=== PATIENT | male | born 1990 | race Hispanic/Latino ===

== ENCOUNTER 2020-05-21 23:00 | Emergency (ER) | payer OTHER, SELFPAY ==
[2020-05-21 23:03] VITALS: BP 137/93; PULSE 110; RESP 16; TEMP 36.3; O2SAT 100
--- NOTE | 2020-05-22 01:13 | ED_ITS ---
HPI - Dental/Oral General Chief complaint: Dental/Oral Stated complaint: dental pain Time Seen by Provider: 05/22/20 01:11 Source: patient Mode of arrival: ambulatory Limitations: no limitations History of Present Illness HPI Narrative: Patient is 29 years old white male complaining of pain left lower tooth started few days ago. Patient does not remember when the last time he been seen by a dentist. Patient denies any fever, chills, nausea, vomiting, headache, neck pain. Related Data Allergies Allergy/AdvReac Type Severity Reaction Status Date / Time NKDA Allergy Mild Uncoded 05/28/10 02:56 Review of Systems Review of Systems: Narrative: CONSTITUTIONAL: Denies fever, chills, or sweats. EYES: Denies visual changes, redness, or discharge. ENT: Denies rhinorrhea, congestion, sore throat, or otalgia. CARDIOVASCULAR: Denies chest pain, palpitations, or edema. RESPIRATORY: Denies cough or dyspnea. GASTROINTESTINAL: Denies abdominal pain, nausea, vomiting, or diarrhea. GENITOURINARY: Denies dysuria or hematuria. SKIN: Denies rash or itching. MUSCULOSKELETAL: Denies back pain, joint pain, or myalgia. NEUROLOGIC: Denies headache, numbness, or weakness. PSYCHIATRIC: Denies anxiety or depression. Exam Narrative: Exam Narrative: General appearance: Well-developed, well-nourished Skin: Normal color Head: Normocephalic, nontraumatic Eyes: Clear conjunctiva ENT: Oropharynx normal, left lower premolar tooth is broken, surrounded by erythematous gum, no abscess formation. Neck: Supple, nontender Neurologic: Alert and oriented ?3, Course Course Emergency Course: Stable Vital Signs Vital signs: Vital Signs Temperature 36.3 C L 05/21/20 23:03 Pulse Rate 110 H 05/21/20 23:03 Respiratory Rate 16 05/21/20 23:03 Blood Pressure 137/93 H 05/21/20 23:03 Pulse Oximetry 100 05/21/20 23:03 Temperature 36.3 C L 05/21/20 23:03 Pulse Rate 110 H 05/21/20 23:03 Respiratory Rate 16 05/21/20 23:03 Blood Pressure 137/93 H 05/21/20 23:03 Pulse Oximetry 100 05/21/20 23:03 MDM - Dental/Oral MDM Narrative Medical decision making narrative: Dental infection, no abscess at this time Critical Care Time Critical Care Time Critical Care Time: No Discharge Plan Discharge Clinical Impression: Dental caries Patient Disposition: Home, Self-Care Condition: Stable Instructions: Antibiotic Form, Toothache (ED) Additional Instructions: Return if symptoms are worsening , call a dentist for appointment, take Tylenol as as needed for aches and pain, continue home medications.. Follow-up with the clinics with dental services. Prescriptions: New penicillin V potassium 500 mg tablet 500 mg PO Q6H Qty: 40 RF: 0 ibuprofen 800 mg tablet 800 mg PO TID PRN (Reason: pain) Qty: 20 RF: 0 Follow-up/Referrals: PHYSICIAN,CHLOROBUTADIENE SCRUBBER OPERATOR [Primary Care Provider] - Stand Alone Forms: Work/School Release IP
[2020-05-22] MEDS: IBUPROFEN 400 MG TABLET 800 MG PO (01:44)
[2020-05-22] MEDS: PENICILLIN V POTASSIUM 250 MG TABLET 500 MG PO (01:45)
[2020-05-22 01:55] VITALS: BP 142/83; PULSE 96; RESP 14; O2SAT 96
[2020-05-22 02:02] VITALS: TEMP 36.3
== END 2020-05-22 02:02 | disposition home or self-care (01) ==
PROVIDERS: Emergency Provider Emergency Medicine
DX: K02.9 Dental caries, unspecified (principal)
CPT/HCPCS: 99283; A9270

== ENCOUNTER 2021-01-03 14:33 | Emergency (ER) | payer OTHER, SELFPAY ==
[2021-01-03 14:56] VITALS: BP 149/94; PULSE 102; RESP 14; TEMP 36.8; O2SAT 100
[2021-01-03 17:34] LABS: Add Urine Microscopic? YES; Appearance Urine Cloudy (Clear); Bilirubin Urine Negative (Negative); Blood Urine Negative (Negative); Color Urine Yellow (Yellow); Glucose Urine UA Negative (Negative); Ketones Urine Negative (Negative); Leukocyte Esterase Ur Negative LEU/UL (Negative); Mucus Urine Rare /lpf; Nitrate Urine Negative (Negative); Protein Urine Negative (Negative); Specific Grav Ur 1.017 (1.001-1.035); WBC Urine 0-3 /hpf
[2021-01-03 17:38] LABS: Basophils Percent Auto 0.4 % (0.2-1.2); Eosinophils Absolute Auto 0.2 K/mm3 (0-0.3); Eosinophils Percent Auto 3.1 % (0-4.4); Hematocrit 42.8 % (42.0-52.0); Hemoglobin 14.7 g/dL (14.0-18.0); Immature Granulocyte Absolute 0.05 K/mm3 (0.00-0.031); Immature Granulocyte Percent A 0.7 % (0-0.5); Lymphocytes Absolute Auto 2.41 K/mm3 (0.9-3.2); Mean Corpuscular HGB Conc 34.3 g/dl (32-36); Mean Corpuscular Hemoglobin 30.8 pg (26-34); Mean Corpuscular Volume 89.5 fl (80-100); Mean Platelet Volume 10.6 fl (7.4-10.4); Monocytes Absolute Auto 0.6 K/mm3 (0.1-0.6); Monocytes Percent Auto 7.3 % (2.6-8.5); Neutrophils Absolute Auto 4.3 K/mm3 (1.3-6.7); Neutrophils Percent Auto 56.5 % (45.5-73.1); Platelet Count Result 235 k/mm3 (150-375); Red Blood Count 4.78 M/mm3 (4.6-6.20); Red Cell Distribution Width 12.7 % (11.5-14.5); White Blood Count 7.5 K/mm3 (4.5-10.0)
[2021-01-03 17:41] LABS: Amphetamine Screen Urine Negative (Negative); Barbiturate Screen Urine Negative (Negative); Benzodiazepines Screen Urine Negative (Negative); Cannabinoid Screen Urine Positive (Negative); Cocaine Screen Urine Negative (Negative); Methadone Screen Urine Negative (Negative); Opiate Screen Urine Negative (Negative); Phencyclidine Screen Urine Negative (Negative)
[2021-01-03 17:47] LABS: Ethanol < 10 mg/dL (<10)
--- NOTE | 2021-01-03 17:47 | ED.ANXIETY ---
HPI - Anxiety General Chief Complaint: Anxiety Stated Complaint: anxiety Time Seen by Provider: 01/03/21 17:06 Source: patient Mode of arrival: ambulatory Limitations: no limitations History of Present Illness HPI narrative: This is a 30 year old male that presents to the ER for worsening anxiety over the last couple of weeks. Reports history of PTSD after being in [place], and that he is currently seeing a counselor. He is not on any medications for anxiety. Does report history of psychiatric hospitalizations in the past. No previous suicide attempts. Reports when he gets angry he has outbursts which are very difficult for him to control. Reports the anniversary of his injury in [place] is coming up and this concerns him. He would like some anxiety medication to get him through this time. He denies any current thoughts of suicide or homicide. Related Data Allergies Allergy/AdvReac Type Severity Reaction Status Date / Time NKDA Allergy Mild Uncoded 05/28/10 02:56 Review of Systems Review of Systems: CONSTITUTIONAL: Denies fever PSYCHIATRIC: Reports anxiety All systems reviewed & are unremarkable except as noted in HPI and below PMFSH Past Medical History Medical History (Updated 01/03/21 @ 17:59 by Cherelle Rivera PA-C) History of posttraumatic stress disorder (PTSD) Social History Social History (Updated 01/03/21 @ 17:58 by Cherelle Rivera PA-C) Substance use: current Substance use type: marijuana Exam Narrative: GENERAL: Well-appearing, well-nourished, and in no acute distress. HEAD: Normocephalic, atraumatic. EYES: EOMI. EXTREMITIES: Normal range of motion. No edema. SKIN: Warm, dry, no rash. NEURO: No focal deficits. Alert and oriented x3. PSYCH: Normal mood and affect Course Vital Signs Vital signs: Vital Signs Temperature 98.2 F 01/03/21 14:56 Pulse Rate 102 H 01/03/21 14:56 Respiratory Rate 14 01/03/21 14:56 Blood Pressure 149/94 H 01/03/21 14:56 Pulse Oximetry 100 01/03/21 14:56 Temperature 98.2 F 01/03/21 14:56 Pulse Rate 102 H 01/03/21 14:56 Respiratory Rate 14 01/03/21 14:56 Blood Pressure 149/94 H 10/04/21 14:56 Pulse Oximetry 100 01/03/21 14:56 MDM - Anxiety MDM Narrative Medical decision making narrative: Patient presents to the emergency department for acute anxiety. Reports history of PTSD. Reports worsening symptoms of anxiety over the last couple of weeks. Reports the anniversary of his injury in [place] is coming up which concerns him. He is currently seeing a counselor, but does not have any medications as needed for anxiety. Reports he would like some medication to get through to this day. He does have an appointment to see a psychiatrist in a couple of weeks. He currently has no thoughts of harming himself or anyone else. He is here with his significant other which has been his support system. Patient is stable and felt appropriate for further outpatient evaluation. He was given warnings to return to the ER Lab Data Attestation: I reviewed the patient's lab results. Result diagrams: 01/03/21 17:23 01/03/21 17:23 Labs: Lab Results 01/03/21 01/03/21 01/03/21 Range/Units 17:14 17:14 17:23 WBC 7.5 (4.5-10.0) K/mm3 RBC 4.78 (4.6-6.20) M/mm3 Hgb 14.7 (14.0-18.0) g/dL Hct 42.8 (42.0-52.0) % MCV 89.5 (80-100) fl MCH 30.8 (26-34) pg MCHC 34.3 (32-36) g/dl RDW 12.7 (11.5-14.5) % Plt Count 235 (150-375) k/mm3 MPV 10.6 H (7.4-10.4) fl Immature Gran % (Auto) 0.7 H (0-0.5) % Neut % (Auto) 56.5 (45.5-73.1) % Lymph % (Auto) 32.0 (18.3-44.2) % [place] % (Auto) 7.3 (2.6-8.5) % Eos % (Auto) 3.1 (0-4.4) % Baso % (Auto) 0.4 (0.2-1.2) % Lymph # (Auto) 2.41 (0.9-3.2) K/mm3 [place] # (Auto) 0.6 (0.1-0.6) K/mm3 Eos # (Auto) 0.2 (0-0.3) K/mm3 Baso # (Auto) 0.0 (0.0-0.1) K/mm3 Abs Immat Gran (auto) 0.05 H (0.00-0.031) K/mm3 Absolute
[2021-01-03 17:48] LABS: Alanine Aminotransferase 26 U/L (4-50); Albumin Level 4.8 g/dL (3.5-5.1); Alkaline Phosphatase 102 U/L (38-126); Anion Gap 10 mmol/L (8-16); Aspartate Amino Transferase 27 U/L (17-59); Bilirubin,Total 0.4 mg/dL (0.2-1.3); Blood Urea Nitrogen 17 mg/dL (9-20); Calcium 9.6 mg/dL (8.4-10.2); Carbon Dioxide 23 mmol/L (22-30); Chloride 106 mmol/L (98-107); Estimated CRCL calculation 112 ml/min; Estimated Glomerular Filt Rate > 60; Glucose 102 mg/dL (65-110); Potassium 4.3 mmol/L (3.4-5.0); Sodium 139 mmol/L (137-145)
[2021-01-03] MEDS: hydrOXYzine HCL 25 MG TABLET PO (18:01)
[2021-01-03 18:13] VITALS: BP 118/75; PULSE 72; RESP 18; O2SAT 100
== END 2021-01-03 18:13 | disposition home or self-care (01) ==
PROVIDERS: Physician Assistant; Emergency Provider Family Medicine
DX: F41.9 Anxiety disorder, unspecified (principal); F43.10 Post-traumatic stress disorder, unspecified
CPT/HCPCS: 36415; 80053; 80307; 81001; 84443; 85025; 99283; A9270

== ENCOUNTER 2021-01-20 16:00 | Emergency (ER) | payer OTHER, SELFPAY ==
[2021-01-20] VITALS (10 sets, daily range): BP systolic 115–177; BP diastolic 68–105; PULSE 65–92; RESP 13–21; TEMP 36.7; O2SAT 97–100
--- NOTE | ~2021-01-20 | CT_ITS ---
IMPRESSION: 1. Nonobstructing bilateral nephrolithiasis. EXAMINATION: CT abdomen pelvis wo con DATE: 01/20/2021 18:09 INDICATION: Right flank pain TECHNIQUE: Computed tomography (CT) of the abdomen and pelvis was performed without intravenous contr ast. The dose-length product (DLP) was 820.24 mGy-cm. Automated exposure control and iterative recons truction technique were employed. COMPARISON: None FINDINGS: The lung bases are clear. The heart size is normal. There is an 8 mm cyst of the right hepa tic lobe. The spleen, pancreas, gallbladder, and left adrenal gland are normal. There is a 7 mm adeno ma of the right adrenal gland. There are multiple nonobstructing stones of the right kidney which shanel sure up to 4 mm. There is a 2 mm nonobstructing stone of the left kidney. No stones are present in th e ureters or bladder. There is no hydronephrosis or hydroureter. No pathologically enlarged abdominal or pelvic lymph nodes are identified. There is no free intraperitoneal gas or evidence of bowel obst ruction. The appendix is normal. There is a small fat-containing umbilical hernia. IMPRESSION: 1. Nonobstructing bilateral nephrolithiasis. Reviewed, dictated and finalized at location A.
[2021-01-20 16:30] LABS: Basophils Percent Auto 0.2 % (0.2-1.2); Eosinophils Absolute Auto 0.1 K/mm3 (0-0.3); Eosinophils Percent Auto 1.5 % (0-4.4); Hematocrit 42.6 % (42.0-52.0); Hemoglobin 14.4 g/dL (14.0-18.0); Immature Granulocyte Absolute 0.05 K/mm3 (0.00-0.031); Immature Granulocyte Percent A 0.6 % (0-0.5); Lymphocytes Absolute Auto 2.43 K/mm3 (0.9-3.2); Lymphocytes Percent Auto 26.8 % (18.3-44.2); Mean Corpuscular HGB Conc 33.8 g/dl (32-36); Mean Corpuscular Hemoglobin 30.1 pg (26-34); Mean Corpuscular Volume 89.1 fl (80-100); Mean Platelet Volume 10.5 fl (7.4-10.4); Monocytes Absolute Auto 0.6 K/mm3 (0.1-0.6); Monocytes Percent Auto 6.6 % (2.6-8.5); Neutrophils Absolute Auto 5.8 K/mm3 (1.3-6.7); Neutrophils Percent Auto 64.3 % (45.5-73.1); Platelet Count Result 262 k/mm3 (150-375); Red Blood Count 4.78 M/mm3 (4.6-6.20); Red Cell Distribution Width 12.7 % (11.5-14.5); White Blood Count 9.1 K/mm3 (4.5-10.0)
[2021-01-20 16:39] LABS: Add Urine Microscopic? YES; Appearance Urine Cloudy (Clear); Bacteria Urine Trace /hpf; Bilirubin Urine Negative (Negative); Blood Urine 3+ (Negative); Color Urine Yellow (Yellow); Glucose Urine UA Negative (Negative); Ketones Urine 1+ mg/dL (Negative); Leukocyte Esterase Ur 2+ LEU/UL (Negative); Mucus Urine Rare /lpf; Nitrate Urine Negative (Negative); Protein Urine 1+ mg/dL (Negative); RBC Urine 21-50 /hpf (0-2); Specific Grav Ur 1.023 (1.001-1.035); Squamous Epithelial Cell Urine Many /hpf (Few)
[2021-01-20 16:55] LABS: Anion Gap 11 mmol/L (8-16); Blood Urea Nitrogen 13 mg/dL (9-20); Calcium 9.7 mg/dL (8.4-10.2); Carbon Dioxide 24 mmol/L (22-30); Chloride 105 mmol/L (98-107); Estimated CRCL calculation 113 ml/min; Estimated Glomerular Filt Rate > 60; Glucose 94 mg/dL (65-110); Potassium 4.2 mmol/L (3.4-5.0); Sodium 140 mmol/L (137-145)
[2021-01-20] MEDS: SODIUM CHLORIDE 0.9% IV 1,000 ML 999 ML IV CONT (18:00)
--- NOTE | 2021-01-20 18:30 | ED.GENADULT ---
HPI - General Adult General Chief complaint: Urogenital-Male Stated complaint: Kidney Stone Pain Time Seen by Provider: 01/20/21 17:40 History of Present Illness HPI narrative: Patient is a 30-year-old male who presents ER with right-sided flank pain. Began at 3 PM. Associate with nausea and vomiting. Pain radiates into his testicle. Has some mild dysuria. No fevers or chills or sweats. Has history of kidney stones. Has not found any pain relief. Denies urethral discharge. No tenderness to his testicle despite radiation. No swelling. Denies risk for STI. Related Data Allergies Allergy/AdvReac Type Severity Reaction Status Date / Time prednisone Allergy Unknown Verified 01/20/21 17:39 shrimp Allergy Hives Verified 01/20/21 17:39 Review of Systems Review of Systems: All systems reviewed & are unremarkable except as noted in HPI and below Constitutional: Constitutional: Denies chills, Denies fever(s) and Denies weakness ENT: Denies as per HPI and Denies nasal congestion Cardiovascular: Cardiovascular: Denies chest pain, Denies rapid heart rate and Denies radiating jaw, neck or arm pain Gastrointestinal: Gastrointestinal: Reports abdominal pain, Denies constipation, Denies diarrhea, Reports nausea and Reports vomiting Genitourinary: Genitourinary: Denies hematuria, Reports dysuria, Denies penile discharge, Reports testicular pain and Reports urinary frequency Musculoskeletal: Musculoskeletal: Denies back pain and Denies muscle cramps PMFSH Past Medical History Medical History (Updated 01/20/21 @ 19:18 by Ricardo Hutton MD) History of kidney stones History of posttraumatic stress disorder (PTSD) Surgical History Surgical History (Updated 01/20/21 @ 18:35 by Ricardo Hutton MD) History of lithotripsy Social History Social History (Updated 01/03/21 @ 17:58 by Cherelle Rivera PA-C) Substance use: current Substance use type: marijuana Exam Narrative: GENERAL: Well-appearing, well-nourished, and in no acute distress. HEAD: Normocephalic, atraumatic. EYES: PERRL and EOMI. CHEST: Clear to auscultation. No respiratory distress. HEART: Regular rate and rhythm. Normal peripheral pulses. ABDOMEN: Soft, nontender, nondistended. Mild right CVA tenderness. EXTREMITIES: Normal range of motion. No edema. SKIN: Warm, dry, no rash. NEURO: Alert and oriented x3. PSYCH: Normal mood and affect. Course Course Emergency Course: Suspect patient urinated out a stone when he had his mild dysuria. Pain has decreased with Toradol. Will prescribe a short course of ciprofloxacin given abnormal urine. Discharge home. Vital Signs Vital signs: Vital Signs Temperature 98.1 F 01/20/21 16:07 Pulse Rate 92 01/20/21 16:07 Respiratory Rate 18 01/20/21 16:07 Blood Pressure 177/105 H 01/20/21 16:07 Pulse Oximetry 100 01/20/21 16:07 Temperature 98.1 F 01/20/21 16:07 Pulse Rate 92 01/20/21 16:07 Respiratory Rate 18 01/20/21 16:07 Blood Pressure 177/105 H 01/20/21 16:07 Pulse Oximetry 100 01/20/21 16:07 Medical Decision Making Vital Signs Vital Signs: Vital Signs Temperature 98.1 F 01/20/21 16:07 Pulse Rate 92 01/20/21 16:07 Respiratory Rate 18 01/20/21 16:07 Blood Pressure 177/105 H 01/20/21 16:07 Pulse Oximetry 100 01/20/21 16:07 Temperature 98.1 F 01/20/21 16:07 Pulse Rate 92 01/20/21 16:07 Respiratory Rate 18 01/20/21 16:07 Blood Pressure 177/105 H 01/20/21 16:07 Pulse Oximetry 100 01/20/21 16:07 Lab Data Result diagrams: 01/20/21 16:13 01/20/21 16:13 Labs: Lab Results 01/20/21 01/20/21 01/20/21 Range/Units 16:13 16:13 16:13 WBC 9.1 (4.5-10.0) K/mm3 RBC 4.78 (4.6-6.20) M/mm3 Hgb 14.4 (14.0-18.0) g/dL Hct 42.6 (42.0-52.0) % MCV 89.1 (80-100) fl MCH 30.1 (26-34) pg MCHC 33.8 (32-36) g/dl RDW 12.7 (11.5-14.5) % Plt Count 262 (150-375) k/mm3 MPV 1
[2021-01-20] MEDS: ONDANSETRON INJ 4 MG/2 ML VIAL IV PUSH (18:33)
[2021-01-20] MEDS: KETOROLAC 30 MG/ML VIAL (*BKC) IV PUSH (18:33)
--- NOTE | 2021-01-20 19:30 | PC.NURSE ---
Pt stated that he is ready for discharge and did not want to stay, pt states he has a hx of ptsd, no acute distress at this time
== END 2021-01-20 19:25 | disposition home or self-care (01) ==
PROVIDERS: Emergency Provider Emergency Medicine
DX: N20.0 Calculus of kidney (principal); N39.0 Urinary tract infection, site not specified; Z87.442 Personal history of urinary calculi
CPT/HCPCS: 36415; 74176; 80048; 81001; 85025; 87086; 87088; 96361; 96374; 96375; 99284; J1885; J2405; J7030

== ENCOUNTER 2021-01-22 15:49 | Emergency (ER) | payer OTHER, SELFPAY ==
[2021-01-22 15:50] VITALS: BP 136/84; PULSE 99; RESP 17; TEMP 36.4; O2SAT 100
--- NOTE | 2021-01-22 16:46 | ED.GENADULT ---
HPI - General Adult General Chief complaint: Dental/Oral <Norma Gordillo PA-C - Last Filed: 01/22/21 17:24> Stated complaint: broken tooth <Norma Gordillo PA-C - Last Filed: 01/22/21 17:24> Time Seen by Provider: 01/22/21 16:45 <Norma Gordillo PA-C - Last Filed: 01/22/21 17:24> Source: patient <Norma Gordillo PA-C - Last Filed: 01/22/21 17:24> Mode of arrival: ambulatory <Norma Gordillo PA-C - Last Filed: 01/22/21 17:24> Limitations: no limitations <Norma Gordillo PA-C - Last Filed: 01/22/21 17:24> History of Present Illness HPI narrative: Patient is here for dental pain. He broke and already broken tooth today while eating. Now is experiencing significant pain. He believes he has access to a dentist on Sunday. <Norma Gordillo PA-C - Last Filed: 01/22/21 17:24> Onset (ago): hour(s) <Norma Gordillo PA-C - Last Filed: 01/22/21 17:24> Severity: severe <Norma Gordillo PA-C - Last Filed: 01/22/21 17:24> Severity scale (1-10): 9 <Norma Gordillo PA-C - Last Filed: 01/22/21 17:24> Quality: aching <Norma Gordillo PA-C - Last Filed: 01/22/21 17:24> Pain Consistency: constant <JUAN C Burch Last Filed: 01/22/21 17:24> Relieving factors: none <JUAN C Burch Last Filed: 01/22/21 17:24> Associated symptoms: denies other symptoms <JUAN C Burch Last Filed: 01/22/21 17:24> Related Data Allergies/adverse reactions: Allergies Allergy/AdvReac Type Severity Reaction Status Date / Time prednisone Allergy Unknown Verified 01/20/21 17:39 shrimp Allergy Hives Verified 01/20/21 17:39 <Norma Gordillo PA-C - Last Filed: 01/22/21 17:24> Review of Systems Review of Systems: All systems reviewed & are unremarkable except as noted in HPI and below <Norma Gordillo PA-C - Last Filed: 01/22/21 17:24> [facility] Past Medical History Medical History: Medical History History of kidney stones History of posttraumatic stress disorder (PTSD) <Norma Gordillo PA-C - Last Filed: 01/22/21 17:24> Surgical History Surgical History: Surgical History History of lithotripsy <Norma Gordillo PA-C - Last Filed: 01/22/21 17:24> Social History Social History: Social History (Updated 01/22/21 @ 17:16 by Norma Gordillo PA-C) Smoking status: Current every day smoker Substance use: current Substance use type: marijuana <Norma Gordillo PA-C - Last Filed: 01/22/21 17:24> Exam Const: General: no acute distress and alert <Norma Gordillo PA-C - Last Filed: 01/22/21 17:24> Orientation/consciousness: patient oriented x3 <Norma Gordillo PA-C - Last Filed: 01/22/21 17:24> HENMT: Head: normal to inspection <Norma Gordillo PA-C - Last Filed: 01/22/21 17:24> Mouth: Yes Normal oral and palatal mucosa present <Norma Gordillo PA-C - Last Filed: 01/22/21 17:24> Teeth and gingiva: caries and other (fracture of #20. open area, possibly former filling.) <Norma Gordillo PA-C - Last Filed: 01/22/21 17:24> Throat: posterior oropharynx normal <Norma Gordillo PA-C - Last Filed: 01/22/21 17:24> Eyes: Pupils: Equal, round and reactive pupils present <Norma Gordillo PA-C - Last Filed: 01/22/21 17:24> Resp: Effort & Inspection: normal respiratory effort <JUAN C Burch Last Filed: 01/22/21 17:24> Cardio: Rate: regular rate <JUAN C Burch Last Filed: 01/22/21 17:24> Rhythm: regular rhythm <Norma Gordillo PA-C - Last Filed: 01/22/21 17:24> Course Course Emergency Course: Gave patient instructions regarding covering the fracture. Applied viscous of lidocaine to the area and then cover with dental wax. Must follow-up with the dentist as soon as possible and in the meantime may take 800 mg of ibuprofen every 6-8 hours as needed for pain. <Katelynn
[2021-01-22] MEDS: LIDOCAINE HCL 2% VISC SOLN 15 ML UDC PO (17:21)
== END 2021-01-22 17:44 | disposition home or self-care (01) ==
PROVIDERS: Emergency Provider General Practice
DX: K03.81 Cracked tooth (principal); Z87.442 Personal history of urinary calculi; F17.200 Nicotine dependence, unspecified, uncomplicated
CPT/HCPCS: 99283

== ENCOUNTER 2021-04-15 09:57 | Emergency (ER) | payer OTHER, SELFPAY ==
--- NOTE | ~2021-04-15 | XR_ITS ---
EXAMINATION: XR abdomen/kub 1V EXAM DATE: 04/15/2021 11:41 INDICATION: Right mid ureteral stone. TECHNIQUE: Frontal projection(s) of the abdomen for interpretation. Correlation is made to CT earlier same date. FINDINGS: Right mid ureteral stone identified overlying and just above the right L4 transverse proce ss on the 2 KUB projections. Right nephrolithiasis possibly identified through colonic stool. Nonobst ructive bowel gas pattern. Mild levocurvature of the lumbar spine. IMPRESSION: Right mid ureteral stone identified, indicated. Reviewed, dictated and finalized at location A. GN TRANSFERRER
--- NOTE | ~2021-04-15 | CT_ITS ---
EXAMINATION: CT abdomen pelvis wo con EXAM DATE: 04/15/2021 11:06 INDICATION: Right flank pain radiating to groin TECHNIQUE: Spiral CT of the abdomen and pelvis was performed without contrast. Axial, coronal and sag ittal images were reviewed. The dose-length product (DLP) for this examination was 634.84 mGy-cm. T he exposure was tailored according to patient size (auto mA exposure control), and iterative reconstr uction (ASIR) was used as additional dose reduction technique. Comparison is made to prior examinatio n from 01/20/2021. FINDINGS: There is right mid ureteral 3.5 mm stone, at the L3-4 level. Mild right-sided hydronephrosi s. There are about 5 other right calyceal stones measuring up to 6 mm. No left nephrolithiasis. The prostate is unremarkable. The bladder is unremarkable. The liver, spleen, adrenal glands and pancre as are unremarkable. Gallbladder is unremarkable. No biliary obstruction. There is no retroperiton eal or pelvic lymphadenopathy. There are no findings to suggest appendicitis. The stomach and small bowel are unremarkable. There is expected amount of colonic stool. No free intraperitoneal gas. The heart is normal in size. T here are no pericardial or pleural effusions. The lung bases are unremarkable. The bones are unrema rkable. IMPRESSION: 1. Right mid ureteral 3.5 mm stone, mild obstructive nephropathy; consultants would appreciate mundo quiroz KUB. 2. Right nephrolithiasis. Reviewed, dictated and finalized at location A. K DRIVER HELPER IMPRESSION: 1. Right mid ureteral 3.5 mm stone, mild obstructive nephropathy; consultan ts would appreciate baseline KUB. 2. Right nephrolithiasis.
[2021-04-15 10:03] VITALS: BP 138/85; PULSE 91; RESP 16; TEMP 36.6; O2SAT 100
[2021-04-15 10:29] LABS: Basophils Percent Auto 0.3 % (0.2-1.2); Eosinophils Absolute Auto 0.2 K/mm3 (0-0.3); Eosinophils Percent Auto 2.3 % (0-4.4); Hematocrit 46.8 % (42.0-52.0); Hemoglobin 15.8 g/dL (14.0-18.0); Immature Granulocyte Absolute 0.03 K/mm3 (0.00-0.031); Immature Granulocyte Percent A 0.4 % (0-0.5); Lymphocytes Absolute Auto 2.31 K/mm3 (0.9-3.2); Lymphocytes Percent Auto 33.3 % (18.3-44.2); Mean Corpuscular HGB Conc 33.8 g/dl (32-36); Mean Corpuscular Hemoglobin 29.6 pg (26-34); Mean Corpuscular Volume 87.6 fl (80-100); Mean Platelet Volume 10.4 fl (7.4-10.4); Monocytes Absolute Auto 0.6 K/mm3 (0.1-0.6); Monocytes Percent Auto 8.8 % (2.6-8.5); Neutrophils Absolute Auto 3.8 K/mm3 (1.3-6.7); Neutrophils Percent Auto 54.9 % (45.5-73.1); Platelet Count Result 239 k/mm3 (150-375); Red Blood Count 5.34 M/mm3 (4.6-6.20); Red Cell Distribution Width 13.3 % (11.5-14.5); White Blood Count 6.9 K/mm3 (4.5-10.0)
[2021-04-15] MEDS: MORPHINE SULFATE (*CRX) 4 MG/ML INJ IV PUSH (10:40)
[2021-04-15] MEDS: ONDANSETRON INJ 4 MG/2 ML VIAL IV PUSH (10:40)
--- NOTE | 2021-04-15 10:40 | PC.NURSE ---
evaluation by brian hannah
[2021-04-15 10:42] LABS: Alanine Aminotransferase 25 U/L (4-50); Albumin Level 4.8 g/dL (3.5-5.1); Alkaline Phosphatase 127 U/L (38-126); Anion Gap 10 mmol/L (8-16); Aspartate Amino Transferase 31 U/L (17-59); Blood Urea Nitrogen 15 mg/dL (9-20); Calcium 9.7 mg/dL (8.4-10.2); Carbon Dioxide 24 mmol/L (22-30); Chloride 105 mmol/L (98-107); Estimated CRCL calculation 103 ml/min; Estimated Glomerular Filt Rate > 60; Glucose 118 mg/dL (65-110); Lipase 132 U/L (23-300); Potassium 3.9 mmol/L (3.4-5.0); Sodium 139 mmol/L (137-145)
--- NOTE | 2021-04-15 10:47 | ED.ABDPAIN ---
HPI - Abdominal Pain General Chief Complaint: Urogenital-Male Stated Complaint: Possible Kidney Stones Time Seen by Provider: 04/15/21 10:14 Source: patient and family Mode of arrival: wheelchair Limitations: no limitations History of Present Illness HPI narrative: This is a 30 year old male that presents to the ER for right flank pain radiating to groin present since this morning. Associated with nausea, dysuria and hematuria. Reports history of kidney stones. His urologist is Dr. Ulloa. Denies fever or vomiting. Related Data Allergies Allergy/AdvReac Type Severity Reaction Status Date / Time prednisone Allergy Unknown Verified 04/15/21 10:06 shrimp Allergy Hives Verified 04/15/21 10:06 Review of Systems Review of Systems: CONSTITUTIONAL: Denies fever GASTROINTESTINAL: Reports abdominal pain, nausea. Denies vomiting GENITOURINARY: Reports dysuria and hematuria. All systems reviewed & are unremarkable except as noted in HPI and below PMFSH Past Medical History Medical History History of kidney stones History of posttraumatic stress disorder (PTSD) Surgical History Surgical History History of lithotripsy Social History Social History (Updated 04/15/21 @ 10:51 by Cherelle Rivera PA-C) Smoking status: Current every day smoker Exam Narrative: GENERAL: Well-appearing, well-nourished, and in no acute distress. HEAD: Normocephalic, atraumatic. EYES: EOMI. CHEST: Clear to auscultation. No respiratory distress. No wheezes rales or rhonchi HEART: Regular rate and rhythm. No murmur heard. Normal peripheral pulses. ABDOMEN: Soft, nondistended, normal active bowel sounds. Tender to palpation in the right mid to lower abdomen, guarding present EXTREMITIES: Normal range of motion. No edema. SKIN: Warm, dry, no rash. NEURO: No focal deficits. Alert and oriented x3. PSYCH: Normal mood and affect Course Consultations Consultation #1: Spoke with Dr. Ulloa about patient and workup who will follow up in clinic. Is okay with Toradol for pain management Date: 04/15/21 Time: 13:00 Vital Signs Vital signs: Vital Signs Temperature 97.8 F 04/15/21 10:03 Pulse Rate 91 04/15/21 10:03 Respiratory Rate 16 04/15/21 10:03 Blood Pressure 138/85 04/15/21 10:03 Pulse Oximetry 100 04/15/21 10:03 Temperature 97.8 F 04/15/21 10:03 Pulse Rate 71 04/15/21 11:13 Respiratory Rate 20 04/15/21 11:13 Blood Pressure 138/91 H 04/15/21 11:13 Pulse Oximetry 99 04/15/21 11:13 MDM - Abdominal Pain MDM Narrative Medical decision making narrative: Patient presents to the ER for right flank pain radiating to groin. History of previous kidney stones. He is afebrile and nontoxic-appearing. CBC and metabolic panel without concerning findings. Lipase is normal. UA without evidence of infection. Does show greater than [address] scan of the abdomen and pelvis shows a right mid ureteral 3.5 mm stone. Mild obstructive nephropathy. KUB identifies stone. Patient and family updated on case findings. Patient has a urologist, Dr. Ulloa. Patient reports he feels comfortable with discharge home with pain medication and follow-up outpatient in clinic for further management. Spoke with patient's urologist who agrees with this plan. Patient is stable and felt appropriate for further outpatient evaluation. He was given warnings to return to the ER Lab Data Attestation: I reviewed the patient's lab results. Result diagrams: 04/15/21 10:15 04/15/21 10:15 Labs: Lab Results 04/15/21 04/15/21 04/15/21 Range/Units 10:15 10:15 10:28 WBC 6.9 (4.5-10.0) K/mm3 RBC 5.34 (4.6-6.20) M/mm3 Hgb 15.8 (14.0-18.0) g/dL Hct 46.8 (42.0-52.0) % MCV 87.6 (80-100) fl MCH 29.6 (26-34) pg MCHC 33.8 (32-36) g/dl RDW 13.3 (11.5-14.5) % Plt Count 2
[2021-04-15 10:50] LABS: Add Urine Microscopic? YES; Appearance Urine Cloudy (Clear); Bilirubin Urine Negative (Negative); Blood Urine 3+ (Negative); Color Urine Yellow (Yellow); Glucose Urine UA Negative (Negative); Ketones Urine Negative (Negative); Leukocyte Esterase Ur Negative LEU/UL (Negative); Mucus Urine Moderate /lpf; Nitrate Urine Negative (Negative); Protein Urine 2+ mg/dL (Negative); RBC Urine >75 /hpf (0-2); Specific Grav Ur 1.023 (1.001-1.035)
[2021-04-15] MEDS: SODIUM CHLORIDE 0.9% IV 1,000 ML 999 ML IV CONT (11:10)
[2021-04-15 11:13] VITALS: BP 138/91; PULSE 71; RESP 20; O2SAT 99
[2021-04-15] MEDS: HYDROmorphone HCL INJ (*CRX) 1 MG/ML SYR 0.5 MG IV PUSH (12:41)
[2021-04-15] MEDS: KETOROLAC 30 MG/ML VIAL (*BKC) IV PUSH (13:57)
[2021-04-15 14:15] VITALS: BP 151/95; PULSE 89; RESP 20; O2SAT 100
== END 2021-04-15 14:20 | disposition home or self-care (01) ==
PROVIDERS: Emergency Provider Emergency Medicine
DX: N13.8 Other obstructive and reflux uropathy (principal); N20.2 Calculus of kidney with calculus of ureter; Z87.442 Personal history of urinary calculi
CPT/HCPCS: 36415; 74018; 74176; 80053; 81001; 83690; 85025; 96361; 96374; 96375; 99284; J0131; J1170; J1885; J2270; J2405; J7030

== ENCOUNTER 2021-09-02 11:43 | Emergency (ER) | payer OTHER, SELFPAY ==
--- NOTE | ~2021-09-02 | CT_ITS ---
EXAMINATION: CT abdomen pelvis wo con DATE: 09/02/2021 12:27 INDICATION: Right flank pain radiating into the groin. Nausea. TECHNIQUE: Computed tomography (CT) of the abdomen and pelvis was performed without intravenous contr ast. Automated exposure control and iterative reconstruction technique were employed. The dose-length product was 302.47 mGy-cm. COMPARISON: None FINDINGS: Lung bases are clear. Heart size is normal. No pericardial or pleural effusion. 8 mm low-attenuation cyst in the right hepatic lobe. Gallbladder, spleen, pancreas and bilateral adrenal glands are normal . Left kidney and ureter are normal with no urolithiasis or hydronephrosis. There are at least 9 ston es in the right kidney measuring up to 5 mm. 2 mm at least partially obstructing stone at the right u reterovesicular junction with mild right hydroureteronephrosis. Bladder is normal. Bowels including t he appendix are normal. No free intraperitoneal gas or fluid. No pathologically enlarged abdominal or pelvic lymphadenopathy. Bones are unremarkable. IMPRESSION: 1. Right nephrolithiasis with 2 mm obstructing stone at the right ureterovesicular junction with mild right hydroureteronephrosis. Reviewed, dictated and finalized at location B. IMPRESSION: 1. Right nephrolithiasis with 2 mm obstructing stone at the right ureterovesicu lar junction with mild right hydroureteronephrosis.
--- NOTE | ~2021-09-02 | XR_ITS ---
XR abdomen/kub 1V 09/02/2021 12:36 Indication: Right flank pain Procedure: KUB Comparison: CT dated 09/02/2021 and KUB dated 04/15/2021 Findings: There are scattered multiple punctate radiodensities overlying the right kidney, consistent with renal stones. The kidneys are partially obscured by bowel content. There is a focal 2 mm calcif ication in the right pelvis, consistent with right UVJ stone. Bowel pattern nonobstructive. No acute osseous abnormality. Impression: 1: Right pelvic calcification measuring 2 mm, compatible with UVJ stone. 2: Right nephrolithiasis. Reviewed, dictated and finalized at location A. Impression: 1: Right pelvic calcification measuring 2 mm, compatible with UVJ stone. 2: Right nephrolithiasis.
[2021-09-02 11:45] VITALS: BP 157/95; PULSE 81; RESP 20; TEMP 36.2; O2SAT 98
[2021-09-02 11:58] LABS: Basophils Percent Auto 0.4 % (0.2-1.2); Eosinophils Absolute Auto 0.1 K/mm3 (0-0.3); Hematocrit 45.7 % (42.0-52.0); Immature Granulocyte Absolute 0.02 K/mm3 (0.00-0.031); Immature Granulocyte Percent A 0.3 % (0-0.5); Lymphocytes Absolute Auto 1.86 K/mm3 (0.9-3.2); Lymphocytes Percent Auto 26.8 % (18.3-44.2); Mean Corpuscular HGB Conc 32.8 g/dl (32-36); Mean Corpuscular Hemoglobin 29.4 pg (26-34); Mean Corpuscular Volume 89.4 fl (80-100); Mean Platelet Volume 10.5 fl (7.4-10.4); Monocytes Absolute Auto 0.5 K/mm3 (0.1-0.6); Monocytes Percent Auto 7.2 % (2.6-8.5); Neutrophils Absolute Auto 4.4 K/mm3 (1.3-6.7); Neutrophils Percent Auto 63.3 % (45.5-73.1); Platelet Count Result 216 k/mm3 (150-375); Red Blood Count 5.11 M/mm3 (4.6-6.20); Red Cell Distribution Width 13.4 % (11.5-14.5); White Blood Count 6.9 K/mm3 (4.5-10.0)
[2021-09-02 12:12] LABS: Alanine Aminotransferase 20 U/L (6-50); Albumin Level 4.7 g/dL (3.5-5.1); Alkaline Phosphatase 97 U/L (38-126); Anion Gap 5 mmol/L (8-16); Aspartate Amino Transferase 27 U/L (17-59); Bilirubin,Total 0.7 mg/dL (0.2-1.3); Blood Urea Nitrogen 13 mg/dL (9-20); Carbon Dioxide 27 mmol/L (22-30); Chloride 107 mmol/L (98-107); Estimated CRCL calculation 91 ml/min; Estimated Glomerular Filt Rate > 60; Glucose 101 mg/dL (65-110); Potassium 4.4 mmol/L (3.4-5.0); Sodium 139 mmol/L (137-145)
--- NOTE | 2021-09-02 12:16 | ED.ABDPAIN ---
HPI - Abdominal Pain General Chief Complaint: Abdominal Pain Stated Complaint: TESTICULAR PAIN, HX STONES Time Seen by Provider: 09/02/21 12:07 History of Present Illness HPI narrative: 30 y/o male presents to the ER today for pain that starts in right flank and wraps around right abdomen and radiates into right testicle. He says that pain started less than an hour ago, sudden onset. He has nausea, no vomiting. He appears very uncomfortable. He says urine looks dark and has had dysuria. He has a history of kidney stones several times in the past. He says that this feels very much like that pain. He has had to have lithotripsy about 4 years ago. He had urinary stent placed last year for a smaller stone. He denies any fever or chills. No bowel changes. Related Data Allergies Allergy/AdvReac Type Severity Reaction Status Date / Time prednisone Allergy Unknown Verified 04/15/21 10:06 shrimp Allergy Hives Verified 04/15/21 10:06 Review of Systems Constitutional: Comments: No fever or chills Eyes: Comments: no redness or discharge, no visual changes ENT: Comments: no congestion, no sore throat Cardiovascular: Comments: no chest pain or palpitations Respiratory: Comments: no shortness of breath, no cough Gastrointestinal: Comments: reports nausea, no vomiting or diarrhea Genitourinary: Comments: as per HPI Musculoskeletal: Comments: no extremity injury or pain Neurologic: Comments: no mental status change, no weakness Psychiatric: Comments: no anxiety or depression Hematologic/Lymphatic: Comments: no easy bruising or bleeding PMFSH Past Medical History Medical History History of kidney stones History of posttraumatic stress disorder (PTSD) Surgical History Surgical History History of lithotripsy Social History Social History Smoking status: Current every day smoker Exam Const: General: healthy appearing and no acute distress HENMT: Head: normal to inspection Mouth: Yes Normal oral and palatal mucosa present and Yes moist mucous membranes Eyes: Conjunctivae: conjunctivae normal Neck: Neck: normal visual inspection, no lymphadenopathy and no meningeal signs Chest: Chest palpation & inspection: normal inspection of the chest Resp: Effort & Inspection: normal respiratory effort Auscultation: clear to auscultation bilaterally Cardio: Rate: regular rate GI: GI Palp: Yes Soft to palpation and Yes Tenderness to palpation present (GI) (mild tenderness right lateral abdomen) Auscultation: normal bowel sounds : General: Yes bladder normal to palpation and Yes no CVA tenderness Skin: General skin exam: normal color Neuro: General: patient oriented x3, moves all extremities, no meningeal signs, no focal motor deficits and CN's II-XI intact bilaterally Extrem: General: normal to inspection Psych: Mental Status: mental status grossly normal Course Vital Signs Vital signs: Vital Signs Temperature 36.2 C L 09/02/21 11:45 Pulse Rate 81 09/02/21 11:45 Respiratory Rate 20 09/02/21 11:45 Blood Pressure 157/95 H 09/02/21 11:45 Pulse Oximetry 98 09/02/21 11:45 Oxygen Delivery Room Air 09/02/21 11:45 Temperature 36.3 C L 09/02/21 13:36 Pulse Rate 74 09/02/21 13:36 Respiratory Rate 16 09/02/21 13:36 Blood Pressure 133/78 09/02/21 13:36 Pulse Oximetry 100 09/02/21 13:36 Oxygen Delivery Room Air 09/02/21 11:45 MDM - Abdominal Pain Differential Diagnosis Differential diagnosis: Likely abdominal pain, acute appendicitis, calculus of kidney, constipation, diverticulitis, gastroenteritis, pancreatitis and small bowel obstruction Lab Data Attestation: I reviewed the patient's lab results. Result diagrams: 09/02/21 11:52 09/02/21 11:52 Lab
[2021-09-02 12:26] LABS: Appearance Urine Cloudy (Clear); Bilirubin Urine Negative (Negative); Blood Urine 3+ (Negative); Color Urine Yellow (Yellow); Glucose Urine UA Negative (Negative); Ketones Urine Negative (Negative); Leukocyte Esterase Ur 1+ LEU/UL (Negative); Nitrate Urine Negative (Negative); Protein Urine 1+ mg/dL (Negative); Urobilinogen Urine 0.2 mg/dL (<2.0)
[2021-09-02] MEDS: SODIUM CHLORIDE 0.9% IV 1,000 ML 999 ML IV CONT (12:36)
[2021-09-02] MEDS: MORPHINE SULFATE (*CRX) 4 MG/ML INJ IV PUSH (12:37)
[2021-09-02] MEDS: ONDANSETRON INJ 4 MG/2 ML VIAL IV PUSH (12:37)
[2021-09-02 12:39] LABS: Bacteria Urine Trace /hpf; Mucus Urine Rare /lpf; RBC Urine >75 /hpf (0-2); Squamous Epithelial Cell Urine Few /hpf (Few)
[2021-09-02 12:46] VITALS: BP 132/78; PULSE 76; RESP 16; TEMP 36.8; O2SAT 100
[2021-09-02 12:50] LABS: Add Urine Microscopic? YES
[2021-09-02] MEDS: MORPHINE SULFATE (*CRX) 2 MG/ML INJ IV PUSH (13:30)
[2021-09-02] MEDS: KETOROLAC 30 MG/ML VIAL (*BKC) IV PUSH (13:31)
[2021-09-02 13:36] VITALS: BP 133/78; PULSE 74; RESP 16; TEMP 36.3; O2SAT 100
== END 2021-09-02 14:10 | disposition home or self-care (01) ==
PROVIDERS: Emergency Medicine; Emergency Provider Nurse Practitioner Family
DX: N13.2 Hydronephrosis with renal and ureteral calculous obstruction (principal); F17.200 Nicotine dependence, unspecified, uncomplicated
CPT/HCPCS: 36415; 74018; 74176; 80053; 81001; 85025; 87086; 87088; 96361; 96374; 96375; 96376; 99284; J1885; J2270; J2405; J7030

== ENCOUNTER 2022-06-25 14:42 | Emergency (ER) | payer OTHER, SELFPAY ==
--- NOTE | ~2022-06-25 | CT_ITS ---
EXAMINATION: CT abdomen pelvis wo con DATE: 06/25/2022 15:36 INDICATION: Right flank pain TECHNIQUE: Computed tomography (CT) of the abdomen and pelvis was performed without intravenous contr ast. Automated exposure control and iterative reconstruction technique were employed. Exam dose: 320 .55 mGy-cm total exam DLP. COMPARISON: 09/02/[address] abdomen pelvis FINDINGS: The lung bases are clear. Normal heart size. No pericardial or pleural effusion. The liver, gallbladder, bile ducts, pancreas, pancreatic duct and spleen is well as the adrenal gland s appear normal. Left kidney is unremarkable. No obstructing left ureteral calculus or hydroureteronephrosis on the le ft. There are multiple nonobstructing right renal calculi. There is mild right hydroureteronephrosis. There is an approximately 2 mm calculus appears to be in the dependent aspect of the urinary bladder near midline or very distal right ureterovesical junction. Normal caliber of the abdominal aorta. No intraperitoneal or retroperitoneal or pelvic mass lesion or adenopathy or ascites. Normal appendix. No bowel obstruction, bowel wall thickening, pneumatosis or intraperitoneal free air . Small fat-containing umbilical hernia. Included skeletal structures are unremarkable. IMPRESSION: 2 mm calculus at the very distal right ureterovesical junction or within the bladder lum en Mild right hydroureteronephrosis Right nephrolithiasis Reviewed, dictated and finalized at Location A. Reviewed, dictated and finalized at location A. IMPRESSION: 2 mm calculus at the very distal right ureterovesical junction or within the bladder lumen Mild right hydroureteronephrosis Right nephrolithiasis
[2022-06-25 15:08] VITALS: BP 149/86; PULSE 96; RESP 16; TEMP 36.9; O2SAT 100
[2022-06-25 15:30] LABS: Basophils Percent Auto 0.3 % (0.2-1.2); Eosinophils Absolute Auto 0.1 K/mm3 (0-0.3); Eosinophils Percent Auto 0.9 % (0-4.4); Hematocrit 45.1 % (42.0-52.0); Hemoglobin 15.1 g/dL (14.0-18.0); Immature Granulocyte Absolute 0.03 K/mm3 (0.00-0.031); Immature Granulocyte Percent A 0.3 % (0-0.5); Lymphocytes Absolute Auto 1.16 K/mm3 (0.9-3.2); Lymphocytes Percent Auto 13.1 % (18.3-44.2); Mean Corpuscular HGB Conc 33.5 g/dl (32-36); Mean Corpuscular Hemoglobin 29.3 pg (26-34); Mean Corpuscular Volume 87.6 fl (80-100); Mean Platelet Volume 10.4 fl (7.4-10.4); Monocytes Absolute Auto 0.5 K/mm3 (0.1-0.6); Monocytes Percent Auto 5.3 % (2.6-8.5); Neutrophils Absolute Auto 7.1 K/mm3 (1.3-6.7); Neutrophils Percent Auto 80.1 % (45.5-73.1); Platelet Count Result 215 k/mm3 (150-375); Red Blood Count 5.15 M/mm3 (4.6-6.20); Red Cell Distribution Width 13.2 % (11.5-14.5); White Blood Count 8.8 K/mm3 (4.5-10.0)
[2022-06-25 15:40] LABS: Alanine Aminotransferase 25 U/L (6-50); Albumin Level 4.7 g/dL (3.5-5.1); Alkaline Phosphatase 102 U/L (38-126); Anion Gap 6 mmol/L (8-16); Aspartate Amino Transferase 24 U/L (17-59); Bilirubin,Total 0.8 mg/dL (0.2-1.3); Blood Urea Nitrogen 17 mg/dL (9-20); Calcium 9.5 mg/dL (8.4-10.2); Carbon Dioxide 28 mmol/L (22-30); Chloride 107 mmol/L (98-107); Estimated CRCL calculation 96 ml/min; Estimated Glomerular Filt Rate > 60; Glucose 98 mg/dL (65-110); Sodium 141 mmol/L (137-145)
[2022-06-25 17:15] LABS: Appearance Urine Cloudy (Clear); Bacteria Urine None Seen /hpf; Bilirubin Urine Negative (Negative); Blood Urine 3+ (Negative); Color Urine Yellow (Yellow); Glucose Urine UA Negative (Negative); Ketones Urine Negative (Negative); Leukocyte Esterase Ur Trace LEU/UL (Negative); Nitrate Urine Negative (Negative); Protein Urine Negative (Negative); RBC Urine >100 /hpf (0-2); Specific Grav Ur 1.019 (1.001-1.035); Squamous Epithelial Cell Urine None seen /hpf (Few); WBC Urine 0-5 /hpf; pH Urine 7.5 (5.0-9.0)
[2022-06-25 17:18] LABS: Add Urine Microscopic? YES
--- NOTE | 2022-06-25 17:39 | ED.GENADULT ---
HPI - General Adult General Chief complaint: Urogenital-Male Stated complaint: passing a kidney stone Time Seen by Provider: 06/25/22 17:20 History of Present Illness HPI narrative: 31-year-old male with a history of PTSD and previous kidney stones reports for evaluation of right-sided flank pain that radiates down into his groin since 4 AM this morning. Patient reports the pain woke him up in his sleep, and is exactly the same as his previous kidney stone pain. He reports nausea and one episode of vomiting, along with hematuria, urinary frequency and urgency today. Denies fevers, body aches, chills, dysuria, diarrhea, testicular or penile swelling, penile discharge, lesions to penis or scrotum. Related Data Allergies Allergy/AdvReac Type Severity Reaction Status Date / Time prednisone Allergy Unknown Verified 06/25/22 17:18 shrimp Allergy Hives Verified 06/25/22 17:18 Review of Systems Review of Systems: CONSTITUTIONAL: Denies fever, chills EYES: Denies visual changes, redness, or discharge. ENT: Denies rhinorrhea, congestion, sore throat, or otalgia. CARDIOVASCULAR: Denies chest pain, palpitations, or edema. RESPIRATORY: Denies cough or dyspnea. GASTROINTESTINAL: See HPI. GENITOURINARY: See HPI SKIN: Denies rash or itching. MUSCULOSKELETAL: See HPI NEUROLOGIC: Denies headache, numbness, dizziness, or weakness. PSYCHIATRIC: Denies anxiety or depression. PMFSH Past Medical History Medical History History of kidney stones History of posttraumatic stress disorder (PTSD) Surgical History Surgical History History of lithotripsy Social History Social History Smoking status: Current every day smoker Exam Narrative: GENERAL: Well-appearing, well-nourished, and in no acute distress. Patient sitting in exam bed, appears comfortable. Pleasant and conversational. HEAD: Normocephalic, atraumatic. EYES: PERRLA and EOMI. ENT: Nares clear, no rhinorrhea or epistaxis. Mucous membranes moist. Oropharynx without tonsillar hypertrophy exudate or other lesions. NECK: Supple. No adenopathy or masses. CHEST: Clear to auscultation. No respiratory distress. No wheezes rales or rhonchi HEART: Regular rate and rhythm. No murmur heard. Normal peripheral pulses. ABDOMEN: Soft, nontender, nondistended, normal active bowel sounds. R CVA tenderness. : No edema or tenderness to testicles or penis. Cremasteric reflex present bilaterally. No rashes or lesion. EXTREMITIES: Normal range of motion. No edema. SKIN: Warm, dry, no rash. NEURO: No focal deficits. Alert and oriented x3. PSYCH: Normal mood and affect. Course Vital Signs Vital signs: Vital Signs Temperature 98.4 F 06/25/22 15:08 Pulse Rate 96 06/25/22 15:08 Respiratory Rate 16 06/25/22 15:08 Blood Pressure 149/86 H 06/25/22 15:08 Pulse Oximetry 100 06/25/22 15:08 Oxygen Delivery Room Air 06/25/22 15:08 Temperature 98.4 F 06/25/22 15:08 Pulse Rate 96 06/25/22 15:08 Respiratory Rate 16 06/25/22 15:08 Blood Pressure 149/86 H 06/25/22 15:08 Pulse Oximetry 100 06/25/22 15:08 Oxygen Delivery Room Air 06/25/22 15:08 Medical Decision Making MDM Narrative Medical decision making narrative: 31-year-old male with a history of previous kidney stones reports to the emergency department for evaluation of acute onset right flank pain radiating to his right abdomen and right testicle since 4 AM this morning. Patient reports his pain is the same as previous kidney stones. Exam reveals R CVA tenderness. Scrotum w/o edema or tenderness, cremasteric reflex present, therefore scrotal pain likely not due to torsion and most likely referred pain from stone. CBC without leukocytosis or anemia. Creatinine not elevated. UA reveals hematuria. UA shows trace leuk esterase, however
[2022-06-25] MEDS: MORPHINE SULFATE (*CRX) 4 MG/ML INJ IV PUSH (18:13)
[2022-06-25] MEDS: SODIUM CHLORIDE 0.9% IV 1,000 ML 999 ML IV CONT (18:14)
[2022-06-25] MEDS: ONDANSETRON INJ 4 MG/2 ML VIAL IV PUSH (18:14)
--- NOTE | 2022-06-25 19:15 | PC.NURSE ---
When checking in with patient I offered the patient food, to which the patient replied he would like to wait till he got home.
--- NOTE | 2022-06-25 19:25 | PC.NURSE ---
Pt given water and educated on need for PO challenge.
== END 2022-06-25 19:40 | disposition home or self-care (01) ==
PROVIDERS: Emergency Medicine; Emergency Provider Physician Assistant
DX: N13.2 Hydronephrosis with renal and ureteral calculous obstruction (principal); Z87.442 Personal history of urinary calculi; F17.200 Nicotine dependence, unspecified, uncomplicated
CPT/HCPCS: 36415; 74176; 80053; 81001; 85025; 96361; 96374; 96375; 99284; J2270; J2405; J7030

== ENCOUNTER 2022-07-28 10:43 | Emergency (ER) | payer OTHER, SELFPAY ==
[2022-07-28 10:57] VITALS: BP 149/89; PULSE 94; RESP 16; TEMP 36.6; O2SAT 100
--- NOTE | 2022-07-28 11:21 | ED.URI ---
HPI - URI/Sore Throat General Chief Complaint: Upper Respiratory Infection Stated Complaint: COPD issues Time Seen by Provider: 07/28/22 11:20 Source: patient and RN notes reviewed Mode of arrival: ambulatory Limitations: no limitations History of Present Illness HPI Narrative: 31-year-old male presents with concern with shortness of breath, productive cough. He reports he has been told he had COPD, but was never seen for it treated for it. He is not medicated for COPD. He smokes a pack a day. He reports for about a week he has been having a cough. He denies rhinorrhea, nasal congestion, sore throat, fever, aches, chills, sweats. Reports he used his 's inhaler with some relief of symptoms yesterday. MD elicited complaint: cough Related Data Allergies Allergy/AdvReac Type Severity Reaction Status Date / Time prednisone Allergy Unknown Verified 06/25/22 17:18 shrimp Allergy Hives Verified 06/25/22 17:18 Review of Systems Review of Systems: CONSTITUTIONAL: Denies malaise, chills, sweats, or fever. EYES: Denies visual changes, redness, or discharge. ENT: Denies rhinorrhea, congestion, sinus pain, otalgia and sore throat. CARDIOVASCULAR: Denies chest pain, palpitations, or edema. RESPIRATORY: Reports productive cough, dyspnea. GASTROINTESTINAL: Denies abdominal pain, nausea, vomiting, diarrhea SKIN: Denies rash or itching. MUSCULOSKELETAL: Denies myalgia. NEUROLOGIC: Denies headache. All systems reviewed & are unremarkable except as noted in HPI and below PMFSH Past Medical History Medical History History of kidney stones History of posttraumatic stress disorder (PTSD) Surgical History Surgical History History of lithotripsy Social History Social History Smoking status: Current every day smoker Comments At time of signature, agree with nursing past medical, surgical, social and family history. There is no relevant family history pertinent to the presenting complaint Exam Narrative: GENERAL: Well-appearing, well-nourished, and in no acute distress. HEAD: Normocephalic EYES: PERRLA, conjunctivae clear ENT: Nares clear, no discharge. Mucous membranes moist. TM pearly knott with sharp light reflex bilaterally; no tragal tenderness. Oropharynx not erythematous without lesions. Tonsils not enlarged and without exudate, no drooling, no hoarseness, no trismus, uvula midline. NECK: Supple. No lymphadenopathy CHEST: She has slight scattered rhonchi with very mild scattered wheeze otherwise clear to auscultation, breath sounds equal. No rales, or stridor. No respiratory distress, speaks in full sentences. HEART: Regular rate and rhythm. No murmur heard. SKIN: Warm, dry, no rash. NEURO: Alert and oriented x3. PSYCH: Normal mood and affect Course Course Emergency Course: Patient reports his reaction to prednisone his anxiety, he has never taken methylprednisolone. Discussed dosing and methylprednisolone is sometimes better tolerated than prednisone. Patient would like to try the methylprednisolone and understands he can stop it if he starts having anxiety Patient is aware of diagnosis, understands and agrees to treatment plan. Anticipatory guidance given. Patient agrees to follow-up as directed and is aware of reasons to seek care at the emergency department. Portions of this record may have been created with voice recognition software Level of Care: Express Care Visit Vital Signs Vital signs: Vital Signs Temperature 98 F 07/28/22 10:57 Pulse Rate 94 07/28/22 10:57 Respiratory Rate 16 07/28/22 10:57 Blood Pressure 149/89 H 07/28/22 10:57 Pulse Oximetry 100 07/28/22 10:57 Oxygen Delivery Room Air 07/28/22 10:57 Temperature 98 F 07/28/22 10:57 Pulse Rate 94 07/28/22 10:57 Respiratory Rate 16 07/28/22 10
== END 2022-07-28 11:57 | disposition home or self-care (01) ==
PROVIDERS: Emergency Provider Nurse Practitioner
DX: R06.02 Shortness of breath (principal); F17.200 Nicotine dependence, unspecified, uncomplicated
CPT/HCPCS: 99213; G0463

== ENCOUNTER 2024-01-07 14:21 | Observation (INO) | payer OTHER, SELFPAY ==
[2024-01-07] VITALS (30 sets, daily range): BP systolic 128–149; BP diastolic 80–104; PULSE 56–96; RESP 13–24; TEMP 36.4–36.6; O2SAT 96–100; BMI 30.7
--- NOTE | ~2024-01-07 | US_ITS ---
TESTICULAR ULTRASOUND (Doppler ultrasound interrogation techniques used as needed for this exam.) Ordering provider: Radha Deutsch PA-C History: . R testicle pain . Comparison: None. FINDINGS: TESTICLES: Normal in size. The right measures 4.6x 2.6x 2.9 cm and the left measures 4.9x 3.1x 3.2 cm . Normal echogenicity bilaterally without mass lesion. Normal Doppler flow bilaterally. EPIDIDYMIDES: Normal in size. The right measures 1.6x 0.7x 1 cm and the left 1.3x 0.8x 1 cm. Normal e chogenicity bilaterally. Both demonstrate normal Doppler flow. HYDROCELE: None. VARICOCELE: None. OTHER ABNORMALITY: None seen. IMPRESSION: normal testicular ultrasound. Reviewed, dictated and finalized at location A.
--- NOTE | ~2024-01-07 | XR_ITS ---
INTRAOPERATIVE FLUOROSCOPY: CLINICAL HISTORY: 33 years old Male; R SIDE SPECIAL PROCEDURE COMMENTS: Limited intraoperative fluoroscopy of the right hemipelvis and flank was performe d. CUMULATIVE DOSE: 9.5 mGy FLUOROSCOPY TIME: 27 seconds FINDINGS/IMPRESSION: Intraoperative fluoroscopic views demonstrate contrast opacification of the right ureter and right co llecting system. Please refer to operative note for further details. Reviewed, dictated and finalized at location A.
--- NOTE | ~2024-01-07 | CT_ITS ---
EXAMINATION: CT abdomen pelvis wo con DATE: 01/07/2024 15:20 INDICATION: Right flank pain. Testicular pain. TECHNIQUE: Computed tomography (CT) of the abdomen and pelvis was performed without intravenous contr ast. Automated exposure control and iterative reconstruction technique were employed. The dose-length product was 559.07 mGy-cm. COMPARISON: None. FINDINGS: The visualized portions of the lung bases are clear without pneumonia or pleural effusion. The heart size is normal. No pericardial effusion. The liver, gallbladder, spleen, pancreas, and left adrenal gland are normal. There is a 12 mm mass in right adrenal gland measuring low attenuation, co nsistent with an adenoma. There are approximately 7 stones in right kidney measuring up to 6 mm. Ther e is moderate right hydronephrosis and proximal hydroureter. There are 3 stones in proximal right ure ter measuring up to 6 mm. There are 3 stones in left kidney measuring up to 4 mm. There are no dilate d loops of bowel. The appendix is normal. There are no pathologically enlarged lymph nodes. There is no free intraperitoneal fluid. There is mild thoracic and lumbar spondylosis. There is mild chronic a nterior wedging of L1 vertebral body. IMPRESSION: 1. Three stones in proximal right ureter measuring up to 6 mm with moderate right hydronephrosis and proximal hydroureter. 2. Bilateral nonobstructing kidney stones. Reviewed, dictated and finalized at location A. IMPRESSION: 1. Three stones in proximal right ureter measuring up to 6 mm with moderate rig ht hydronephrosis and proximal hydroureter. 2. Bilateral nonobstructing kidney stones.
--- NOTE | ~2024-01-07 | XR_ITS ---
EXAMINATION: XR abdomen/kub 1V DATE: 01/08/2024 08:24 INDICATION: Right ureteral stone. TECHNIQUE: A supine view of the abdomen on 2 radiographs was obtained. COMPARISON: CT abdomen and pelvis 01/07/2024 FINDINGS: There are no dilated loops of bowel. There are 6 mm and 4 mm stones in right kidney. There are 2 stones in proximal right ureter with the larger measuring 9 x 5 mm. There is a 3 mm stone in le ft kidney. IMPRESSION: 1. Right ureteral stones. 2. Bilateral kidney stones. Reviewed, dictated and finalized at location A.
--- NOTE | 2024-01-07 14:42 | ED.MALEGU ---
HPI - Male Genitourinary General Chief complaint: Urogenital-Male <Radha Deutsch PA-C - Last Filed: 01/07/24 14:51> Stated complaint: testical pain, known kidney stone <Radha Deutsch PA-C - Last Filed: 01/07/24 14:51> Time Seen by Provider: 01/07/24 14:42 <JUAN C Swan Last Filed: 01/07/24 14:51> Focused HPI: Patient is a 33 y/o male who presents to the ED with c/o R flank and testicular pain. Patient reports pain began approx 1.5 hours ago. Starts in R testicle and shoots up through his abdomen into his R flank/lower back. Hx of kidney stones and states current pain feels similar. Sees a urologist at [facility] and [facility]. Has required lithotripsy/stents in the past. Reports nausea, trouble fully emptying bladder, some blood from his penis. Denies fevers, vomiting, dysuria. No concern for STDs. GENERAL: Well-appearing, obese with BMI of 30.6, and in no acute distress. HEAD: Normocephalic, atraumatic. CHEST: Clear to auscultation. ?No respiratory distress. HEART: Regular rate and rhythm.? ABD: Mild TTP in R lower abdomen, R lateral abdomen. +R CVA tenderness. NEURO: ?Alert and oriented x3. Patient screened in triage and initial orders placed.? ?Additional care and disposition to be based upon?diagnostic testing and treatment. <Radha Deutsch PA-C - Last Filed: 01/07/24 14:51> Source: patient <Radha Deutsch PA-C - Last Filed: 01/07/24 14:51> Mode of arrival: ambulatory <JUAN C Swan Last Filed: 01/07/24 14:51> Limitations: no limitations <JUAN C Swan Last Filed: 01/07/24 14:51> History of Present Illness HPI Narrative: Agree with HPI <Ricardo Hutton MD - Last Filed: 01/07/24 22:11> Related Data Allergies/Adverse reactions: Allergies Allergy/AdvReac Type Severity Reaction Status Date / Time prednisone Allergy Unknown Verified 01/07/24 22:08 shrimp Allergy Hives Verified 01/07/24 22:08 <Radha Deutsch PA-C - Last Filed: 01/07/24 14:51> Review of Systems Review of Systems: All systems reviewed & are unremarkable except as noted in HPI and below <Ricardo Hutton MD - Last Filed: 01/07/24 22:11> Constitutional: Constitutional: Reports no additional constitutional complaints <Ricardo Hutton MD - Last Filed: 01/07/24 22:11> Cardiovascular: Cardiovascular: Reports no additional cardiovascular complaints <Ricardo Hutton MD - Last Filed: 01/07/24 22:11> Respiratory: Respiratory: Reports no additional respiratory complaints <Ricardo Hutton MD - Last Filed: 01/07/24 22:11> Gastrointestinal: Gastrointestinal: Reports abdominal pain, Denies diarrhea, Reports nausea and Reports vomiting <Ricardo Hutton MD - Last Filed: 01/07/24 22:11> Genitourinary: Genitourinary: Denies hematuria, Denies dysuria, Reports testicular pain and Reports urinary frequency <Ricardo Hutton MD - Last Filed: 01/07/24 22:11> Musculoskeletal: Musculoskeletal: Reports no additional musculoskeletal complaints <Ricardo Hutton MD - Last Filed: 01/07/24 22:11> PMFSH Past Medical History Medical History: Medical History History of kidney stones History of posttraumatic stress disorder (PTSD) <Radha Deutsch PA-C - Last Filed: 01/07/24 14:51> Surgical History Surgical History: Surgical History History of lithotripsy <Radha Deutsch PA-C - Last Filed: 01/07/24 14:51> Social History Social History: Social History Smoking status: Current every day smoker <Radha Deutsch PA-C - Last Filed: 01/07/24 14:51> Exam Narrative: GENERAL: Well-appearing, well-nourished, and in no acute distress. HEAD: Normocephalic, atraumatic. ENT: Mucous membranes moist. CHEST
[2024-01-07] MEDS: ONDANSETRON INJ 4 MG/2 ML VIAL IV PUSH ×2 (14:52→19:49)
[2024-01-07] MEDS: HYDROcodone/acetaminophen (*CRX) 5-325 MG TABLET 1 TAB PO (14:52)
[2024-01-07 15:00] LABS: Basophils Percent Auto 0.4 % (0.2-1.2); Eosinophils Absolute Auto 0.2 K/mm3 (0-0.3); Eosinophils Percent Auto 2.6 % (0-4.4); Hematocrit 44.8 % (42.0-52.0); Hemoglobin 15.2 g/dL (14.0-18.0); Immature Granulocyte Absolute 0.01 K/mm3 (0.00-0.031); Immature Granulocyte Percent A 0.1 % (0-0.5); Lymphocytes Absolute Auto 1.49 K/mm3 (0.9-3.2); Lymphocytes Percent Auto 20.1 % (18.3-44.2); Mean Corpuscular HGB Conc 33.9 g/dl (32-36); Mean Corpuscular Hemoglobin 30.2 pg (26-34); Mean Corpuscular Volume 89.1 fl (80-100); Mean Platelet Volume 10.7 fl (7.4-10.4); Monocytes Absolute Auto 0.7 K/mm3 (0.1-0.6); Monocytes Percent Auto 9.7 % (2.6-8.5); Neutrophils Percent Auto 67.1 % (45.5-73.1); Platelet Count Result 198 k/mm3 (150-375); Red Blood Count 5.03 M/mm3 (4.6-6.20); Red Cell Distribution Width 12.9 % (11.5-14.5); White Blood Count 7.4 K/mm3 (4.5-10.0)
[2024-01-07 15:12] LABS: Alanine Aminotransferase 26 U/L (6-50); Albumin Level 4.7 g/dL (3.5-5.1); Alkaline Phosphatase 77 U/L (38-126); Anion Gap 9 mmol/L (4-12); Aspartate Amino Transferase 27 U/L (17-59); Bilirubin,Total 0.6 mg/dL (0.2-1.3); Blood Urea Nitrogen 17 mg/dL (9-20); Calcium 9.7 mg/dL (8.4-10.2); Carbon Dioxide 27 mmol/L (22-30); Chloride 106 mmol/L (98-107); Estimated CRCL calculation 88 ml/min; Estimated Glomerular Filt Rate > 60; Glucose 104 mg/dL (65-110); Potassium 4.2 mmol/L (3.4-5.0); Sodium 142 mmol/L (137-145)
[2024-01-07 16:13] LABS: Add Urine Microscopic? YES; Appearance Urine Cloudy (Clear); Bacteria Urine None Seen /hpf; Bilirubin Urine Negative (Negative); Blood Urine 3+ (Negative); Calcium Oxalate Crystals Urine Present /hpf; Color Urine Yellow (Yellow); Glucose Urine UA Negative (Negative); Ketones Urine Negative (Negative); Leukocyte Esterase Ur 1+ LEU/UL (Negative); Nitrate Urine Negative (Negative); Non Pathogenic Casts 0-2; Protein Urine 1+ mg/dL (Negative); RBC Urine 51-100 /hpf (0-2); Squamous Epithelial Cell Urine Occasional /hpf (Few)
[2024-01-07] MEDS: SODIUM CHLORIDE 0.9% IV 1,000 ML 999 ML IV CONT (18:36)
[2024-01-07] MEDS: MORPHINE SULFATE (*CRX) 4 MG/ML INJ IV PUSH (18:37)
[2024-01-07] MEDS: HYDROmorphone HCL INJ (*CRX) 1 MG/ML SYR IV PUSH ×2 (19:49→22:08)
--- NOTE | 2024-01-07 21:42 | PM.IMHP ---
H&P: HPI History of Present Illness Date/Time: 01/07/24 21:42 Chief Complaint: flank pain Narrative: This is a 33-year-old male with past medical history significant for kidney stone, asthma,presents to the emergency room due to right flank pain x3 days with nausea and vomiting. preliminary workup was significant for CT of abdomen and pelvis with 3 stones in the proximal right ureter with moderate right hydronephrosis and hydroureter. Patient is been placed in observation for further evaluation management and treatment. EXAMINATION: CT abdomen pelvis wo con DATE: 01/07/2024 15:20 INDICATION: Right flank pain. Testicular pain. TECHNIQUE: Computed tomography (CT) of the abdomen and pelvis was performed without intravenous contrast. Automated exposure control and iterative reconstruction technique were employed. The dose-length product was 559.07 mGy-cm. COMPARISON: None. FINDINGS: The visualized portions of the lung bases are clear without pneumonia or pleural effusion. The heart size is normal. No pericardial effusion. The liver, gallbladder, spleen, pancreas, and left adrenal gland are normal. There is a 12 mm mass in right adrenal gland measuring low attenuation, consistent with an adenoma. There are approximately 7 stones in right kidney measuring up to 6 mm. There is moderate right hydronephrosis and proximal hydroureter. There are 3 stones in proximal right ureter measuring up to 6 mm. There are 3 stones in left kidney measuring up to 4 mm. There are no dilated loops of bowel. The appendix is normal. There are no pathologically enlarged lymph nodes. There is no free intraperitoneal fluid. There is mild thoracic and lumbar spondylosis. There is mild chronic anterior wedging of L1 vertebral body. IMPRESSION: 1. Three stones in proximal right ureter measuring up to 6 mm with moderate right hydronephrosis and proximal hydroureter. 2. Bilateral nonobstructing kidney stones. TESTICULAR ULTRASOUND (Doppler ultrasound interrogation techniques used as needed for this exam.) Ordering provider: Radha Deutsch PA-C History: . R testicle pain . Comparison: None. FINDINGS: TESTICLES: Normal in size. The right measures 4.6x 2.6x 2.9 cm and the left measures 4.9x 3.1x 3.2 cm. Normal echogenicity bilaterally without mass lesion. Normal Doppler flow bilaterally. EPIDIDYMIDES: Normal in size. The right measures 1.6x 0.7x 1 cm and the left 1.3x 0.8x 1 cm. Normal echogenicity bilaterally. Both demonstrate normal Doppler flow. HYDROCELE: None. VARICOCELE: None. OTHER ABNORMALITY: None seen. IMPRESSION: normal testicular ultrasound. [facility] Past Medical History Medical History History of kidney stones History of posttraumatic stress disorder (PTSD) Surgical History Surgical History History of lithotripsy Social History Social History Years smoked: 10 Smoking status: Current every day smoker Tobacco type: cigarettes Second hand tobacco smoke exposure: Yes Alcohol intake: never Substance use: former Substance use type: marijuana Last use: 01/05/24 Do You Feel Safe in your Home?: Yes Lack of Transportation: No Lack of Food: Never True Current Housing: I Have Housing Concerned About Future Housing: No Difficulty Paying Gas/Electric Bills: No Difficulty Paying for Meds: No Currently Unemployed: No Education: High School Diploma/GED Difficulty w/ Childcare or Family Care: No Spiritual care concerns: No Meds Home Medications and Allergies Home Medications Medication Instructions Recorded Confirmed Type albuterol sulfate 90 mcg/actuation 2 puff inhalation QID PRN 07/28/22 01/07/24 Rx aerosol inhaler shortness of breath or wheezing #8.5 grams Allergies Allergy/AdvReac Type
[2024-01-07] MEDS: PROMETHAZINE HCL 25 MG/ML AMPUL 12.5 MG IV PUSH (22:07)
--- NOTE | 2024-01-07 22:13 | PC.NURSE ---
50 ml NS bag hung for pt's phenergan administration to go over 15 minutes.
--- NOTE | 2024-01-07 23:44 | ADMGEN ---
This patient, Alok Smart, was admitted to [facility] Surg Room 313-01. Patient/family oriented to hospital policies and general routines including ID bracelet, bed and alarms, visiting hours, pain management, procedures, bathroom and other care routines, personal items, smoking policy, room service/diet, and visiting hours. Information on how to activate the Rapid Response Team has been discussed. Patient/Family are encouraged to report perceived risks to care and to ask questions if they do not understand what they are told or what they should do.
[2024-01-08] VITALS (10 sets, daily range): BP systolic 127–158; BP diastolic 63–93; PULSE 55–112; RESP 12–20; TEMP 36.2–36.7; O2SAT 92–100
[2024-01-08] MEDS: HYDROmorphone HCL INJ (*CRX) 1 MG/ML SYR IV PUSH ×4 (00:38→13:24)
[2024-01-08] MEDS: SODIUM CHLORIDE 0.9% IV 1,000 ML 125 ML IV CONT ×2 (00:39→07:40)
[2024-01-08] MEDS: ONDANSETRON INJ 4 MG/2 ML VIAL IV PUSH ×3 (04:18→13:24)
--- NOTE | 2024-01-08 07:52 | WPDURCON ---
Assessment and Plan Assessment and plan (1) Calculus, ureteral: Code(s): N20.1 - Calculus of ureter Status: Acute Assessment and Plan: Obtain KUB. Given persistent pain will proceed with cystoscopy, right retrograde pyelogram, right ureteroscopy with stone extraction possible laser, stent placement. He was aware that if we cannot get our instruments and he will simply have a stent placed in the stones can be addressed at a later point time. Urology Consult Note HPI Date Seen: 01/08/24 Time Seen: 07:53 Requesting Physician: Thee Wilson MD Primary Care Provider: PHYSICIAN NOT ON STAFF Consult Narrative Reason for consult: Right ureteral calculi with renal colic Narrative: Alok Smart is a 33 year old male with a prior history of stones who presented emergency room with right lower quadrant pain radiating to his testicle. Patient underwent evaluation and was found to have 3 proximal ureteral stones largest measuring 6 mm. He also has some bilateral renal calculi. Patient is afebrile with a normal white count. Urinalysis does not appear infected. He is having a tough time controlling the pain. Review of Systems Review of Systems: All systems reviewed & are unremarkable except as noted in HPI and below PMFSH Past Medical History Medical History History of kidney stones History of posttraumatic stress disorder (PTSD) Surgical History Surgical History History of lithotripsy Social History Social History Years smoked: 10 Smoking status: Current every day smoker Tobacco type: cigarettes Second hand tobacco smoke exposure: Yes Alcohol intake: never Substance use: former Substance use type: marijuana Last use: 01/05/24 Do You Feel Safe in your Home?: Yes Lack of Transportation: No Lack of Food: Never True Current Housing: I Have Housing Concerned About Future Housing: No Difficulty Paying Gas/Electric Bills: No Difficulty Paying for Meds: No Currently Unemployed: No Education: High School Diploma/GED Difficulty w/ Childcare or Family Care: No Spiritual care concerns: No Meds Home Medications and Allergies Home Medications Medication Instructions Recorded Confirmed Type albuterol sulfate 90 mcg/actuation 2 puff inhalation QID PRN 07/28/22 01/07/24 Rx aerosol inhaler shortness of breath or wheezing #8.5 grams Allergies Allergy/AdvReac Type Severity Reaction Status Date / Time prednisone Allergy Unknown Verified 01/07/24 22:08 shrimp Allergy Hives Verified 01/07/24 22:08 Vital Signs Vital Signs - 24 hr 01/07/24 14:40 01/07/24 18:04 01/07/24 18:38 Temperature 36.6 C Pulse Rate 96 81 64 Respiratory Rate 16 16 20 Blood Pressure 149/93 H 132/85 141/87 H Pulse Oximetry 99 100 100 Oxygen Delivery Room Air 01/07/24 18:57 01/07/24 19:00 01/07/24 19:01 Temperature Pulse Rate 81 66 66 Respiratory Rate 19 17 21 H Blood Pressure 136/80 Pulse Oximetry 100 100 100 Oxygen Delivery 01/07/24 19:15 01/07/24 19:16 01/07/24 19:30 Temperature Pulse Rate 66 66 78 Respiratory Rate 20 20 13 Blood Pressure 140/89 Pulse Oximetry 99 98 99 Oxygen Delivery 01/07/24 19:31 01/07/24 19:45 01/07/24 19:46 Temperature Pulse Rate 61 88 77 Respiratory Rate 20 17 16 Blood Pressure 135/92 H 138/104 H Pulse Oximetry 100 99 98 Oxygen Delivery 01/07/24 20:10 01/07/24 20:17 01/07/24 20:30 Temperature Pulse Rate 66 68 65 Respiratory Rate 15 19 22 H Blood Pressure 132/88 Pulse Oximetry 98 98 97 Oxygen Delivery 01/07/24 20:31 01/07/24 20:32 01/07/24 20:45 Temperature Pulse Rate 68 65 67 Respiratory Rate 23 H 22 H 23 H Blood Pressure 140/84 Pulse Oximetry 97 97 97 Oxygen Delivery 01/07/24 20:
--- NOTE | 2024-01-08 09:26 | PM.IMPN ---
Progress Note: A&P Assessment and Plan (1) Calculus, ureteral: Code(s): N20.1 - Calculus of ureter Status: Acute Assessment and Plan: Right flank pain with right testicular pain. CT abdomen and pelvis showed 3 stones in proximal right ureter measuring up to 6 mm with moderate right hydronephrosis and proximal hydroureter. Her ultrasound of scrotum shows normal testicular ultrasound. Normal white count, afebrile UA shows cloudy yellow urine with +1 protein, 3+ blood, +1 leukocytes, rbc's 51-100 a and wbc's 11-20 with no urine bacteria seen. Urine sent for culture Receive 1 L fluid bolus in the emergency room. Normal saline 125 mils per hour Started on Ancef Dilaudid p.r.n. for pain and Zofran p.r.n. for nausea Strain urine Urology consulted, going for cysto today Will need urology follow-up in outpatient Subjective Date/time seen: 01/08/24 09:26 Review of Systems Review of Systems: All systems reviewed & are unremarkable except as noted in HPI and below Exam Narrative: General: appears comfortable, in no acute distress Respiratory: breathing is unlabored with even chest rise/fall, lungs are clear without wheezing, rhonchi, and crackles Cardiovascular: Rate and rhythm regular, normal s1s2, no murmur Abdomen: Soft, round, non-tender, active bowel sounds Extremities: No cyanosis, edema, clubbing. Pulses 2/2 Neuro: A&O x 4 Skin: Warm, dry, intact Objective Data Vital Signs Vital Signs: Vital Signs - 24 hr 01/07/24 14:40 01/07/24 18:04 01/07/24 18:38 Temperature 97.8 F Pulse Rate 96 81 64 Respiratory Rate 16 16 20 Blood Pressure 149/93 H 132/85 141/87 H Pulse Oximetry 99 100 100 Oxygen Delivery Room Air 01/07/24 18:57 01/07/24 19:00 01/07/24 19:01 Temperature Pulse Rate 81 66 66 Respiratory Rate 19 17 21 H Blood Pressure 136/80 Pulse Oximetry 100 100 100 Oxygen Delivery 01/07/24 19:15 01/07/24 19:16 01/07/24 19:30 Temperature Pulse Rate 66 66 78 Respiratory Rate 20 20 13 Blood Pressure 140/89 Pulse Oximetry 99 98 99 Oxygen Delivery 01/07/24 19:31 10/07/24 19:45 01/07/24 19:46 Temperature Pulse Rate 61 88 77 Respiratory Rate 20 17 16 Blood Pressure 135/92 H 138/104 H Pulse Oximetry 100 99 98 Oxygen Delivery 01/07/24 20:10 01/07/24 20:17 01/07/24 20:30 Temperature Pulse Rate 66 68 65 Respiratory Rate 15 19 22 H Blood Pressure 132/88 Pulse Oximetry 98 98 97 Oxygen Delivery 01/07/24 20:31 01/07/24 20:32 01/07/24 20:45 Temperature Pulse Rate 68 65 67 Respiratory Rate 23 H 22 H 23 H Blood Pressure 140/84 Pulse Oximetry 97 97 97 Oxygen Delivery 01/07/24 20:46 01/07/24 21:00 01/07/24 21:01 Temperature Pulse Rate 66 62 64 Respiratory Rate 24 H 22 H 22 H Blood Pressure 132/88 128/83 Pulse Oximetry 97 96 97 Oxygen Delivery 01/07/24 21:02 01/07/24 21:57 01/07/24 22:00 Temperature Pulse Rate 60 65 63 Respiratory Rate 20 23 H 23 H Blood Pressure Pulse Oximetry 97 98 96 Oxygen Delivery 01/07/24 22:01 01/07/24 22:15 01/07/24 22:30 Temperature Pulse Rate 59 L 81 60 Respiratory Rate 24 H 18 19 Blood Pressure 136/88 Pulse Oximetry 97 97 Oxygen Delivery 01/07/24 22:45 01/07/24 23:21 01/07/24 23:34 Temperature 97.6 F Pulse Rate 60 56 L 56 L Respiratory Rate 15 15 16 Blood Pressure 128/80 141/84 H Pulse Oximetry 98 97 100 Oxygen Delivery 01/08/24 05:55 Temperature 97.6 F Pulse Rate 85 Respiratory Rate 18 Blood Pressure 127/63 Pulse Oximetry 99 Oxygen Delivery Intake/Output Intake/Output: Intake & Output 01/05/24 01/06/24 01/07/24 01/08/24 23:59 23:59 23:59 23:59 Intake Total 1000 877.1 Output Total 200 Balance 1000 677.1 Meds/Results Medications: Active Medications Generic Name Dose Route Start Last Admin Trade Name Freq PRN Reason Stop Dose Admin Albuterol 2 puff 01/08/24 01:02 Albuterol Sulfate (*Sp) Aer
[2024-01-08] MEDS: LACTATED RINGERS 1,000 ML 30 ML IV CONT (10:00)
--- NOTE | 2024-01-08 10:01 | WPDANESEPPF ---
Anes - Initial Pre Proc Eval Procedure: Operation Date: 01/08/24 11:30 Proposed Procedures p Cystoscopy, Right Ureteroscopy, Possible Right Retrograde Pyelogram, Possible Right Stone Extraction, Possible Right Stent Placement, Possible Holmium Laser Procedure - Moody Diaz MD Date/Time: 01/08/24 10:01 Surgeon: Thee Wilson MD Pre Op Diagnosis: Ureteral stones Patient Data Age: 33 Gender: M Height: 1.7 m Weight: 89.1 kg Last Vital Signs Temp 36.4 C 01/08/24 05:55 Pulse 85 01/08/24 05:55 Resp 18 01/08/24 05:55 BP 127/63 01/08/24 05:55 Pulse Ox 99 01/08/24 05:55 O2 Del Method Room Air 01/07/24 14:40 Allergies Allergy/AdvReac Type Severity Reaction Status Date / Time prednisone Allergy Unknown Verified 01/07/24 22:08 shrimp Allergy Hives Verified 01/07/24 22:08 Home Medications Medication Instructions Recorded Confirmed Type albuterol sulfate 90 mcg/actuation 2 puff inhalation QID PRN 07/28/22 01/07/24 Rx aerosol inhaler shortness of breath or wheezing #8.5 grams Laboratory Tests 01/07/24 01/07/24 14:51 15:30 WBC 7.4 K/mm3 (4.5-10.0) RBC 5.03 M/mm3 (4.6-6.20) Hgb 15.2 g/dL (14.0-18.0) Hct 44.8 % (42.0-52.0) MCV 89.1 fl (80-100) MCH 30.2 pg (26-34) MCHC 33.9 g/dl (32-36) RDW 12.9 % (11.5-14.5) Plt Count 198 k/mm3 (150-375) MPV 10.7 H fl (7.4-10.4) Immature Gran % (Auto) 0.1 % (0-0.5) Neut % (Auto) 67.1 % (45.5-73.1) Lymph % (Auto) 20.1 % (18.3-44.2) [place] % (Auto) 9.7 H % (2.6-8.5) Eos % (Auto) 2.6 % (0-4.4) Baso % (Auto) 0.4 % (0.2-1.2) Lymph # (Auto) 1.49 K/mm3 (0.9-3.2) [place] # (Auto) 0.7 H K/mm3 (0.1-0.6) Eos # (Auto) 0.2 K/mm3 (0-0.3) Baso # (Auto) 0.0 K/mm3 (0.0-0.1) Abs Immat Gran (auto) 0.01 K/mm3 (0.00-0.031) Absolute Neuts (auto) 5.0 K/mm3 (1.3-6.7) Absolute Nucleated RBC 0.000 K/mm3 (0.0-0.012) Nucleated RBC % 0.0 % (0.0-0.2) Sodium 142 mmol/L (137-145) Potassium 4.2 mmol/L (3.4-5.0) Chloride 106 mmol/L (98-107) Carbon Dioxide 27 mmol/L (22-30) Anion Gap 9 mmol/L (4-12) BUN 17 mg/dL (9-20) Creatinine 1.10 mg/dL (0.7-1.3) Estim Creat Clear Calc 88 ml/min Estimated GFR > 60 (59 - ) Glucose 104 mg/dL (65-110) Calcium 9.7 mg/dL (8.4-10.2) Total Bilirubin 0.6 mg/dL (0.2-1.3) AST 27 U/L (17-59) ALT 26 U/L (6-50) Alkaline Phosphatase 77 U/L (38-126) Total Protein 8.0 g/dL (6.3-8.2) Albumin 4.7 g/dL (3.5-5.1) Urine Color Yellow (Yellow) Urine Appearance Cloudy H (Clear) Urine pH 6.0 (5.0-9.0) Ur Specific [place] 1.020 (1.001-1.035) Urine Protein 1+ H mg/dL (Negative) Urine Glucose (UA) Negative mg/dL (Negative) Urine Ketones Negative mg/dL (Negative) Ur Blood (Man) 3+ H (Negative) Urine Nitrate Negative (Negative) Urine Bilirubin Negative (Negative) Urine Urobilinogen 1.0 mg/dL (<2.0) Leukocyte Esterase Rfl 1+ H SHELIA/UL (Negative) Urine RBC 51-100 H /hpf (0-2) Urine WBC 11-20 H /hpf (0-3) Ur Squamous Epith Cells Occasional /hpf (Few) Calcium Oxalate Crystal Present /hpf (None) Urine Bacteria None seen /hpf Urine Casts 0-2 Patient hx anesthesia problems: none Family hx anesthesia problems: none Results Review: All pre-operative results and documents have been reviewed as part of the pre-operative evaluation. [facility] Past Medical History Medical History (Updated 01/08/24 @ 10:01 by Tod Benjamin DO) COPD (chronic obstructive pulmonary disease) History of kidney stones History of posttraumatic stress d
[2024-01-08] MEDS: fentaNYL CITRATE INJ (*CRX) 100 MCG/2 ML VIAL 25 MCG IV PUSH ×8 (10:10→12:16)
--- NOTE | 2024-01-08 10:24 | WPDHPUPDATE1 ---
History and Physical Update Update Date/Time: 01/08/24 10:24 History and Physical has been reviewed, including an updated exam of the patient. There are NO changes in the patient's condition. Risks, benefits, and alternatives have been discussed and questions answered. Patient agrees to proceed with procedure.
[2024-01-08] MEDS: ceFAZolin 2 GM/D5W 50 ML 2 GM/50 ML BAG IVPB (10:32)
[2024-01-08] MEDS: LIDOCAINE HCL 2% GEL UROJET 10 ML PKG MUCOUS MEM (10:47)
--- NOTE | 2024-01-08 11:25 | W.PM.PROC2 ---
Procedure Note - Detailed Date of Procedure 01/08/24 Pre-op Diagnosis 3 right ureteral stones and right renal calculi Post-op Diagnosis Same (Meatal stenosis) Procedure Performed Cystoscopy, right retrograde, right ureteroscopy with holmium laser, right stent placement 4.8 Ethiopian contour stent, urethral dilation Surgeon Moody Diaz MD Anesthesia General Description of Procedure Patient was taken to the operative suite correctly identified. Once anesthesia was obtained was placed in dorsal lithotomy position and prepped and draped usual sterile fashion. Twenty-two Ethiopian scope would not fit in the meatus. I dilated his meatus up to 24 Ethiopian. Twenty-two Ethiopian scope was then inserted. There were no other urethral strictures. Prostate was nonobstructive. Upon entering the bladder the noted. His ureteral orifices close to the bladder neck. We were able to manipulate a guidewire into this. I dilated with an 8/10 dilator. A rigid ureteral scope was then inserted. He has 3 stones in the mid ureter. Using a 200 micron fiber I dusted the stones. I then placed ureteral access sheath as a couple fragments flushed into the kidney. Mini flexible ureteral scope was then inserted into the kidney. Whenever stones were visualized were dusted. Pyelogram was then performed to confirm placement of the stent. 4.8 Ethiopian contour stent was then placed with the proximal end coiled in the renal pelvis and the distal in the bladder. Bladder was drained. 2% viscous lidocaine was inserted urethra patient is taken recovery stable condition. He will be discharged home from my standpoint later today with pain meds antibiotics and oxybutynin for spasms. He will follow-up in a week's time for stent removal in the office. This completes dictation. Please send a copy of op note to my office Estimated Blood Loss 0 Urine Output 200 Drains Yes Packing No Pathology None sent Complications No immediate complications Condition Stable Disposition PACU
--- NOTE | 2024-01-08 15:18 | PM.DS ---
DS: Admitting Diagnosis Discharge Date 01/07 Admitting Diagnosis flank pain DS: Discharge Diagnosis Discharge Diagnosis (1) Calculus, ureteral: Code(s): N20.1 - Calculus of ureter Status: Acute Assessment and Plan: started on IV fluids, Flomax, and urology was consulted. Cysto with ureteral stent placement. Will follow up with urology in 1 week. DS: Summary Hospital Course Reason for hospitalization: kidney stone Hospital Course: 33 year old man who presented with complaints of flank pain and was found to have a kidney stone on KUB and CT. Urology was consulted. The patient was started on antibiotics, IV fluids, and made NPO. He went to cysto with urology for ureteral stent placement. Overall he did well and was discharged home in stable condition with urology follow up. Time Spent with Patient Time attestation: Total time spent providing and/or coordinating discharge services:70 Exam Const: General: comfortable Eyes: General: appearance normal, both eyes and all related structures Neck: Neck: supple Resp: Effort & Inspection: normal respiratory effort Cardio: Rate: regular rate GI: GI Palp: Yes Soft to palpation Auscultation: normal bowel sounds Skin: General skin exam: normal color Neuro: General: gait normal Psych: Other: flat affect DS: Data Data Completed and Pending Pending studies at discharge: Pending at discharge 01/08/24 11:28 Surgical [PTH] Routine Labs on day of discharge: Labs from last 24 hours 01/07/24 15:30 Urine Color Yellow Urine Appearance Cloudy H Urine pH 6.0 Ur Specific [place] 1.020 Urine Protein 1+ H Urine Glucose (UA) Negative Urine Ketones Negative Ur Blood (Man) 3+ H Urine Nitrate Negative Urine Bilirubin Negative Urine Urobilinogen 1.0 Leukocyte Esterase Rfl 1+ H Urine RBC 51-100 H Urine WBC 11-20 H Ur Squamous Epith Cells Occasional Calcium Oxalate Crystal Present Urine Bacteria None seen Urine Casts 0-2 Discharge Plan Discharge Attending physician on discharge: Pablo Menon Consulting providers: Radha Armando; Radha Deutsch; Moody Diaz; Dimitris Williamson; Benito Smiley V.; Tod Benjamin; Mery Harman Discharging Clinician: Radha Armando Anticipated Discharge Date/Time: 01/08/24 15:11 Patient Disposition: Home, Self-Care Activity: may shower Diet: regular Discharge Instructions: You were admitted with complaints of flank pain, testicular pain. You were found an have obstructing kidney stones. Dr Diaz took you for a cystoscopy and placed a ureteral stent. You need to follow-up with urology in 1 week. Please contact their office to schedule follow-up. Ureteral stent cannot remain in place long-term otherwise you can develop an infection. Please take tramadol as needed for pain, oxybutynin for bladder spasms and stent discomfort, and Zofran as needed for nausea. Your also being discharged home on oral antibiotics. Please complete the full course of antibiotics regardless of how your feeling. Please monitor for worsening symptoms of infection which include fever, chills, flank pain, abdominal pain, nausea, or vomiting. You should also follow up with her PCP the next 1-2 weeks. Patient Instructions: Antibiotic Form, Urinary Tract Infection in Men (DC), Ureteral Stent Placement (DC) Stand Alone Forms: General Discharge Information Follow-up/Referrals: Moody Diaz MD [Physician] - PHYSICIAN NOT ON STAFF,NONSTAFF [Primary Care Provider] - Discharge Medications: New sulfamethoxazole-trimethoprim [Bactrim DS] 800-160 mg tablet 1 tablet PO Q12H Qty: 6 0RF oxybutynin chloride 5 mg tablet 5 mg PO BID PRN (Reason: bladder spasms) Qty: 30 0RF Rx Instructions: Take as needed for bladder spasms tamsulosin 0.4 mg Capsule 0.4 mg PO QAM Qty: 7 0RF ondansetron 4 mg tablet,disintegrating
== END 2024-01-08 16:20 | disposition home or self-care (01) ==
LOC: ANHED 22:11 → ANH3MEDSUR 23:22
PROVIDERS: Physician Assistant; Urology; Admitting Provider Internal Medicine; Emergency Provider Emergency Medicine; Visit Provider Internal Medicine
PROC: (CPT 52352; principal; 2024-01-08 11:30)
DX: N13.2 Hydronephrosis with renal and ureteral calculous obstruction (principal); Z79.51 Long term (current) use of inhaled steroids; F17.210 Nicotine dependence, cigarettes, uncomplicated
CPT/HCPCS: 52356; 36415; 74018; 74176; 74420; 76870; 80053; 81001; 82365; 85025; 87086; 88300; 93976; 96361; 96374; 96375; 96376; 99285; A9270; C1758; C1769; C1894; C2617; G0378; J0690; J1100; J1171; J2250; J2270; J2405; J2550; J2704; J3010; J7030; J7040; J7120; Q9966

== ENCOUNTER 2024-05-09 09:43 | Emergency (ER) | payer OTHER, SELFPAY ==
[2024-05-09 09:56] VITALS: BP 144/99; PULSE 91; RESP 14; TEMP 36.5; O2SAT 97
--- OUTSIDE RECORDS SUMMARY | 2024-05-09 10:25 | XMS_ITS | Encounter Summary ---
Author Name [facility] [place] Organization [facility] [place] [facility] [place] Address [address] [place] [address] Care Team Providers Care Chronometer Tester Name Role Phone KELLEE BURT Primary Care Provider Unavailabl e Selected Encounter This section includes the information on record at [place] for the Encounter. 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 Date/Time Primary/Secondary Diagnosis Diagnosis Name Provider Source Feb 25, 2024 08:57 AM PRIMARY Other stimulant abuse, in remission BURAK HARRIS [facility] Feb 25, 2024 08:57 AM SECONDARY Anxiety disorder, unspecified BURAK HARRIS [facility] Social History: Smoking Status (Most current) and Tobacco Use (All prior to encounter date) This section includes the most current, and the historical, smoking and tobacco- related health factors from the [place] facility where the Encounter took place. Current Smoking Status This section includes the most current smoking, or tobacco-related health factor, from the [place] facility where the Encounter took place. Date/Time Current Smoking Status Radha puentes Apr 24, 2011 03:48 PM TOBACCO OFFERRED P T MEDS (PROVIDER) [facility] Tobacco Use History This section includes a history of the smoking, or tobacco-related health factors, that were collected on or before the date of the Encounter. The data comes from the [place] facility where the Encounter took place. Date/Time Smoking Status/Tobacco Use Comment F acility Apr 24, 2011 03:[address] [facility] Apr 24, 2011 03:48 PM TOBACCO OFFERRED P T MEDS (PROVIDER) [facility] Apr 23, 2011 05:34 PM CURRENT TOBACCO USER [facility] May 03, 2010 12:24 PM CURRENT TOBACCO USER [facility] Apr 29, 2010 10:28 PM CURRENT TOBACCO USER [facility] Encounter Notes: All associated encounter notes This section contains the clinical notes associated to the Encounter. Date/Time Encounter Note(s) Provider Source Feb 25, 2024 08:51 AM PSYCHIATRY NOTE: LOCAL TITLE: PSYCHIATRY [facility] STANDARD TITLE: PSYCHIATRY NOTE DATE OF NOTE: FEB 25, 2024@08:51 ENTRY DATE: FEB 25, 2024@08:51:04 AUTHOR: BURAK HARRIS COSIGNER: URGENCY: STATUS: COMPLETED [facility] - MEDICATION MANAGEMENT Name..................NERY SMART [facility] Age...................33 Sex...................MALE SSN................... Today's Date..........FEB 25, 2024 Service Connection....Service Connected: Yes (100%) ALLERGIES: SHRIMP OUTPATIENT MEDICATIONS: Active Outpatient Medications (excluding Supplies): Issue Date Status Last Fill Active Outpatient Medications Refills Expiration 1) ALBUTEROL 90MCG (CFC-F) 200D ORAL INHL ACTIVE Issu:08-03-23 Qty: 1 for 30 days Sig: INHALE 2 Refills: 4 Last:08-03-23 PUFFS ORAL INHALATION FOUR TIMES A DAY Expr:08-03-24 NEEDED SHAKE WELL. RINSE MOUTHPIECE FREQUENTLY TO PREVENT CLOGGING. 2) CETIRIZINE HCL 10MG TAB Qty: 90 for 90 ACTIVE Issu:08-03-23 days Sig: TAKE ONE TABLET BY MOUTH Refills: 3 Last:08-03-23 ONCE A DAY Expr:08-03-24 3) DIAZEPAM 5MG TAB Qty: 60 for 30 days ACTIVE Issu:11-06-23 Sig: TAKE ONE TABLET BY MOUTH TWICE Refills: 2 Last:02-14-24 DAILY NEEDED AVOID TAKING WITH Expr:05-08-24 GRAPEFRUIT JUICE. 4) FLUTICASONE PROP 50MCG 120D NASAL INHL ACTIVE Issu:08-03-23 Qty: 1 for 60 days Sig: INSTILL 1 Refills: 4 Last:08-03-23 SPRAY IN NOSTRIL(S) ONCE A DAY (MUST Expr:08-03-24 BE USED DIRECTED FOR MINIMUM OF 21 DAYS TO PROVIDE ADEQUATE BENEFITS) 5) LIDOCAINE 5% PATCH Qty: 30 for 30 days ACTIVE Issu:08-03-23 Sig: APPLY 1 PATCH TO SKIN SITE ONCE A Refills: 2 Last:12-04-23 DAY APPLY PATCH AND PRESS FIRMLY FOR Expr:08-03-24 10-15 SECONDS. KEEP ON FOR 12 HOURS THEN REMOVE PATCH FOR 12 HOURS. 6) MAGNESIUM OXIDE 400MG TAB Qty: 120 for ACTIVE Issu:12-04-23 90 days Sig: TAKE ONE TABLET BY MOUTH Refills: 0 Last:12-04-23 EVERY DAY Expr:03-03-24 7) MELOXICAM 7.5MG TAB Qty: 30 for 30 days ACTIVE Issu:08-03-23 Sig: TAKE ONE TABLET BY MOUTH ONCE A Refills: 3 Last:08-03-23 DAY Expr:08-03-24 8) PRAZOSIN HCL 2MG CAP Qty: 90 for 90 ACTIVE Issu:11-06-23 days Sig: TAKE ONE CAPSULE BY MOUTH Refills: 3 Last:11-06-23 AT BEDTIME MAY CAUSE DIZZINESS OR Expr:11-06-24 DROWSINESS. 9) SUMATRIPTAN SUCCINATE 50MG TAB Qty: 9 ACTIVE Issu:12-04-23 for 30 days Sig: TAKE ONE TABLET BY Refills: 5 Last:12-04-23 MOUTH ONE-TIME TAKE AT ONSET OF Expr:12-04-24 HEADACHE. MAY REPEAT AFTER 2 HOURS. NOT TO EXCEED 2 TABLETS IN 24 HOURS. 10) TAMSULOSIN HCL 0.4MG CAP Qty: 30 for 30 ACTIVE Issu:01-18-24 days Sig: TAKE ONE CAPSULE BY MOUTH Refills: 1 Last:01-20-24 EVERY EVENING KIDNEY STONE Expr:01-18-25 APPROXIMATELY 30 MINUTES AFTER THE SAME MEAL EACH DAY Issue Date Status Last Fill Pending Outpatient Medications Refills Expiration 1) ATOMOXETINE 40MG CAP Qty: 30 Sig: TAKE PENDING ONE CAPSULE BY MOUTH EVERY MORNING Refills: 0 2) DIAZEPAM 5MG TAB Qty: 60 Sig: TAKE ONE PENDING TABLET BY MOUTH TWICE DAILY NEEDED Refills: 0 AVOID TAKING WITH GRAPEFRUIT JUICE. Start Date Active Non-VA Medications Refills Expiration 1) Non-VA ASPIRIN 81MG EC TAB SiMG BY ACTIVE MOUTH ONCE A DAY 2) Non-VA MARIJUANA (MEDICAL) Sig: ACTIVE DIRECTED INHALATION NEEDED 14 Total Medications PROBLEM LIST: 1) Posttraumatic stress disorder (SNOMED CT 93763326) 2) Major Depressive Disorder, Recurrent 3) Suicidal Ideation 4) Polysubstance dependence 5) Adjustment disorder with depressed mood (SNOMED CT 56450432) 6) Hyperlipidemia * (ICD-9-CM 272.4) 7) Generalized anxiety disorder 8) Cannabis dependence, continuous 9) Gastroesophageal reflux disease 10) History of nephrolithiasis 11) Hyperlipidemia 12) Insomnia 13) Anxiety 14) Apnea 15) Sleep disorder 16) Tobacco user 17) Deficiency of vitamin D3 18) Cerebral infarction 19) Stimulant abuse 20) Exposure to potentially hazardous substance VITAL SIGNS: Pulse.................92 (08/03/2023 08:57) Temperature...........98.6 F [37.0 C] (08/03/2023 08:57) Blood Pressure........139/89 (08/03/2023 08:57) Pain..................7 (08/03/2023 09:10) Weight................184 lb [83.46 kg] (08/03/2023 08:57) Patient Weight History - Last Four 1. 184.0 lbs. / 83.5 kg. on AUGUST 03, 2023@08:57:53 2. 197.0 lbs. / 89.4 kg. on AUGUST 03, 2020@11:10:35 3. 205.0 lbs. / 93.0 kg. on DEC 16, 2018@14:25:16 4. 190.0 lbs. / 86.2 kg. on FEB 08, 2016@08:07:31 LAB VALUES: CBC WBC 10.0 10*3/uL 08/03/2023 10:12 RBC 5.07 10*6/uL 08/03/2023 10:12 HGB 14.9 g/dL 08/03/2023 10:12 HCT 43.8 % 08/03/2023 10:12 MCV 86.4 fL 08/03/2023 10:12 MCH 29.4 pg 08/03/2023 10:12 MCHC 34.0 g/dL 08/03/2023 10:12 RDW 12.9 % 08/03/2023 10:12 PLT 218 10*3/uL 08/03/2023 10:12 MPV 10.6 fL 08/03/2023 10:12 NEUTROPHILS, AUTO % 79 % 08/03/2023 10:12 LYMPHOCYTES, AUTO % 15 % 08/03/2023 10:12 MONOCYTES, AUTO % 5 % 08/03/2023 10:12 EOSINOPHILS, AUTO % 0 % 08/03/2023 10:12 BASOPHILS, AUTO % 0 % 08/03/2023 10:12 NEUTROPHILS, ABSOLUTE 7.94 10*3/uL 08/03/2023 10:12 LYMPHOCYTES, ABSOLUTE 1.50 10*3/uL 08/03/2023 10:12 MONOCYTES, ABSOLUTE 0.49 10*3/uL 08/03/2023 10:12 EOSINOPHILS, ABSOLUTE 0.03 10*3/uL 08/03/2023 10:12 BASOPHILS, ABSOLUTE 0.03 10*3/uL 08/03/2023 10:12 CHEM 7 SODIUM 141 mEq/L 08/03/2023 10:12 POTASSIUM 4.2 mEq/L 08/03/2023 10:12 CHLORIDE 104 mEq/L 08/03/2023 10:12 UREA NITROGEN 16.9 mg/dL 08/03/2023 10:12 CREATININE 1.03 mg/dL 08/03/2023 10:12 CALCIUM 9.6 mg/dL 08/03/2023 10:12 CARBON DIOXIDE 27 mEq/L 08/03/2023 10:12 GLUCOSE 101 H mg/dL 08/03/2023 10:12 EGFR (CKD-EPI 2020) 97.76 08/03/2023 10:12 HEPATIC PANEL No data available TRIGLYCERIDES...179 mg/dL H (08/03/23 10:12) CHOLESTEROL.....CHOLESTEROL 259 H mg/dL 08/03/2023 10:12 TSH.............TSH 2.236 uIU/mL 08/03/2023 10:13 LITHIUM.........____ VALPROIC ACID...____ DIAGNOSIS BEING TREATED THIS VISIT: PTSD, chronic methamphetamine use disorder, alcohol use disorder, Hx of MDD ANY COMPLAINTS/PROBLEMS.......Yes Mr Smart presented today reporting that he has had some positive and some negative experiences since we last spoke. On the positive side, he did visit his 'yanet's' grave and was able to talk with the friend's cousin about the which provided a lot of 'relief' for the and reduced his trauma related nightmares. Unfortunately, zeke has also had stress with his children's mother who let talk to his son for about a week, but then stopped when wouldn't immediately sign paperwork for the kids to get passports (zeke's ex is notably dual citizen). Sleep has been reduced and more nightmares related to this issue, also increase in irritability. Dalton also reports concerns about possibly having ADHD and reports struggling to help the kids with their homework, issues with maintaining focus on projects, starting multiple projects but not finishing. Discussed options and cautioned against stimulants but will trial Strattera for inattention symptoms. reports understanding and agreement with treatment plan. ANY MEDICATION SIDE EFFECT....No APPETITE..................... .Good SLEEP........................ .Fair Physical Exam: Gait/Station/Muscle Tone.... no abnormal movements MENTAL STATUS: General Appearance and Behavior... well groomed male with short dark hair, short peacock, tattoos on neck and hands, cigarette behind right ear, yousif jacket, good eye contact ALERT & ORIENTED X3 WITH GOOD CONCENTRATION........Yes Attention...................N ormal Recent and Remote Memory....Normal Language.................... not tested Speech...................... RRR Intelligence................ average Thought Process............. logical, goal directed Associations................ intact MOOD/AFFECT.................N ormal somewhat blunted DELUSIONS/HALLUCINATIONS....A bsent SUICIDAL/AGGRESSIVE.........A bsent Judgment/Insight............ fair to good COMMENTS: None MEDICATION CHANGE.............No startt strattera, continue diazepam SUPPORTIVE PSYCHOTHERAPY......Yes provided 20 min GAF: Last GAF: 43 on: Jul by: GILBERT MAGALLON Current Gaf: TREATMENT PLAN: Continue with current Treatment Plan Medication Management INSTRUCTIONS GIVEN TO PATIENT/FAMILY: Report medication side effects promptly No alcohol/illicit drug use with medication If symptoms get worse, call clinic or Emergency Room as appropriate Other, see below: RTC in 6 months TYPE OF VISIT: TELEMENTAL HEALTH VISIT PATIENT LOCATION: Other, see below-- car EQUIPMENT USED: Full Televideo, transmission quality GOOD /mahesh/ BURAK HARRIS Staff Psychiatrist () Signed: 02/25/2024 08:57 BURAK HARRIS [facility]
--- OUTSIDE RECORDS SUMMARY | 2024-05-09 10:26 | XMS_ITS | Encounter Summary ---
Author Name [facility] [place] Organization [facility] [place] Address [address] [place] [address] Care Team Providers Care Embedded Software Manager Name Role Phone KELLEE BURT Primary Care Provider Unavailabl e Selected Encounter This section includes the information on record at [place] for the Encounter. Date/Time Encounter Type Encounter Description Reason Provider Source Jun 12, 2023 09:04 AM CASE MANAGEMENT ADMIN PAT ACTIVTIES (MASNONCT) GIGI PITTMAN Encounter Template Text not used by [place] Plan of Treatment: Future Appointments (+ 6 months) and Future Tests (+/- 45 days) The Plan of Treatment section includes future care activities for the patient from all [place] treatmentfacilities. This section includes future appointments and future orders which are active, pending or scheduled. Future Appointments This section includes appointments that were scheduled to occur 6 months from the date of the Encounter, up to a maximum of 20 appointments. The data comes from all [place] treatment facilities. Appointment Date/Time Appointment Type Appointme nt Facility Name Jul 31, 2023 11:30 AM AMBULATORY - PSYCHIATRY [facility] August 03, 2023 09:00 AM AMBULATORY - MEDICINE [facility] Sep 06, 2023 01:30 PM AMBULATORY - PSYCHIATRY [facility] Oct 03, 2023 08:30 AM AMBULATORY - MEDICINE [facility] Nov 06, 2023 01:30 PM AMBULATORY - PSYCHIATRY [facility] Dec 04, 2023 03:30 PM AMBULATORY - MEDICINE [facility] Social History: Smoking Status (Most current) and Tobacco Use (All prior to encounter date) This section includes the most current, and the historical, smoking and tobacco- related health factors from the [place] facility where the Encounter took place. Current Smoking Status This section includes the most current smoking, or tobacco-related health factor, from the [place] facility where the Encounter took place. Date/Time Current Smoking Status Comment Facil ity August 03, 2020 12:00 PM VA-TOBACCO USER EVERY DAY [facility] Tobacco Use History This section includes a history of the smoking, or tobacco-related health factors, that were collected on or before the date of the Encounter. The data comes from the [place] facility where the Encounter took place. Date/Time Smoking Status/Tobacco Use Comment F acmalika August 03, 2020 12:00 PM VA-TOBACCO USE 5 TO 15 YEARS [facility] August 03, 2020 12:00 PM VA-TOBACCO USE ADVICE [facility] August 03, 2020 12:00 PM VA-TOBACCO USE SECONDS HANDLER NO [facility] August 03, 2020 12:00 PM VA-TOBACCO USE MED NOTIFY PROVIDER Dr. Suarez [facility] August 03, 2020 12:00 PM VA-TOBACCO USE WI 30 MIN OF WAKE UP [facility] August 03, 2020 12:00 PM VA-TOBACCO USER EVERY DAY [facility] Nov 28, 2018 02:15 PM VA-TOBACCO DOESNT USE WI 30 MIN WAKEUP [facility] Nov 28, 2018 02:15 PM VA-TOBACCO USE 5 TO 15 YEARS [facility] Nov 28, 2018 02:15 PM VA-TOBACCO USE ADVICE [facility] Nov 28, 2018 02:15 PM VA-TOBACCO USE SECONDS HANDLER NO [facility] Nov 28, 2018 02:15 PM VA-TOBACCO USE MED NO [facility] Nov 28, 2018 02:15 PM VA-TOBACCO USER EVERY DAY [facility] Oct 25, 2015 12:54 PM CURRENT TOBACCO USER [facility] Oct 25, 2015 12:54 PM PREVIOUS SMOKER [facility]IO [facility] Oct 25, 2015 12:54 PM TOBACCO MEDS OFFERED BUT DECLINE D [facility] Jan 28, 2014 01:00 PM CURRENT TOBACCO USER [facility] Encounter Notes: All associated encounter notes This section contains the clinical notes associated to the Encounter. Date/Time Encounter Note(s) Provider Source Jun 12, 2023 09:04 AM PRIMARY CARE NOTE: LOCAL TITLE: TVC TRAVELING NOTE [place] STANDARD TITLE: PRIMARY CARE NOTE DATE OF NOTE: JUN 12, 2023@09:04 ENTRY DATE: JUN 12, 2023@09:06:07 AUTHOR: GIGI PITTMAN EXP COSIGNER: URGENCY: STATUS: COMPLETED TVC Relocating from [facility]: Received traveling consult for relocating to [facility]. Additional need at remote [place]: Primary Care appointment requested. Consult reviewed for accuracy. IFC forwarded to [facility] facility for processing. Will continue to monitor for scheduling with PCP at [facility] facility. /mahesh/ GIGI PITTMAN REGISTERED NURSE Signed: 06/12/2023 09:08 GIGI PITTMAN [facility]
--- OUTSIDE RECORDS SUMMARY | 2024-05-09 10:28 | XMS_ITS | Referral Summary ---
Author Organization [facility] Address [address] [place] [address] Care Team Providers Care Carrot Harvester Name Role Phone [facility] Primary Care Provid er Allergies Active Allergy Reactions Criticality Noted Date Comments Prednisone Mental status changes Low 09/18/2020 JUMPSTART MANIC DEPRESSION Shrimp Vision changes Medium 03/15/2021 hives Medications aspirin 81 mg enteric coated tablet 81 mg 1 Active atorvastatin (LIPITOR) 10 mg tablet Take 80 mg by mouth daily 1 Active ondansetron ODT (ZOFRAN-ODT) 4 mg disintegrating tablet Take 1 tablet (4 mg total) by mouth every 8 (eight) hours as needed for nausea or vomiting 20 tablet 1 Active Active Problems Problem Noted Date Diagnosed Date Left-sided weakness 07/07/2023 Social History Tobacco Use Types Packs/Day Years Used Date Smoking Tobacco: Every Day Cigarettes 1 4 Smokeless Tobacco: Never Alcohol Use Standard Drinks/Week Comments Not Currently 0 (1 standard drink = 0.6 oz pur e alcohol) Personal Safety Answer Date Recorded Have you ever been in or are you currently in a harmful physical or emotional relationship or is someone making you feel afraid or unsafe? 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 Gender Identity Not on file Sexual Orientation Not on file Last Filed Vital Signs Vital Sign Reading Time Taken Comments Blood Pressure 137/81 07/07/2023 8:00 PM CDT Pulse 78 07/07/2023 8:00 PM CDT Temperature 36.8 C (98.2 F) 07/07/2023 5:45 PM CDT Respiratory Rate 11 07/07/2023 8:00 PM CDT Oxygen Saturation 99% 07/07/2023 8:00 PM CDT Inhaled Oxygen Concentration - - Weight 90.7 kg (200 lb) 07/07/2023 5:44 PM CDT Height 170.2 cm (5' 7 ) 07/07/2023 5:45 PM CDT Body Mass Index 31.32 07/07/2023 5:44 PM CDT Plan of Treatment Not on file Insurance [facility] Advance Directives For more information, please contact: [phone] * Full Code (Latest Code Status on File) Date Activated Date Inactivated Comments 07/07/2023 7:51 PM 07/08/2023 1:07 AM Care Teams Carrot Harvester Relationship Specialty Start Date End Date [address] [address] PCP - General Genetics 10/29/20
--- OUTSIDE RECORDS SUMMARY | 2024-05-09 10:28 | XMS_ITS | Continuity of Care Document ---
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 Report Released Date/Time: August 03, 2023 09:50 AM Reporting Lab: [facility] [place] [address] Performing Lab: [facility] DIVISION COMPREHEN SIVE METABOLIC PANEL POTASSIUM [MOLES/VOLU ME] IN SERUM OR PLASMA 4.2 meq/L 3.5 - 5.0 08/02 Specimen Type: PLASMA Comment: No hemolysis noted. Ordering Provider: SHADY BURT Report Released Date/Time: August 03, 2023 09:50 AM Reporting Lab: [facility] [place] [address] Performing Lab: [facility] DIVISION COMPREHEN SIVE METABOLIC PANEL CHLORIDE [MOLES/VOLU ME] IN SERUM OR PLASMA 104 meq/L 98 - 107 08/02 Specimen Type: PLASMA Comment: No hemolysis noted. Ordering Provider: SHADY BURT Report Released Date/Time: August 03, 2023 09:50 AM Reporting Lab: [facility] [place] [address] Performing Lab: [facility] DIVISION COMPREHEN SIVE METABOLIC PANEL CARBON DIOXIDE, TOTAL [MOLES/VOLU ME] IN SERUM OR PLASMA 27 meq/L 22 - 31 08/02 Specimen Type: PLASMA Comment: No hemolysis noted. Ordering Provider: SHADY BURT Report Released Date/Time: August 03, 2023 09:50 AM Reporting Lab: [facility] [place] [address] Performing Lab: [facility] DIVISION COMPREHEN SIVE METABOLIC PANEL CALCIUM [MASS/VOLUM E] IN SERUM OR PLASMA 9.6 mg/dL 8.4 - 10.4 08/02 Specimen Type: PLASMA Comment: No hemolysis noted. Ordering Provider: SHADY BURT Report Released Date/Time: August 03, 2023 09:50 AM Reporting Lab: [facility] [place] [address] Performing Lab: [facility] DIVISION COMPREHEN SIVE METABOLIC PANEL PROTEIN [MASS/VOLUM E] IN SERUM OR PLASMA 7.5 g/dL 6.0 - 8.6 08/02 Specimen Type: PLASMA Comment: No hemolysis noted. Ordering Provider: SHADY BURT Report Released Date/Time: August 03, 2023 09:50 AM Reporting Lab: [facility] [place] [address] Performing Lab: [facility] DIVISION COMPREHEN SIVE METABOLIC PANEL ALBUMIN [MASS/VOLUM E] IN SERUM OR PLASMA 4.6 g/dL 3.4 - 5.0 08/02 Specimen Type: PLASMA Comment: No hemolysis noted. Ordering Provider: SHADY BURT Report Released Date/Time: August 03, 2023 09:50 AM Reporting Lab: [facility] [place] [address] Performing Lab: [facility] DIVISION COMPREHEN SIVE METABOLIC PANEL BILIRUBIN.T OTAL [MASS/VOLUM E] IN SERUM OR PLASMA 0.9 mg/dL 0.2 - 1.2 08/02 Specimen Type: PLASMA Comment: No hemolysis noted. Ordering Provider: SHADY BURT Report Released Date/Time: August 03, 2023 09:50 AM Reporting Lab: [facility] [place] [address] Performing Lab: [facility] DIVISION COMPREHEN SIVE METABOLIC PANEL ALKALINE PHOSPHATASE [ENZYMATIC ACTIVITY/VO LUME] IN SERUM OR PLASMA 92 U/L 40 - 150 08/02 Specimen Type: PLASMA Comment: No hemolysis noted. Ordering Provider: SHADY BURT Report Released Date/Time: August 03, 2023 09:50 AM Reporting Lab: [facility] [place] [address] Performing Lab: [facility] DIVISION COMPREHEN SIVE METABOLIC PANEL ASPARTATE AMINOTRANSF ERASE [ENZYMATIC ACTIVITY/VO LUME] IN SERUM OR PLASMA 35 U/L 5 - 34 08/02 H Specimen Type: PLASMA Comment: No hemolysis noted. Ordering Provider: SHADY BURT Report Released Date/Time: August 03, 2023 09:50 AM Reporting Lab: [facility] [place] [address] Performing Lab: [facility] DIVISION COMPREHEN SIVE METABOLIC PANEL ALANINE AMINOTRANSF ERASE [ENZYMATIC ACTIVITY/VO LUME] IN SERUM OR PLASMA 44 U/L 8 - 40 08/02 H Specimen Type: PLASMA Comment: No hemolysis noted. Ordering Provider: SHADY BURT Report Released Date/Time: August 03, 2023 09:50 AM Reporting Lab: [facility] [place] [address] Performing Lab: [facility] DIVISION COMPREHEN SIVE METABOLIC PANEL GLOMERULAR FILTRATION RATE/1.73 SQ M.PREDICTED [VOLUME RATE/AREA] IN SERUM, PLASMA OR BLOOD BY CREATININE- BASED FORMULA (CKD-EPI 2020) 97.76 60 08/02 Specimen Type: PLASMA Comment: No hemolysis noted. Ordering Provider: SHADY BURT Report Released Date/Time: August 03, 2023 09:50 AM Reporting Lab: [facility] [place] [address] Performing Lab: [facility] DIVISION CBC LEUKOCYTES [#/VOLUME] IN BLOOD BY AUTOMATED COUNT 10.0 10*3/u L 3.6 - 11.2 08/02 Specimen Type: BLOOD No comment entered. Ordering Provider: SHADY BURT Report Released Date/Time: August 03, 2023 09:50 AM Reporting Lab: [facility] [place] [address] Performing Lab: [facility] DIVISION CBC ERYTHROCYTE S [#/VOLUME] IN BLOOD BY AUTOMATED COUNT 5.07 10*6/u L 4.10 - 5.70 08/02 Specimen Type: BLOOD No comment entered. Ordering Provider: SHADY BURT Report Released Date/Time: August 03, 2023 09:50 AM Reporting Lab: [facility] [place] [address] Performing Lab: [facility] DIVISION CBC HEMOGLOBIN [MASS/VOLUM E] IN BLOOD 14.9 g/dL 13.1 - 16.8 08/02 Specimen Type: BLOOD No comment entered. Ordering Provider: SHADY BURT Report Released Date/Time: August 03, 2023 09:50 AM Reporting Lab: [facility] [place] [address] Performing Lab: [facility] CBC HEMATOCRIT [VOLUME FRACTION] OF BLOOD 43.8 38.2 - 48.4 08/02 Specimen Type: BLOOD No comment entered. Ordering Provider: SHADY BURT Report Released Date/Time: August 03, 2023 09:50 AM Reporting Lab: [facility] [place] [address] Performing Lab: [facility] DIVISION CBC MCV [ENTITIC VOLUME] BY AUTOMATED COUNT 86.4 fL 80.0 - 100.0 08/02 Specimen Type: BLOOD No comment entered. Ordering Provider: SHADY BURT Report Released Date/Time: August 03, 2023 09:50 AM Reporting Lab: [facility] [place] [address] Performing Lab: [facility] CBC MCH [ENTITIC MASS] BY AUTOMATED COUNT 29.4 pg 27.0 - 34.0 08/02 Specimen Type: BLOOD No comment entered. Ordering Provider: SHADY BURT Report Released Date/Time: August 03, 2023 09:50 AM Reporting Lab: [facility] [place] [address] Performing Lab: [facility] DIVISION CBC MCHC [MASS/VOLUM E] BY AUTOMATED COUNT 34.0 g/dL 33.0 - 36.0 08/02 Specimen Type: BLOOD No comment entered. Ordering Provider: SHADY BURT Report Released Date/Time: August 03, 2023 09:50 AM Reporting Lab: [facility] [place] [address] Performing Lab: [facility] DIVISION CBC PLATELETS [#/VOLUME] IN BLOOD BY AUTOMATED COUNT 218 10*3/u L 150 - 400 08/02 Specimen Type: BLOOD No comment entered. Ordering Provider: SHADY BURT Report Released Date/Time: August 03, 2023 09:50 AM Reporting Lab: [facility] [place] [address] Performing Lab: [facility] DIVISION CBC PLATELET MEAN VOLUME [ENTITIC VOLUME] IN BLOOD BY AUTOMATED COUNT 10.6 fL 7.5 - 11.2 08/02 Specimen Type: BLOOD No comment entered. Ordering Provider: SHADY BURT Report Released Date/Time: August 03, 2023 09:50 AM Reporting Lab: [facility] [place] [address] Performing Lab: [facility] DIVISION CBC ERYTHROCYTE DISTRIBUTIO N WIDTH [RATIO] BY AUTOMATED COUNT 12.9 11.8 - 15.1 08/02 Specimen Type: BLOOD No comment entered. Ordering Provider: SHADY BURT Report Released Date/Time: August 03, 2023 09:50 AM Reporting Lab: [facility] [place] [address] Performing Lab: [facility] DIVISION CBC LYMPHOCYTES /100 LEUKOCYTES IN BLOOD BY AUTOMATED COUNT 15 08/02 Specimen Type: BLOOD No comment entered. Ordering Provider: SHADY BURT Report Released Date/Time: August 03, 2023 09:50 AM Reporting Lab: [facility] [place] [address] Performing Lab: [facility] DIVISION CBC MONOCYTES/1 00 LEUKOCYTES IN BLOOD BY AUTOMATED COUNT 5 08/02 Specimen Type: BLOOD No comment entered. Ordering Provider: SHADY BURT Report Released Date/Time: August 03, 2023 09:50 AM Reporting Lab: [facility] [place] [address] Performing Lab: [facility] DIVISION CBC NEUTROPHILS /100 LEUKOCYTES IN BLOOD BY AUTOMATED COUNT 79 08/02 Specimen Type: BLOOD No comment entered. Ordering Provider: SHADY BURT Report Released Date/Time: August 03, 2023 09:50 AM Reporting Lab: [facility] [place] [address] Performing Lab: [facility] DIVISION CBC EOSINOPHILS /100 LEUKOCYTES IN BLOOD BY AUTOMATED COUNT 0 08/02 Specimen Type: BLOOD No comment entered. Ordering Provider: SHADY BURT Report Released Date/Time: August 03, 2023 09:50 AM Reporting Lab: [facility] [place] [address] Performing Lab: [facility] DIVISION CBC BASOPHILS/1 00 LEUKOCYTES IN BLOOD BY AUTOMATED COUNT 0 08/02 Specimen Type: BLOOD No comment entered. Ordering Provider: SHADY BURT Report Released Date/Time: August 03, 2023 09:50 AM Reporting Lab: [facility] [place] [address] Performing Lab: [facility] DIVISION CBC LYMPHOCYTES [#/VOLUME] IN BLOOD BY AUTOMATED COUNT 1.50 10*3/u L 0.77 - 4.50 08/02 Specimen Type: BLOOD No comment entered. Ordering Provider: SHADY BURT Report Released Date/Time: August 03, 2023 09:50 AM Reporting Lab: [facility] [place] [address] Performing Lab: [facility] DIVISION CBC MONOCYTES [#/VOLUME] IN BLOOD BY AUTOMATED COUNT 0.49 10*3/u L 0.19 - 0.80 08/02 Specimen Type: BLOOD No comment entered. Ordering Provider: SHADY BURT Report Released Date/Time: August 03, 2023 09:50 AM Reporting Lab: [facility] [place] [address] Performing Lab: [facility] DIVISION CBC NEUTROPHILS [#/VOLUME] IN BLOOD BY AUTOMATED COUNT 7.94 10*3/u L 2.10 - 8.00 08/02 Specimen Type: BLOOD No comment entered. Ordering Provider: SHADY BURT Report Released Date/Time: August 03, 2023 09:50 AM Reporting Lab: [facility] [place] [address] Performing Lab: [facility] CBC EOSINOPHILS [#/VOLUME] IN BLOOD BY AUTOMATED COUNT 0.03 10*3/u L 0.00 - 0.60 08/02 Specimen Type: BLOOD No comment entered. Ordering Provider: SHADY BURT Report Released Date/Time: August 03, 2023 09:50 AM Reporting Lab: [facility] [place] [address] Performing Lab: [facility] CBC BASOPHILS [#/VOLUME] IN BLOOD BY AUTOMATED COUNT 0.03 10*3/u L 0.00 - 0.20 08/02 Specimen Type: BLOOD No comment entered. Ordering Provider: SHADY BURT Report Released Date/Time: August 03, 2023 09:50 AM Reporting Lab: [facility] [place] [address] Performing Lab: [facility] DRUGS OF ABUSE (NEW) (STL) ETHANOL [MASS/VOLUM E] IN URINE Negati vemg/d L 0 - 20 03/12 Specimen Type: URINE Comment: The cut-off value for this test was laboratory developed and its performance characteris tics confirmed by the [facility] laboratory thru method comparison with reference laboratory and medication chart review. The laboratory is regulated under CLIA as qualified to perform high-comple xity testing. This test is used for clinical purposes in conjunction with other laboratory tests. Ordering Provider: CHRISTOPHER HARRIS Report Released Date/Time: Feb 20, 2023 12:09 PM Reporting Lab: [facility] [place] [phone] Performing Lab: [facility] [id number] [place] [address] DRUGS OF ABUSE (NEW) (STL) AMPHETAMINE [PRESENCE] IN URINE BY SCREEN METHOD Negati veng/m L 03/12 Specimen Type: URINE Comment: The cut-off value for this test was laboratory developed and its performance characteris tics confirmed by the [facility] laboratory thru method comparison with reference laboratory and medication chart review. The laboratory is regulated under CLIA as qualified to perform high-comple xity testing. This test is used for clinical purposes in conjunction with other laboratory tests. Ordering Provider: CHRISTOPHER HARRIS Report Released Date/Time: Feb 20, 2023 12:09 PM Reporting Lab: [facility] [phone] Performing Lab: [facility] DRUGS OF ABUSE (NEW) (STL) BENZOYLECGO NINE [PRESENCE] IN URINE Negati veng/m L 03/12 Specimen Type: URINE Comment: The cut-off value for this test was laboratory developed and its performance characteris tics confirmed by the [facility] laboratory thru method comparison with reference laboratory and medication chart review. The laboratory is regulated under CLIA as qualified to perform high-comple xity testing. This test is used for clinical purposes in conjunction with other laboratory tests. Ordering Provider: CHRISTOPHER HARRIS Report Released Date/Time: Feb 20, 2023 12:09 PM Reporting Lab: [facility] [phone] Performing Lab: [facility] DRUGS OF ABUSE (NEW) (STL) CANNABINOID S [PRESENCE] IN URINE BY SCREEN METHOD 91-POS ng/mL 03/12 Specimen Type: URINE Comment: The cut-off value for this test was laboratory developed and its performance characteris tics confirmed by the [facility] laboratory thru method comparison with reference laboratory and medication chart review. The laboratory is regulated under CLIA as qualified to perform high-comple xity testing. This test is used for clinical purposes in conjunction with other laboratory tests. Ordering Provider: CHRISTOPHER HARRIS Report Released Date/Time: Feb 20, 2023 12:09 PM Reporting Lab: [facility] [place] [address] Performing Lab: [facility] DRUGS OF ABUSE (NEW) (STL) OPIATES [PRESENCE] IN URINE BY SCREEN METHOD Negati veng/m L 03/12 Specimen Type: URINE Comment: The cut-off value for this test was laboratory developed and its performance characteris tics confirmed by the [facility] laboratory thru method comparison with reference laboratory and medication chart review. The laboratory is regulated under CLIA as qualified to perform high-comple xity testing. This test is used for clinical purposes in conjunction with other laboratory tests. Ordering Provider: CHRISTOPHER HARRIS Report Released Date/Time: Feb 20, 2023 12:09 PM Reporting Lab: [facility] [place] [address] Performing Lab: [facility] DRUGS OF ABUSE (NEW) (STL) CREATININE [MASS/VOLUM E] IN URINE 197.6 mg/dL 63.0 - 166.0 03/12 H Specimen Type: URINE Comment: The cut-off value for this test was laboratory developed and its performance characteris tics confirmed by the [facility] laboratory thru method comparison with reference laboratory and medication chart review. The laboratory is regulated under CLIA as qualified to perform high-comple xity testing. This test is used for clinical purposes in conjunction with other laboratory tests. Ordering Provider: CHRISTOPHER HARRIS Report Released Date/Time: Feb 20, 2023 12:09 PM Reporting Lab: [facility] [place] [address] Performing Lab: [facility] [phone] [place] [address] METHADONE PANEL (STL) ETHANOL [MASS/VOLUM E] IN URINE Negati vemg/d L 0 - 20 03/12 Specimen Type: URINE Comment: The cut-off value for this test was laboratory developed and its performance characteris tics confirmed by the [facility] laboratory thru method comparison with reference laboratory and medication chart review. The laboratory is regulated under CLIA as qualified to perform high-comple xity testing. This test is used for clinical purposes in conjunction with other laboratory tests. Ordering Provider: CHRISTOPHER HARRIS Report Released Date/Time: Feb 20, 2023 12:09 PM Reporting Lab: [facility] [place] [address] Performing Lab: [facility] [address] METHADONE PANEL (STL) AMPHETAMINE [PRESENCE] IN URINE BY SCREEN METHOD Negati veng/m L 03/12 Specimen Type: URINE Comment: The cut-off value for this test was laboratory developed and its performance characteris tics confirmed by the [facility] laboratory thru method comparison with reference laboratory and medication chart review. The laboratory is regulated under CLIA as qualified to perform high-comple xity testing. This test is used for clinical purposes in conjunction with other laboratory tests. Ordering Provider: CHRISTOPHER HARRIS Report Released Date/Time: Feb 20, 2023 12:09 PM Reporting Lab: [facility] [place] [address] Performing Lab: [facility] METHADONE PANEL (STL) BENZOYLECGO NINE [PRESENCE] IN URINE Negati veng/m L 03/12 Specimen Type: URINE Comment: The cut-off value for this test was laboratory developed and its performance characteris tics confirmed by the [facility] laboratory thru method comparison with reference laboratory and medication chart review. The laboratory is regulated under CLIA as qualified to perform high-comple xity testing. This test is used for clinical purposes in conjunction with other laboratory tests. Ordering Provider: CHRISTOPHER HARRIS Report Released Date/Time: Feb 20, 2023 12:09 PM Reporting Lab: [facility] [phone] Performing Lab: [facility] [phone] [place] [address] METHADONE PANEL (STL) BENZODIAZEP MARYBETH [PRESENCE] IN URINE BY SCREEN METHOD Negati veng/m L 03/12 Specimen Type: URINE Comment: The cut-off value for this test was laboratory developed and its performance characteris tics confirmed by the [facility] laboratory thru method comparison with reference laboratory and medication chart review. The laboratory is regulated under CLIA as qualified to perform high-comple xity testing. This test is used for clinical purposes in conjunction with other laboratory tests. Ordering Provider: CHRISTOPHER HARRIS Report Released Date/Time: Feb 20, 2023 12:09 PM Reporting Lab: [facility] [phone] Performing Lab: [facility] [phone] [place] [address] METHADONE PANEL (STL) CANNABINOID S [PRESENCE] IN URINE BY SCREEN METHOD 91-POS ng/mL 03/12 Specimen Type: URINE Comment: The cut-off value for this test was laboratory developed and its performance characteris tics confirmed by the [facility] laboratory thru method comparison with reference laboratory and medication chart review. The laboratory is regulated under CLIA as qualified to perform high-comple xity testing. This test is used for clinical purposes in conjunction with other laboratory tests. Ordering Provider: CHRISTOPHER HARRIS Report Released Date/Time: Feb 20, 2023 12:09 PM Reporting Lab: [facility] [phone] Performing Lab: [facility] [phone] [place] [address] METHADONE PANEL (STL) METHADONE [PRESENCE] IN URINE Negati veng/m L 03/12 Specimen Type: URINE Comment: The cut-off value for this test was laboratory developed and its performance characteris tics confirmed by the [facility] laboratory thru method comparison with reference laboratory and medication chart review. The laboratory is regulated under CLIA as qualified to perform high-comple xity testing. This test is used for clinical purposes in conjunction with other laboratory tests. Ordering Provider: CHRISTOPHER HARRIS Report Released Date/Time: Feb 20, 2023 12:09 PM Reporting Lab: [facility] [phone] Performing Lab: [facility] [phone] [place] [address] METHADONE PANEL (STL) OPIATES [PRESENCE] IN URINE BY SCREEN METHOD Negati veng/m L 03/12 Specimen Type: URINE Comment: The cut-off value for this test was laboratory developed and its performance characteris tics confirmed by the [facility] laboratory thru method comparison with reference laboratory and medication chart review. The laboratory is regulated under CLIA as qualified to perform high-comple xity testing. This test is used for clinical purposes in conjunction with other laboratory tests. Ordering Provider: CHIRSTOPHER HARRIS Report Released Date/Time: Feb 20, 2023 12:09 PM Reporting Lab: [facility] [phone] Performing Lab: [facility] [phone] [place] [address] METHADONE PANEL (STL) CREATININE [MASS/VOLUM E] IN URINE 197.6 mg/dL 63.0 - 166.0 03/12 H Specimen Type: URINE Comment: The cut-off value for this test was laboratory developed and its performance characteris tics confirmed by the [facility] laboratory thru method comparison with reference laboratory and medication chart review. The laboratory is regulated under CLIA as qualified to perform high-comple xity testing. This test is used for clinical purposes in conjunction with other laboratory tests. Ordering Provider: CHRISTOPHER HARRIS Report Released Date/Time: Feb 20, 2023 12:09 PM Reporting Lab: [facility] [id number] Performing Lab: [facility] METHADONE PANEL (STL) OXYCODONE CUTOFF [MASS/VOLUM E] IN URINE FOR SCREEN METHOD Negati veng/m L 03/12 Specimen Type: URINE Comment: The cut-off value for this test was laboratory developed and its performance characteris tics confirmed by the [facility] laboratory thru method comparison with reference laboratory and medication chart review. The laboratory is regulated under CLIA as qualified to perform high-comple xity testing. This test is used for clinical purposes in conjunction with other laboratory tests. Ordering Provider: CHRISTOPHER HARRIS Report Released Date/Time: Feb 20, 2023 12:09 PM Reporting Lab: [facility] [place] [address] Performing Lab: [facility] METHADONE PANEL (STL) BUPRENORPHI NE [PRESENCE] IN URINE Negati veng/m L 03/12 Specimen Type: URINE Comment: The cut-off value for this test was laboratory developed and its performance characteris tics confirmed by the [facility] laboratory thru method comparison with reference laboratory and medication chart review. The laboratory is regulated under CLIA as qualified to perform high-comple xity testing. This test is used for clinical purposes in conjunction with other laboratory tests. Ordering Provider: CHRISTOPHER HARRIS Report Released Date/Time: Feb 20, 2023 12:09 PM Reporting Lab: [facility] [place] [address] Performing Lab: [facility] [address] METHADONE PANEL (STL) FENTANYL [PRESENCE] IN URINE Negati veng/m L 03/12 Specimen Type: URINE Comment: The cut-off value for this test was laboratory developed and its performance characteris tics confirmed by the [facility] laboratory thru method comparison with reference laboratory and medication chart review. The laboratory is regulated under CLIA as qualified to perform high-comple xity testing. This test is used for clinical purposes in conjunction with other laboratory tests. Ordering Provider: CHRISTOPHER HARRIS Report Released Date/Time: Feb 20, 2023 12:09 PM Reporting Lab: [facility] [address] Performing Lab: [facility] [id number] [facility] Vital Signs Combined list of inpatient and outpatient Vital Signs from Department of [facility] and [facility], ranging from 12 months to all on record, depending upon the facility. Vital Sign Value Date Comments Source SYSTOLIC BLOOD PRESSURE 139 08/03/2023 08:57:53 [facility] DIASTOLIC BLOOD PRESSURE 89 08/03/2023 08:57:53 [facility] PULSE OXIMETRY 100 08/03/2023 08:57:[address] [facility] WEIGHT 184 08/03/2023 08:57:[facility] BMI 29 kg/m2 08/03/2023 08:57:53 [facility] PAIN 6 08/03/2023 08:57:53 [facility] HEIGHT 67 08/03/2023 08:57:53 [facility] TEMPERATURE 98.6 08/03/2023 08:57:53 [facility] PULSE 92 08/03/2023 08:57:53 [facility] RESPIRATION 20 08/03/2023 08:57:53 [facility] Encounters Combined list of: 1) Encounters from [facility] facilities going backup to the last 18 months, not all [place] inpatient encounters are included; 2) Encounters from the Department of [facility] facilities going backup to 280 months. Location Location Details Encounter Type Encounter Number Reason For Visit Attending Provider ADM Date DC Date Status Disposition Source [place] OUTPATIENT [id number] NAVYA CURRAN 04/17 Released w/o Limitations [facility] [place] Optomet [place] Hamida Bailey [facility] [place]cept [place]) OUTPATIENT [id number] IMM ÁLVARO ARMSTRONG M 04/17 Released w/o Limitations [facility] [place]Rece [place] ) [facility] [place]) OUTPATIENT [id number] HEARING TEST GREER QUIJANO Tonya 05/14 Released w/o Limitations [facility] [place]) OUTPATIENT [id number] [place] 12/19 [place]ased [place] OUTPATIENT [id number] GIANCARLO RENEE 06/17 [place]ased [place] Theater Facility OUTPATIENT [id number] Theater Provider 01/13 Released w/o Limitations Theater Facilit y Theater Facility OUTPATIENT [id number] Theater Provider 01/14 Released w/o Limitations Theater Facilit y Theater Facility OUTPATIENT [id number] Theater Provider 01/16 Released w/o Limitations Theater Facilit y Theater Facility OUTPATIENT [id number] Theater Provider 01/17 Released w/o Limitations Theater Facilit y Theater Facility OUTPATIENT [id number] Theater Provider 01/20 Released w/o Limitations Theater Facilit y Theater Facility OUTPATIENT [id number] Theater Provider 01/27 Released w/o Limitations Theater Facilit y Theater Facility OUTPATIENT [id number] 05/07 Released w/o Limitations Theater Facilit y Theater Facility OUTPATIENT [id number] 06/12 Released w/o Limitations Theater Facilit y Theater Facility OUTPATIENT [id number] 07/28 Released w/o Limitations Theater Facilit y [place]PATIENT [id number] TBI EVAL PT 1 ([facility]) SYBIL ELIAS 10/22 [place]ased [place] [id number] TBI EVAL (SRP) NAUN ROME 01/05 [place]ased [place]itations [place] OUTPATIENT [id number] Dischar ge/CW/c gs ALMA KIRAN 01/12 [place]ased [place]itations [place] OUTPATIENT [id number] mTBI CM service s MEDINA PAGE 01/22 [place]ased [place]itations [place] [id number] 1 MONTH F/U APPT NAUN ROME 02/02 [place]ased [place] Limitations [place] [id number] 1 MONTH F/U APPT NAUN ROME 03/05 [place]ased w/o Limitations [place]) OUT[place]IENT [id number] KRISTEL [facility] [employer] NUTRITI ON CLASS JOSE MEI 05/26 Released w/o Limitations [place] [facility] [place] DIRECT TO [facility] FROM OTHER THAN ER OR APU [id number] MADISON VIDALES 07/27 RETURNED TO DUTY [facility] [place]) OUTPATIENT [id number] LEONELA AVELAR 07/29 Admitted [place] INPATIENT [id number] OT in-pt group ALEXUS QUIJANO 07/29 Inpatient- Still a Patient [facility] [facility] INPATIENT [id number] in-pt OT group note ALEXUS QUIJANO 07/30 [place]- [place] [facility] [facility] OUTPATIENT [id number] 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 getting worse(c onsult) /full ee EDY RAMOS 08/02 Released w/o Limitations [facility] [facility] INPATIENT [id number] in-pt group ALEXUS QUIJANO 08/04 Inpatient- Still a Patient [facility] [facility] INPATIENT [id number] in-pt group ALEXUS QUIJANO 08/04 Inpatient- Still a Patient [facility] [facility] INPATIENT [id number] ALEXUS QUIJANO 08/06 Inpatient- Still a Patient [facility] [facility] [place] ) OUTPATIENT [id number] flu MARLON SCHROEDER D 08/17 Sick at Home/Quarter s [facility] [facility] OUTPATIENT [id number] R wrist pn x 24 hours MARLON SCHROEDER D 08/31 Released with Work/Duty Limitations [facility] [facility] OUTPATIENT [id number] new intake- Depress JUSTIN Jordan 09/17 Released w/o Limitations [facility] Physical Therapy) OUTPATIENT [id number] SHUKRI RIVERA 09/22 Released with Work/Duty Limitations [facility] [place] [facility] Phys[place] [facility] [place] [facility] [place] [place] ) TELE CONSULT [id number] NCM F/U DWIGHT LYONS 09/27 [facility] [place]([facility] C [place] [facility] [place] [place] ) OUTPATIENT [id number] F/U on R [facility] 10/12 Released with Work/Duty Limitations [facility] [place]([facility] C [place] [facility] [place] [place] ) OUTPATIENT [id number] coughin g up green flem and blood [facility] MARLON D 11/01 Released w/o Limitations [facility] [place]([facility] C [place] [facility] [place]([facility] Deploymen t Health Clinic) OUTPATIENT [id number] f/u JUSTIN BLANDON 11/03 [facility] Limitations [facility] [place] [facility] [place] De[place] Health [facility] OUTPATIENT [id number] Case Managem ent OLIVA LOPEZ 11/03 Released w/o Limitations [facility] [place] Deploym ent Health Clinic) [facility] [place] TBI Neuropsyc hology) OUTPATIENT [id number] memory lapses or loss ARABELLA NETTLES 11/05 Released w/o Limitations [facility] [place] Neurops ycholog y[place] [facility] [place] De[facility] [place] Health Clinic[place] OUTPATIENT [id number] visit OLIVA LOPEZ 11/05 Released w/o Limitations [facility] [place] [facility] [place] Health [facility] OUTPATIENT [id number] Case Managae ment OLIVA LOPEZ 11/08 Released w/o Limitations [facility] [place] Deploy[place] ent Health Clinic) [facility] [place](ZZ[place] TBI 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) OUTPATIENT [id number] snoring FRANCIS NIXON 11/12 [place]ased [place] Limitations [facility] Occup[place] [facility] Health [place] OUTPATIENT [id number] f/u memory loss JUSTIN BLANDON 11/16 Released w/o Limitations [facility] Health Clinic[place] [facility] DIRECT TO [facility] FROM OTHER THAN ER OR APU [id number] KOURTNEY COREAS 11/17 RETURNED TO DUTY [facility] [facility]) [place] [id number] LIVIER ROGER 11/18 [place] [facility] [facility] INPATIENT [id number] ALEXUS QUIJANO 11/19 Inpatient- [place] a [place] [facility] [facility]Faculty Dean [place] Medicine Clinic[place] OUTPATIENT [id number] r/o hypothy roiKOURTNEY Lutz CB 11/27 Released w/o Limitations [facility]Inte [place]nal Medicin [place] Clinic) [facility] Neuropsyc hology[place] OUTPATIENT [id number] intervi ewed w/LIVIER Lee 12/02 Released w/o Limitations [facility] Neurops ycholog [place] [facility] Speech[place] OUTPATIENT [id number] memory lapses or loss JOSHUA WOMACK 12/09 Released w/o Limitations [facility] Speech[place] [facility] 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) OUTPATIENT [id number] FRANCIS NIXON 12/09 Released [place]/o Limitations [facility] Occup[place] ional [place] [facility] OUTPATIENT [id number] CHAPTER I CATRACHO CHAVEZ 12/10 [place] [facility] [facility] 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[place] OUTPATIENT [id number] FRANCIS NIXON 12/13 Released [place]/o Limitations [facility] Occup[place] ional Therapy [place] [facility] 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[place] OUTPATIENT [id number] FRANCIS NIXON 12/15 Released w/o Limitations [facility] Occupat ional Therapy ) [facility] 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[place] OUTPATIENT [id number] FRANCIS NIXON 12/17 Released w/o Limitations [facility] Occupat ional Therapy ) [facility] DIRECT TO [facility] FROM OTHER THAN ER OR [facility] [id number] [phone] BETTIE PEREZ Anna 12/20 RETURNED TO DUTY [facility]) IN[place]IENT [id number] Nutriti on Educati on APRIL CEDENO 12/21 Inpatient- Still a Patient [facility] [facility] INPATIENT [id number] yoga session ALEXUS QUIJANO 12/23 Inpatient- Still a Patient [facility] Therapy [place] [facility] INPATIENT [id number] in-pt OT sensory group ALEXUS QUIJANO 12/23 Inpatient- Still a Patient [facility] [facility] [facility] INPATIENT [id number] ALEXUS QUIJANO 12/23 Inpatient- Still a Patient [facility] [facility] INPATIENT [id number] Relaxat ion Group ALEXUS QUIJANO 12/28 Inpatient- Still a Patient [facility] [facility] INPATIENT [id number] Nutriti on Class APRIL CEDENO 12/29 Inpatient- Still a Patient [facility] [facility] Therapy [place] INPATIENT [id number] sleep group ALEXUS QUIJANO 12/29 Inpatient- Still a Patient [facility] [facility] INPATIENT [id number] [facility] ALEXUS QUIJANO 12/30 Inpatient- Still a [place] [facility] [facility] 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[place] OUTPATIENT [id number] [facility] 12/31 Released w/o Limitations [facility] Occup[place] ional [place] [facility] 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[place] OUTPATIENT [id number] [facility] 01/03 Released w/o Limitations [facility] Occup[place] ional Therapy [place] [facility] [place] OUTPATIENT [id number] nvd x 72 hours MARLON SCHROEDER 01/03 Released with Work/Duty Limitations [facility] [facility] 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[place] OUTPATIENT [id number] [facility] 01/12 Released w/o Limitations [facility] Occup[place] ional [place] [facility] 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[place] OUTPATIENT [id number] [facility] 01/14 Released w/o Limitations [facility] Occup[place] ional Therapy [place] [facility] 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[place] OUTPATIENT [id number] [facility] 01/17 Released w/o Limitations [facility] Occup[place] ional Therapy [place] [facility] OUTPATIENT [id number] CHAPTER [id number] W/ESC CHERYL MANSFIELD 01/20 Released w/o Limitations [facility] [facility] 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[place] OUTPATIENT [id number] [facility] 01/21 Released w/o Limitations [facility] Occup[place] ional Therapy [place] [facility] 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[place] OUTPATIENT [id number] VINCENT SORTO 01/24 Released w/o Limitations [facility] Occup[place] ional Therapy [place] [facility] 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[place] OUTPATIENT [id number] VINCENT SORTO 01/28 Released w/o Limitations [facility] Occup[place] ional Therapy [place] [facility] 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[place] OUTPATIENT [id number] VINCENT SORTO 02/04 Released w/o Limitations [facility] Occupat ional Therapy [place] [facility] 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[place] OUTPATIENT [id number] VINCENT SORTO 03/01 Released w/o Limitations [facility] Occupat ional Therapy [place] [facility], DIRECT TO [facility] [id number] SHO COOPER 03/03 RETURNED TO DUTY [facility] [facility]) OUTPATIENT [id number] ÁLVARO MARINO 03/03 Released w/o Limitations [facility] [facility] Outpatient Encounter [id number] JACINTODEANDRA WIGGINS JANY A 11/14 [facility] Outpatient Encounter [id number] 11/14 [facility] Outpatient Encounter [id number] DEANDRA CASEY JANY A 11/15 [facility] En[facility] [id number] DEANDRA CASEY JANY A 11/16 [facility] N [facility] PRO PHONE CALL 5-10 MIN [id number] Diagnos is: ICD-10- CM Z71.89 Other specifi ed associate counsel ing TAMI KOCH 11/21 [facility] GROUP PSYCHOTHER APY [id number] Diagnos is: ICD-10- CM Z63.0 Problem s in relatio nship with spouse or partner MANDY CASEY N M 11/21 [facility] GROUP PSYCHOTHER APY [id number] Diagnos is: ICD-10- CM Z63.0 Problem s in relatio nship with spouse or partner MANDY CASEY N M 11/28 [facility] GROUP PSYCHOTHER APY [id number] Diagnos is: ICD-10- CM Z63.0 Problem s in relatio nship with spouse or partner MANDY CASEY N M 12/19 [facility] GROUP PSYCHOTHER APY [id number] Diagnos is: ICD-10- CM Z63.0 Problem s in relatio nship with spouse or partner MANDY CASEY Cara M 12/26 [facility] Outpatient Encounter [id number] BHARTI HARRIS 01/01 [facility] GROUP PSYCHOTHER APY [id number] [id number] Diagnos is: ICD-10- CM Z63.0 Problem s in relatio nship with spouse or partner KRISTIN DOWNING 01/02 [facility] GROUP PSYCHOTHER APY [id number] Diagnos is: ICD-10- CM Z63.0 Problem s in relatio nship with spouse or partner MANDY CASEY N M 01/09 [facility] GROUP PSYCHOTHER APY [id number] [id number] Diagnos is: ICD-10- CM Z63.0 Problem s in relatio nship with spouse or partner SALINA,DA VID W 01/23 [facility] OFFICE O/P EST MOD 30-39 MIN [id number] Diagnos is: ICD-10- CM F43.10 Post-tr aumatic stress disorde r, unspeci fied BHARTI HARRIS IEL 01/24 [facility] Outpatient Encounter [id number] 01/29 [facility] [id number] [id number] Diagnos is: ICD-10- CM Z63.0 Problem s in relatio nship with spouse or partner SALINA,DA VID W 02/06 [facility] GROUP PSYCHOTHER APY [id number] [id number] Diagnos is: ICD-10- CM Z63.0 Problem s in relatio nship with spouse or partner MANDY CASEY Cara Oliva 02/20 [facility] Encounter [id number] 02/20 [facility] GROUP PSYCHOTHER APY [id number] Diagnos is: ICD-10- CM Z63.0 Problem s in relatio nship with spouse or partner MANDY CASEY Cara Oliva 02/27 [facility] GROUP PSYCHOTHER APY [id number] [id number] Diagnos is: ICD-10- CM Z63.0 Problem s in relatio nship with spouse or partner MANDY CASEY [facility] 03/06 [facility] OFFICE O/P EST MOD 30-39 MIN [id number] [id number] Diagnos is: ICD-10- CM F43.10 Post-tr aumatic stress disorde r, unspeci BHARTI Huang IEHubert 03/12 [facility] GROUP PSYCHOTHER APY [id number] [id number] Diagnos is: ICD-10- CM Z63.0 Problem s in relatio nship with spouse or partner MANDY CASEY [facility] 03/13 [facility] GROUP PSYCHOTHER APY [id number] [id number] Diagnos is: ICD-10- CM Z63.0 Problem s in relatio nship with spouse or partner MANDY CASEY [facility] 03/20 [facility] GROUP PSYCHOTHER APY [id number] [id number] Diagnos is: ICD-10- CM Z63.0 Problem s in relatio nship with spouse or partner MANDY CASEY [facility] 04/10 [facility] GROUP PSYCHOTHER APY [id number] [id number] Diagnos is: ICD-10- CM Z63.0 Problem s in relatio nship with spouse or partner MANDY CASEY N 04/17 [facility] GROUP PSYCHOTHER APY [id number] [id number] Diagnos is: ICD-10- CM Z63.0 Problem s in relatio nship with spouse or partner MANDY CASEY [facility] 04/24 [facility] OFFICE O/P EST MOD 30 MIN [id number] [id number] Diagnos is: ICD-10- CM F43.10 Post-tr aumatic stress disorde r, unspeci BHARTI Huang IEL 05/02 [facility] GROUP PSYCHOTHER APY [id number] [id number] Diagnos is: ICD-10- CM Z63.0 Problem s in relatio nship with spouse or partner MANDY CASEY N M 05/08 [facility] PSYCHOTHER APY [id number] [id number] Diagnos is: ICD-10- CM Z63.0 Problem s in relatio nship with spouse or partner MANDY CASEY N M 05/15 [facility] GROUP PSYCHOTHER APY [id number] [id number] Diagnos is: ICD-10- CM Z63.0 Problem s in relatio nship with spouse or partner MANDY CASEY N M 05/22 [facility] GROUP PSYCHOTHER APY [id number] [id number] Diagnos is: ICD-10- CM Z63.0 Problem s in relatio nship with spouse or partner MANDY CASEY N M 05/29 [facility] GROUP PSYCHOTHER APY [id number] [id number] Diagnos is: ICD-10- CM Z63.0 Problem s in relatio nship with spouse or partner MANDY CASEY N M 06/04 [facility] Outpatient Encounter [id number] [id number] 06/04 [facility] PSYTX W PT 60 MINUTES [id number] [id number] Diagnos is: ICD-10- CM Z63.0 Problem s in relatio nship with spouse or partner MANDY CASEY Cara Oliva 06/04 [facility] CASE MANAGEMENT [id number] [id number] [place] 06/11 [facility] TARGETED CASE MANAGEMENT [id number] [id number] JENNY SHELL 06/11 [facility] Outpatient Encounter [id number] [id number] 06/12 [facility] Outpatient Encounter [id number] [id number] COLBY CAMPO A 07/06 [facility] CASE MANAGEMENT [id number] [id number] JENNY SHELL 07/08 [facility] Outpatient Encounter [id number] [id number] 07/11 [facility] Outpatient Encounter [id number] [id number] 07/30 [facility] Outpatient Encounter [id number] [id number] DEANDRA CASEY JANY A 07/30 [facility] OFFICE O/P EST MOD 30 MIN [id number] [id number] Diagnos is: ICD-10- CM F43.10 Post-tr aumatic stress disorde r, unspeci BHARTI Huang IEL 07/30 [facility] O/P EST MOD 30 MIN [id number] Diagnos is: ICD-10- CM Z77.29 Contact with and exposur e to other hazardo us substan chay JACOBO BURT 08/02 [facility] DIV[facility] Outpatient Encounter [id number] 08/13 [facility] O/P EST MOD 30 MIN [id number] Diagnos is: ICD-10- CM F43.10 Post-tr aumatic stress disorde r, unspeci kolby BHARTI HARRIS IEL 09/05 [facility] PRO PHONE CALL 11-20 MIN [id number] Diagnos is: ICD-10- CM R45.89 Other symptom s and signs involvi ng emotion al state SOHAIL,AARO N S 09/06 [facility] PRO PHONE CALL 5-10 MIN [id number] Diagnos is: ICD-10- CM R45.89 Other symptom s and signs involvi ng emotion al state SOHAIL,AARO N S 10/28 [facility] OFFICE O/P EST MOD 30 MIN [id number] Diagnos is: ICD-10- CM F43.10 Post-tr aumatic stress disorde r, unspeci kolby HARRISBHARTI IEL 11/05 [facility] En[facility] [id number] 11/06 [facility] O/P EST MOD 30 MIN [id number] Diagnos is: ICD-10- CM 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 Outpatient Encounter [id number] 01/[address] [facility] [address] [facility] Outpatient Encounter [id number] 01/[address] [facility] [address] [facility] Outpatient Encounter [id number] 01/16 [facility] HC PRO PHONE CALL 5-10 MIN [id number] Diagnos is: ICD-10- CM R45.89 Other symptom s and signs involvi ng emotion al state SOHAIL,AARO N S 01/23 [facility] OFFICE O/P EST MOD 30 MIN [id number] Diagnos is: ICD-10- CM F15.11 Other stimula nt abuse, in remissi on BHARTI HARRIS IEL 02/24 [facility] Outpatient Encounter [id number] 03/08 [facility] Procedures Combined list of: 1) Procedures from Department of Veterans Affairs facilities going back up to thelast 18 months, not all VA non-surgical procedures are included; 2) All procedures from the Department of Defense facilities. Procedure Procedure Type Code Date Perfomer Comments Sourc e PURE TONE AUDIOMETRY (THRESHOLD); AIR ONLY 007 DoD FITTING OF SPECTACLES, EXCEPT FOR APHAKIA; MONOFOCAL 01/16/2 007 DoD INDIVIDUAL PSYCHOTHERAPY, INSIGHT ORIENTED, BEHAVIOR MODIFYING AND/OR SUPPORTIVE, IN AN OFFICE OR OUTPATIENT FACILITY, APPROXIMATELY 45 TO 50 MINUTES RSKW-VG-CVWW WITH THE PATIENT [facility] INDIVIDUAL PSYCHOTHERAPY, INSIGHT ORIENTED, BEHAVIOR MODIFYING AND/OR SUPPORTIVE, IN AN OFFICE OR OUTPATIENT FACILITY, APPROXIMATELY 45 TO 50 MINUTES OJBX-MM-UKJN WITH THE PATIENT [facility] HEALTH&BEHAV ASSESSMENT (EG, HEALTH-FOC CLINICAL INTERVIEW, BEHAVIORAL OBSERVATIONS, PSYCHOPHYSICOLOGICAL MONITOR, HEALTH-ORIENT QUESTIONNAIRES), EA 15 MIN NVGJ-RT-ABEC W THE PATIENT; INIT ASSESSMENT [facility] COORDINATED CARE FEE, MAINTENANCE RATE [facility] BEHAVIORAL HEALTH PREVENTION EDUCATION SERVICE (DELIVERY OF SERVICES WITH TARGET POPULATION TO AFFECT KNOWLEDGE, ATTITUDE AND/OR BEHAVIOR) [facility] BEHAVIORAL HEALTH PREVENTION INFORMATION DISSEMINATION SERVICE (ONE-WAY DIRECT OR NON-DIRECT CONTACT WITH SERVICE AUDIENCES TO AFFECT KNOWLEDGE AND ATTITUDE) [facility] BEHAVIORAL HEALTH COUNSELING AND THERAPY, PER 15 MINUTES [facility] SKIN TEST; TUBERCULOSIS, INTRADERMAL [facility] ALCOHOL AND/OR DRUG PREVENTION PROBLEM IDENTIFICATION AND REFERRAL SERVICE (E.G., STUDENT ASSISTANCE AND EMPLOYEE ASSISTANCE PROGRAMS), DOES NOT INCLUDE ASSESSMENT [facility] ALCOHOL AND/OR DRUG PREVENTION PROBLEM IDENTIFICATION AND REFERRAL SERVICE (E.G., STUDENT ASSISTANCE AND EMPLOYEE ASSISTANCE PROGRAMS), DOES NOT INCLUDE ASSESSMENT [facility] ALCOHOL AND/OR DRUG PREVENTION PROBLEM IDENTIFICATION AND REFERRAL SERVICE (E.G., STUDENT ASSISTANCE AND EMPLOYEE ASSISTANCE PROGRAMS), DOES NOT INCLUDE ASSESSMENT [facility] ALCOHOL AND/OR DRUG PREVENTION PROBLEM IDENTIFICATION AND REFERRAL SERVICE (E.G., STUDENT ASSISTANCE AND EMPLOYEE ASSISTANCE PROGRAMS), DOES NOT INCLUDE ASSESSMENT [facility] BEHAVIORAL HEALTH SCREENING TO DETERMINE ELIGIBILITY FOR ADMISSION TO TREATMENT PROGRAM [facility] ALCOHOL AND/OR DRUG PREVENTION PROBLEM IDENTIFICATION AND REFERRAL SERVICE (E.G., STUDENT ASSISTANCE AND EMPLOYEE ASSISTANCE PROGRAMS), DOES NOT INCLUDE ASSESSMENT [facility] ALCOHOL AND/OR OTHER DRUG ABUSE SERVICES, NOT OTHERWISE SPECIFIED [facility] CURRENT TOBACCO SMOKER (CAD, CAP, COPD, PV) (DM) [facility] CRIPPLE WORKER/SAP BASIS SERVICES, UP TO 15 MINUTES [facility] SKIN TEST; TUBERCULOSIS, INTRADERMAL 009 [facility] COLLECTION OF VENOUS BLOOD BY VENIPUNCTURE [facility] AUDIOMETRIC TESTING OF GROUPS 009 [facility] ANTHRAX VACCINE, FOR SUBCUTANEOUS OR INTRAMUSCULAR USE [facility] ANTHRAX VACCINE, FOR SUBCUTANEOUS OR INTRAMUSCULAR USE 008 DoD AUDIOMETRIC TESTING OF GROUPS 008 [facility] MODERATE COMPRESSION BANDAGE, ELASTIC, KNITTED/WOVEN, LOAD RESISTANCE OF 1.25 TO 1.34 FOOT POUNDS AT 50% MAXIMUM STRETCH, WIDTH WIDTH >/=3 &<5 ,/YARD 007 [facility] ALCOHOL AND/OR SUBSTANCE ABUSE SERVICES, TREATMENT PLAN DEVELOPMENT AND/OR MODIFICATION 011 DoD INDIVIDUAL PSYCHOTHERAPY, INSIGHT ORIENTED, BEHAVIOR MODIFYING AND/OR SUPPORTIVE, IN AN OFFICE OR OUTPATIENT FACILITY, APPROXIMATELY 20 TO 30 MINUTES ENOT-QU-YZCX W THE PATIENT; W MED EVAL & MGT SER DoD INDIVIDUAL PSYCHOTHERAPY, INSIGHT ORIENTED, BEHAVIOR MODIFYING AND/OR SUPPORTIVE, IN AN INPATIENT HOSPITAL, PARTIAL HOSPITAL OR RESIDENTIAL CARE SETTING, APPROX 20-30 MINUTES GRWA-RO-GGOQ W THE PAT DoD PSYCHIATRIC DIAGNOSTIC INTERVIEW EXAMINATION DoD COLLECTION OF VENOUS BLOOD BY VENIPUNCTURE DoD BIOFEEDBACK TRAINING BY ANY MODALITY DoD INDIVIDUAL PSYCHOTHERAPY, INSIGHT ORIENTED, BEHAVIOR MODIFYING AND/OR SUPPORTIVE, IN AN OFFICE OR OUTPATIENT FACILITY, APPROXIMATELY 20 TO 30 MINUTES WVQA-IP-YFLR W THE PATIENT; W MED EVAL & MGT SER DoD INDIVIDUAL PSYCHOTHERAPY, INSIGHT ORIENTED, BEHAVIOR MODIFYING AND/OR SUPPORTIVE, IN AN OFFICE OR OUTPATIENT FACILITY, APPROXIMATELY 45 TO 50 MINUTES YHIC-UY-SDZJ W THE PATIENT; W MED EVAL & MGT SER DoD INDIVIDUAL PSYCHOTHERAPY, INSIGHT ORIENTED, BEHAVIOR MODIFYING AND/OR SUPPORTIVE, IN AN OFFICE OR OUTPATIENT FACILITY, APPROXIMATELY 20 TO 30 MINUTES ZQHM-GM-LCMQ W THE PATIENT; W MED EVAL & MGT SER DoD BIOFEEDBACK TRAINING BY ANY MODALITY [facility] INDIVIDUAL PSYCHOTHERAPY, INSIGHT ORIENTED, BEHAVIOR MODIFYING AND/OR SUPPORTIVE, IN AN OFFICE OR OUTPATIENT FACILITY, APPROXIMATELY 45 TO 50 MINUTES LFCB-WJ-NIEP WITH THE PATIENT [facility] GROUP PSYCHOTHERAPY (OTHER THAN OF A MULTIPLE-FAMILY GROUP) [facility] INDIVIDUAL PSYCHOTHERAPY, INSIGHT ORIENTED, BEHAVIOR MODIFYING AND/OR SUPPORTIVE, IN AN OFFICE OR OUTPATIENT FACILITY, APPROXIMATELY 20 TO 30 MINUTES HNVM-SC-QYRE WITH THE PATIENT [facility] BIOFEEDBACK TRAINING BY ANY MODALITY [facility] GROUP PSYCHOTHERAPY (OTHER THAN OF A MULTIPLE-FAMILY GROUP) [facility] BIOFEEDBACK TRAINING BY ANY MODALITY [facility] BIOFEEDBACK TRAINING BY ANY MODALITY [facility] TOBACCO USE CESSATION INTERVENTION, COUNSELING (COPD, CAP, CAD, ASTHMA) (DM) (PV) [facility] PREPARATION OF REPORT OF PATIENT'S PSYCHIATRIC STATUS, HISTORY, TREATMENT, OR PROGRESS (OTHER THAN FOR LEGAL OR CONSULTATIVE PURPOSES) FOR OTHER INDIVIDUALS, AGENCIES, OR INSURANCE CARRIERS [facility] GROUP PSYCHOTHERAPY (OTHER THAN OF A MULTIPLE-FAMILY GROUP) [facility] PSYCHIATRIC DIAGNOSTIC INTERVIEW EXAMINATION [facility] INDIVIDUAL PSYCHOTHERAPY, INSIGHT ORIENTED, BEHAVIOR MODIFYING AND/OR SUPPORTIVE, IN AN OFFICE OR OUTPATIENT FACILITY, APPROXIMATELY 20 TO 30 MINUTES MOCE-JN-DREE W THE PATIENT; W MED EVAL & MGT SER [facility] BIOFEEDBACK TRAINING BY ANY MODALITY [facility] INDIVIDUAL PSYCHOTHERAPY, INSIGHT ORIENTED, BEHAVIOR MODIFYING AND/OR SUPPORTIVE, IN AN OFFICE OR OUTPATIENT FACILITY, APPROXIMATELY 45 TO 50 MINUTES LXBY-BC-DOLN WITH THE PATIENT [facility] BIOFEEDBACK TRAINING BY ANY MODALITY [facility] INDIVIDUAL PSYCHOTHERAPY, INSIGHT ORIENTED, BEHAVIOR MODIFYING AND/OR SUPPORTIVE, IN AN OFFICE OR OUTPATIENT FACILITY, APPROXIMATELY 20 TO 30 MINUTES UPSC-FL-KLUZ WITH THE PATIENT [facility] INDIVIDUAL PSYCHOTHERAPY, INSIGHT ORIENTED, BEHAVIOR MODIFYING AND/OR SUPPORTIVE, IN AN OFFICE OR OUTPATIENT FACILITY, APPROXIMATELY 75 TO 80 MINUTES XGVM-CU-CWKR WITH THE PATIENT [facility] GROUP PSYCHOTHERAPY (OTHER THAN OF A MULTIPLE-FAMILY GROUP) [facility] GROUP PSYCHOTHERAPY (OTHER THAN OF A MULTIPLE-FAMILY GROUP) [facility] BIOFEEDBACK TRAINING BY ANY MODALITY [facility] INDIVIDUAL PSYCHOTHERAPY, INSIGHT ORIENTED, BEHAVIOR MODIFYING AND/OR SUPPORTIVE, IN AN OFFICE OR OUTPATIENT FACILITY, APPROXIMATELY 45 TO 50 MINUTES XEQQ-GG-WLMX WITH THE PATIENT [facility] GROUP PSYCHOTHERAPY (OTHER THAN OF A MULTIPLE-FAMILY GROUP) [facility] GROUP PSYCHOTHERAPY (OTHER THAN OF A MULTIPLE-FAMILY GROUP) [facility] INDIVIDUAL PSYCHOTHERAPY, INSIGHT ORIENTED, BEHAVIOR MODIFYING AND/OR SUPPORTIVE, IN AN OFFICE OR OUTPATIENT FACILITY, APPROXIMATELY 20 TO 30 MINUTES FRVI-OZ-VREO W THE PATIENT; W MED EVAL & MGT SER DoD FAMILY PSYCHOTHERAPY (CONJOINT PSYCHOTHERAPY) (WITH PATIENT PRESENT), 50 MINUTES [facility] INDIVIDUAL PSYCHOTHERAPY, INSIGHT ORIENTED, BEHAVIOR MODIFYING AND/OR SUPPORTIVE, IN AN OFFICE OR OUTPATIENT FACILITY, APPROXIMATELY 45 TO 50 MINUTES GGGB-JW-TWQA W THE PATIENT; W MED EVAL & MGT SER DoD BIOFEEDBACK TRAINING BY ANY MODALITY [facility] THERAPEUTIC PROCEDURE(S), GROUP (2 OR MORE INDIVIDUALS) [facility] INDIVIDUAL PSYCHOTHERAPY, INSIGHT ORIENTED, BEHAVIOR MODIFYING AND/OR SUPPORTIVE, IN AN INPATIENT HOSPITAL, PARTIAL HOSPITAL OR RESIDENTIAL CARE SETTING, APPROX 20-30 MINUTES QQAG-BR-JFBS [facility] THERAPEUTIC PROCEDURE(S), GROUP (2 OR MORE INDIVIDUALS) [facility] INDIVIDUAL PSYCHOTHERAPY, INSIGHT ORIENTED, BEHAVIOR MODIFYING AND/OR SUPPORTIVE, IN AN INPATIENT HOSPITAL, PARTIAL HOSPITAL OR RESIDENTIAL CARE SETTING, APPROX 20-30 MINUTES YQAM-XX-ONDZ W [facility] ALCOHOL AND/OR SUBSTANCE ABUSE SERVICES, TREATMENT PLAN DEVELOPMENT AND/OR MODIFICATION [facility] THERAPEUTIC PROCEDURE(S), GROUP (2 OR MORE INDIVIDUALS) [facility] INDIVIDUAL PSYCHOTHERAPY, INSIGHT ORIENTED, BEHAVIOR MODIFYING AND/OR SUPPORTIVE, IN AN INPATIENT HOSPITAL, PARTIAL HOSPITAL OR RESIDENTIAL CARE SETTING, APPROX 20-30 MINUTES QQFU-ZF-KSIF W [facility] INDIVIDUAL PSYCHOTHERAPY, INSIGHT ORIENTED, BEHAVIOR MODIFYING AND/OR SUPPORTIVE, IN AN INPATIENT HOSPITAL, PARTIAL HOSPITAL OR RESIDENTIAL CARE SETTING, APPROX 20-30 MINUTES PAEU-KN-ZZKL W [facility] INDIVIDUAL PSYCHOTHERAPY, INSIGHT ORIENTED, BEHAVIOR MODIFYING AND/OR SUPPORTIVE, IN AN OFFICE OR OUTPATIENT FACILITY, APPROXIMATELY 75 TO 80 MINUTES CQNX-TZ-VQLN WITH THE PATIENT [facility] INTERACTIVE GROUP PSYCHOTHERAPY [facility] INDIVIDUAL PSYCHOTHERAPY, INSIGHT ORIENTED, BEHAVIOR MODIFYING AND/OR SUPPORTIVE, IN AN INPATIENT HOSPITAL, PARTIAL HOSPITAL OR RESIDENTIAL CARE SETTING, APPROX 20-30 MINUTES DMTA-BV-HUUK W [facility] THERAPEUTIC PROCEDURE(S), GROUP (2 OR MORE INDIVIDUALS) [facility] INDIVIDUAL PSYCHOTHERAPY, INSIGHT ORIENTED, BEHAVIOR MODIFYING AND/OR SUPPORTIVE, IN AN INPATIENT HOSPITAL, PARTIAL HOSPITAL OR RESIDENTIAL CARE SETTING, APPROX 20-30 MINUTES VPCM-OF-NGWY W [facility] THERAPEUTIC PROCEDURE(S), GROUP (2 OR MORE INDIVIDUALS) [facility] INDIVIDUAL PSYCHOTHERAPY, INSIGHT ORIENTED, BEHAVIOR MODIFYING AND/OR SUPPORTIVE, IN AN INPATIENT HOSPITAL, PARTIAL HOSPITAL OR RESIDENTIAL CARE SETTING, APPROX 20-30 MINUTES KLLU-DO-CDGH W [facility] THERAPEUTIC PROCEDURE(S), GROUP (2 OR MORE INDIVIDUALS) [facility] MEDICAL NUTRITION THERAPY; GROUP (2 OR MORE INDIVIDUAL(S)), EACH 30 MINUTES [facility] INDIVIDUAL PSYCHOTHERAPY, INSIGHT ORIENTED, BEHAVIOR MODIFYING AND/OR SUPPORTIVE, IN AN INPATIENT HOSPITAL, PARTIAL HOSPITAL OR RESIDENTIAL CARE SETTING, APPROX 20-30 MINUTES SLIF-JQ-DZKQ W [facility] PSYCHIATRIC DIAGNOSTIC INTERVIEW EXAMINATION [facility] INDIVIDUAL PSYCHOTHERAPY, INSIGHT ORIENTED, BEHAVIOR MODIFYING AND/OR SUPPORTIVE, IN AN OFFICE OR OUTPATIENT FACILITY, APPROXIMATELY 75 TO 80 MINUTES ITWK-KD-YMTC W THE PATIENT; W MED EVAL & MGT SER [facility] BIOFEEDBACK TRAINING BY ANY MODALITY [facility] ENVIRONMENTAL INTERVENTION FOR MEDICAL MGMT PURPOSES ON A PSYCHIATRIC PATIENT'S BEHALF WITH AGENCIES, EMPLOYERS, OR INSTITUTIONS [facility] EDUCATION &TRAINING, PATIENT SELF-MGT QUALIFIED, NONPHYSICIAN HEALTH EDITING INTERNSHIP USING STDIZED CURRICULUM, DQJU-QI-QIRP W THE PATIENT (COULD INCL CAREGIVER/FAMILY) EA 30 MIN; INDIVIDUAL PATIENT [facility] BIOFEEDBACK TRAINING BY ANY MODALITY [facility] ENVIRONMENTAL INTERVENTION FOR MEDICAL MGMT PURPOSES ON A PSYCHIATRIC PATIENT'S BEHALF WITH AGENCIES, EMPLOYERS, OR INSTITUTIONS [facility] DEVELOPMENT OF COGNITIVE SKILLS TO IMPROVE ATTENTION, MEMORY, PROBLEM SOLVING (INCLUDES COMPENSATORY TRAINING), DIRECT (ONE-ON-ONE) PATIENT CONTACT, EACH 15 MINUTES [facility] PSYCHIATRIC DIAGNOSTIC INTERVIEW EXAMINATION DoD INDIVIDUAL PSYCHOTHERAPY, INSIGHT ORIENTED, BEHAVIOR MODIFYING AND/OR SUPPORTIVE, IN AN OFFICE OR OUTPATIENT FACILITY, APPROXIMATELY 45 TO 50 MINUTES PSPR-PT-LPSF WITH THE PATIENT DoD INDIVIDUAL PSYCHOTHERAPY, INSIGHT ORIENTED, BEHAVIOR MODIFYING AND/OR SUPPORTIVE, IN AN OFFICE OR OUTPATIENT FACILITY, APPROXIMATELY 20 TO 30 MINUTES LQKX-IO-YBDM W THE PATIENT; W MED EVAL & MGT SER DoD GROUP PSYCHOTHERAPY (OTHER THAN OF A MULTIPLE-FAMILY GROUP) DoD PSYCHIATRIC DIAGNOSTIC INTERVIEW EXAMINATION DoD NEUROPSYC TSTNG(EG,NAS-REITA N NEUROPSYC SERGIO,BRIAN MEMRY SCALES&[place] CARD SORT TST),W QUALIFIED HEALTH CARE PROFSIONAL INTERP&RPT,ADMINISTERED FURNACE CLERK,/HR,TECHNBINTA MELVIN,FCE-2-FCE [facility] INDIVIDUAL PSYCHOTHERAPY, INSIGHT ORIENTED, BEHAVIOR MODIFYING AND/OR SUPPORTIVE, IN AN OFFICE OR OUTPATIENT FACILITY, APPROXIMATELY 20 TO 30 MINUTES JKFA-UG-KFIP WITH THE PATIENT DoD NEUROPSYCHOLOG TST (EG,NAS-REITAN NEUROPSYCHOLOG SERGIO,BRIAN MEM SCALES & WISC CARD SORT TST),/HR OF PSYCHOLOGIST/PHYS TIME,BOTH KEQW-NP-VHOO ADMIN TST TO PAT & TIME INTERP TEST RES & PREP RPT [facility] PSYCHIATRIC DIAGNOSTIC INTERVIEW EXAMINATION DoD INDIVIDUAL PSYCHOTHERAPY, INSIGHT ORIENTED, BEHAVIOR MODIFYING AND/OR SUPPORTIVE, IN AN OFFICE OR OUTPATIENT FACILITY, APPROXIMATELY 20 TO 30 MINUTES SPAN-GC-WYIY W THE PATIENT; W MED EVAL & MGT SER DoD INDIVIDUAL PSYCHOTHERAPY, INSIGHT ORIENTED, BEHAVIOR MODIFYING AND/OR SUPPORTIVE, IN AN OFFICE OR OUTPATIENT FACILITY, APPROXIMATELY 20 TO 30 MINUTES DCQL-KU-GCAJ W THE PATIENT; W MED EVAL & MGT SER DoD THERAPEUTIC PROCEDURE(S), GROUP (2 OR MORE INDIVIDUALS) DoD INDIVIDUAL PSYCHOTHERAPY, INSIGHT ORIENTED, BEHAVIOR MODIFYING AND/OR SUPPORTIVE, IN AN INPATIENT HOSPITAL, PARTIAL HOSPITAL OR RESIDENTIAL CARE SETTING, APPROX 20-30 MINUTES YMXQ-AU-ISJT W THE PAT [facility] PSYCHIATRIC DIAGNOSTIC INTERVIEW EXAMINATION [facility] COLLECTION OF VENOUS BLOOD BY VENIPUNCTURE [facility] PSYCHIATRIC DIAGNOSTIC INTERVIEW EXAMINATION [facility] OCCUPATIONAL THERAPY EVALUATION 010 [facility] INDIVIDUAL PSYCHOTHERAPY, INSIGHT ORIENTED, BEHAVIOR MODIFYING AND/OR SUPPORTIVE, IN AN OFFICE OR OUTPATIENT FACILITY, APPROXIMATELY 45 TO 50 MINUTES TGZZ-RU-BOKZ WITH THE PATIENT [facility] INDIVIDUAL PSYCHOTHERAPY, INSIGHT ORIENTED, BEHAVIOR MODIFYING AND/OR SUPPORTIVE, IN AN OFFICE OR OUTPATIENT FACILITY, APPROXIMATELY 45 TO 50 MINUTES SNQT-TP-DWRT WITH THE PATIENT 010 [facility] NEUROPSYC TSTNG(EG,NAS-REITA N NEUROPSYC SERGIO,BRIAN MEMRY SCALES&[place] CARD SORT TST),W [facility] CARE PROFSIONAL INTERP&RPT,ADMINISTERED FURNACE CLERK,/HR,TECHNICI AN TME,FCE-2-FCE [facility] FAMILY PSYCHOTHERAPY (CONJOINT PSYCHOTHERAPY) (WITH PATIENT PRESENT), 50 MINUTES 010 [facility] SELF-CARE/HOME MANAGMENT TRAIN (EG,ACT OF DAILY LIVING (ADL) &COMPENSAT TRAIN,MEAL PREPARATION,SAFETY PROCS,AND INSTRUCT IN USE OF ASST TECHNOLOGY DEV/ADPT EQUIP) DIR ONE-ON-ONE CONT,EA 15 MINUTES [facility] FAMILY PSYCHOTHERAPY (CONJOINT PSYCHOTHERAPY) (WITH PATIENT PRESENT), 50 MINUTES 010 [facility] PSYCHIATRIC DIAGNOSTIC INTERVIEW EXAMINATION [facility] PSYCHIATRIC DIAGNOSTIC INTERVIEW EXAMINATION [facility] INDIVIDUAL PSYCHOTHERAPY, INSIGHT ORIENTED, BEHAVIOR MODIFYING AND/OR SUPPORTIVE, IN AN INPATIENT HOSPITAL, PARTIAL HOSPITAL OR RESIDENTIAL CARE SETTING, APPROX 20-30 MINUTES OTYV-WR-RUML W [facility] SENSORY INTEGRATIVE TECHNIQUES TO ENHANCE SENSORY PROCESSING AND PROMOTE ADAPTIVE RESPONSES TO ENVIRONMENTAL DEMANDS, DIRECT (ONE-ON-ONE) PATIENT CONTACT, EACH 15 MINUTES [facility] INDIVIDUAL PSYCHOTHERAPY, INSIGHT ORIENTED, BEHAVIOR MODIFYING AND/OR SUPPORTIVE, IN AN INPATIENT HOSPITAL, PARTIAL HOSPITAL OR RESIDENTIAL CARE SETTING, APPROX 20-30 MINUTES ZZJA-OY-OZGF W THE PAT [facility] THERAPEUTIC PROCEDURE(S), GROUP (2 OR MORE INDIVIDUALS) [facility] INDIVIDUAL PSYCHOTHERAPY, INSIGHT ORIENTED, BEHAVIOR MODIFYING AND/OR SUPPORTIVE, IN AN INPATIENT HOSPITAL, PARTIAL HOSPITAL OR RESIDENTIAL CARE SETTING, APPROX 20-30 MINUTES KPUY-XD-GQAK W [facility] THERAPEUTIC PROCEDURE(S), GROUP (2 OR MORE INDIVIDUALS) [facility] INDIVIDUAL PSYCHOTHERAPY, INSIGHT ORIENTED, BEHAVIOR MODIFYING AND/OR SUPPORTIVE, IN AN INPATIENT HOSPITAL, PARTIAL HOSPITAL OR RESIDENTIAL CARE SETTING, APPROX 20-30 MINUTES QEMH-TC-RLWD W [facility] FITTING OF SPECTACLES, EXCEPT FOR APHAKIA; MONOFOCAL [facility] INDIVIDUAL PSYCHOTHERAPY, INSIGHT ORIENTED, BEHAVIOR MODIFYING AND/OR SUPPORTIVE, IN AN INPATIENT HOSPITAL, PARTIAL HOSPITAL OR RESIDENTIAL CARE SETTING, APPROX 20-30 MINUTES KDTS-JR-WTUL W [facility] INDIVIDUAL PSYCHOTHERAPY, INSIGHT ORIENTED, BEHAVIOR MODIFYING AND/OR SUPPORTIVE, IN AN INPATIENT HOSPITAL, PARTIAL HOSPITAL OR RESIDENTIAL CARE SETTING, APPROX 20-30 MINUTES UPRE-IA-OVEF W [facility] INDIVIDUAL PSYCHOTHERAPY, INSIGHT ORIENTED, BEHAVIOR MODIFYING AND/OR SUPPORTIVE, IN AN OFFICE OR OUTPATIENT FACILITY, APPROXIMATELY 45 TO 50 MINUTES YPIG-LS-IQDC WITH THE PATIENT [facility] INDIVIDUAL PSYCHOTHERAPY, INSIGHT ORIENTED, BEHAVIOR MODIFYING AND/OR SUPPORTIVE, IN AN OFFICE OR OUTPATIENT FACILITY, APPROXIMATELY 20 TO 30 MINUTES KYDV-EN-OKMR WITH THE PATIENT [facility] THERAPEUTIC PROCEDURE(S), GROUP (2 OR MORE INDIVIDUALS) [facility] INDIVIDUAL PSYCHOTHERAPY, INSIGHT ORIENTED, BEHAVIOR MODIFYING AND/OR SUPPORTIVE, IN AN INPATIENT HOSPITAL, PARTIAL HOSPITAL OR RESIDENTIAL CARE SETTING, APPROX 20-30 MINUTES BACZ-EZ-FBPK W [facility] THERAPEUTIC PROCEDURE(S), GROUP (2 OR MORE INDIVIDUALS) [facility] INDIVIDUAL PSYCHOTHERAPY, INSIGHT ORIENTED, BEHAVIOR MODIFYING AND/OR SUPPORTIVE, IN AN OFFICE OR OUTPATIENT FACILITY, APPROXIMATELY 20 TO 30 MINUTES TQYJ-YN-WBNO WITH THE PATIENT [facility] INDIVIDUAL PSYCHOTHERAPY, INSIGHT ORIENTED, BEHAVIOR MODIFYING AND/OR SUPPORTIVE, IN AN INPATIENT HOSPITAL, PARTIAL HOSPITAL OR RESIDENTIAL CARE SETTING, APPROX 20-30 MINUTES ZKNY-EF-LEJH W [facility] PSYCHIATRIC DIAGNOSTIC INTERVIEW EXAMINATION [facility] INDIVIDUAL PSYCHOTHERAPY, INSIGHT ORIENTED, BEHAVIOR MODIFYING AND/OR SUPPORTIVE, IN AN OFFICE OR OUTPATIENT FACILITY, APPROXIMATELY 45 TO 50 MINUTES FFVO-OT-KVCZ WITH THE PATIENT [facility] COLLECTION OF VENOUS BLOOD BY VENIPUNCTURE [facility] INDIVIDUAL PSYCHOTHERAPY, INSIGHT ORIENTED, BEHAVIOR MODIFYING AND/OR SUPPORTIVE, IN AN OFFICE OR OUTPATIENT FACILITY, APPROXIMATELY 45 TO 50 MINUTES VZMY-NN-MLUE WITH THE PATIENT 010 [facility] PSYCHIATRIC DIAGNOSTIC INTERVIEW EXAMINATION 010 [facility] TELE ASSESS & MGT SRV PROV QUAL NONPHYS HLTH CARE PRO TO EST PAT,PARENT,GUARD NOT ORIG REL ASSESS & MGT SRV PROV W/IN PREV 7 DAYS NOR LEAD ASSESS & MGT SRV/PX W/IN NXT 24 HR/SOON APT;5-10 MIN MED DIS [facility] MEDICAL NUTRITION THERAPY; GROUP (2 OR MORE INDIVIDUAL(S)), EACH 30 MINUTES 010 [facility] Physical Medicine - Group Physical Therapy Se ion Physical Medicine - Group Physical Therapy Session [id number] ALEXUS QUIJANO [facility] Development Of Cognit Skills By Sensory Integrative Techniques Development Of Cognit Skills By Sensory Integrative Techniques [id number] ALEXUS QUIJANO [facility] Clinical Social Work Individual Outpatient Counseling 45 Minutes Clinical Social Work Individual Outpatient Counseling 45 Minutes [id number] TARIK LOCKHART [facility] Clinical Social Work Individual Outpatient Counseling 30 Minutes Clinical Social Work Individual Outpatient Counseling 30 Minutes [id number] TARIK LOCKHART [facility] Clinical Social Work Individual Outpatient Counseling 30 Minutes Clinical Social Work Individual Outpatient Counseling 30 Minutes [id number] TARIK LOCKHART DoD Clinical Social Work Individual Outpatient Counseling 45 Minutes Clinical Social Work Individual Outpatient Counseling 45 Minutes [id number] JUSTIN VALENCIA DoD Clinical Social Work Individual Outpatient Counseling 45 Minutes Clinical Social Work Individual Outpatient Counseling 45 Minutes [id number] KELSEA AMBROCIO DoD Psychiatric Diagnostic Evaluation Comprehensive Examination Psychiatric Diagnostic Evaluation Comprehensive Examination [id number] REMY CRUZ DoD Psychiatric Diagnostic Evaluation Comprehensive Examination Psychiatric Diagnostic Evaluation Comprehensive Examination [id number] TARIK LOCKHART [facility] Medical Nutrition Therapy Group (2 or More Individuals) Each 30 Minutes Medical Nutrition Therapy Group (2 or More Individuals) Each 30 Minutes [id number] 010 JOSE MEI [facility] Clinical Social Work Individual Outpatient Counseling 30 Minutes Clinical Social Work Individual Outpatient Counseling 30 Minutes 86732 009 SLOANE GOLDSTEIN [facility] Clinical Social Work Individual Outpatient Counseling 30 Minutes Clinical Social Work Individual Outpatient Counseling 30 Minutes [id number] SLOANE GOLDSTEIN [facility] Health And Behav A e mt Each 15 Min Initial A e ment Health And Behav Assessmt Each 15 Min Initial Assessment [id number] SLOANE GOLDSTEIN [facility] Alcohol and/or drug services; case management [facility] Behavioral health counseling and therapy, per 15 minutes [facility] Behavioral health prevention information di emination service (one-way direct or non-direct contact with service audiences to affect knowledge and attitude) [facility] Behavioral health prevention education service (delivery of services with target population to affect knowledge, attitude and/or behavior) [facility] Behavioral health counseling and therapy, per 15 minutes [facility] Alcohol and/or drug services; case management [facility] Alcohol and/or drug services; group counseling by a clinician [facility] Behavioral health prevention information di emination service (one-way direct or non-direct contact with service audiences to affect knowledge and attitude) [facility] Psychometric Neurobehavioral Status Exam NAUN ROME [facility] Behavioral health prevention education service (delivery of services with target population to affect knowledge, attitude and/or behavior) FRAN, ANGELIQUE [facility] Alcohol and/or drug prevention problem identification and referral service (e.g., student a istance and employee a istance programs), does not include a e ment FRAN ANGELIQUE [facility] Behavioral health prevention information di emination service (one-way direct or non-direct contact with service audiences to affect knowledge and attitude) FRAN ANGELIQUE [facility] Alcohol and/or drug services; case management FRAN ANGELIQUE [facility] Behavioral health counseling and therapy, per 15 [facility]; group counseling by a clinician ZION BECK [facility] Behavioral health prevention information di emination service (one-way direct or non-direct contact with service audiences to affect knowledge and attitude) 009 EBONY ZION GUILLORYA [facility] Behavioral health prevention education service (delivery of services with target population to affect knowledge, attitude and/or behavior) 009 EBONY ZION JONES [facility] Alcohol and/or drug prevention problem identification and referral service (e.g., student a istance and employee a istance programs), does not include a e ment 009 EBONY ZION JONES [facility] Alcohol and/or drug prevention problem identification and referral service (e.g., student a istance and employee a istance programs), does not include a e ment 009 HARRIS WHITE [facility] Behavioral health prevention information di emination service (one-way direct or non-direct contact with service audiences to affect knowledge and attitude) 009 HARRIS WHITE Behavioral health prevention education service (delivery of services with target population to affect knowledge, attitude and/or behavior) 009 HARRIS WHITE Alcohol and/or drug services; group counseling by a clinician 009 HARRIS WHITE Alcohol and/or drug services; case management 009 HARRIS WHITE Alcohol and/or drug services; group counseling by a clinician 009 ZION BECK [facility] Behavioral health prevention information di emination service (one-way direct or non-direct contact with service audiences to affect knowledge and attitude) 009 ZION BECK [facility] Behavioral health prevention education service (delivery of services with target population to affect knowledge, attitude and/or behavior) 009 EBONY ZION KAREN [facility] Alcohol and/or drug prevention problem identification and referral service (e.g., student a istance and employee a istance programs), does not include a e ment 009 EBONY ZION KAREN [facility] Alcohol and/or drug services; case management 009 GEORGE BURTON [facility] Behavioral health prevention information di emination service (one-way direct or non-direct contact with service audiences to affect knowledge and attitude) GEORGE BURTON [facility] Behavioral health prevention education service (delivery of services with target population to affect knowledge, attitude and/or behavior) GEORGE BURTON [facility] Alcohol and/or drug prevention problem identification and referral service (e.g., student a istance and employee a istance programs), does not include a e ment GEORGE BURTON [facility] Alcohol and/or drug services; group counseling by a clinician GEORGE BURTON [facility] Behavioral health prevention information di emination service (one-way direct or non-direct contact with service audiences to affect knowledge and attitude) [facility] Behavioral health prevention education service (delivery of services with target population to affect knowledge, attitude and/or behavior) [facility] Alcohol and/or drug a e ment [facility] Alcohol and/or drug services; group counseling by a clinician [facility] Alcohol and/or drug services; case management [facility] CRIPPLE WORKER/SAP BASIS services, up to 15 minutes 009 SYBIL ELIAS [facility] Psychiatric Diagnostic Evaluation Review of Records and Reports Psychiatric Diagnostic Evaluation Review of Records and Reports 92688 008 Theater Provider [facility] Psychotherapy Individual Approximately 45 Minutes Psychotherapy Individual Approximately 45 Minutes 40367 008 Theater Provider [facility] Psychotherapy Individual Approximately 45 Minutes Psychotherapy Individual Approximately 45 Minutes 91272 008 Theater Provider [facility] Psychiatric Therapy Counseling Family / Guardians Psychiatric Therapy Counseling Family / Guardians 22318 008 Theater Provider [facility] Psychotherapy Individual Approximately 45 Minutes Psychotherapy Individual Approximately 45 Minutes 48569 008 Theater Provider [facility] Psychotherapy Individual Approximately 45 Minutes Psychotherapy Individual Approximately 45 Minutes 82515 008 Theater Provider [facility] Psychiatric Diagnostic Evaluation Comprehensive Examination Psychiatric Diagnostic Evaluation Comprehensive Examination 74999 008 [facility] Audiometry Group Testing Audiometry Group Testing 56474 008 BONIFACIO BERNARDO Threshold Audiogram (Pure Tone) Threshold Audiogram (Pure Tone) 03653 008 BONIFACIO BERNARDO Audiometry Group Testing Audiometry Group Testing 07529 007 SAMM, GREER Arzola Special Physician Services Analysis Of Computerized Data Special Physician Services Analysis Of Computerized Data 43717 007 SAMM, GREER Castaneda [facility] Physician Supervised Services Provision Of Special Supplies Physician Supervised Services Provision Of Special Supplies 22584 007 SAMM, GREER Castaneda [facility] Physician Supervised Group Educational Services 007 SAMM, GREER Arzola Threshold Audiogram (Pure Tone) Threshold Audiogram (Pure Tone) 77056 007 QUIJANO, GREER Arzola Ear Protector Attenuation Measurements Ear Protector Attenuation Measurements 39260 007 SAMM, GREER Arzola Immunization Administration By Injection, Each Additional Vaccine 007 ÁLVARO ARMSTRONG Meningococcal Polysaccharide Diphtheria Toxoid Conjugate Vaccine NATHANIEL, LEORA [facility] Tdap Vaccine Tdap Vaccine 72616 ÁLVARO ARMSTRONG [facility] Hepatitis A And Hepatitis B (Intramuscular Use) Adult Dosage Hepatitis A And Hepatitis B (Intramuscular Use) Adult Dosage 91221 ÁLVARO ARMSTRONG [facility] Venipuncture Venipuncture 52729 ÁLVARO ARMSTRONG Skin Test Anergy Tuberculin Intradermal Skin Test Anergy Tuberculin Intradermal 11163 ÁLVARO ARMSTRONG [facility] Physician Supervised Injection Subcutaneous Physician Supervised Injection Subcutaneous 37595 NATHANIEL [facility] Influenza Virus Vaccine Intranasal Live Attenuated 007 NATHANIEL [facility] Physician Supervised Injection Intramuscular Antibiotic Physician Supervised Injection Intramuscular Antibiotic 82847 ÁLVARO ARMSTRONG [facility] Vaccines Viral Polio, Inactivated Vaccines Viral Polio, Inactivated 84123 007 ÁLVARO ARMSTRONG M Dariusz Injection, penicillin G benzathine, up to 1,200,000 units 007 ÁLVARO ARMSTRONG Determination Of Refractive State Determination Of Refractive State 75106 NAVYA REES [facility] Spectacles Services Fitting Monofocal Except For Aphakia Spectacles Services Fitting Monofocal Except For Aphakia 48958 007 NAVYA CURRAN Ophthalmological New Patient Start Intermediate Level Care Ophthalmological New Patient Start Intermediate Level Care 19733 007 NAVYA CURRAN Alcohol and/or substance abuse services, treatment plan development and/or modification 011 LOIDA HORTA [facility] Psychotherapy Individual Approx 30 Min W/ Medical Evaluation & Management Psychotherapy Individual Approx 30 Min W/ Medical Evaluation & Management 90527 010 ROXANN LEVY [facility] Biofeedback Training By Any Modality Biofeedback Training By Any Modality 02856 MAR, VINCENT Oliva [facility] Psychotherapy Individual Approx 30 Min W/ Medical Evaluation & Management Psychotherapy Individual Approx 30 Min W/ Medical Evaluation & Management 54223 010 LIVIER DUFFY [facility] Psychotherapy Indiv Approx 45 Min W/ Medical Evaluation & Management Psychotherapy Indiv Approx 45 Min W/ Medical Evaluation & Management 22556 010 HILARIO TORRES [facility] Psychotherapy Individual Approx 30 Min W/ Medical Evaluation & Management Psychotherapy Individual Approx 30 Min W/ Medical Evaluation & Management 38249 010 LIVIER DUFFY Psychotherapy Individual Approximately 45 Minutes Psychotherapy Individual Approximately 45 Minutes 89797 010 LIVIER HUYNH Biofeedback Training By Any Modality Biofeedback Training By Any Modality 72975 MAR, VINCENT Arzola Psychotherapy Individual Approximately 30 Minutes Psychotherapy Individual Approximately 30 Minutes 66720 010 LIVIER HUYNH Psychologic Testing And Report Administered By Physician Psychologic Testing And Report Administered By Physician 22439 LIVIER HUYNH Biofeedback Training By Any Modality Biofeedback Training By Any Modality 76952 MAR, VINCENT Arzola Biofeedback Training By Any Modality Biofeedback Training By Any Modality 45515 MAR, VINCENT Arzola Biofeedback Training By Any Modality Biofeedback Training By Any Modality 11088 MAR, VINCENT Arzola Psychiatric Diagnostic Evaluation Comprehensive Examination Psychiatric Diagnostic Evaluation Comprehensive Examination 68315 HILARIO TORRES [facility] Intervention And Counseling On Ce ation Of Tobacco Use Intervention And Counseling On Cessation Of Tobacco Use 4000F SHYLA CHERYL [facility] Psychiatric Therapy Preparation of Psychiatric Status Report Psychiatric Therapy Preparation of Psychiatric Status Report 73973 ADRIANNA LOPES [facility] Psychotherapy Individual Approximately 45 Minutes Psychotherapy Individual Approximately 45 Minutes 12434 LIVIER HUYNH [facility] Psychotherapy Individual Approx 30 Min W/ Medical Evaluation & Management Psychotherapy Individual Approx 30 Min W/ Medical Evaluation & Management 83536 LIVIER DUFFY [facility] Biofeedback Training By Any Modality Biofeedback Training By Any Modality 63073 [facility] Biofeedback Training By Any Modality Biofeedback Training By Any Modality 66300 [facility] Psychotherapy Individual Approximately 75-80 Minutes Psychotherapy Individual Approximately 75-80 Minutes 16892 NORI GARCIA [facility] Dangerousne A e ment Suicide Risk Dangerousness Assessment Suicide Risk 3085F NORI GARCIA [facility] Clinical Social Work Individual Outpatient Counseling 30 Minutes Clinical Social Work Individual Outpatient Counseling 30 Minutes 87038 ADRIANNA LOPES [facility] Biofeedback Training By Any Modality Biofeedback Training By Any Modality 76122 VINCENT SORTO [facility] Clinical Social Work Individual Outpatient Counseling 45 Minutes Clinical Social Work Individual Outpatient Counseling 45 Minutes 77955 ADRIANNA LOPES [facility] Psychotherapy Individual Approx 30 Min W/ Medical Evaluation & Management Psychotherapy Individual Approx 30 Min W/ Medical Evaluation & Management 09813 LIVIER DUFFY [facility] Psychiatric Therapy Family (Conjoint) TIANA BRAN [facility] Biofeedback Training By Any Modality Biofeedback Training By Any Modality 04382 VINCENT SORTO [facility] Psychotherapy Indiv Approx 45 Min W/ Medical Evaluation & Management Psychotherapy Indiv Approx 45 Min W/ Medical Evaluation & Management 34941 REMY CASTRO [facility] Physical Medicine - Group Physical Therapy Se ion Physical Medicine - Group Physical Therapy Session 21937 ALEXUS QUIJANO [facility] Psychotherapeutic Rehab Development Of Cognitive Skills Psychotherapeutic Rehab Development Of Cognitive Skills 53541 010 ALEXUS QUIJANO 60 min [facility] Alcohol and/or substance abuse services, treatment plan development and/or modification 010 LOIDA HORTA [facility] Physical Medicine - Group Physical Therapy Se ion Physical Medicine - Group Physical Therapy Session 51264 010 ALEXUS QUIJANO [facility] Psychotherapeutic Rehab Development Of Cognitive Skills Psychotherapeutic Rehab Development Of Cognitive Skills 88793 010 ALEXUS QUIJANO G 60 min [facility] Psychotherapy Group Interactive Psychotherapy Group Interactive 67833 010 LORRAINE LOGAN [facility] Physical Medicine - Group Physical Therapy Se ion Physical Medicine - Group Physical Therapy Session 81120 010 ALEXUS QUIJANO [facility] Psychotherapeutic Rehab Development Of Cognitive Skills Psychotherapeutic Rehab Development Of Cognitive Skills 99766 010 ALEXUS QUIJANO 60 min [facility] Physical Medicine - Group Physical Therapy Se ion Physical Medicine - Group Physical Therapy Session 94354 010 ALEXUS QUIJANO G 30 min group [facility] A isted Exercises For ROM Assisted Exercises For ROM 33552 010 ALEXUS QUIJANO G 30 min yoga session [facility] Physical Medicine - Group Physical Therapy Se ion Physical Medicine - Group Physical Therapy Session 98629 010 ALEXUS QUIJANO G 70 min group [facility] Development Of Cognit Skills By Sensory Integrative Techniques Development Of Cognit Skills By Sensory Integrative Techniques 15859 010 ALEXUS QUIJANO 8 min one on one with Pt during group [facility] Medical Nutrition Therapy Group (2 or More Individuals) Each 30 Minutes Medical Nutrition Therapy Group (2 or More Individuals) Each 30 Minutes 32593 010 APRIL CEDENO [facility] Psychotherapy Individual Approx 75-80 Min With Medical Evaluation & Management Psychotherapy Individual Approx 75-80 Min With Medical Evaluation & Management 98510 010 LIVIER DUFFY [facility] Psychiatric Diagnostic Evaluation Comprehensive Examination Psychiatric Diagnostic Evaluation Comprehensive Examination 72342 010 LIVIER HUYNH [facility] Biofeedback Training By Any Modality Biofeedback Training By Any Modality 89981 010 FRANCIS NIXON [facility] Patient Counseling Medical Management Individual Patient Patient Counseling Medical Management Individual Patient 61651 010 FRANCIS NIXON [facility] Psychiatric Therapy Environmental Intervention Psychiatric Therapy Environmental Intervention 39920 010 BIBI ESPINOZA [facility] Psychiatric Diagnostic Evaluation Review of Records and Reports Psychiatric Diagnostic Evaluation Review of Records and Reports 79266 010 BIBI ESPINOZA [facility] Psychotherapy Individual Approximately 30 Minutes Psychotherapy Individual Approximately 30 Minutes 32503 010 BIBI ESPINOZA [facility] Biofeedback Training By Any Modality Biofeedback Training By Any Modality 81490 010 FRANCIS NIXON [facility] Development Of Cognitive Skills By Compensatory Activities Development Of Cognitive Skills By Compensatory Activities 08180 010 FRANCIS NIXON [facility] Development Of Cognitive Skills By Compensatory Activities Development Of Cognitive Skills By Compensatory Activities 24237 010 JOSHUA WOMACK [facility] Supervised Individual Speech/Hearing Therapy 010 JOSHUA WOMACK [facility] Evaluation of Speech / Hearing Problem 010 JOSHUA WOMACK [facility] Psychiatric Therapy Environmental Intervention Psychiatric Therapy Environmental Intervention 94240 010 MOLLY SOLIS [facility] Psychotherapy Individual Approximately 45 Minutes Psychotherapy Individual Approximately 45 Minutes 88159 010 MOLLY SOLIS [facility] Psychiatric Diagnostic Evaluation Comprehensive Examination Psychiatric Diagnostic Evaluation Comprehensive Examination 08715 010 ÁLVARO MILIAN [facility] Psychotherapy Individual Approximately 45 Minutes Psychotherapy Individual Approximately 45 Minutes 21468 010 TIANA BRAN [facility] Psychotherapy Individual Approx 30 Min W/ Medical Evaluation & Management Psychotherapy Individual Approx 30 Min W/ Medical Evaluation & Management 62518 010 LIVIER DUFFY [facility] Psychotherapy Group Interview Psychotherapy Group Interview 60052 010 YAEL ALCANTAR [facility] Psychometric Neuropsych Testing Battery Admin By Physician Psychometric Neuropsych Testing Battery Admin By Physician 61396 010 ÁLVARO MILIAN [facility] Performance Of Mental Status Exam - Cognitive 010 ÁLVARO MILIAN [facility] Psychiatric Diagnostic Evaluation Comprehensive Examination Psychiatric Diagnostic Evaluation Comprehensive Examination 27146 010 ÁLVARO MILIAN [facility] Psychometric Neuropsych Testing Battery Admin By Manager Pathology Psychometric Neuropsych Testing Battery Admin By Manager Pathology 28637 010 LIVIER JACKSON [facility] Clinical Social Work Individual Outpatient Counseling 30 Minutes Clinical Social Work Individual Outpatient Counseling 30 Minutes 08806 010 LOIDA HORTA [facility] Psychometric Neuropsych Testing Battery Admin By Physician Psychometric Neuropsych Testing Battery Admin By Physician 18611 010 ÁLVARO MILIAN [facility] Performance Of Mental Status Exam - Cognitive 010 ÁLVARO MILIAN [facility] Psychiatric Diagnostic Evaluation Comprehensive Examination Psychiatric Diagnostic Evaluation Comprehensive Examination 91042 010 ÁLVARO MILIAN [facility] Psychiatric Diagnostic Evaluation Comprehensive Examination Psychiatric Diagnostic Evaluation Comprehensive Examination 35031 010 LOIDA HORTA [facility] Psychotherapy Individual Approx 30 Min W/ Medical Evaluation & Management Psychotherapy Individual Approx 30 Min W/ Medical Evaluation & Management 12453 010 LIVIER DUFFY [facility] Physical Medicine - Group Physical Therapy Se ion Physical Medicine - Group Physical Therapy Session 66764 010 ALEXUS QUIJANO [facility] Psychotherapy Individual Approx 30 Min W/ Medical Evaluation & Management Psychotherapy Individual Approx 30 Min W/ Medical Evaluation & Management 07450 010 REMY CASTRO [facility] Psychiatric Diagnostic Evaluation Comprehensive Examination Psychiatric Diagnostic Evaluation Comprehensive Examination 29646 010 YOJANA JESUS [facility] Occupational Therapy Evaluation Occupational Therapy Evaluation 62226 010 FRANCIS NIXON [facility] Psychotherapy Individual Approximately 45 Minutes Psychotherapy Individual Approximately 45 Minutes 71633 010 MOLLY SOLIS [facility] Psychotherapy Individual Approximately 45 Minutes Psychotherapy Individual Approximately 45 Minutes 82506 010 TIANA BRAN [facility] Psychometric Neuropsych Testing Battery Admin By Manager Pathology Psychometric Neuropsych Testing Battery Admin By Manager Pathology 80577 010 ARABELLA MCCARTY [facility] Psychiatric Therapy Family (Conjoint) 010 TIANA BRAN [facility] Phys Therapy Education Self Care Training - Per 15 Minutes Phys Therapy Education Self Care Training - Per 15 Minutes 30144 010 SHUKRI RIVERA [facility] A isted Exercises For ROM Assisted Exercises For ROM 09912 010 SHUKRI RIVERA [facility] Physical Therapy Service Evaluation Physical Therapy Service Evaluation 53316 010 SHUKRI RIVERA [facility] Psychiatric Therapy Family (Conjoint) 010 TIANA BRAN [facility] Psychiatric Diagnostic Evaluation Comprehensive Examination Psychiatric Diagnostic Evaluation Comprehensive Examination 10931 010 TIANA BRAN [facility] Psychiatric Diagnostic Evaluation Comprehensive Examination Psychiatric Diagnostic Evaluation Comprehensive Examination 06220 010 LIVIER DUFFY [facility] Physical Medicine - Group Physical Therapy Se ion Physical Medicine - Group Physical Therapy Session 27813 010 ALEXUS QUIJANO Development Of Cognit Skills By Sensory Integrative Techniques Development Of Cognit Skills By Sensory Integrative Techniques 47914 010 ALEXUS QUIJANO Physical Medicine - Group Physical Therapy Se ion Physical Medicine - Group Physical Therapy Session 55981 010 ALEXUS QUIJANO Physical Medicine - Group Physical Therapy Se ion Physical Medicine - Group Physical Therapy Session 23371 010 ALEXUS QUIJANO Development Of Cognit Skills By Sensory Integrative Techniques Development Of Cognit Skills By Sensory Integrative Techniques 02500 010 ALEXUS QUIJANO Visual Robb Test Intermediate Examination Visual Robb Test Intermediate Examination 05762 010 EDY RAMOS Spectacles Services Fitting Monofocal Except For Aphakia Spectacles Services Fitting Monofocal Except For Aphakia 97994 010 EDY RAMOS Determination Of Refractive State Determination Of Refractive State 32890 010 EDY RAMOS Ophthalmological New Patient Start Comprehensive Care Ophthalmological New Patient Start Comprehensive Care 13768 010 EDY RAMOS Social History Combined list of available smoking, tobacco, and other social history from Department of Defense and Veterans Affairs facilities. Social History Type Response Date Comment Sour e Tobacco smoking status NHIS VA-TOBACCO USER EVERY DAY 07/31/2023 [facility] History of tobacco use VA-TOBACCO USE 5 TO 15 YEARS 07/31/2023 [facility] History of tobacco use VA-TOBACCO USER E VERY DAY 08/03/2020 [facility] History of tobacco use VA-TOBACCO USE CO UNSEL NO 11/28/2018 [facility] History of tobacco use PREVIOUS SMOKER 10/25/2015 [facility] History of tobacco use CURRENT TOBACCO USER 01/28/2014 [facility] History of tobacco use CURRENT TOBACCO USER 10/17/2012 [facility] History of tobacco use TOBACCO OFFERRED PT MEDS (PROVIDER) 04/24/2011 [facility] History of tobacco use CURRENT TOBACCO USER 04/23/2011 [facility] History of tobacco use CURRENT TOBACCO USER 05/03/2010 [facility] History of tobacco use CURRENT TOBACCO USER 04/29/2010 [facility] This section is an empty social history section. DoD Plan of Care List of future care activities from [facility] facilities. Additional future care activities may be listed in the Assessment and Plan section. Date/Time Care Activity Care Activity Detail Facili ty 09/09/2024 AMBULATORY - PSYCHIATRY AMBULATORY - PSYC HIATRY [facility]
--- OUTSIDE RECORDS SUMMARY | 2024-05-09 10:28 | XMS_ITS | Encounter Summary ---
Author Name [facility] [place] [facility] [place] Address [address] [place] [address] Care Team Providers Care Monitor And Storage Bin Tender Name Role Phone KELLEE BURT Primary Care Provider Unavailabl e Selected Encounter This section includes the information on record at [place] for the Encounter. Date/Time Encounter Type Encounter Description Reason Pro vider Source Jan 09, 2024 09:31 AM Outpatient Encounter GENERAL INTERNAL MEDICINE IHE Encounter Template Text not used by [place] Plan of Treatment: Future Appointments (+ 6 months) and Future Tests (+/- 45 days) The Plan of Treatment section includes future care activities for the patient from all [place] treatmentfacilities. This section includes future appointments and future orders which are active, pending or scheduled. Future Appointments This section includes appointments that were scheduled to occur 6 months from the date of the Encounter, up to a maximum of 20 appointments. The data comes from all [place] treatment facilities. Appointment Date/Time Appointment Type Appointme nt Facility Name Feb 25, 2024 08:30 AM AMBULATORY - PSYCHIATRY [facility] Social History: Smoking Status (Most current) and Tobacco Use (All prior to encounter date) This section includes the most current, and the historical, smoking and tobacco- related health factors from the VA facility where the Encounter took place. Current Smoking Status This section includes the most current smoking, or tobacco-related health factor, from the VA facility where the Encounter took place. Date/Time Current Smoking Status Comment Facil ity Jul 31, 2023 10:12 AM VA-TOBACCO USER EVERY DAY [facility] Tobacco Use History This section includes a history of the smoking, or tobacco-related health factors, that were collected on or before the date of the Encounter. The data comes from the [place] facility where the Encounter took place. Date/Time Smoking Status/Tobacco Use Comment F acility Jul 31, 2023 10:12 AM VA-TOBACCO USE 5 TO 15 YEARS [facility] Jul 31, 2023 10:12 AM VA-TOBACCO USE ADVICE [facility] Jul 31, 2023 10:12 AM VA-TOBACCO USE DATA ASSISTANT NO [facility] Jul 31, 2023 10:12 AM VA-TOBACCO USE MED NO [facility] Jul 31, 2023 10:12 AM VA-TOBACCO USER EVERY DAY [facility] Encounter Notes: All associated encounter notes This section contains the clinical notes associated to the Encounter. Date/Time Encounter Note(s) Provider Source Jan 07, 2024 09:31 AM NONVA NOTE: LOCAL TITLE: [facility] PRESENTING CARE COORD PLAN STANDARD TITLE: NONVA NOTE DATE OF NOTE: JAN 07, 2024@09:31 ENTRY DATE: JAN 09, 2024@09:31:50 AUTHOR: SALOME MOE EXP COSIGNER: URGENCY: STATUS: COMPLETED Emergency Notification Intake Date Presenting to the Facility: Dec Method of Contact: Notified from [facility] worklist Notification ID: [id number] [facility] Referral #: [id number] Clinical Review [facility] Name: [facility]: [facility] Address: [address] [place] [address] City: [place] State: [place] Zip Code: [address] [facility] Facility Point of Contact: Name: Chief complaint: R10.9 Primary Diagnosis: Disposition Discharged Date of discharge: Dec Discharge to home [place] Left Against Medical Advice Records r/t this episode of care sent to [facility] for scanning. 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
--- OUTSIDE RECORDS SUMMARY | 2024-05-09 10:28 | XMS_ITS | Clinical Summary ---
Author Organization [facility] Address [address] [place] [address] Care Team Providers Care Triage Nurse Name Role Phone [facility] Primary Care Provid er Allergies Active [...] Noted Date Diagnosed Date Left-sided weakness 07/07/2023 Surgical History Surgery Date Site/Laterality Comments LITHOTRIPSY Medical History Medical History Date Comments Kidney stones TIA (transient ischemic attack) Family History Medical History Relation Name Comments Hyperlipidemia Father Hypertension Father Nephrolithiasis Father Cancer Maternal Grandmother Coronary artery disease Maternal Grandmother Cancer Paternal Grandmother Relation Name Status Comments Father Maternal Grandmother Paternal Grandmother Social History Tobacco Use Types Packs/Day Years [...] on file 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 Gender Identity Not on file Sexual Orientation Not on file Obstetrics History Last Filed Vital Signs Vital Sign Reading [...] 07/07/2023 5:44 PM CDT Plan of Treatment Health Maintenance Due Date Last Done Comments Depression Screening 1988 Hepatitis C Screening 1988 Pneumococcal vaccine <65 (1 of 2 - PCV) 1994 Regular Well Visit/Exam 18-64 2006 Varicella Vaccines (1 of 2 - 13+ 2-dose series) 02/24/2009 Influenza Vaccine (#1) 2023 7, 03/02/2010, 01/27/2009, Additional history exists DTaP/Tdap/Td Vaccine (9 - Td or Tdap) 10/24/2026 10/24/2016, 09/30/2009, 04/13/2006, Additional history exists HPV Vaccines Aged Out No longer eligi ble based on patient's age to complete this topic Insurance [employer] [facility] Advance Directives For more information, please contact: [phone] * Full Code (Latest Code Status on File) Date Activated Date Inactivated Comments 07/07/2023 7:51 PM 07/08/2023 1:07 AM Care Teams Triage Nurse Relationship Specialty Start Date End Date [address] [address] PCP - General Genetics 10/29/20
--- OUTSIDE RECORDS SUMMARY | 2024-05-09 10:28 | XMS_ITS | Encounter Summary ---
Author Name [facility] [place] Organization [facility] [place] [facility] [place] Address [address] [place] [address] Care Team Providers Care Scrap Burner Name Role Phone KELLEE BURT Primary Care Provider Unavailabl e Selected Encounter This section includes the information on record at [place] for the Encounter. Date/Time Encounter Type Encounter Description Reason Pro vider Source Jun 05, 2023 12:01 PM Outpatient Encounter PRIMARY CARE/MEDICINE IHE Encounter Template Text not used by [place] Plan of Treatment: Future Appointments (+ 6 months) and Future Tests (+/- 45 days) The Plan of Treatment section includes future care activities for the patient from all [place] treatmentfacilities. This section includes future appointments and future orders which are active, pending or scheduled. Future Appointments This section includes appointments that were scheduled to occur 6 months from the date of the Encounter, up to a maximum of 20 appointments. The data comes from all [place] treatment facilities. Appointment Date/Time Appointment Type Appointme nt Facility Name Jul 31, 2023 11:30 AM AMBULATORY - PSYCHIATRY [facility] August 03, 2023 09:00 AM AMBULATORY - MEDICINE [facility] Sep 06, 2023 01:30 PM AMBULATORY - PSYCHIATRY [facility] Oct 03, 2023 08:30 AM AMBULATORY - MEDICINE [facility] Nov 06, 2023 01:30 PM AMBULATORY - PSYCHIATRY [facility] Dec 04, 2023 03:30 PM AMBULATORY - MEDICINE [facility] Social History: Smoking Status (Most current) and Tobacco Use (All prior to encounter date) This section includes the most current, and the historical, smoking and tobacco- related health factors from the [place] facility where the Encounter took place. Current Smoking Status This section includes the most current smoking, or tobacco-related health factor, from the [place] facility where the Encounter took place. Date/Time Current Smoking Status Comment Facil ity August 03, 2020 12:00 PM VA-TOBACCO USER EVERY DAY [facility] Tobacco Use History This section includes a history of the smoking, or tobacco-related health factors, that were collected on or before the date of the Encounter. The data comes from the [place] facility where the Encounter took place. Date/Time Smoking Status/Tobacco Use Comment F acmalika August 03, 2020 12:00 PM VA-TOBACCO USE 5 TO 15 YEARS [facility] August 03, 2020 12:00 PM VA-TOBACCO USE ADVICE [facility] August 03, 2020 12:00 PM VA-TOBACCO USE DROP SHIPMENT CLERK NO [facility] August 03, 2020 12:00 PM VA-TOBACCO USE MED NOTIFY PROVIDER Dr. Suarez [facility] August 03, 2020 12:00 PM VA-TOBACCO USE WI 30 MIN OF WAKE UP [facility] August 03, 2020 12:00 PM VA-TOBACCO USER EVERY DAY [facility] Nov 28, 2018 02:15 PM VA-TOBACCO DOESNT USE WI 30 MIN WAKEUP [facility] Nov 28, 2018 02:15 PM VA-TOBACCO USE 5 TO 15 YEARS [facility] Nov 28, 2018 02:15 PM VA-TOBACCO USE ADVICE [facility] Nov 28, 2018 02:15 PM VA-TOBACCO USE DROP SHIPMENT CLERK NO [facility] Nov 28, 2018 02:15 PM VA-TOBACCO USE MED NO [facility] Nov 28, 2018 02:15 PM VA-TOBACCO USER EVERY DAY [facility] Oct 25, 2015 12:54 PM CURRENT TOBACCO USER [facility] Oct 25, 2015 12:54 PM PREVIOUS SMOKER MACARIO EUSEBIO [facility] Oct 25, 2015 12:54 PM TOBACCO MEDS OFFERED BUT DECLINE D [facility] Jan 28, 2014 01:00 PM CURRENT TOBACCO USER [facility] Encounter Notes: All associated encounter notes This section contains the clinical notes associated to the Encounter. Date/Time Encounter Note(s) Provider Source Jun 05, 2023 12:01 PM ADMINISTRATIVE NOT E: LOCAL TITLE: ADMINISTRATIVE CONTACT NOTE MD STANDARD TITLE: ADMINISTRATIVE NOTE DATE OF NOTE: JUN 05, 2023@12:01 ENTRY DATE: JUN 05, 2023@12:01:28 AUTHOR: AUBREY OLIVEROS EXP COSIGNER: URGENCY: STATUS: COMPLETED [employer] [address] [place] [address] [id number] Age: 32 PCP: EVELINE JULIO The following identifiers were used to verify this patient: : Sep SS: [id number] WOULD LIKE TO REQUEST PCP CHANGE DUE TO LOCATION. DECLINDED TO F/U AT THIS TIME WITH CARMEN SHARPE /mahesh/ AUBREY MCDOWELL Signed: 06/05/2023 12:02 AUBREY OLIVEROS [facility]
--- OUTSIDE RECORDS SUMMARY | 2024-05-09 10:28 | XMS_ITS | Encounter Summary ---
Author Name [facility] [place] Organization [facility] [place] [place] Address [address] [place] [address] Care Team Providers Care Supervisor Steno Pool Name Role Phone KELLEE BURT Primary Care Provider Unavailabl e Selected Encounter This section includes the information on record at [place] for the Encounter. Date/Time Encounter Type Encounter Description Reason Provider Source Jun 12, 2023 10:14 AM TARGETED CASE MANAGEMENT ADMIN PAT ACTIVTIES (MASNONCT) GEOVANI SHELL Deidra Encounter Template Text not used by [place] Plan of Treatment: Future Appointments (+ 6 months) and Future Tests (+/- 45 days) The Plan of Treatment section includes future care activities for the patient from all [place] treatmentfacilities. This section includes future appointments and future orders which are active, pending or scheduled. Future Appointments This section includes appointments that were scheduled to occur 6 months from the date of the Encounter, up to a maximum of 20 appointments. The data comes from all [place] treatment facilities. Appointment Date/Time Appointment Type Appointme nt Facility Name Jul 31, 2023 11:30 AM AMBULATORY - PSYCHIATRY [facility] August 03, 2023 09:00 AM [facility] Sep 06, 2023 01:30 PM AMBULATORY - PSYCHIATRY [facility] Oct 03, 2023 08:30 AM [facility] Nov 06, 2023 01:30 PM AMBULATORY - PSYCHIATRY [facility] Dec 04, 2023 03:30 PM AMBULATORY - MEDICINE [facility] Encounter Notes: All associated encounter notes This section contains the clinical notes associated to the Encounter. Date/Time Encounter Note(s) Provider Source Jun 12, 2023 10:14 AM PRIMARY CARE NOTE: LOCAL TITLE: [facility] TRAVELING NOTE ST STANDARD TITLE: PRIMARY CARE NOTE DATE OF NOTE: JUN 12, 2023@10:14 ENTRY DATE: JUN 12, 2023@10:14:24 AUTHOR: GEOVANI SHELL EXP COSIGNER: URGENCY: STATUS: COMPLETED Traveling/Relocating Care Coordination Permanent Relocation- [facility] need to establish care at [facility]. IFC reviewed and received for care coordination. Alerted [facility] Hull Drafter and Lead to assist with a new patient visit. will be contacted to schedule a visit by the schedulers. [address] [address] Get directions on [employer] Main number: [phone] Mental health: [phone], ext. [phone] /es/ GEOVANI SHELL REGISTERED NURSE, HOME TELEHEALTH COORDINATOR Signed: 06/12/2023 10:14 GEOVANI SHELL [facility]
--- NOTE | 2024-05-09 11:09 | PC.NURSE ---
pt approached intake desk and states his pain is better and does not want to be seen anymore. pt ambulated out of ED w/ steady gait.
--- OUTSIDE RECORDS SUMMARY | 2024-05-09 11:47 | XMS_ITS | Encounter Summary ---
Author Name [facility] [place] Organization [facility] [place] [facility] [place] Address [address] [place] [address] Care Team Providers Care Landscape Drafter Name Role Phone KELLEE BURT Primary Care Provider Unavailabl e Selected Encounter This section includes the information on record at [place] for the Encounter. Date/Time Encounter Type Encounter Description Reason Pro vider Source Jul 09, 2023 02:45 PM CASE MANAGEMENT ADMIN PAT ACTIVTIES (MASNONCT) GEOVANI SHELL Deidra Encounter Template Text not used by [place] Plan of Treatment: Future Appointments (+ 6 months) and Future Tests (+/- 45 days) The Plan of Treatment section includes future care activities for the patient from all [place] treatmentfacilities. This section includes future appointments and future orders which are active, pending or scheduled. Future Appointments This section includes appointments that were scheduled to occur 6 months from the date of the Encounter, up to a maximum of 20 appointments. The data comes from all [place] treatment facilities. Appointment Date/Time Appointment Type Appointme nt Facility Name Jul 31, 2023 11:30 AM AMBULATORY - PSYCHIATRY [facility] August 03, 2023 09:00 AM AMBULATORY - MEDICINE [facility] Sep 06, 2023 01:30 PM AMBULATORY - PSYCHIATRY [facility] Oct 03, 2023 08:30 AM [facility] Nov 06, 2023 01:30 PM AMBULATORY - PS[facility]CHIATRY [facility] Dec 04, 2023 03:30 PM AMBULATORY - MEDICINE [facility] Lab Results: +/- 30 days of the encounter This section includes the Chemistry and Hematology Lab Results on record with [facility] for the patient. Radiology Reports and Pathology Reports are provided separately, in subsequent sections. Lab Results This section contains the Chemistry/Hematology Results that were resulted 30 days before or 30 daysafter the date of the Encounter. Date/Time Source Result Type Result - Unit Interpretation Reference Range Comment August 03, 2023 10:17 AM [facility] URINALYSIS (STL-PB) Specimen Type: URINE No comment entered. Ordering Provider: BRIAN BURT Report Released Date/Time: August 03, 2023 09:50 AM Reporting Lab: [facility] [address] [place] [address] Performing Lab: [facility] [place] [address] URINE COLOR Light-Yellow Yellow U.BILIRUBIN Negative mg/dL Negative U.PH 6.5 5.0-8.0 APPEARANCE Clear Clear U.NITRITE Negative mg/dL Negative URN.GLUCOSE Normal mg/dL Negative URN.PROTEIN 10 mg/dL H Negative-20 URN.UROBILINOGEN Normal mg/dL Normal URN.BLOOD Trace mg/dL Negative -Tr lourdes URN.KETONES Negative mg/dL Negative-Tr [place]our[place] URN.LEUK.EST. Negative mg/dL Negative-Tr [place] URN.SPECIFIC GRAVITY 1.023 1.005-1.029 August 03, 2023 10:12 AM [facility] TSH (MA-PB) Specimen Type: SERUM No comment entered. Ordering Provider: BRAIN BURT EN Report Released Date/Time: August 03, 2023 09:50 AM Reporting Lab: [facility] [place] [address] Performing Lab: [facility] [place] [address] TSH 2.236 u[IU]/mL 0.470-5.000 August 03, 2023 10:12 AM [facility] HGA1C Specimen Type: BLOOD No comment entered. Ordering Provider: BRIAN BURT Report Released Date/Time: August 03, 2023 09:50 AM Reporting Lab: [facility] [place] [address] Performing Lab: [facility] [place] [address] HGA1C 5.6 4.0-6.0 August 03, 2023 10:12 AM [facility] LIPID PANEL (STL) Specimen Type: PLASMA Comment: No hemolysis noted. Ordering Provider: BRIAN BURT Report Released Date/Time: August 03, 2023 09:50 AM Reporting Lab: [facility] [place] [address] Performing Lab: [facility] [place] [address] CHOLESTEROL 259 mg/dL H 0-200 TRIGLYCERIDE 179 mg/dL H 0-150 CALCULATED LDL 188 mg/dL See Interp HDL(New) 35 mg/dL L > 40 August 03, 2023 10:12 AM [facility] COMPREHENSIVE METABOLIC PANEL Specimen Type: PLASMA Comment: No hemolysis noted. Ordering Provider: BRIAN BURT EN Report Released Date/Time: August 03, 2023 09:50 AM Reporting Lab: [facility] [place] [address] Performing Lab: [facility] [place] [address] CREATININE 1.03 mg/dL 0.70-1.30 UREA NITROGEN 16.9 mg/dL 9.0-25.0 GLUCOSE 101 mg/dL H 72-99 SODIUM 141 meq/L 136-145 POTASSIUM 4.2 meq/L 3.5-5.0 CHLORIDE 104 meq/L 98-107 CARBON DIOXIDE 27 meq/L 22-31 CALCIUM 9.6 mg/dL 8.4-10.4 PROTEIN 7.5 g/dL 6.0-8.6 ALBUMIN 4.6 g/dL 3.4-5.0 TOTAL BILIRUBIN 0.9 mg/dL 0.2-1.2 ALKALINE PHOSPHATASE 92 U/L 40-150 AST/SGOT 35 U/L H 5-34 ALT/SGPT 44 U/L H 8-40 EGFR (CKD-EPI 2020) 97.76 >60 August 03, 2023 10:12 AM [facility] CBC Specimen Type: BLOOD No comment entered. Ordering Provider: BRIAN BURT Report Released Date/Time: August 03, 2023 09:50 AM Reporting Lab: [facility] [id number] Performing Lab: [facility] [id number] WBC 10.0 10*3/uL 3.6-11.2 RBC 5.07 10*6/uL 4.10-5.70 HGB 14.9 g/dL 13.1-16.8 HCT 43.8 38.2-48.4 MCV 86.4 fL 80.0-100.0 MCH 29.4 pg 27.0-34.0 MCHC 34.0 g/dL 33.0-36.0 PLT 218 10*3/uL 150-400 MPV 10.6 fL 7.5-11.2 RDW 12.9 11.8-15.1 LYMPHOCYTES, AUTO % 15 MONOCYTES, AUTO % 5 NEUTROPHILS, AUTO % 79 EOSINOPHILS, AUTO % 0 BASOPHILS, AUTO % 0 LYMPHOCYTES, ABSOLUTE 1.50 10*3/uL 0.77-4.50 MONOCYTES, ABSOLUTE 0.49 10*3/uL 0.19-0.80 NEUTROPHILS, ABSOLUTE 7.94 10*3/uL 2.10-8.00 EOSINOPHILS, ABSOLUTE 0.03 10*3/uL 0.00-0.60 BASOPHILS, ABSOLUTE 0.03 10*3/uL 0.00-0.20 Encounter Notes: All associated encounter notes This section contains the clinical notes associated to the Encounter. Date/Time Encounter Note(s) Provider Source Jul 09, 2023 02:45 PM CONSULT: LOCAL TITLE: TRAVELING CONSULT ST STANDARD TITLE: CONSULT DATE OF NOTE: JUL 09, 2023@14:45 ENTRY DATE: JUL 09, 2023@14:45:09 AUTHOR: GEOVANI SHELL EXP COSIGNER: URGENCY: STATUS: COMPLETED Traveling/Relocating Care Coordination Consult - Appointment not schedule. Traveling/Relocating [place] Care Coordination Consult Care not established request consult for relocation but has not scheduled visit. Spoke with , verified full name and date of . Provided contact numbers for making appt. Agrees to call for scheduling. Consult will be updated when care completed and/or scheduled. is still [facility] to [facility] until care is established. [place] [phone] to schedule your initial appointment. /mahesh/ GEOVANI SHELL REGISTERED NURSE, HOME TELEHEALTH COORDINATOR Signed: 07/09/2023 14:47 GEOVANI SHELL [facility]
--- OUTSIDE RECORDS SUMMARY | 2024-05-09 11:48 | XMS_ITS | Clinical Summary ---
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 C[facility] Advance Directives For more information, please contact: [phone] * Full Code (Latest Code Status on File) Date Activated Date Inactivated Comments 07/07/2023 7:51 PM 07/08/2023 1:07 AM Care Teams Audio Visual Secretary Relationship Specialty Start Date End Date [address] [address] PCP - General Genetics 10/29/20
--- OUTSIDE RECORDS SUMMARY | 2024-05-09 11:48 | XMS_ITS | Referral Summary ---
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
--- OUTSIDE RECORDS SUMMARY | 2024-05-09 11:48 | XMS_ITS | Continuity of Care Document ---
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 Report Released Date/Time: August 03, 2023 09:50 AM Reporting Lab: [facility] [place] [id number] Performing Lab: [facility] DIVISION COMPREHEN SIVE METABOLIC PANEL POTASSIUM [MOLES/VOLU ME] IN SERUM OR PLASMA 4.2 meq/L 3.5 - 5.0 08/02 Specimen Type: PLASMA Comment: No hemolysis noted. Ordering Provider: SHADY BURT Report Released Date/Time: August 03, 2023 09:50 AM Reporting Lab: [facility] [place] [address] Performing Lab: [facility] DIVISION COMPREHEN SIVE METABOLIC PANEL CHLORIDE [MOLES/VOLU ME] IN SERUM OR PLASMA 104 meq/L 98 - 107 08/02 Specimen Type: PLASMA Comment: No hemolysis noted. Ordering Provider: SHADY BURT Report Released Date/Time: August 03, 2023 09:50 AM Reporting Lab: [facility] [place] [address] Performing Lab: [facility] DIVISION COMPREHEN SIVE METABOLIC PANEL CARBON DIOXIDE, TOTAL [MOLES/VOLU ME] IN SERUM OR PLASMA 27 meq/L 22 - 31 08/02 Specimen Type: PLASMA Comment: No hemolysis noted. Ordering Provider: SHADY BURT Report Released Date/Time: August 03, 2023 09:50 AM Reporting Lab: [facility] [place] [address] Performing Lab: [facility] DIVISION COMPREHEN SIVE METABOLIC PANEL CALCIUM [MASS/VOLUM E] IN SERUM OR PLASMA 9.6 mg/dL 8.4 - 10.4 08/02 Specimen Type: PLASMA Comment: No hemolysis noted. Ordering Provider: SHADY BURT Report Released Date/Time: August 03, 2023 09:50 AM Reporting Lab: [facility] [place] [address] Performing Lab: [facility] DIVISION COMPREHEN SIVE METABOLIC PANEL PROTEIN [MASS/VOLUM E] IN SERUM OR PLASMA 7.5 g/dL 6.0 - 8.6 08/02 Specimen Type: PLASMA Comment: No hemolysis noted. Ordering Provider: SHADY BURT Report Released Date/Time: August 03, 2023 09:50 AM Reporting Lab: [facility] [place] [address] Performing Lab: [facility] DIVISION COMPREHEN SIVE METABOLIC PANEL ALBUMIN [MASS/VOLUM E] IN SERUM OR PLASMA 4.6 g/dL 3.4 - 5.0 08/02 Specimen Type: PLASMA Comment: No hemolysis noted. Ordering Provider: SHADY BURT Report Released Date/Time: August 03, 2023 09:50 AM Reporting Lab: [facility] [place] [address] Performing Lab: [facility] DIVISION COMPREHEN SIVE METABOLIC PANEL BILIRUBIN.T OTAL [MASS/VOLUM E] IN SERUM OR PLASMA 0.9 mg/dL 0.2 - 1.2 08/02 Specimen Type: PLASMA Comment: No hemolysis noted. Ordering Provider: SHADY BURT Report Released Date/Time: August 03, 2023 09:50 AM Reporting Lab: [facility] [place] [address] Performing Lab: [facility] DIVISION COMPREHEN SIVE METABOLIC PANEL ALKALINE PHOSPHATASE [ENZYMATIC ACTIVITY/VO LUME] IN SERUM OR PLASMA 92 U/L 40 - 150 08/02 Specimen Type: PLASMA Comment: No hemolysis noted. Ordering Provider: SHADY BURT Report Released Date/Time: August 03, 2023 09:50 AM Reporting Lab: [facility] [place] [address] Performing Lab: [facility] DIVISION COMPREHEN SIVE METABOLIC PANEL ASPARTATE AMINOTRANSF ERASE [ENZYMATIC ACTIVITY/VO LUME] IN SERUM OR PLASMA 35 U/L 5 - 34 08/02 H Specimen Type: PLASMA Comment: No hemolysis noted. Ordering Provider: SHADY BURT Report Released Date/Time: August 03, 2023 09:50 AM Reporting Lab: [facility] [place] [address] Performing Lab: [facility] COMPREHEN SIVE METABOLIC PANEL ALANINE AMINOTRANSF ERASE [ENZYMATIC ACTIVITY/VO LUME] IN SERUM OR PLASMA 44 U/L 8 - 40 08/02 H Specimen Type: PLASMA Comment: No hemolysis noted. Ordering Provider: SHADY BURT Report Released Date/Time: August 03, 2023 09:50 AM Reporting Lab: [facility] [place] [address] Performing Lab: [facility] DIVISION COMPREHEN SIVE METABOLIC PANEL GLOMERULAR FILTRATION RATE/1.73 SQ M.PREDICTED [VOLUME RATE/AREA] IN SERUM, PLASMA OR BLOOD BY CREATININE- BASED FORMULA (CKD-EPI 2020) 97.76 60 08/02 Specimen Type: PLASMA Comment: No hemolysis noted. Ordering Provider: SHADY BURT Report Released Date/Time: August 03, 2023 09:50 AM Reporting Lab: [facility] [place] [address] Performing Lab: [facility] DIVISION HGA1C HEMOGLOBIN A1C/HEMOGLO BIN.TOTAL IN BLOOD 5.6 4.0 - 6.0 08/02 Specimen Type: BLOOD No comment entered. Ordering Provider: SHADY BURT Report Released Date/Time: August 03, 2023 09:50 AM Reporting Lab: [facility] [place] [address] Performing Lab: [facility] DIVISION LIPID PANEL (STL) CHOLESTEROL [MASS/VOLUM E] IN SERUM OR PLASMA 259 mg/dL 0 - 200 08/02 H Specimen Type: PLASMA Comment: No hemolysis noted. Ordering Provider: SHADY BURT Report Released Date/Time: August 03, 2023 09:50 AM Reporting Lab: [facility] [place] [address] Performing Lab: [facility] DIVISION LIPID PANEL (STL) TRIGLYCERID E [MASS/VOLUM E] IN SERUM OR PLASMA 179 mg/dL 0 - 150 08/02 H Specimen Type: PLASMA Comment: No hemolysis noted. Ordering Provider: SHADY BURT Report Released Date/Time: August 03, 2023 09:50 AM Reporting Lab: [facility] [place] [address] Performing Lab: [facility] LIPID PANEL (STL) CHOLESTEROL IN LDL [MASS/VOLUM E] IN SERUM OR PLASMA BY CALCULATION 188 mg/dL 08/02 Specimen Type: PLASMA Comment: No hemolysis noted. Ordering Provider: SHADY BURT Report Released Date/Time: August 03, 2023 09:50 AM Reporting Lab: [facility] [place] [address] Performing Lab: [facility] LIPID PANEL (STL) CHOLESTEROL IN HDL [MASS/VOLUM E] IN SERUM OR PLASMA 35 mg/dL 40 08/02 L Specimen Type: PLASMA Comment: No hemolysis noted. Ordering Provider: SHADY BURT Report Released Date/Time: August 03, 2023 09:50 AM Reporting Lab: [facility] [place] [address] Performing Lab: [facility] TSH (MA-PB) THYROTROPIN [UNITS/VOLU ME] IN SERUM OR PLASMA 2.236 u[IU]/ mL 0.470 - 5.000 08/02 Specimen Type: SERUM No comment entered. Ordering Provider: SHADY BURT Report Released Date/Time: August 03, 2023 09:50 AM Reporting Lab: [facility] [place] [address] Performing Lab: [facility] DRUGS OF ABUSE (NEW) (STL) ETHANOL [MASS/VOLUM E] IN URINE Negati vemg/d L 0 - 20 03/12 Specimen Type: URINE Comment: The cut-off value for this test was laboratory developed and its performance characteris tics confirmed by the [facility] laboratory thru method comparison with reference laboratory and medication chart review. The laboratory is regulated under CLIA as qualified to perform high-comple xity testing. This test is used for clinical purposes in conjunction with other laboratory tests. Ordering Provider: CHRISTOPHER HARRIS Report Released Date/Time: Feb 20, 2023 12:09 PM Reporting Lab: [facility] [place] [address] Performing Lab: [facility] [id number] [place] [address] DRUGS OF ABUSE (NEW) (STL) AMPHETAMINE [PRESENCE] IN URINE BY SCREEN METHOD Negati veng/m L 03/12 Specimen Type: URINE Comment: The cut-off value for this test was laboratory developed and its performance characteris tics confirmed by the [facility] laboratory thru method comparison with reference laboratory and medication chart review. The laboratory is regulated under CLIA as qualified to perform high-comple xity testing. This test is used for clinical purposes in conjunction with other laboratory tests. Ordering Provider: CHRISTOPHER HARRIS Report Released Date/Time: Feb 20, 2023 12:09 PM Reporting Lab: [facility] [address] Performing Lab: [facility] DRUGS OF ABUSE (NEW) (STL) BENZOYLECGO NINE [PRESENCE] IN URINE Negati veng/m L 03/12 Specimen Type: URINE Comment: The cut-off value for this test was laboratory developed and its performance characteris tics confirmed by the [facility] laboratory thru method comparison with reference laboratory and medication chart review. The laboratory is regulated under CLIA as qualified to perform high-comple xity testing. This test is used for clinical purposes in conjunction with other laboratory tests. Ordering Provider: CHRISTOPHER HARRIS Report Released Date/Time: Feb 20, 2023 12:09 PM Reporting Lab: [facility] [address] Performing Lab: [facility] DRUGS OF ABUSE (NEW) (STL) CANNABINOID S [PRESENCE] IN URINE BY SCREEN METHOD 91-POS ng/mL 03/12 Specimen Type: URINE Comment: The cut-off value for this test was laboratory developed and its performance characteris tics confirmed by the [facility] laboratory thru method comparison with reference laboratory and medication chart review. The laboratory is regulated under CLIA as qualified to perform high-comple xity testing. This test is used for clinical purposes in conjunction with other laboratory tests. Ordering Provider: CHRISTOPHER HARRIS Report Released Date/Time: Feb 20, 2023 12:09 PM Reporting Lab: [facility] [place] [address] Performing Lab: [facility] DRUGS OF ABUSE (NEW) (STL) OPIATES [PRESENCE] IN URINE BY SCREEN METHOD Negati veng/m L 03/12 Specimen Type: URINE Comment: The cut-off value for this test was laboratory developed and its performance characteris tics confirmed by the [facility] laboratory thru method comparison with reference laboratory and medication chart review. The laboratory is regulated under CLIA as qualified to perform high-comple xity testing. This test is used for clinical purposes in conjunction with other laboratory tests. Ordering Provider: CHRISTOPHER HARRIS Report Released Date/Time: Feb 20, 2023 12:09 PM Reporting Lab: [facility] [place] [address] Performing Lab: [facility] DRUGS OF ABUSE (NEW) (STL) CREATININE [MASS/VOLUM E] IN URINE 197.6 mg/dL 63.0 - 166.0 03/12 H Specimen Type: URINE Comment: The cut-off value for this test was laboratory developed and its performance characteris tics confirmed by the [facility] laboratory thru method comparison with reference laboratory and medication chart review. The laboratory is regulated under CLIA as qualified to perform high-comple xity testing. This test is used for clinical purposes in conjunction with other laboratory tests. Ordering Provider: CHRISTOPHER HARRIS Report Released Date/Time: Feb 20, 2023 12:09 PM Reporting Lab: [facility] [place] [address] Performing Lab: [facility] [id number] [place] [address] METHADONE PANEL (STL) ETHANOL [MASS/VOLUM E] IN URINE Negati vemg/d L 0 - 20 03/12 Specimen Type: URINE Comment: The cut-off value for this test was laboratory developed and its performance characteris tics confirmed by the [facility] laboratory thru method comparison with reference laboratory and medication chart review. The laboratory is regulated under CLIA as qualified to perform high-comple xity testing. This test is used for clinical purposes in conjunction with other laboratory tests. Ordering Provider: CHRISTOPHER HARRIS Report Released Date/Time: Feb 20, 2023 12:09 PM Reporting Lab: [facility] [place] [address] Performing Lab: [facility] [address] METHADONE PANEL (STL) AMPHETAMINE [PRESENCE] IN URINE BY SCREEN METHOD Negati veng/m L 03/12 Specimen Type: URINE Comment: The cut-off value for this test was laboratory developed and its performance characteris tics confirmed by the [facility] laboratory thru method comparison with reference laboratory and medication chart review. The laboratory is regulated under CLIA as qualified to perform high-comple xity testing. This test is used for clinical purposes in conjunction with other laboratory tests. Ordering Provider: CHRISTOPHER HARRIS Report Released Date/Time: Feb 20, 2023 12:09 PM Reporting Lab: [facility] [place] [address] Performing Lab: [facility] METHADONE PANEL (STL) BENZOYLECGO NINE [PRESENCE] IN URINE Negati veng/m L 03/12 Specimen Type: URINE Comment: The cut-off value for this test was laboratory developed and its performance characteris tics confirmed by the [facility] laboratory thru method comparison with reference laboratory and medication chart review. The laboratory is regulated under CLIA as qualified to perform high-comple xity testing. This test is used for clinical purposes in conjunction with other laboratory tests. Ordering Provider: CHRISTOPHER HARRIS Report Released Date/Time: Feb 20, 2023 12:09 PM Reporting Lab: [facility] [address] Performing Lab: [facility] [id number] [place] [address] METHADONE PANEL (STL) BENZODIAZEP MARYBETH [PRESENCE] IN URINE BY SCREEN METHOD Negati veng/m L 03/12 Specimen Type: URINE Comment: The cut-off value for this test was laboratory developed and its performance characteris tics confirmed by the [facility] laboratory thru method comparison with reference laboratory and medication chart review. The laboratory is regulated under CLIA as qualified to perform high-comple xity testing. This test is used for clinical purposes in conjunction with other laboratory tests. Ordering Provider: CHRISTOPHER HARRIS Report Released Date/Time: Feb 20, 2023 12:09 PM Reporting Lab: [facility] [address] Performing Lab: [facility] [phone] [place] [address] METHADONE PANEL (STL) CANNABINOID S [PRESENCE] IN URINE BY SCREEN METHOD 91-POS ng/mL 03/12 Specimen Type: URINE Comment: The cut-off value for this test was laboratory developed and its performance characteris tics confirmed by the [facility] laboratory thru method comparison with reference laboratory and medication chart review. The laboratory is regulated under CLIA as qualified to perform high-comple xity testing. This test is used for clinical purposes in conjunction with other laboratory tests. Ordering Provider: CHRISTOPHER HARRIS Report Released Date/Time: Feb 20, 2023 12:09 PM Reporting Lab: [facility] [address] Performing Lab: [facility] [phone] [place] [address] METHADONE PANEL (STL) METHADONE [PRESENCE] IN URINE Negati veng/m L 03/12 Specimen Type: URINE Comment: The cut-off value for this test was laboratory developed and its performance characteris tics confirmed by the [facility] laboratory thru method comparison with reference laboratory and medication chart review. The laboratory is regulated under CLIA as qualified to perform high-comple xity testing. This test is used for clinical purposes in conjunction with other laboratory tests. Ordering Provider: CHRISTOPHER HARRIS Report Released Date/Time: Feb 20, 2023 12:09 PM Reporting Lab: [facility] [address] Performing Lab: [facility] [phone] [place] [address] METHADONE PANEL (STL) OPIATES [PRESENCE] IN URINE BY SCREEN METHOD Negati veng/m L 03/12 Specimen Type: URINE Comment: The cut-off value for this test was laboratory developed and its performance characteris tics confirmed by the [facility] laboratory thru method comparison with reference laboratory and medication chart review. The laboratory is regulated under CLIA as qualified to perform high-comple xity testing. This test is used for clinical purposes in conjunction with other laboratory tests. Ordering Provider: CHRISTOPHER HARRIS Report Released Date/Time: Feb 20, 2023 12:09 PM Reporting Lab: [facility] [address] Performing Lab: [facility] [phone] [place] [address] METHADONE PANEL (STL) CREATININE [MASS/VOLUM E] IN URINE 197.6 mg/dL 63.0 - 166.0 03/12 H Specimen Type: URINE Comment: The cut-off value for this test was laboratory developed and its performance characteris tics confirmed by the [facility] laboratory thru method comparison with reference laboratory and medication chart review. The laboratory is regulated under CLIA as qualified to perform high-comple xity testing. This test is used for clinical purposes in conjunction with other laboratory tests. Ordering Provider: CHRISTOPHER HARRIS Report Released Date/Time: Feb 20, 2023 12:09 PM Reporting Lab: [facility] [address] Performing Lab: [facility] METHADONE PANEL (STL) OXYCODONE CUTOFF [MASS/VOLUM E] IN URINE FOR SCREEN METHOD Negati veng/m L 03/12 Specimen Type: URINE Comment: The cut-off value for this test was laboratory developed and its performance characteris tics confirmed by the [facility] laboratory thru method comparison with reference laboratory and medication chart review. The laboratory is regulated under CLIA as qualified to perform high-comple xity testing. This test is used for clinical purposes in conjunction with other laboratory tests. Ordering Provider: CHRISTOPHER HARRIS Report Released Date/Time: Feb 20, 2023 12:09 PM Reporting Lab: [facility] [place] [address] Performing Lab: [facility] METHADONE PANEL (STL) BUPRENORPHI NE [PRESENCE] IN URINE Negati veng/m L 03/12 Specimen Type: URINE Comment: The cut-off value for this test was laboratory developed and its performance characteris tics confirmed by the [facility] laboratory thru method comparison with reference laboratory and medication chart review. The laboratory is regulated under CLIA as qualified to perform high-comple xity testing. This test is used for clinical purposes in conjunction with other laboratory tests. Ordering Provider: CHRISTOPHER HARRIS Report Released Date/Time: Feb 20, 2023 12:09 PM Reporting Lab: [facility] [place] [address] Performing Lab: [facility] [address] METHADONE PANEL (STL) FENTANYL [PRESENCE] IN URINE Negati veng/m L 03/12 Specimen Type: URINE Comment: The cut-off value for this test was laboratory developed and its performance characteris tics confirmed by the [facility] laboratory thru method comparison with reference laboratory and medication chart review. The laboratory is regulated under CLIA as qualified to perform high-comple xity testing. This test is used for clinical purposes in conjunction with other laboratory tests. Ordering Provider: CHRISTOPHER HARRIS Report Released Date/Time: Feb 20, 2023 12:09 PM Reporting Lab: [facility] [address] Performing Lab: [facility] [address] [facility] Vital Signs Combined list of inpatient and outpatient Vital Signs from [facility] of [facility] and [facility], ranging from 12 months to all on record, depending upon the facility. Vital Sign Value Date Comments Source SYSTOLIC BLOOD PRESSURE 139 08/03/2023 08:57:53 [facility] DIASTOLIC BLOOD PRESSURE 89 08/03/2023 08:57:53 [facility] PULSE OXIMETRY 100 08/03/2023 08:57:53 [facility] WEIGHT 184 08/03/2023 08:57:53 [facility] BMI 29 kg/m2 08/03/2023 08:57:53 [facility] PAIN 6 08/03/2023 08:57:53 [facility] HEIGHT 67 08/03/2023 08:57:53 [facility] TEMPERATURE 98.6 08/03/2023 08:57:53 [facility] PULSE 92 08/03/2023 08:57:53 [facility] RESPIRATION 20 08/03/2023 08:57:53 [facility] Encounters Combined list of: 1) Encounters from [facility] facilities going backup to the last 18 months, not all [place] inpatient encounters are included; 2) Encounters from the Department of [facility] facilities going backup to 280 months. Location Location Details Encounter Type Encounter Number Reason For Visit Attending Provider ADM Date DC Date Status Disposition Source [place] OUTPATIENT [id number] NAVYA CURRAN 04/17 Released w/o Limitations [facility] [place] Ham[place] Bailey [facility] [place] [id number] IMM ÁLVARO ARMSTRONG M 04/17 Released w/o Limitations Samuel [facility] [place] Samuel [facility] [place]) OUTPATIENT [id number] HEARING TEST GREER QUIJANO Tonya 05/14 Released w/o Limitations [facility] [place]) OUTPATIENT [id number] HI FINLEY 12/19 Released [place]itations [place] OUTPATIENT [id number] GIANCARLO RENEE 06/17 [place]ased [place] Theater Facility OUTPATIENT [id number] Theater Provider 01/13 Released w/o Limitations Theater Facilit y Theater Facility OUTPATIENT [id number] Theater Provider 01/14 Released w/o Limitations Theater [facility] Theater Facility OUTPATIENT [id number] Theater Provider 01/16 Released w/o Limitations Theater Facilit y Theater Facility OUTPATIENT [id number] Theater Provider 01/17 Released w/o Limitations Theater Facilit y Theater Facility OUTPATIENT [id number] Theater Provider 01/20 Released w/o Limitations Theater Facilit y Theater Facility OUTPATIENT [id number] Theater Provider 01/27 Released w/o Limitations Theater Facilit y Theater Facility OUTPATIENT [id number] 05/07 Released w/o Limitations Theater Facilit [facility] Theater Facility OUTPATIENT [id number] 06/12 Released w/o Limitations Theater Facilit y Theater Facility OUTPATIENT [id number] 07/28 Released w/o Limitations Theater Facilit y [place]PATIENT [id number] TBI EVAL PT 1 ([facility]) SYBIL ELIAS 10/22 [place]ased [place] [id number] TBI EVAL (SRP) NAUN ROME 01/05 [place]ased [place] OUTPATIENT [id number] Dischar ge/CW/c gs ALMA KIRAN 01/12 [place] OUTPATIENT [id number] mTBI CM service s MEDINA PAGE 01/22 [place] [id number] 1 MONTH F/U APPT NAUN ROME 02/02 [place]ased [place]itations [place] OUT[place] [id number] 1 MONTH F/U APPT NAUN ROME 03/05 [place]ased [place]itations [place] [facility]) [place] [id number] KRISTEL MCBRIDE SPORTS NUTRITI ON CLASS JOSE MEI 05/26 Released w/o Limitations [facility] [facility] [place] DIRECT TO [facility] FROM OTHER THAN ER OR [facility] [id number] MADIOSN VIDALES 07/27 RETURNED TO DUTY [facility] [place]) OUTPATIENT [id number] LEONELA AVELAR 07/29 Admitted [facility] [facility] INPATIENT [id number] OT in-pt group ALEXUS QUIJANO 07/29 Inpatient- Still a Patient [facility] INPATIENT [id number] in-pt OT group note ALEXUS QUIJANO 07/30 [place]- [place] [facility] [facility] OUTPATIENT [id number] 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 getting worse(c onsult) /full ee EDY RAMOS 08/02 Released w/o Limitations [facility] [facility] [place] [facility]PAT[place] [id number] in-pt group ALEXUS QUIJANO 08/04 Inpatient- Still a Patient [facility] [facility] INPATIENT [id number] in-pt group ALEXUS QUIJANO 08/04 Inpatient- Still a Patient [facility] [facility] INPATIENT [id number] ALEXUS QUIJANO 08/06 Inpatient- Still a Patient [facility]) [facility] [place] ) OUTPATIENT [id number] flu MARLON SCHROEDER D 08/17 Sick at Home/Quarter s [facility] [facility] OUTPATIENT [id number] R wrist pn x 24 hours MARLON SCHROEDER D 08/31 Released with Work/Duty Limitations [facility] [facility] OUTPATIENT [id number] new intake- Depress JUSTIN Jordan 09/17 Released w/o Limitations [facility] Physical Therapy) OUTPATIENT [id number] SHUKRI RIVERA 09/22 [place]ased with Work/D[place] [facility] [facility] [place] [place] ) TELE CONSULT [id number] NCM F/U DWIGHT LYONS 09/27 [facility] [place] [facility] [place] OUTPATIENT [id number] F/U on R wrist [facility] 10/12 [place] [place] [place] ) OUTPATIENT [id number] coughin g up green flem and blood [facility] MARLON D 11/01 [place] [place] De[facility] t Health Clinic) OUTPATIENT [id number] f/u JUSTIN BLANDON 11/03 [facility]ased w/o Limitations [facility] [place] [facility] [facility] [facility] [id number] Case Managem ent OLIVA LOPEZ 11/03 Released w/o Limitations [facility] [place] Neuropsy[place] hology[place] OUTPAT[place] [id number] memory lapses or loss ARABELLA NETTLES 11/05 [place] [facility] [facility] [id number] visit OLIVA LOPEZ 11/05 [place] [facility] [facility] OUTPATIENT [id number] Case Managae ment OLIVA LOPEZ 11/08 Released w/o Limitations [place] 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[place] OUTPATIENT [id number] snoring FRNACIS NIXON 11/12 [place] OUT[place]IENT [id number] f/u memory loss JUSTIN BLANDON 11/16 Released w/o Limitations [facility] [facility] [place] [facility] FROM OTHER THAN ER OR [facility] [id number] KOURTNEY COREAS 11/17 RETURNED TO DUTY [facility] [place]) [place] [id number] LIVIER ROGER 11/18 [place] [id number] ALEXUS QUIJANO 11/19 [place] [id number] r/o hypothy roiKOURTNEY Lutz CB 11/27 Released w/o Limitations [facility] [id number] intervi ewed w/LIVIER Lee 12/02 Released w/o Limitations [facility] [id number] memory lapses or loss JOSHUA WOMACK 12/09 Released w/o Limitations 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 [id number] FRANCIS NIXON 12/09 [place] [id number] CHAPTER I CATRACHO CHAVEZ 12/10 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 OUTPATIENT [id number] FRANCIS NIXON 12/13 [place] 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PATIENT [id number] FRANCIS NIXON 12/15 Released w/o Limitations [facility] 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 OUTPATIENT [id number] FRANCIS NIXON 12/17 Released w/o Limitations [facility] [facility] [place] [facility] FROM OTHER THAN ER OR [facility] [id number] BETTIE PEREZ Anna 12/20 RETURNED TO DUTY [facility]) IN[place]IENT [id number] Nutriti on Educati on APRIL CEDENO 12/21 Inpatient- Still a Patient [facility] [facility] INPAT[place] [id number] yoga session ALEXUS QUIJANO 12/23 Inpatient- Still a Patient [facility] [facility] INPATIENT [id number] in-pt OT sensory group ALEXUS QUIJANO 12/23 Inpatient- Still a Patient [facility] [facility] INPATIENT [id number] ALEXUS QUIJANO 12/23 Inpatient- Still a Patient [facility] [facility] INPATIENT [id number] Relaxat ion Group ALEXUS QUIJANO 12/28 Inpatient- Still a Patient [facility] [facility] [id number] Nutriti on Class APRIL CEDENO 12/29 Inpatient- Still a Patient [facility] [facility] INPATIENT [id number] sleep group ALEXUS QUIJANO 12/29 Inpatient- Still a Patient [facility] [facility] INPATIENT [id number] [facility] ALEXUS QUIJANO 12/30 [place]- [place] [facility] 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[place] OUTPATIENT [id number] [facility] 12/31 Released [place] Limitations [facility] 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 OUTPATIENT [id number] [facility] 01/03 Released [place] Limitations [facility] [facility] OUTPATIENT [id number] nvd x 72 hours MARLON SCHROEDER 01/03 Released with Work/Duty Limitations [facility] 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[place] OUTPATIENT [id number] [facility] 01/12 Released w/o Limitations [facility] 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 OUTPATIENT [id number] [facility] 01/14 Released w/o Limitations [facility] 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 OUTPATIENT [id number] [facility] 01/17 Released w/o Limitations [facility] [facility] OUTPATIENT [id number] CHAPTER [id number] W/ESC CHERYL MANSFIELD 01/20 Released w/o Limitations [facility] 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 OUTPATIENT [id number] [facility] 01/21 Released w/o Limitations [facility] 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 OUTPATIENT [id number] VINCENT SORTO 01/24 Released w/o Limitations [facility] 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 OUTPATIENT [id number] VINCENT SORTO 01/28 Released w/o Limitations [facility] 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 OUTPATIENT [id number] VINCENT SORTO 02/04 Released w/o Limitations [facility] 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 OUTPATIENT [id number] VINCENT SORTO 03/01 Released w/o Limitations [facility] [facility], DIRECT TO [facility] [id number] SHO COOPER 03/03 RETURNED TO DUTY [facility] [place] [facility]) OUTPATIENT [id number] ÁLVARO MARINO 03/03 Released w/o Limitations [facility] [facility] Outpatient Encounter [id number] JACINTODEANDRA WIGGINS JANY A 11/14 [facility] Outpatient Encounter [id number] 11/14 [facility] Outpatient Encounter [id number] [id number] DEANDRA CASEY JANY A 11/15 [facility] Encounter [id number] DEANDRA CASEY JANY A 11/16 [facility] PRO PHONE CALL 5-10 MIN [id number] [id number] Diagnos is: ICD-10- CM Z71.89 Other specifi ed senior counsel ing TAMI KOCH 11/21 [facility] GROUP PSYCHOTHER APY [id number] Diagnos is: ICD-10- CM Z63.0 Problem s in relatio nship with spouse or partner MANDY CASEY N M 11/21 [facility] GROUP PSYCHOTHER APY [id number] Diagnos is: ICD-10- CM Z63.0 Problem s in relatio nship with spouse or partner MANDY CASEY N M 11/28 [facility] GROUP PSYCHOTHER APY [id number] [id number] Diagnos is: ICD-10- CM Z63.0 Problem s in relatio nship with spouse or partner MANDY CASEY N M 12/19 [facility] GROUP PSYCHOTHER APY [id number] [id number] Diagnos is: ICD-10- CM Z63.0 Problem s in relatio nship with spouse or partner MANDY CASEY Cara M 12/26 [facility] Outpatient Encounter [id number] BHARTI HARRIS 01/01 [facility] GROUP PSYCHOTHER APY [id number] [id number] Diagnos is: ICD-10- CM Z63.0 Problem s in relatio nship with spouse or partner KRISTIN DOWNING 01/02 [facility] GROUP PSYCHOTHER APY [id number] [id number] Diagnos is: ICD-10- CM Z63.0 Problem s in relatio nship with spouse or partner MANDY CASEY N M 01/09 [facility] GROUP PSYCHOTHER APY [id number] [id number] Diagnos is: ICD-10- CM Z63.0 Problem s in relatio nship with spouse or partner SALINA,DA VID W 01/23 [facility] OFFICE O/P EST MOD 30-39 MIN [id number] [id number] Diagnos is: ICD-10- CM F43.10 Post-tr aumatic stress disorde r, unspeci fied BHARTI HARRIS IEL 01/24 [facility] Outpatient Encounter [id number] [id number] 01/29 [facility] [id number] [id number] Diagnos is: ICD-10- CM Z63.0 Problem s in relatio nship with spouse or partner SALINA,DA VID W 02/06 [facility] GROUP PSYCHOTHER APY [id number] [id number] Diagnos is: ICD-10- CM Z63.0 Problem s in relatio nship with spouse or partner MANDY CASEY Cara Oliva 02/20 [facility] Encounter [id number] [id number] 02/20 [facility] GROUP PSYCHOTHER APY [id number] Diagnos is: ICD-10- CM Z63.0 Problem s in relatio nship with spouse or partner MANDY CASEY Cara Oliva 02/27 [facility] N [facility] GROUP PSYCHOTHER APY [id number] [id number] Diagnos is: ICD-10- CM Z63.0 Problem s in relatio nship with spouse or partner MANDY CASEY [facility] 03/06 [facility] OFFICE O/P EST MOD 30-39 MIN [id number] [id number] Diagnos is: ICD-10- CM F43.10 Post-tr aumatic stress disorde r, unspeci BHARTI Huang IEHubert 03/12 [facility] GROUP PSYCHOTHER APY [id number] [id number] Diagnos is: ICD-10- CM Z63.0 Problem s in relatio nship with spouse or partner MANDY CASEY [facility] 03/13 [facility] GROUP PSYCHOTHER APY [id number] [id number] Diagnos is: ICD-10- CM Z63.0 Problem s in relatio nship with spouse or partner MANDY CASEY [facility] 03/20 [facility] GROUP PSYCHOTHER APY [id number] [id number] Diagnos is: ICD-10- CM Z63.0 Problem s in relatio nship with spouse or partner MANDY CASEY [facility] 04/10 [facility] GROUP PSYCHOTHER APY [id number] [id number] Diagnos is: ICD-10- CM Z63.0 Problem s in relatio nship with spouse or partner MANDY CASEY N 04/17 [facility] GROUP PSYCHOTHER APY [id number] [id number] Diagnos is: ICD-10- CM Z63.0 Problem s in relatio nship with spouse or partner MANDY CASEY [facility] 04/24 [facility] N [facility] OFFICE O/P EST MOD 30 MIN [id number] [id number] Diagnos is: ICD-10- CM F43.10 Post-tr aumatic stress disorde r, unspeci BHARTI Huang IEL 05/02 [facility] GROUP PSYCHOTHER APY [id number] [id number] Diagnos is: ICD-10- CM Z63.0 Problem s in relatio nship with spouse or partner MANDY CASEY N M 05/08 [facility] GROUP PSYCHOTHER APY [id number] [id number] Diagnos is: ICD-10- CM Z63.0 Problem s in relatio nship with spouse or partner MANDY CASEY N M 05/15 [facility] N [facility] GROUP PSYCHOTHER APY [id number] [id number] Diagnos is: ICD-10- CM Z63.0 Problem s in relatio nship with spouse or partner MANDY CASEY N M 05/22 [facility] GROUP PSYCHOTHER APY [id number] [id number] Diagnos is: ICD-10- CM Z63.0 Problem s in relatio nship with spouse or partner MANDY CASEY N M 05/29 [facility] GROUP PSYCHOTHER APY [id number] [id number] Diagnos is: ICD-10- CM Z63.0 Problem s in relatio nship with spouse or partner MANDY CASEY N M 06/04 [facility] N [facility] Outpatient Encounter [id number] [id number] 06/04 [facility] PSYTX W PT 60 MINUTES [id number] [id number] Diagnos is: ICD-10- CM Z63.0 Problem s in relatio nship with spouse or partner MANDY CASEY Cara Oliva 06/04 [facility] CASE MANAGEMENT 19893-5.65 [id number] [place]IL[place]URN 06/11 [facility] TARGETED CASE MANAGEMENT [id number] [id number] JENNY SHELL 06/11 [facility] Outpatient Encounter [id number] [id number] 06/12 [facility] Outpatient Encounter [id number] [id number] COLBY CAMPO A 07/06 [facility] CASE MANAGEMENT [id number] [id number] JENNY SHELL 07/08 [facility] Outpatient Encounter [id number] [id number] 07/11 [facility] Outpatient Encounter [id number] [id number] 07/30 [facility] Outpatient Encounter [id number] [id number] DEANDRA CASEY JANY A 07/30 [facility] OFFICE O/P EST MOD 30 MIN [id number] [id number] Diagnos is: ICD-10- CM F43.10 Post-tr aumatic stress disorde r, unspeci BHARTI Huang IEL 07/30 [facility] O/P EST MOD 30 MIN [id number] [id number] Diagnos is: ICD-10- CM Z77.29 Contact with and exposur e to other hazardo us substan chay JACOBO BURT 08/02 [facility] Outpatient Encounter [id number] [id number] 08/13 [facility] OFF[facility] O/P EST MOD 30 MIN [id number] [id number] Diagnos is: ICD-10- CM F43.10 Post-tr aumatic stress disorde r, unspeci kolby BHARTI HARRIS IEL 09/05 [facility] PRO PHONE CALL 11-20 MIN [id number] [id number] Diagnos is: ICD-10- CM R45.89 Other symptom s and signs involvi ng emotion al state SOHAIL,AARO N S 09/06 [facility] PRO PHONE CALL 5-10 MIN [id number] [id number] Diagnos is: ICD-10- CM R45.89 Other symptom s and signs involvi ng emotion al state SOHAIL,AARO N S 10/28 [facility] OFFICE O/P EST MOD 30 MIN [id number] [id number] Diagnos is: ICD-10- CM F43.10 Post-tr aumatic stress disorde r, unspeci kolby HARRISBHARTI IEL 11/05 [facility] Outpatient Encounter [id number] [id number] 11/06 [facility] O[facility]P EST MOD 30 MIN [id number] Diagnos is: ICD-10- CM 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, 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, w/o status migrain JACOBO Obrien 12/03 [facility] Outpatient Encounter [id number] 01/08 [facility] Outpatient Encounter [id number] 01/15 [facility] Encounter [id number] 01/16 [facility] PRO PHONE CALL 5-10 MIN [id number] Diagnos is: ICD-10- CM R45.89 Other symptom s and signs involvi ng emotion al state SOHAIL,AARO N S 01/23 [facility] OFF[facility] O/P EST MOD 30 MIN [id number] Diagnos is: ICD-10- CM F15.11 Other stimula nt abuse, in remissi on BHARTI HARRIS IEL 02/24 [facility] Outpatient Encounter [id number] 1 03/08 [facility] Procedures Combined list of: 1) [...] OUTPATIENT FACILITY, APPROXIMATELY 45 TO 50 MINUTES [id number] WITH THE PATIENT [facility] INDIVIDUAL PSYCHOTHERAPY, INSIGHT ORIENTED, BEHAVIOR MODIFYING AND/OR SUPPORTIVE, IN AN OFFICE OR OUTPATIENT FACILITY, APPROXIMATELY 45 TO 50 MINUTES DUFN-[id number] WITH THE PATIENT [facility] HEALTH&BEHAV ASSESSMENT (EG, HEALTH-FOC CLINICAL INTERVIEW, BEHAVIORAL OBSERVATIONS, PSYCHOPHYSICOLOGICAL MONITOR, HEALTH-ORIENT QUESTIONNAIRES), EA 15 MIN [id number] W THE PATIENT; INIT ASSESSMENT [facility] COORDINATED CARE FEE, MAINTENANCE RATE [facility] BEHAVIORAL HEALTH PREVENTION EDUCATION SERVICE (DELIVERY OF SERVICES WITH TARGET POPULATION TO AFFECT KNOWLEDGE, ATTITUDE AND/OR BEHAVIOR) [facility] BEHAVIORAL HEALTH PREVENTION INFORMATION DISSEMINATION SERVICE (ONE-WAY DIRECT OR NON-DIRECT CONTACT WITH SERVICE AUDIENCES TO AFFECT KNOWLEDGE AND ATTITUDE) [facility] BEHAVIORAL HEALTH COUNSELING AND THERAPY, PER 15 MINUTES [facility] SKIN TEST; TUBERCULOSIS, INTRADERMAL [facility] ALCOHOL AND/OR DRUG PREVENTION PROBLEM IDENTIFICATION AND REFERRAL SERVICE (E.G., STUDENT ASSISTANCE AND EMPLOYEE ASSISTANCE PROGRAMS), DOES NOT INCLUDE ASSESSMENT [facility] ALCOHOL AND/OR DRUG PREVENTION PROBLEM IDENTIFICATION AND REFERRAL SERVICE (E.G., STUDENT ASSISTANCE AND EMPLOYEE ASSISTANCE PROGRAMS), DOES NOT INCLUDE ASSESSMENT [facility] ALCOHOL AND/OR DRUG PREVENTION PROBLEM IDENTIFICATION AND REFERRAL SERVICE (E.G., STUDENT ASSISTANCE AND EMPLOYEE ASSISTANCE PROGRAMS), DOES NOT INCLUDE ASSESSMENT [facility] ALCOHOL AND/OR DRUG PREVENTION PROBLEM IDENTIFICATION AND REFERRAL SERVICE (E.G., STUDENT ASSISTANCE AND EMPLOYEE ASSISTANCE PROGRAMS), DOES NOT INCLUDE ASSESSMENT [facility] BEHAVIORAL HEALTH SCREENING TO DETERMINE ELIGIBILITY FOR ADMISSION TO TREATMENT PROGRAM [facility] ALCOHOL AND/OR DRUG PREVENTION PROBLEM IDENTIFICATION AND REFERRAL SERVICE (E.G., STUDENT ASSISTANCE AND EMPLOYEE ASSISTANCE PROGRAMS), DOES NOT INCLUDE ASSESSMENT [facility] ALCOHOL AND/OR OTHER DRUG ABUSE SERVICES, NOT OTHERWISE SPECIFIED [facility] CURRENT TOBACCO SMOKER (CAD, CAP, COPD, PV) (DM) [facility] ANESTHESIA ASSISTANT/CONSTRUCTION TEACHER SERVICES, UP TO 15 MINUTES [facility] SKIN TEST; TUBERCULOSIS, INTRADERMAL 009 [facility] COLLECTION OF VENOUS BLOOD BY VENIPUNCTURE [facility] AUDIOMETRIC TESTING OF GROUPS 009 [facility] ANTHRAX VACCINE, FOR SUBCUTANEOUS OR INTRAMUSCULAR USE [facility] ANTHRAX VACCINE, FOR SUBCUTANEOUS OR INTRAMUSCULAR USE 008 [facility] AUDIOMETRIC TESTING OF GROUPS 008 [facility] MODERATE COMPRESSION BANDAGE, ELASTIC, KNITTED/WOVEN, LOAD RESISTANCE OF 1.25 TO 1.34 FOOT POUNDS AT 50% MAXIMUM STRETCH, WIDTH WIDTH >/=3 &<5 ,/YARD 007 [facility] ALCOHOL AND/OR SUBSTANCE ABUSE SERVICES, TREATMENT PLAN DEVELOPMENT AND/OR MODIFICATION 011 [facility] INDIVIDUAL PSYCHOTHERAPY, INSIGHT ORIENTED, BEHAVIOR MODIFYING AND/OR SUPPORTIVE, IN AN OFFICE OR OUTPATIENT FACILITY, APPROXIMATELY 20 TO 30 MINUTES PVQH-HX-[id number] W THE PATIENT; W MED EVAL & MGT SER [facility] INDIVIDUAL PSYCHOTHERAPY, INSIGHT ORIENTED, BEHAVIOR MODIFYING AND/OR SUPPORTIVE, IN AN INPATIENT HOSPITAL, PARTIAL HOSPITAL OR RESIDENTIAL CARE SETTING, APPROX 20-30 MINUTES [id number]-[id number] W THE PAT [facility] PSYCHIATRIC DIAGNOSTIC INTERVIEW EXAMINATION [facility] COLLECTION OF VENOUS BLOOD BY VENIPUNCTURE [facility] BIOFEEDBACK TRAINING BY ANY MODALITY [facility] INDIVIDUAL PSYCHOTHERAPY, INSIGHT ORIENTED, BEHAVIOR MODIFYING AND/OR SUPPORTIVE, IN AN OFFICE OR OUTPATIENT FACILITY, APPROXIMATELY 20 TO 30 MINUTES UYIE-ID-[id number] W THE PATIENT; W MED EVAL & MGT SER [facility] INDIVIDUAL PSYCHOTHERAPY, INSIGHT ORIENTED, BEHAVIOR MODIFYING AND/OR SUPPORTIVE, IN AN OFFICE OR OUTPATIENT FACILITY, APPROXIMATELY 45 TO 50 MINUTES DDCS-MI-VMLZ W THE PATIENT; W MED EVAL & MGT SER [facility] INDIVIDUAL PSYCHOTHERAPY, INSIGHT ORIENTED, BEHAVIOR MODIFYING AND/OR SUPPORTIVE, IN AN OFFICE OR OUTPATIENT FACILITY, APPROXIMATELY 20 TO 30 MINUTES [id number]-HZ-TVMP W THE PATIENT; W MED EVAL & MGT SER [facility] BIOFEEDBACK TRAINING BY ANY MODALITY [facility] INDIVIDUAL PSYCHOTHERAPY, INSIGHT ORIENTED, BEHAVIOR MODIFYING AND/OR SUPPORTIVE, IN AN OFFICE OR OUTPATIENT FACILITY, APPROXIMATELY 45 TO 50 MINUTES DYEH-UY-[id number] WITH THE PATIENT [facility] GROUP PSYCHOTHERAPY (OTHER THAN OF A MULTIPLE-FAMILY GROUP) [facility] INDIVIDUAL PSYCHOTHERAPY, INSIGHT ORIENTED, BEHAVIOR MODIFYING AND/OR SUPPORTIVE, IN AN OFFICE OR OUTPATIENT FACILITY, APPROXIMATELY 20 TO 30 MINUTES OYOX-ZG-SKFS WITH THE PATIENT [facility] BIOFEEDBACK TRAINING BY ANY MODALITY [facility] GROUP PSYCHOTHERAPY (OTHER THAN OF A MULTIPLE-FAMILY GROUP) [facility] BIOFEEDBACK TRAINING BY ANY MODALITY [facility] BIOFEEDBACK TRAINING BY ANY MODALITY [facility] TOBACCO USE CESSATION INTERVENTION, COUNSELING (COPD, CAP, CAD, ASTHMA) (DM) (PV) [facility] PREPARATION OF REPORT OF PATIENT'S PSYCHIATRIC STATUS, HISTORY, TREATMENT, OR PROGRESS (OTHER THAN FOR LEGAL OR CONSULTATIVE PURPOSES) FOR OTHER INDIVIDUALS, AGENCIES, OR INSURANCE CARRIERS [facility] GROUP PSYCHOTHERAPY (OTHER THAN OF A MULTIPLE-FAMILY GROUP) [facility] PSYCHIATRIC DIAGNOSTIC INTERVIEW EXAMINATION [facility] INDIVIDUAL PSYCHOTHERAPY, INSIGHT ORIENTED, BEHAVIOR MODIFYING AND/OR SUPPORTIVE, IN AN OFFICE OR OUTPATIENT FACILITY, APPROXIMATELY 20 TO 30 MINUTES [id number]-DH-[id number] W THE PATIENT; W MED EVAL & MGT SER [facility] BIOFEEDBACK TRAINING BY ANY MODALITY [facility] INDIVIDUAL PSYCHOTHERAPY, INSIGHT ORIENTED, BEHAVIOR MODIFYING AND/OR SUPPORTIVE, IN AN OFFICE OR OUTPATIENT FACILITY, APPROXIMATELY 45 TO 50 MINUTES JFXB-RO-[id number] WITH THE PATIENT [facility] BIOFEEDBACK TRAINING BY ANY MODALITY [facility] INDIVIDUAL PSYCHOTHERAPY, INSIGHT ORIENTED, BEHAVIOR MODIFYING AND/OR SUPPORTIVE, IN AN OFFICE OR OUTPATIENT FACILITY, APPROXIMATELY 20 TO 30 MINUTES JWPY-XF-UFIA WITH THE PATIENT [facility] INDIVIDUAL PSYCHOTHERAPY, INSIGHT ORIENTED, BEHAVIOR MODIFYING AND/OR SUPPORTIVE, IN AN OFFICE OR OUTPATIENT FACILITY, APPROXIMATELY 75 TO 80 MINUTES [id number]-WB-ZGWM WITH THE PATIENT [facility] GROUP PSYCHOTHERAPY (OTHER THAN OF A MULTIPLE-FAMILY GROUP) [facility] GROUP PSYCHOTHERAPY (OTHER THAN OF A MULTIPLE-FAMILY GROUP) [facility] BIOFEEDBACK TRAINING BY ANY MODALITY [facility] INDIVIDUAL PSYCHOTHERAPY, INSIGHT ORIENTED, BEHAVIOR MODIFYING AND/OR SUPPORTIVE, IN AN OFFICE OR OUTPATIENT FACILITY, APPROXIMATELY 45 TO 50 MINUTES JTHT-IG-PUXS WITH THE PATIENT [facility] GROUP PSYCHOTHERAPY (OTHER THAN OF A MULTIPLE-FAMILY GROUP) [facility] GROUP PSYCHOTHERAPY (OTHER THAN OF A MULTIPLE-FAMILY GROUP) [facility] INDIVIDUAL PSYCHOTHERAPY, INSIGHT ORIENTED, BEHAVIOR MODIFYING AND/OR SUPPORTIVE, IN AN OFFICE OR OUTPATIENT FACILITY, APPROXIMATELY 20 TO 30 MINUTES PUPY-VU-PTNH W THE PATIENT; W MED EVAL & MGT SER [facility] FAMILY PSYCHOTHERAPY (CONJOINT PSYCHOTHERAPY) (WITH PATIENT PRESENT), 50 MINUTES [facility] INDIVIDUAL PSYCHOTHERAPY, INSIGHT ORIENTED, BEHAVIOR MODIFYING AND/OR SUPPORTIVE, IN AN OFFICE OR OUTPATIENT FACILITY, APPROXIMATELY 45 TO 50 MINUTES [id number]-IR-[id number] W THE PATIENT; W MED EVAL & MGT SER Do[facility] BIOFEEDBACK TRAINING BY ANY MODALITY [facility] THERAPEUTIC PROCEDURE(S), GROUP (2 OR MORE INDIVIDUALS) [facility] INDIVIDUAL PSYCHOTHERAPY, INSIGHT ORIENTED, BEHAVIOR MODIFYING AND/OR SUPPORTIVE, IN AN INPATIENT HOSPITAL, PARTIAL HOSPITAL OR RESIDENTIAL CARE SETTING, APPROX 20-30 MINUTES CLPP-FQ-[id number] [facility] THERAPEUTIC PROCEDURE(S), GROUP (2 OR MORE INDIVIDUALS) [facility] INDIVIDUAL PSYCHOTHERAPY, INSIGHT ORIENTED, BEHAVIOR MODIFYING AND/OR SUPPORTIVE, IN AN INPATIENT HOSPITAL, PARTIAL HOSPITAL OR RESIDENTIAL CARE SETTING, APPROX 20-30 MINUTES LIAC-BP-[id number] W [facility] ALCOHOL AND/OR SUBSTANCE ABUSE SERVICES, TREATMENT PLAN DEVELOPMENT AND/OR MODIFICATION [facility] THERAPEUTIC PROCEDURE(S), GROUP (2 OR MORE INDIVIDUALS) [facility] INDIVIDUAL PSYCHOTHERAPY, INSIGHT ORIENTED, BEHAVIOR MODIFYING AND/OR SUPPORTIVE, IN AN INPATIENT HOSPITAL, PARTIAL HOSPITAL OR RESIDENTIAL CARE SETTING, APPROX 20-30 MINUTES HKRP-UY-YEQO W [facility] INDIVIDUAL PSYCHOTHERAPY, INSIGHT ORIENTED, BEHAVIOR MODIFYING AND/OR SUPPORTIVE, IN AN INPATIENT HOSPITAL, PARTIAL HOSPITAL OR RESIDENTIAL CARE SETTING, APPROX 20-30 MINUTES ZUNY-WO-KAJI W [facility] INDIVIDUAL PSYCHOTHERAPY, INSIGHT ORIENTED, BEHAVIOR MODIFYING AND/OR SUPPORTIVE, IN AN OFFICE OR OUTPATIENT FACILITY, APPROXIMATELY 75 TO 80 MINUTES WHDS-AB-PRTX WITH THE PATIENT [facility] INTERACTIVE GROUP PSYCHOTHERAPY [facility] INDIVIDUAL PSYCHOTHERAPY, INSIGHT ORIENTED, BEHAVIOR MODIFYING AND/OR SUPPORTIVE, IN AN INPATIENT HOSPITAL, PARTIAL HOSPITAL OR RESIDENTIAL CARE SETTING, APPROX 20-30 MINUTES PZTN-CB-SFLD W [facility] THERAPEUTIC PROCEDURE(S), GROUP (2 OR MORE INDIVIDUALS) [facility] INDIVIDUAL PSYCHOTHERAPY, INSIGHT ORIENTED, BEHAVIOR MODIFYING AND/OR SUPPORTIVE, IN AN INPATIENT HOSPITAL, PARTIAL HOSPITAL OR RESIDENTIAL CARE SETTING, APPROX 20-30 MINUTES EKYW-II-HMRF W [facility] THERAPEUTIC PROCEDURE(S), GROUP (2 OR MORE INDIVIDUALS) [facility] INDIVIDUAL PSYCHOTHERAPY, INSIGHT ORIENTED, BEHAVIOR MODIFYING AND/OR SUPPORTIVE, IN AN INPATIENT HOSPITAL, PARTIAL HOSPITAL OR RESIDENTIAL CARE SETTING, APPROX 20-30 MINUTES [id number]-SW-[id number] W [facility] THERAPEUTIC PROCEDURE(S), GROUP (2 OR MORE INDIVIDUALS) [facility] MEDICAL NUTRITION THERAPY; GROUP (2 OR MORE INDIVIDUAL(S)), EACH 30 MINUTES [facility] INDIVIDUAL PSYCHOTHERAPY, INSIGHT ORIENTED, BEHAVIOR MODIFYING AND/OR SUPPORTIVE, IN AN INPATIENT HOSPITAL, PARTIAL HOSPITAL OR RESIDENTIAL CARE SETTING, APPROX 20-30 MINUTES EBTP-YC-HSWE W [facility] PSYCHIATRIC DIAGNOSTIC INTERVIEW EXAMINATION [facility] INDIVIDUAL PSYCHOTHERAPY, INSIGHT ORIENTED, BEHAVIOR MODIFYING AND/OR SUPPORTIVE, IN AN OFFICE OR OUTPATIENT FACILITY, APPROXIMATELY 75 TO 80 MINUTES RSLR-XV-[id number] W THE PATIENT; W MED EVAL & MGT SER [facility] BIOFEEDBACK TRAINING BY ANY MODALITY [facility] ENVIRONMENTAL INTERVENTION FOR MEDICAL MGMT PURPOSES ON A PSYCHIATRIC PATIENT'S BEHALF WITH AGENCIES, EMPLOYERS, OR INSTITUTIONS [facility] EDUCATION &TRAINING, PATIENT SELF-MGT QUALIFIED, NONPHYSICIAN HEALTH FRAUD INVESTIGATOR USING STDIZED CURRICULUM, NCNU-XN-PBWW W THE PATIENT (COULD INCL CAREGIVER/FAMILY) EA 30 MIN; INDIVIDUAL PATIENT [facility] BIOFEEDBACK TRAINING BY ANY MODALITY [facility] ENVIRONMENTAL INTERVENTION FOR MEDICAL MGMT PURPOSES ON A PSYCHIATRIC PATIENT'S BEHALF WITH AGENCIES, EMPLOYERS, OR INSTITUTIONS [facility] DEVELOPMENT OF COGNITIVE SKILLS TO IMPROVE ATTENTION, MEMORY, PROBLEM SOLVING (INCLUDES COMPENSATORY TRAINING), DIRECT (ONE-ON-ONE) PATIENT CONTACT, EACH 15 MINUTES [facility] PSYCHIATRIC DIAGNOSTIC INTERVIEW EXAMINATION [facility] INDIVIDUAL PSYCHOTHERAPY, INSIGHT ORIENTED, BEHAVIOR MODIFYING AND/OR SUPPORTIVE, IN AN OFFICE OR OUTPATIENT FACILITY, APPROXIMATELY 45 TO 50 MINUTES [id number]-JR-JGNJ WITH THE PATIENT [facility] INDIVIDUAL PSYCHOTHERAPY, INSIGHT ORIENTED, BEHAVIOR MODIFYING AND/OR SUPPORTIVE, IN AN OFFICE OR OUTPATIENT FACILITY, APPROXIMATELY 20 TO 30 MINUTES BQAC-IK-[id number] W THE PATIENT; W MED EVAL & MGT SER [facility] GROUP PSYCHOTHERAPY (OTHER THAN OF A MULTIPLE-FAMILY GROUP) [facility] PSYCHIATRIC DIAGNOSTIC INTERVIEW EXAMINATION DoD NEUROPSYC TSTNG(EG,NAS-REITA N NEUROPSYC SERGIO,BRIAN MEMRY SCALES&[place] CARD SORT TST),W QUALIFIED HEALTH CARE PROFSIONAL INTERP&RPT,ADMINISTERED GUEST RELATIONS REPRESENTATIVE,/HR,TECHNBINTA MELVIN,FCE-2-FCE [facility] INDIVIDUAL PSYCHOTHERAPY, INSIGHT ORIENTED, BEHAVIOR MODIFYING AND/OR SUPPORTIVE, IN AN OFFICE OR OUTPATIENT FACILITY, APPROXIMATELY 20 TO 30 MINUTES LVYE-SD-ATKK WITH THE PATIENT [facility] NEUROPSYCHOLOG TST (EG,NAS-REITAN NEUROPSYCHOLOG SERGIO,BRIAN MEM SCALES & WISC CARD SORT TST),/HR OF PSYCHOLOGIST/PHYS TIME,BOTH IBLG-IR-DMUI ADMIN TST TO PAT & TIME INTERP TEST RES & PREP RPT [facility] PSYCHIATRIC DIAGNOSTIC INTERVIEW EXAMINATION Do[facility] INDIVIDUAL PSYCHOTHERAPY, INSIGHT ORIENTED, BEHAVIOR MODIFYING AND/OR SUPPORTIVE, IN AN OFFICE OR OUTPATIENT FACILITY, APPROXIMATELY 20 TO 30 MINUTES SZUH-CZ-FZLV W THE PATIENT; W MED EVAL & MGT SER [facility] INDIVIDUAL PSYCHOTHERAPY, INSIGHT ORIENTED, BEHAVIOR MODIFYING AND/OR SUPPORTIVE, IN AN OFFICE OR OUTPATIENT FACILITY, APPROXIMATELY 20 TO 30 MINUTES SKRL-UK-UTNL W THE PATIENT; W MED EVAL & MGT SER [facility] THERAPEUTIC PROCEDURE(S), GROUP (2 OR MORE INDIVIDUALS) [facility] INDIVIDUAL PSYCHOTHERAPY, INSIGHT ORIENTED, BEHAVIOR MODIFYING AND/OR SUPPORTIVE, IN AN INPATIENT HOSPITAL, PARTIAL HOSPITAL OR RESIDENTIAL CARE SETTING, APPROX 20-30 MINUTES JRNH-RT-CLXT W THE PAT [facility] PSYCHIATRIC DIAGNOSTIC INTERVIEW EXAMINATION [facility] COLLECTION OF VENOUS BLOOD BY VENIPUNCTURE [facility] PSYCHIATRIC DIAGNOSTIC INTERVIEW EXAMINATION [facility] OCCUPATIONAL THERAPY EVALUATION 010 [facility] INDIVIDUAL PSYCHOTHERAPY, INSIGHT ORIENTED, BEHAVIOR MODIFYING AND/OR SUPPORTIVE, IN AN OFFICE OR OUTPATIENT FACILITY, APPROXIMATELY 45 TO 50 MINUTES GPZW-EX-MQJT WITH THE PATIENT [facility] INDIVIDUAL PSYCHOTHERAPY, INSIGHT ORIENTED, BEHAVIOR MODIFYING AND/OR SUPPORTIVE, IN AN OFFICE OR OUTPATIENT FACILITY, APPROXIMATELY 45 TO 50 MINUTES LMQY-XO-AXZU WITH THE PATIENT 010 [facility] NEUROPSYC TSTNG(EG,NAS-REITA N NEUROPSYC SERGIO,RBIAN MEMRY SCALES&[place] CARD SORT TST),W [facility] C[facility] PROFSIONAL INTERP&RPT,ADMINISTERED GUEST RELATIONS REPRESENTATIVE,/HR,TECHNICI AN TME,FCE-2-FCE [facility] FAMILY PSYCHOTHERAPY (CONJOINT PSYCHOTHERAPY) (WITH PATIENT PRESENT), 50 MINUTES 010 [facility] SELF-CARE/HOME MANAGMENT TRAIN (EG,ACT OF DAILY LIVING (ADL) &COMPENSAT TRAIN,MEAL PREPARATION,SAFETY PROCS,AND INSTRUCT IN USE OF ASST TECHNOLOGY DEV/ADPT EQUIP) DIR ONE-ON-ONE CONT,EA 15 MINUTES [facility] FAMILY PSYCHOTHERAPY (CONJOINT PSYCHOTHERAPY) (WITH PATIENT PRESENT), 50 MINUTES 010 [facility] PSYCHIATRIC DIAGNOSTIC INTERVIEW EXAMINATION [facility] PSYCHIATRIC DIAGNOSTIC INTERVIEW EXAMINATION [facility] INDIVIDUAL PSYCHOTHERAPY, INSIGHT ORIENTED, BEHAVIOR MODIFYING AND/OR SUPPORTIVE, IN AN INPATIENT HOSPITAL, PARTIAL HOSPITAL OR RESIDENTIAL CARE SETTING, APPROX 20-30 MINUTES SADY-DJ-QDUL W [facility] SENSORY INTEGRATIVE TECHNIQUES TO ENHANCE SENSORY PROCESSING AND PROMOTE ADAPTIVE RESPONSES TO ENVIRONMENTAL DEMANDS, DIRECT (ONE-ON-ONE) PATIENT CONTACT, EACH 15 MINUTES [facility] INDIVIDUAL PSYCHOTHERAPY, INSIGHT ORIENTED, BEHAVIOR MODIFYING AND/OR SUPPORTIVE, IN AN INPATIENT HOSPITAL, PARTIAL HOSPITAL OR RESIDENTIAL CARE SETTING, APPROX 20-30 MINUTES ACLD-EI-FFVB W THE PAT [facility] THERAPEUTIC PROCEDURE(S), GROUP (2 OR MORE INDIVIDUALS) [facility] INDIVIDUAL PSYCHOTHERAPY, INSIGHT ORIENTED, BEHAVIOR MODIFYING AND/OR SUPPORTIVE, IN AN INPATIENT HOSPITAL, PARTIAL HOSPITAL OR RESIDENTIAL CARE SETTING, APPROX 20-30 MINUTES ZFUI-TM-[id number] W [facility] THERAPEUTIC PROCEDURE(S), GROUP (2 OR MORE INDIVIDUALS) [facility] INDIVIDUAL PSYCHOTHERAPY, INSIGHT ORIENTED, BEHAVIOR MODIFYING AND/OR SUPPORTIVE, IN AN INPATIENT HOSPITAL, PARTIAL HOSPITAL OR RESIDENTIAL CARE SETTING, APPROX 20-30 MINUTES QLCW-AR-[id number] W [facility] FITTING OF SPECTACLES, EXCEPT FOR APHAKIA; MONOFOCAL [facility] INDIVIDUAL PSYCHOTHERAPY, INSIGHT ORIENTED, BEHAVIOR MODIFYING AND/OR SUPPORTIVE, IN AN INPATIENT HOSPITAL, PARTIAL HOSPITAL OR RESIDENTIAL CARE SETTING, APPROX 20-30 MINUTES ASYT-CN-[id number] W [facility] INDIVIDUAL PSYCHOTHERAPY, INSIGHT ORIENTED, BEHAVIOR MODIFYING AND/OR SUPPORTIVE, IN AN INPATIENT HOSPITAL, PARTIAL HOSPITAL OR RESIDENTIAL CARE SETTING, APPROX 20-30 MINUTES HSTJ-OC-JOWX W [facility] INDIVIDUAL PSYCHOTHERAPY, INSIGHT ORIENTED, BEHAVIOR MODIFYING AND/OR SUPPORTIVE, IN AN OFFICE OR OUTPATIENT FACILITY, APPROXIMATELY 45 TO 50 MINUTES OKSW-GF-ETIZ WITH THE PATIENT [facility] INDIVIDUAL PSYCHOTHERAPY, INSIGHT ORIENTED, BEHAVIOR MODIFYING AND/OR SUPPORTIVE, IN AN OFFICE OR OUTPATIENT FACILITY, APPROXIMATELY 20 TO 30 MINUTES KXCI-XS-HOIT WITH THE PATIENT [facility] THERAPEUTIC PROCEDURE(S), GROUP (2 OR MORE INDIVIDUALS) [facility] INDIVIDUAL PSYCHOTHERAPY, INSIGHT ORIENTED, BEHAVIOR MODIFYING AND/OR SUPPORTIVE, IN AN INPATIENT HOSPITAL, PARTIAL HOSPITAL OR RESIDENTIAL CARE SETTING, APPROX 20-30 MINUTES QWRI-VV-BKCA W [facility] THERAPEUTIC PROCEDURE(S), GROUP (2 OR MORE INDIVIDUALS) [facility] INDIVIDUAL PSYCHOTHERAPY, INSIGHT ORIENTED, BEHAVIOR MODIFYING AND/OR SUPPORTIVE, IN AN OFFICE OR OUTPATIENT FACILITY, APPROXIMATELY 20 TO 30 MINUTES MNLB-OS-PPOR WITH THE PATIENT [facility] INDIVIDUAL PSYCHOTHERAPY, INSIGHT ORIENTED, BEHAVIOR MODIFYING AND/OR SUPPORTIVE, IN AN INPATIENT HOSPITAL, PARTIAL HOSPITAL OR RESIDENTIAL CARE SETTING, APPROX 20-30 MINUTES OXLO-PJ-ELHU W [facility] PSYCHIATRIC DIAGNOSTIC INTERVIEW EXAMINATION [facility] INDIVIDUAL PSYCHOTHERAPY, INSIGHT ORIENTED, BEHAVIOR MODIFYING AND/OR SUPPORTIVE, IN AN OFFICE OR OUTPATIENT FACILITY, APPROXIMATELY 45 TO 50 MINUTES ZLSI-SM-ROFB WITH THE PATIENT [facility] COLLECTION OF VENOUS BLOOD BY VENIPUNCTURE [facility] INDIVIDUAL PSYCHOTHERAPY, INSIGHT ORIENTED, BEHAVIOR MODIFYING AND/OR SUPPORTIVE, IN AN OFFICE OR OUTPATIENT FACILITY, APPROXIMATELY 45 TO 50 MINUTES PTJH-EN-DTLS WITH THE PATIENT 010 [facility] PSYCHIATRIC DIAGNOSTIC INTERVIEW EXAMINATION 010 [facility] TELE ASSESS & MGT SRV PROV QUAL NONPHYS HLTH CARE PRO TO EST PAT,PARENT,GUARD NOT ORIG REL ASSESS & MGT SRV PROV W/IN PREV 7 DAYS NOR LEAD ASSESS & MGT SRV/PX W/IN NXT 24 HR/SOON APT;5-10 MIN MED DIS [facility] MEDICAL NUTRITION THERAPY; GROUP (2 OR MORE INDIVIDUAL(S)), EACH 30 MINUTES 010 [facility] Physical Medicine - Group Physical Therapy Se ion Physical Medicine - Group Physical Therapy Session [id number] ALEXUS QUIJANO [facility] Development Of Cognit Skills By Sensory Integrative Techniques Development Of Cognit Skills By Sensory Integrative Techniques [id number] ALEXUS QUIJANO [facility] Clinical Social Work Individual Outpatient Counseling 45 Minutes Clinical Social Work Individual Outpatient Counseling 45 Minutes [id number] TARIK LOCKHART [facility] Clinical Social Work Individual Outpatient Counseling 30 Minutes Clinical Social Work Individual Outpatient Counseling 30 Minutes [id number] TARIK LOCKHART [facility] Clinical Social Work Individual Outpatient Counseling 30 Minutes Clinical Social Work Individual Outpatient Counseling 30 Minutes [id number] TARIK LOCKHART [facility] Clinical Social Work Individual Outpatient Counseling 45 Minutes Clinical Social Work Individual Outpatient Counseling 45 Minutes [id number] JUSTIN VALENCIA [facility] Clinical Social Work Individual Outpatient Counseling 45 Minutes Clinical Social Work Individual Outpatient Counseling 45 Minutes [id number] KELSEA AMBROCIO [facility] Psychiatric Diagnostic Evaluation Comprehensive Examination Psychiatric Diagnostic Evaluation Comprehensive Examination [id number] REMY CRUZ [facility] Psychiatric Diagnostic Evaluation Comprehensive Examination Psychiatric Diagnostic Evaluation Comprehensive Examination [id number] TARIK LOCKHART [facility] Medical Nutrition Therapy Group (2 or More Individuals) Each 30 Minutes Medical Nutrition Therapy Group (2 or More Individuals) Each 30 Minutes [id number] JOSE MEI [facility] Clinical Social Work Individual Outpatient Counseling 30 Minutes Clinical Social Work Individual Outpatient Counseling 30 Minutes [id number] SLOANE GOLDSTEIN [facility] Clinical Social Work Individual Outpatient Counseling 30 Minutes Clinical Social Work Individual Outpatient Counseling 30 Minutes [id number] SLOANE GOLDSTEIN [facility] Health And Behav A e mt Each 15 Min Initial A e ment Health And Behav Assessmt Each 15 Min Initial Assessment [id number] SLOANE GOLDSTEIN [facility] Alcohol and/or drug services; case management [facility] Behavioral health counseling and therapy, per 15 minutes [facility] Behavioral health prevention information di emination service (one-way direct or non-direct contact with service audiences to affect knowledge and attitude) [facility] Behavioral health prevention education service (delivery of services with target population to affect knowledge, attitude and/or behavior) [facility] Behavioral health counseling and therapy, per 15 minutes [facility] Alcohol and/or drug services; case management [facility] Alcohol and/or drug services; group counseling by a clinician [facility] Behavioral health prevention information di emination service (one-way direct or non-direct contact with service audiences to affect knowledge and attitude) [facility] Psychometric Neurobehavioral Status Exam NAUN ROME [facility] Behavioral health prevention education service (delivery of services with target population to affect knowledge, attitude and/or behavior) FRAN, ANGELIQUE [facility] Alcohol and/or drug prevention problem identification and referral service (e.g., student a istance and employee a istance programs), does not include a e ment FRAN ANGELIQUE [facility] Behavioral health prevention information di emination service (one-way direct or non-direct contact with service audiences to affect knowledge and attitude) FRAN ANGELIQUE [facility] Alcohol and/or drug services; case management FRAN ANGELIQUE [facility] Behavioral health counseling and therapy, per 15 minutes [facility]; group counseling by a clinician ZION BECK [facility] Behavioral health prevention information di emination service (one-way direct or non-direct contact with service audiences to affect knowledge and attitude) 009 EBONY ZION GUILLORYA [facility] Behavioral health prevention education service (delivery of services with target population to affect knowledge, attitude and/or behavior) 009 EBONY ZION JONES [facility] Alcohol and/or drug prevention problem identification and referral service (e.g., student a istance and employee a istance programs), does not include a e ment 009 EBONY ZION JONES [facility] Alcohol and/or drug prevention problem identification and referral service (e.g., student a istance and employee a istance programs), does not include a e ment 009 HARRIS WHITE [facility] Behavioral health prevention information di [...] counseling by a clinician 009 ZION BECK [facility] Behavioral health prevention information di emination service (one-way direct or non-direct contact with service audiences to affect knowledge and attitude) 009 ZION BECK [facility] [facility] prevention education service (delivery of services with target population to affect knowledge, attitude and/or behavior) 009 EBONY ZION KAREN [facility] Alcohol and/or drug prevention problem identification and referral service (e.g., student a istance and employee a istance programs), does not include a e ment 009 EBONY ZION KAREN [facility] Alcohol and/or drug services; case management 009 GEORGE BURTON [facility] Behavioral health prevention information di emination service (one-way direct or non-direct contact with service audiences to affect knowledge and attitude) GEORGE BURTON [facility] Behavioral health prevention education service (delivery of services with target population to affect knowledge, attitude and/or behavior) GEORGE BURTON [facility] Alcohol and/or drug prevention problem identification and referral service (e.g., student a istance and employee a istance programs), does not include a e ment GEORGE BURTON [facility] Alcohol and/or drug services; group counseling by a clinician GEORGE BURTON [facility] Behavioral health prevention information di emination service (one-way direct or non-direct contact with service audiences to affect knowledge and attitude) [facility] Behavioral health prevention education service (delivery of services with target population to affect knowledge, attitude and/or behavior) [facility] Alcohol and/or drug a e ment [facility] Alcohol and/or drug services; group counseling by a clinician [facility] Alcohol and/or drug services; case management [facility] ANESTHESIA ASSISTANT/CONSTRUCTION TEACHER services, up to 15 minutes 009 SYBIL ELIAS [facility] Psychiatric Diagnostic Evaluation Review of Records and Reports Psychiatric Diagnostic Evaluation Review of Records and Reports 04418 008 Theater Provider [facility] Psychotherapy Individual Approximately 45 Minutes Psychotherapy Individual Approximately 45 Minutes 05728 008 Theater Provider [facility] Psychotherapy Individual Approximately 45 Minutes Psychotherapy Individual Approximately 45 Minutes 75863 008 Theater Provider [facility] Psychiatric Therapy Counseling Family / Guardians Psychiatric Therapy Counseling Family / Guardians 79339 008 Theater Provider [facility] Psychotherapy Individual Approximately 45 Minutes Psychotherapy Individual Approximately 45 Minutes 34972 008 Theater Provider [facility] Psychotherapy Individual Approximately 45 Minutes Psychotherapy Individual Approximately 45 Minutes 48388 008 Theater Provider [facility] Psychiatric Diagnostic Evaluation Comprehensive Examination Psychiatric Diagnostic Evaluation Comprehensive Examination 61662 008 [facility] Audiometry Group Testing Audiometry Group Testing 42196 008 BONIFACIO BERNARDO Threshold Audiogram (Pure Tone) Threshold Audiogram (Pure Tone) 82728 008 BONIFACIO BERNARDO Audiometry Group Testing Audiometry Group Testing 68822 007 SAMM, GREER Arzola Special Physician Services Analysis Of Computerized Data Special Physician Services Analysis Of Computerized Data 54109 007 SAMM, GREER Castaneda [facility] Physician Supervised Services Provision Of Special Supplies Physician Supervised Services Provision Of Special Supplies 36820 007 SAMM, GREER Castaneda [facility] Physician Supervised Group Educational Services 007 SAMM, GREER Arzola Threshold Audiogram (Pure Tone) Threshold Audiogram (Pure Tone) 17129 007 QUIJANO, GREER Arzola Ear Protector Attenuation Measurements Ear Protector Attenuation Measurements 26130 007 SAMM, GREER Arzola Immunization Administration By Injection, Each Additional Vaccine 007 ÁLVARO ARMSTRONG Meningococcal Polysaccharide Diphtheria Toxoid Conjugate Vaccine NATHANIEL, LEORA DoD Tdap Vaccine Tdap Vaccine 87126 ÁLVARO ARMSTRONG [facility] Hepatitis A And Hepatitis B (Intramuscular Use) Adult Dosage Hepatitis A And Hepatitis B (Intramuscular Use) Adult Dosage 02533 ÁLVARO ARMSTRONG [facility] Venipuncture Venipuncture 17845 ÁLVARO ARMSTRONG Skin Test Anergy Tuberculin Intradermal Skin Test Anergy Tuberculin Intradermal 22942 ÁLVARO ARMSTRONG [facility] Physician Supervised Injection Subcutaneous Physician Supervised Injection Subcutaneous 43302 NATHANIEL [facility] Influenza Virus Vaccine Intranasal Live Attenuated 007 NATHANIEL [facility] Physician Supervised Injection Intramuscular Antibiotic Physician Supervised Injection Intramuscular Antibiotic 09712 ÁLVARO ARMSTRONG [facility] Vaccines Viral Polio, Inactivated Vaccines Viral Polio, Inactivated 18407 007 ÁLVARO ARMSTRONG M Dariusz Injection, penicillin G benzathine, up to 1,200,000 units 007 ÁLVARO ARMSTRONG Determination Of Refractive State Determination Of Refractive State 21404 NAVYA REES [facility] Spectacles Services Fitting Monofocal Except For Aphakia Spectacles Services Fitting Monofocal Except For Aphakia 50812 007 NAVYA CURRAN Ophthalmological New Patient Start Intermediate Level Care Ophthalmological New Patient Start Intermediate Level Care 99676 007 NAVYA CURRAN Alcohol and/or substance abuse services, treatment plan development and/or modification 011 LOIDA HORTA [facility] Psychotherapy Individual Approx 30 Min W/ Medical Evaluation & Management Psychotherapy Individual Approx 30 Min W/ Medical Evaluation & Management 60342 010 ROXANN LEVY [facility] Biofeedback Training By Any Modality Biofeedback Training By Any Modality 57659 MAR, VINCENT Oliva [facility] Psychotherapy Individual Approx 30 Min W/ Medical Evaluation & Management Psychotherapy Individual Approx 30 Min W/ Medical Evaluation & Management 59089 010 LIVIER DUFFY [facility] Psychotherapy Indiv Approx 45 Min W/ Medical Evaluation & Management Psychotherapy Indiv Approx 45 Min W/ Medical Evaluation & Management 36208 010 HILARIO TORRES [facility] Psychotherapy Individual Approx 30 Min W/ Medical Evaluation & Management Psychotherapy Individual Approx 30 Min W/ Medical Evaluation & Management 80986 010 LIVIER DUFFY Psychotherapy Individual Approximately 45 Minutes Psychotherapy Individual Approximately 45 Minutes 19045 010 LIVIER HUYNH Biofeedback Training By Any Modality Biofeedback Training By Any Modality 84653 MAR, VINCENT Arzola Psychotherapy Individual Approximately 30 Minutes Psychotherapy Individual Approximately 30 Minutes 91049 010 LIVIER HUYNH Psychologic Testing And Report Administered By Physician Psychologic Testing And Report Administered By Physician 44058 LIVIER HUYNH Biofeedback Training By Any Modality Biofeedback Training By Any Modality 48637 MAR, VINCENT Arzola Biofeedback Training By Any Modality Biofeedback Training By Any Modality 61227 MAR, VINCENT Arzola Biofeedback Training By Any Modality Biofeedback Training By Any Modality 59342 MAR, VINCENT Arzola Psychiatric Diagnostic Evaluation Comprehensive Examination Psychiatric Diagnostic Evaluation Comprehensive Examination 54395 HILARIO TORRES [facility] Intervention And Counseling On Ce ation Of Tobacco Use Intervention And Counseling On Cessation Of Tobacco Use 4000F SHYLA CHERYL [facility] Psychiatric Therapy Preparation of Psychiatric Status Report Psychiatric Therapy Preparation of Psychiatric Status Report 83696 ADRIANNA LOPES [facility] Psychotherapy Individual Approximately 45 Minutes Psychotherapy Individual Approximately 45 Minutes 38732 LIVIER HUYNH [facility] Psychotherapy Individual Approx 30 Min W/ Medical Evaluation & Management Psychotherapy Individual Approx 30 Min W/ Medical Evaluation & Management 57373 LIVIER DUFFY [facility] Biofeedback Training By Any Modality Biofeedback Training By Any Modality 62732 [facility] Biofeedback Training By Any Modality Biofeedback Training By Any Modality 92661 [facility] Psychotherapy Individual Approximately 75-80 Minutes Psychotherapy Individual Approximately 75-80 Minutes 85055 NORI GARCIA [facility] Dangerousne A e ment Suicide Risk Dangerousness Assessment Suicide Risk 3085F NORI GARCIA [facility] Clinical Social Work Individual Outpatient Counseling 30 Minutes Clinical Social Work Individual Outpatient Counseling 30 Minutes 74343 ADRIANNA LOPES [facility] Biofeedback Training By Any Modality Biofeedback Training By Any Modality 52004 VINCENT SORTO [facility] Clinical Social Work Individual Outpatient Counseling 45 Minutes Clinical Social Work Individual Outpatient Counseling 45 Minutes 04500 ADRIANNA LOPES [facility] Psychotherapy Individual Approx 30 Min W/ Medical Evaluation & Management Psychotherapy Individual Approx 30 Min W/ Medical Evaluation & Management 90437 LIVIER DUFFY [facility] Psychiatric Therapy Family (Conjoint) TIANA BRAN [facility] Biofeedback Training By Any Modality Biofeedback Training By Any Modality 47773 VINCENT SORTO [facility] Psychotherapy Indiv Approx 45 Min W/ Medical Evaluation & Management Psychotherapy Indiv Approx 45 Min W/ Medical Evaluation & Management 91285 REMY CASTRO [facility] Physical Medicine - Group Physical Therapy Se ion Physical Medicine - Group Physical Therapy Session 10354 ALEXUS QUIJANO [facility] Psychotherapeutic Rehab Development Of Cognitive Skills Psychotherapeutic Rehab Development Of Cognitive Skills 99007 010 ALEXUS QUIJANO 60 min [facility] Alcohol and/or substance abuse services, treatment plan development and/or modification 010 LOIDA HORTA [facility] Physical Medicine - Group Physical Therapy Se ion Physical Medicine - Group Physical Therapy Session 06680 010 ALEXUS QUIJANO [facility] Psychotherapeutic Rehab Development Of Cognitive Skills Psychotherapeutic Rehab Development Of Cognitive Skills 64907 010 ALEXUS QUIJANO G 60 min [facility] Psychotherapy Group Interactive Psychotherapy Group Interactive 98612 010 LORRAINE LOGAN [facility] Physical Medicine - Group Physical Therapy Se ion Physical Medicine - Group Physical Therapy Session 91165 010 ALEXUS QUIJANO [facility] Psychotherapeutic Rehab Development Of Cognitive Skills Psychotherapeutic Rehab Development Of Cognitive Skills 55480 010 ALEXUS QUIJANO 60 min [facility] Physical Medicine - Group Physical Therapy Se ion Physical Medicine - Group Physical Therapy Session 44489 010 ALEXUS QUIJANO G 30 min group DoD A isted Exercises For ROM Assisted Exercises For ROM 64931 010 ALEXUS QUIJANO G 30 min yoga session [facility] Physical Medicine - Group Physical Therapy Se ion Physical Medicine - Group Physical Therapy Session 09615 010 ALEXUS QUIJANO G 70 min group DoD Development Of Cognit Skills By Sensory Integrative Techniques Development Of Cognit Skills By Sensory Integrative Techniques 34876 010 ALEXUS QUIJANO 8 min one on one with Pt during group [facility] Medical Nutrition Therapy Group (2 or More Individuals) Each 30 Minutes Medical Nutrition Therapy Group (2 or More Individuals) Each 30 Minutes 89313 010 APRIL CEDENO [facility] Psychotherapy Individual Approx 75-80 Min With Medical Evaluation & Management Psychotherapy Individual Approx 75-80 Min With Medical Evaluation & Management 67031 010 LIVIER DUFFY [facility] Psychiatric Diagnostic Evaluation Comprehensive Examination Psychiatric Diagnostic Evaluation Comprehensive Examination 46618 010 LIVIER HUYNH [facility] Biofeedback Training By Any Modality Biofeedback Training By Any Modality 85222 010 FRANCIS NIXON [facility] Patient Counseling Medical Management Individual Patient Patient Counseling Medical Management Individual Patient 07338 010 FRANCIS NIXON [facility] Psychiatric Therapy Environmental Intervention Psychiatric Therapy Environmental Intervention 10742 010 BIBI ESPINOZA [facility] Psychiatric Diagnostic Evaluation Review of Records and Reports Psychiatric Diagnostic Evaluation Review of Records and Reports 78950 010 BIBI ESPINOZA [facility] Psychotherapy Individual Approximately 30 Minutes Psychotherapy Individual Approximately 30 Minutes 27724 010 BIBI ESPINOZA [facility] Biofeedback Training By Any Modality Biofeedback Training By Any Modality 81582 010 FRANCIS NIXON [facility] Development Of Cognitive Skills By Compensatory Activities Development Of Cognitive Skills By Compensatory Activities 32627 010 FRANCIS NIXON [facility] Development Of Cognitive Skills By Compensatory Activities Development Of Cognitive Skills By Compensatory Activities 65245 010 JOSHUA WOMACK [facility] Supervised Individual Speech/Hearing Therapy 010 JOSHUA WOMACK [facility] Evaluation of Speech / Hearing Problem 010 JOSHUA WOMACK [facility] Psychiatric Therapy Environmental Intervention Psychiatric Therapy Environmental Intervention 53130 010 MOLLY SOLIS [facility] Psychotherapy Individual Approximately 45 Minutes Psychotherapy Individual Approximately 45 Minutes 83620 010 MOLLY SOLIS [facility] Psychiatric Diagnostic Evaluation Comprehensive Examination Psychiatric Diagnostic Evaluation Comprehensive Examination 22283 010 ÁLVARO MILIAN [facility] Psychotherapy Individual Approximately 45 Minutes Psychotherapy Individual Approximately 45 Minutes 88251 010 TIANA BRAN [facility] Psychotherapy Individual Approx 30 Min W/ Medical Evaluation & Management Psychotherapy Individual Approx 30 Min W/ Medical Evaluation & Management 79179 010 LIVIER DUFFY [facility] Psychotherapy Group Interview Psychotherapy Group Interview 73924 010 YAEL ALCANTAR [facility] Psychometric Neuropsych Testing Battery Admin By Physician Psychometric Neuropsych Testing Battery Admin By Physician 31362 010 ÁLVARO MILIAN [facility] Performance Of Mental Status Exam - Cognitive 010 ÁLVARO MILIAN [facility] Psychiatric Diagnostic Evaluation Comprehensive Examination Psychiatric Diagnostic Evaluation Comprehensive Examination 07447 010 ÁLVARO MILIAN [facility] Psychometric Neuropsych Testing Battery Admin By Boat Builder Psychometric Neuropsych Testing Battery Admin By Boat Builder 93119 010 LIVIER JACKSON [facility] Clinical Social Work Individual Outpatient Counseling 30 Minutes Clinical Social Work Individual Outpatient Counseling 30 Minutes 83820 010 LOIDA HORTA [facility] Psychometric Neuropsych Testing Battery Admin By Physician Psychometric Neuropsych Testing Battery Admin By Physician 97433 010 ÁLVARO MILIAN [facility] Performance Of Mental Status Exam - Cognitive 010 ÁLVARO MILIAN [facility] Psychiatric Diagnostic Evaluation Comprehensive Examination Psychiatric Diagnostic Evaluation Comprehensive Examination 16674 010 ÁLVARO MILIAN [facility] Psychiatric Diagnostic Evaluation Comprehensive Examination Psychiatric Diagnostic Evaluation Comprehensive Examination 86065 010 LOIDA HORTA [facility] Psychotherapy Individual Approx 30 Min W/ Medical Evaluation & Management Psychotherapy Individual Approx 30 Min W/ Medical Evaluation & Management 18674 010 LIVIER DUFFY [facility] Physical Medicine - Group Physical Therapy Se ion Physical Medicine - Group Physical Therapy Session 79849 010 ALEXUS QUIJANO [facility] Psychotherapy Individual Approx 30 Min W/ Medical Evaluation & Management Psychotherapy Individual Approx 30 Min W/ Medical Evaluation & Management 60821 010 REMY CASTRO [facility] Psychiatric Diagnostic Evaluation Comprehensive Examination Psychiatric Diagnostic Evaluation Comprehensive Examination 89648 010 YOJANA JESUS [facility] Occupational Therapy Evaluation Occupational Therapy Evaluation 64756 010 FRANCIS NIXON [facility] Psychotherapy Individual Approximately 45 Minutes Psychotherapy Individual Approximately 45 Minutes 49129 010 MOLLY SOLIS [facility] Psychotherapy Individual Approximately 45 Minutes Psychotherapy Individual Approximately 45 Minutes 28828 010 TIANA BRAN [facility] Psychometric Neuropsych Testing Battery Admin By Boat Builder Psychometric Neuropsych Testing Battery Admin By Boat Builder 66019 010 ARABELLA MCCARTY [facility] Psychiatric Therapy Family (Conjoint) 010 TIANA BRAN Do[facility] Phys Therapy Education Self Care Training - Per 15 Minutes Phys Therapy Education Self Care Training - Per 15 Minutes 56520 010 SHUKRI RIVERA [facility] A isted Exercises For ROM Assisted Exercises For ROM 30612 010 SHUKRI RIVERA [facility] Physical Therapy Service Evaluation Physical Therapy Service Evaluation 97953 010 SHUKRI RIVERA [facility] Psychiatric Therapy Family (Conjoint) 010 TIANA BRAN [facility] Psychiatric Diagnostic Evaluation Comprehensive Examination Psychiatric Diagnostic Evaluation Comprehensive Examination 13718 010 TIANA BRAN [facility] Psychiatric Diagnostic Evaluation Comprehensive Examination Psychiatric Diagnostic Evaluation Comprehensive Examination 23947 010 LIVIER DUFFY [facility] Physical Medicine - Group Physical Therapy Se ion Physical Medicine - Group Physical Therapy Session 20917 010 ALEXUS QUIJANO Development Of Cognit Skills By Sensory Integrative Techniques Development Of Cognit Skills By Sensory Integrative Techniques 84876 010 ALEXUS QUIJANO Physical Medicine - Group Physical Therapy Se ion Physical Medicine - Group Physical Therapy Session 70274 010 ALEXUS QUIJANO Physical Medicine - Group Physical Therapy Se ion Physical Medicine - Group Physical Therapy Session 39625 010 ALEXUS QUIJANO Development Of Cognit Skills By Sensory Integrative Techniques Development Of Cognit Skills By Sensory Integrative Techniques 20110 010 ALEXUS QUIJANO Visual Robb Test Intermediate Examination Visual Robb Test Intermediate Examination 42430 010 EYD RAMOS Spectacles Services Fitting Monofocal Except For Aphakia Spectacles Services Fitting Monofocal Except For Aphakia 67996 010 EDY RAMOS Determination Of Refractive State Determination Of Refractive State 57090 010 EDY RAMOS Ophthalmological New Patient Start Comprehensive Care Ophthalmological New Patient Start Comprehensive Care 25706 010 EDY RAMOS Social History Combined list of available smoking, tobacco, and other social history from Department of Defense and Veterans Affairs facilities. Social History Type Response Date Comment Sour e Tobacco smoking status NHIS VA-TOBACCO USER EVERY DAY 07/31/2023 [facility] History of tobacco use VA-TOBACCO USE 5 TO 15 YEARS 07/31/2023 [facility] History of tobacco use VA-TOBACCO USER E VERY DAY 08/03/2020 [facility] History of tobacco use VA-TOBACCO USE CO UNSEL NO 11/28/2018 [facility] History of tobacco use PREVIOUS SMOKER 10/25/2015 [facility] History of tobacco use CURRENT TOBACCO USER 01/28/2014 [facility] History of tobacco use CURRENT TOBACCO USER 10/17/2012 [facility] History of tobacco use TOBACCO OFFERRED PT MEDS (PROVIDER) 04/24/2011 [facility] History of tobacco use CURRENT TOBACCO USER 04/23/2011 [facility] History of tobacco use CURRENT TOBACCO USER 05/03/2010 [facility] History of tobacco use CURRENT TOBACCO USER 04/29/2010 [facility] This section is an empty social history section. DoD Plan of Care List of future care activities from Department of Veterans Affairs facilities. Additional future care activities may be listed in the Assessment and Plan section. Date/Time Care Activity Care Activity Detail Facili ty 09/09/2024 AMBULATORY - PSYCHIATRY AMBULATORY - PSYC HIATRY [facility]
== END 2024-05-09 11:09 | disposition left against medical advice (07) ==
DX: R10.31 Right lower quadrant pain (principal)
CPT/HCPCS: 99199

== ENCOUNTER 2024-06-23 15:48 | Observation (INO) | payer OTHER, SELFPAY ==
[2024-06-23] VITALS (7 sets, daily range): BP systolic 120–154; BP diastolic 71–97; PULSE 77–92; RESP 12–20; TEMP 36.3–36.9; O2SAT 99–100; BMI 30.4
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
--- NOTE | ~2024-06-23 | MR_ITS ---
EXAMINATION: MR brain/brain stem wo con DATE: 06/24/2024 15:04 INDICATION: Transient ischemic episode TECHNIQUE: Magnetic resonance imaging (MRI) of the brain and brainstem was performed without intraven ous contrast. Sequences included sagittal and axial T1-weighted SE, axial diffusion-weighted FS SE, a xial 3D SWAN, axial T2-weighted FLAIR, and axial T2-weighted FSE. Apparent diffusion coefficient (ADC ) maps were created. COMPARISON: 06/23/2024 FINDINGS: There are no areas of restricted diffusion to suggest acute infarction. No intracranial hemorrhage or abnormal intracranial mass lesion. There are no intraparenchymal signal abnormalities seen on the o ther pulse sequences. The ventricles are symmetric and normal in size. There are no abnormal extra-ax ial fluid collections. Flow voids are seen in the cerebral arteries on the T2-weighted sequences cons istent with their expected patency. Visualized orbits and soft tissues are unremarkable. IMPRESSION: 1. Normal brain MR Reviewed, dictated and finalized at location B. IMPRESSION: 1. Normal brain MR
--- NOTE | ~2024-06-23 | CT_ITS ---
EXAMINATION: CTA brain carotid DATE: 06/23/2024 17:51 INDICATION: LUE numbness/weakness TECHNIQUE: Computed tomographic angiography (CTA) of the head and neck was performed with 100 mL Omni paque-350 intravenous contrast. Automated exposure control and iterative reconstruction technique wer e employed. The dose-length product was 1145.95 mGy-cm. Maximum intensity projection and volume rende red 3D-reconstructions were created by the technologist on a separate workstation. COMPARISON: CT brain, same date. FINDINGS: CTA HEAD: No large vessel occlusion, aneurysm, high flow vascular malformation, nidus or extravasation. Symmetr ic parenchymal enhancement. Patent cerebral veins. CTA NECK: Aortic arch and proximal great vessels: Normal arch anatomy. Bovine arch. The left vertebral artery o rigin is directly off of the aortic arch, a normal variant. Right common carotid, carotid bifurcation, and internal carotid artery: No plaque.There is 0% stenosi s of the proximal right internal carotid artery relative to normal distal artery lumen diameter (NASC ET criteria). Left common carotid, carotid bifurcation, and internal carotid artery: No plaque.There is 0% stenosis of the proximal left internal carotid artery relative to normal distal artery lumen diameter (NASCET criteria). Vertebral arteries: No significant plaque or stenosis. Right vertebral artery is dominant. Other findings: None. IMPRESSION: No large vessel intracranial occlusion, high-grade intracranial stenosis, or aneurysm. No carotid or vertebral artery occlusion, dissection, or significant stenosis. Reviewed, dictated and finalized at location K. IMPRESSION: No large vessel intracranial occlusion, high-grade intracranial stenosis, or an eurysm. No carotid or vertebral artery occlusion, dissection, or significant stenosis.
--- NOTE | ~2024-06-23 | CT_ITS ---
EXAMINATION: CT brain wo con DATE: 06/23/2024 16:06 INDICATION: Head injury TECHNIQUE: Computed tomography (CT) of the head was performed without intravenous contrast. Sagittal and coronal reconstructions were performed. The mA was adjusted according to patient size. Iterative reconstruction technique was employed. The dose-length product was 756.67 mGy-cm. COMPARISON: None FINDINGS: No fracture. No acute intracranial hemorrhage, acute infarction or abnormal extra axial fluid collect ion. Ventricles are normal and symmetric. No mass/mass effect. The orbits, paranasal sinuses and mast oid air cells are normal. IMPRESSION: 1. Normal head CT. No fracture or acute intracranial process. Reviewed, dictated and finalized at location B.
--- NOTE | 2024-06-23 15:54 | ECG_ITS ---
Test Date: 2024-06-23 16:59:40 Measurements Intervals [place] Rate: 86 P: 56 [place]: 148 QRS: 11 QRSD: 92 T: 46 QT: 364 QTc: 437 Interpretive Statements SINUS RHYTHM WITH MARKED SINUS ARRHYTHMIA No previous ECG available for comparison Electronically Signed On 06-24-2024 15:57:09 CDT by Kasandra Tobin M.D.
[2024-06-23 15:56] LABS: Glucose Point of Care 80 mg/dl (65-105)
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
[2024-06-23 16:06] LABS: Basophils Percent Auto 0.4 % (0.2-1.2); Eosinophils Absolute Auto 0.1 K/mm3 (0-0.3); Eosinophils Percent Auto 1.4 % (0-4.4); Hematocrit 41.1 % (42.0-52.0); Hemoglobin 13.9 g/dL (14.0-18.0); Immature Granulocyte Absolute 0.02 K/mm3 (0.00-0.031); Immature Granulocyte Percent A 0.2 % (0-0.5); Lymphocytes Absolute Auto 3.03 K/mm3 (0.9-3.2); Lymphocytes Percent Auto 32.8 % (18.3-44.2); Mean Corpuscular HGB Conc 33.8 g/dl (32-36); Mean Corpuscular Volume 88.6 fl (80-100); Mean Platelet Volume 10.4 fl (7.4-10.4); Monocytes Absolute Auto 0.6 K/mm3 (0.1-0.6); Monocytes Percent Auto 6.7 % (2.6-8.5); Neutrophils Absolute Auto 5.4 K/mm3 (1.3-6.7); Neutrophils Percent Auto 58.5 % (45.5-73.1); Platelet Count Result 210 k/mm3 (150-375); Red Blood Count 4.64 M/mm3 (4.6-6.20); Red Cell Distribution Width 12.9 % (11.5-14.5); White Blood Count 9.3 K/mm3 (4.5-10.0)
[2024-06-23 16:17] LABS: INR 0.9; Prothrombin Time 13.1 Seconds (11.1-14.7)
[2024-06-23 16:18] LABS: Partial Thromboplastin Time 27.2 Seconds (22.3-36.8)
[2024-06-23 16:23] LABS: Alanine Aminotransferase 31 U/L (6-50); Albumin Level 5.1 g/dL (3.5-5.1); Alkaline Phosphatase 116 U/L (38-126); Anion Gap 14 mmol/L (4-12); Aspartate Amino Transferase 28 U/L (17-59); Bilirubin,Total 1.4 mg/dL (0.2-1.3); Blood Urea Nitrogen 24 mg/dL (9-20); Calcium 9.7 mg/dL (8.4-10.2); Carbon Dioxide 20 mmol/L (22-30); Chloride 105 mmol/L (98-107); Estimated Glomerular Filt Rate 56; Glucose 88 mg/dL (65-110); Potassium 3.6 mmol/L (3.4-5.0); Sodium 139 mmol/L (137-145)
[2024-06-23 16:34] LABS: Troponin I < 0.012 ng/mL (0.000-0.034)
--- OUTSIDE RECORDS SUMMARY | 2024-06-23 18:10 | XMS_ITS | Continuity of Care Document ---
Author Name [facility] Organization [facility] Care Team Providers Care Supervisor Home Energy Consultant Name Role Phone [facility] Unavailable Unavailable Problems Combined list of problems from Department of Defense and [facility] Affairs facilities. It does not include entries that were removed or entered in error. Problem Status Onset Date Problem Type Date of Resolution Comments Source Adjustment disorder with depressed mood (SNOMED CT 66428053) Active Condition [facility] Anxiety Active Condition [facility] Apnea Active Condition [facility] Cannabis dependence, continuous Active Condition [facility] Cerebral infarction Active Condition [facility] Danger of harm to self (ICD-9-CM E953.9) Active Condition [facility] Deficiency of vitamin D3 Active Condition [facility] Depression, NOS Active Condition [facility] Exposure to potentially hazardous substance Active Condition [facility] Gastroesophageal reflux disease Active Condition [facility] Generalized anxiety disorder Active Condition [facility] History of nephrolithiasis Active Condition [facility] Hyperlipidemia Active Condition [facility] Hyperlipidemia * (ICD-9-CM 272.4) Active Condition [facility] Insomnia Active Condition [facility] Major Depressive Disorder, Recurrent Active Condition [facility] Polysubstance dependence Active Condition May 03, 2010 Entered By: CUCA KNIGHT Comment: Methampheta mine, Cocaien and Alcohol [facility] Posttraumatic stress disorder (SNOMED CT 47421244) Active Condition [facility] PTSD, Chronic Active Condition [facility] Sleep disorder Active Condition [facility] Stimulant abuse Active Condition [facility] Suicidal Ideation Active Condition [facility] Tobacco user Active Condition [facility] Urinary Calculi * (ICD-9-CM 592.9) Active Condition [facility] Encounters for unspecified Administrative Purpose (ICD-9-CM V68.9) Inactive Condition 10/25/2020 [facility] History of extracorporeal shockwave lithotripsy Inactive Condition 10/25/2020 [facility] Irritability and anger Inactive Condition 10/25/2020 [facility] Low income Inactive Condition 10/25/2020 [facility] Pain in testicle Inactive Condition 10/25/2020 [facility]RA[facility] Diagnosis: ICD-10-CM 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, in remission Active Diagnosis [facility] Diagnosis: ICD-10-CM R45.89 Other symptoms and signs involving emotional state Active Diagnosis [facility] Diagnosis: ICD-10-CM G43.009 Migraine w/o aura, not intractable, w/o status migrainosus Active Diagnosis [facility] Diagnosis: ICD-10-CM F43.10 Post-traumatic stress disorder, unspecified Active Diagnosis [facility] Diagnosis: ICD-10-CM Z77.29 Contact with and exposure to other hazardous substances Active Diagnosis [facility] Diagnosis: ICD-10-CM Z63.0 Problems in relationship with spouse or partner Active Diagnosis [facility] Medications Combined list of outpatient medications from Department of Defense and [facility] Affairs facilities.Medications provided include 1) outpatient medications [...] . RESPIR ATORY (INHAL ATION) ACTIVE 08/03/2024 [id number] 4 JERRY BURT 2023 1 [facility] ASPIRIN 81MG TAB,EC TAKE ONE TABLET BY MOUTH ONCE A DAY ORAL ACTIVE BATSHEVA BAZAN UN N 2020 [facility] ATOMOXETINE 40MG CAP TAKE ONE CAPSULE BY MOUTH EVERY MORNING FOR ADHD ORAL ACTIVE 02/25/2025 [id number] 4 KRISTIN HARRIS 2023 30 [facility] CETIRIZINE HCL 10MG TAB TAKE ONE TABLET BY MOUTH ONCE A DAY ORAL ACTIVE 08/03/2024 [id number] 4 JERRY BURT HUNTER 2023 90 [facility] CLONAZEPAM 0.5MG TAB TAKE ONE TABLET BY MOUTH ONCE A DAY NEEDED FOR ANXIETY MAY CAUSE DROWSINE SS. DO NOT DRINK ALCOHOL. ORAL DISCONT INUED BY PROVIDE R 11/02/2023 [id number] 4 KRISTIN HARRIS 2023 20 [facility] CLONAZEPAM 0.5MG TAB TAKE ONE TABLET BY MOUTH ONCE A DAY NEEDED MAY CAUSE DROWSINE SS. DO NOT DRINK ALCOHOL. ORAL DISCONT INUED (EDIT) 09/12/2023 [id number] 4 KRISTIN HARRIS 2022 10 [facility] DIAZEPAM 5MG TAB TAKE ONE TABLET BY MOUTH TWICE DAILY NEEDED AVOID TAKING WITH GRAPEFRU IT JUICE. ORAL ACTIVE 08/27/2024 [id number] 5 KRISTIN HARRIS 2023 60 [facility] DIAZEPAM 5MG TAB TAKE ONE TABLET BY MOUTH TWICE DAILY NEEDED AVOID TAKING WITH GRAPEFRU IT JUICE. ORAL DISCONT INUED 05/08/2024 [id number] 4 KRISTIN HARRIS 2023 60 [facility] DIAZEPAM 5MG TAB TAKE ONE TABLET BY MOUTH TWICE DAILY NEEDED AVOID TAKING WITH GRAPEFRU IT JUICE. ORAL DISCONT INUED 03/08/2024 [id number] 4 KRISTIN HARRIS 2023 60 [facility] DIAZEPAM 5MG TAB TAKE ONE TABLET BY MOUTH TWICE DAILY NEEDED AVOID TAKING WITH GRAPEFRU IT JUICE. ORAL DISCONT INUED 01/31/2024 [id number] 4 KRISTIN HARRIS 2023 60 [facility] [place] FLUTICASONE PROPIONATE 50MCG/SPRAY SOLN,NASAL, 16GM INSTILL 1 SPRAY IN NOSTRIL( S) ONCE A DAY (MUST BE USED DIRECTED FOR MINIMUM OF 21 DAYS TO PROVIDE ADEQUATE BENEFITS ) NASAL ACTIVE 08/03/2024 [id number] 4 JERRY BURT 2023 1 [facility] NGHIAISIO [place] LIDOCAINE 5% PATCH APPLY 1 PATCH TO SKIN SITE ONCE A DAY APPLY PATCH AND PRESS FIRMLY FOR 10-15 SECONDS. KEEP ON FOR 12 HOURS THEN REMOVE PATCH FOR 12 HOURS. TRANSD ERMAL ACTIVE 08/03/2024 [id number] 4 JERRY BURT 2023 30 [facility] KALIEIO [place] MAGNESIUM OXIDE 400MG TAB TAKE ONE TABLET BY MOUTH EVERY DAY ORAL 03/03/2024 [id number] JERRY BURT 2023 120 [facility] [place] MARIJUANA USE DIRECTED INHALATI ON PRN INHALA TION ACTIVE BATSHEVA BAZAN N 2017 [facility] MELOXICAM 7.5MG TAB TAKE ONE TABLET BY MOUTH ONCE A DAY ORAL ACTIVE 08/03/2024 [id number] JERRY BURT 2023 30 [facility] KALIEIO [place] ONDANSETRON HCL 8MG TAB TAKE ONE-HALF TABLET BY MOUTH THREE TIMES A DAY NEEDED FOR NAUSEA/V OMITING ORAL 02/17/2024 [id number] 4 JERRY BURT 2023 60 [facility] [place] PRAZOSIN HCL 2MG CAP TAKE ONE CAPSULE BY MOUTH AT BEDTIME MAY CAUSE DIZZINES S OR DROWSINE SS. ORAL ACTIVE 11/06/2024 [id number] 4 KRISTIN HARRIS 2023 90 [facility] [place] PRAZOSIN HCL 2MG CAP TAKE TWO CAPSULES BY MOUTH AT BEDTIME FOR NIGHTMAR ES MAY CAUSE DIZZINES S OR DROWSINE SS. ORAL DISCONT INUED (EDIT) 09/06/2024 [id number] 4 HARRISKRISTIN 2023 180 [facility] PRAZOSIN HCL 2MG CAP TAKE TWO CAPSULES BY MOUTH AT BEDTIME FOR NIGHTMAR ES MAY CAUSE DIZZINES S OR DROWSINE SS. ORAL DISCONT INUED 05/02/2024 [id number] 4 KRISTIN HARRIS ARJUN 2023 180 [facility] SUMATRIPTAN SUCCINATE 50MG TAB TAKE ONE TABLET BY MOUTH ONE-TIME TAKE AT ONSET OF HEADACHE . MAY REPEAT AFTER 2 HOURS. NOT TO EXCEED 2 TABLETS IN 24 HOURS. ORAL ACTIVE 12/04/2024 [id number] 4 JERRY BURT 2023 9 [facility] TAMSULOSIN HCL 0.4MG CAP TAKE ONE CAPSULE BY MOUTH EVERY EVENING KIDNEY STONE APPROXIM ATELY 30 MINUTES AFTER THE SAME MEAL EACH DAY ORAL ACTIVE 01/18/2025 [id number] 4 JERRY BURT 2023 30 [facility] Allergies, Adverse Reactions, Alerts Combined list of allergies from Department of [facility] and [facility] Affairs facilities. It does not include entries that were removed or entered in error. Substance Category Reaction Severity Reaction type Status Date Reported Comments Source SHRIMP Propensity to adverse reactions to food (finding) active 05/02/2010 [facility] Immunizations Combined list of available immunizations from the Department of [facility] and Veterans Affairs facilities. Immunization Series Date Given Administered By Site Reaction Lot Number CVX Code Drug Ingot Stripper Status Comments Source INFLUENZA, UNSPECIFIED FORMULATION 2016 88 complet ed [facility] INFLUENZA, UNSPECIFIED FORMULATION 2009 88 complet ed [facility] TD(ADULT) UNSPECIFIED FORMULATION 2009 139 complet ed [facility] Results Combined list of recent chemistry, hematology [...] August 03, 2023 09:50 AM Reporting Lab: [facility] [place] [address] Performing Lab: [facility] #[address] [facility] URINALYSI S (STL-PB) BILIRUBIN.T OTAL [PRESENCE] IN URINE BY TEST STRIP Negati vemg/d L 08/02 Specimen Type: URINE No comment entered. Ordering Provider: SHADY BURT Report Released Date/Time: August 03, 2023 09:50 AM Reporting Lab: [facility] [place] [address] Performing Lab: [facility] [facility] URINALYSI S (STL-PB) PH OF URINE BY TEST STRIP 6.5 5.0 - 8.0 08/02 Specimen Type: URINE No comment entered. Ordering Provider: SHADY BURT Report Released Date/Time: August 03, 2023 09:50 AM Reporting Lab: [facility] [place] [address] Performing Lab: [facility] [facility] URINALYSI S (STL-PB) APPEARANCE OF URINE Clear 08/02 Specimen Type: URINE No comment entered. Ordering Provider: SHADY BURT Report Released Date/Time: August 03, 2023 09:50 AM Reporting Lab: [facility] [place] [address] Performing Lab: [facility] [facility] URINALYSI S (STL-PB) NITRITE [PRESENCE] IN URINE BY TEST STRIP Negati vemg/d L 08/02 Specimen Type: URINE No comment entered. Ordering Provider: SHADY BURT Report Released Date/Time: August 03, 2023 09:50 AM Reporting Lab: [facility] [place] [address] Performing Lab: [facility] [facility] URINALYSI S (STL-PB) GLUCOSE [MASS/VOLUM E] IN URINE BY TEST STRIP Normal mg/dL 08/02 Specimen Type: URINE No comment entered. Ordering Provider: SHADY BURT Report Released Date/Time: August 03, 2023 09:50 AM Reporting Lab: [facility] [place] [address] Performing Lab: [facility] [facility] URINALYSI S (STL-PB) PROTEIN [MASS/VOLUM E] IN URINE BY TEST STRIP 10 mg/dL - 20 08/02 H Specimen Type: URINE No comment entered. Ordering Provider: SHADY BURT Report Released Date/Time: August 03, 2023 09:50 AM Reporting Lab: [facility] [place] [address] Performing Lab: [facility] [facility] URINALYSI S (STL-PB) URN.UROBILI NOGEN Normal mg/dL 08/02 Specimen Type: URINE No comment entered. Ordering Provider: SHADY BURT Report Released Date/Time: August 03, 2023 09:50 AM Reporting Lab: [facility] [place] [address] Performing Lab: [facility] [facility] URINALYSI S (STL-PB) HEMOGLOBIN [MASS/VOLUM E] IN URINE BY TEST STRIP Tracem g/dL 08/02 Specimen Type: URINE No comment entered. Ordering Provider: SHADY BURT Report Released Date/Time: August 03, 2023 09:50 AM Reporting Lab: [facility] [place] [address] Performing Lab: [facility] [address] [facility] URINALYSI S (STL-PB) KETONES [MASS/VOLUM E] IN URINE BY TEST STRIP Negati vemg/d L 08/02 Specimen Type: URINE No comment entered. Ordering Provider: SHADY BURT Report Released Date/Time: August 03, 2023 09:50 AM Reporting Lab: [facility] [place] [address] Performing Lab: [facility] [facility] URINALYSI S (STL-PB) URN.LEUK.ES T. Negati vemg/d L 08/02 Specimen Type: URINE No comment entered. Ordering Provider: SHADY BURT Report Released Date/Time: August 03, 2023 09:50 AM Reporting Lab: [facility] [place] [address] Performing Lab: [facility] [address] [facility] URINALYSI S (STL-PB) SPECIFIC GRAVITY OF URINE 1.023 1.005 - 1.029 08/02 Specimen Type: URINE No comment entered. Ordering Provider: SHADY BURT Report Released Date/Time: August 03, 2023 09:50 AM Reporting Lab: [facility] [place] [address] Performing Lab: [facility] [facility] TSH (MA-PB) THYROTROPIN [UNITS/VOLU ME] IN SERUM OR PLASMA 2.236 u[IU]/ mL 0.470 - 5.000 08/02 Specimen Type: SERUM No comment entered. Ordering Provider: SHADY BURT Report Released Date/Time: August 03, 2023 09:50 AM Reporting Lab: [facility] [place] [address] Performing Lab: [facility] #[address] HGA1C HEMOGLOBIN A1C/HEMOGLO BIN.TOTAL IN BLOOD 5.6 4.0 - 6.0 08/02 Specimen Type: BLOOD No comment entered. Ordering Provider: SHADY BURT Report Released Date/Time: August 03, 2023 09:50 AM Reporting Lab: [facility] [place] [address] Performing Lab: [facility] [facility] LIPID PANEL (STL) CHOLESTEROL [MASS/VOLUM E] IN SERUM OR PLASMA 259 mg/dL 0 - 200 08/02 H Specimen Type: PLASMA Comment: No hemolysis noted. Ordering Provider: SHADY BURT Report Released Date/Time: August 03, 2023 09:50 AM Reporting Lab: [facility] [place] [address] Performing Lab: [facility] [address] LIPID PANEL (STL) TRIGLYCERID E [MASS/VOLUM E] IN SERUM OR PLASMA 179 mg/dL 0 - 150 08/02 H Specimen Type: PLASMA Comment: No hemolysis noted. Ordering Provider: SHADY BURT Report Released Date/Time: August 03, 2023 09:50 AM Reporting Lab: [facility] [place] [address] Performing Lab: [facility] [facility] LIPID PANEL (STL) CHOLESTEROL IN LDL [MASS/VOLUM E] IN SERUM OR PLASMA BY CALCULATION 188 mg/dL 08/02 Specimen Type: PLASMA Comment: No hemolysis noted. Ordering Provider: SHADY BURT Report Released Date/Time: August 03, 2023 09:50 AM Reporting Lab: [facility] [place] [address] Performing Lab: [facility] LIPID PANEL (STL) CHOLESTEROL IN HDL [MASS/VOLUM E] IN SERUM OR PLASMA 35 mg/dL 40 08/02 L Specimen Type: PLASMA Comment: No hemolysis noted. Ordering Provider: SHADY BURT Report Released Date/Time: August 03, 2023 09:50 AM Reporting Lab: [facility] [place] [address] Performing Lab: [facility] #[address] [facility]ISION COMPREHEN SIVE METABOLIC PANEL CREATININE [MASS/VOLUM E] IN SERUM OR PLASMA 1.03 mg/dL 0.70 - 1.30 08/02 Specimen Type: PLASMA Comment: No hemolysis noted. Ordering Provider: SHADY BURT Report Released Date/Time: August 03, 2023 09:50 AM Reporting Lab: [facility] [place] [address] Performing Lab: [facility] [address] [facility] COMPREHEN SIVE METABOLIC PANEL UREA NITROGEN [MASS/VOLUM E] IN SERUM OR PLASMA 16.9 mg/dL 9.0 - 25.0 08/02 Specimen Type: PLASMA Comment: No hemolysis noted. Ordering Provider: SHADY BURT Report Released Date/Time: August 03, 2023 09:50 AM Reporting Lab: [facility] [place] [address] Performing Lab: [facility] [facility]ISION COMPREHEN SIVE METABOLIC PANEL GLUCOSE [MASS/VOLUM E] IN SERUM OR PLASMA 101 mg/dL 72 - 99 08/02 H Specimen Type: PLASMA Comment: No hemolysis noted. Ordering Provider: SHADY BURT Report Released Date/Time: August 03, 2023 09:50 AM Reporting Lab: [facility] [place] [address] Performing Lab: [facility] [facility] COMPREHEN SIVE METABOLIC PANEL SODIUM [MOLES/VOLU ME] IN SERUM OR PLASMA 141 meq/L 136 - 145 08/02 Specimen Type: PLASMA Comment: No hemolysis noted. Ordering Provider: SHADY BURT Report Released Date/Time: August 03, 2023 09:50 AM Reporting Lab: [facility] [place] [address] Performing Lab: [facility] [address] [facility] COMPREHEN SIVE METABOLIC PANEL POTASSIUM [MOLES/VOLU ME] IN SERUM OR PLASMA 4.2 meq/L 3.5 - 5.0 08/02 Specimen Type: PLASMA Comment: No hemolysis noted. Ordering Provider: SHADY BURT Report Released Date/Time: August 03, 2023 09:50 AM Reporting Lab: [facility] [place] [address] Performing Lab: [facility] [facility] COMPREHEN SIVE METABOLIC PANEL CHLORIDE [MOLES/VOLU ME] IN SERUM OR PLASMA 104 meq/L 98 - 107 08/02 Specimen Type: PLASMA Comment: No hemolysis noted. Ordering Provider: SHADY BURT Report Released Date/Time: August 03, 2023 09:50 AM Reporting Lab: [facility] [place] [address] Performing Lab: [facility] [facility]ISION COMPREHEN SIVE METABOLIC PANEL CARBON DIOXIDE, TOTAL [MOLES/VOLU ME] IN SERUM OR PLASMA 27 meq/L 22 - 31 08/02 Specimen Type: PLASMA Comment: No hemolysis noted. Ordering Provider: SHADY BURT Report Released Date/Time: August 03, 2023 09:50 AM Reporting Lab: [facility] [place] [address] Performing Lab: [facility] [facility] COMPREHEN SIVE METABOLIC PANEL CALCIUM [MASS/VOLUM E] IN SERUM OR PLASMA 9.6 mg/dL 8.4 - 10.4 08/02 Specimen Type: PLASMA Comment: No hemolysis noted. Ordering Provider: SHADY BURT Report Released Date/Time: August 03, 2023 09:50 AM Reporting Lab: [facility] [place] [address] Performing Lab: [facility] DIVISION COMPREHEN SIVE METABOLIC PANEL PROTEIN [MASS/VOLUM E] IN SERUM OR PLASMA 7.5 g/dL 6.0 - 8.6 08/02 Specimen Type: PLASMA Comment: No hemolysis noted. Ordering Provider: SHADY BURT Report Released Date/Time: August 03, 2023 09:50 AM Reporting Lab: [facility] [place] [address] Performing Lab: [facility] DIVISION COMPREHEN SIVE METABOLIC PANEL ALBUMIN [MASS/VOLUM E] IN SERUM OR PLASMA 4.6 g/dL 3.4 - 5.0 08/02 Specimen Type: PLASMA Comment: No hemolysis noted. Ordering Provider: SHADY BURT Report Released Date/Time: August 03, 2023 09:50 AM Reporting Lab: [facility] [place] [address] Performing Lab: [facility] #[address] [facility]ISION COMPREHEN SIVE METABOLIC PANEL BILIRUBIN.T OTAL [MASS/VOLUM E] IN SERUM OR PLASMA 0.9 mg/dL 0.2 - 1.2 08/02 Specimen Type: PLASMA Comment: No hemolysis noted. Ordering Provider: SHADY BURT Report Released Date/Time: August 03, 2023 09:50 AM Reporting Lab: [facility] [place] [address] Performing Lab: [facility] [facility]ISION COMPREHEN SIVE METABOLIC PANEL ALKALINE PHOSPHATASE [ENZYMATIC ACTIVITY/VO LUME] IN SERUM OR PLASMA 92 U/L 40 - 150 08/02 Specimen Type: PLASMA Comment: No hemolysis noted. Ordering Provider: SHADY BURT Report Released Date/Time: August 03, 2023 09:50 AM Reporting Lab: [facility] [place] [address] Performing Lab: [facility] DIVISION COMPREHEN SIVE METABOLIC PANEL ASPARTATE AMINOTRANSF ERASE [ENZYMATIC ACTIVITY/VO LUME] IN SERUM OR PLASMA 35 U/L 5 - 34 08/02 H Specimen Type: PLASMA Comment: No hemolysis noted. Ordering Provider: SHADY BURT Report Released Date/Time: August 03, 2023 09:50 AM Reporting Lab: [facility] [place] [address] Performing Lab: [facility] DIVISION COMPREHEN SIVE METABOLIC PANEL ALANINE AMINOTRANSF ERASE [ENZYMATIC ACTIVITY/VO LUME] IN SERUM OR PLASMA 44 U/L 8 - 40 08/02 H Specimen Type: PLASMA Comment: No hemolysis noted. Ordering Provider: SHADY BURT Report Released Date/Time: August 03, 2023 09:50 AM Reporting Lab: [facility] [place] [address] Performing Lab: [facility] [facility]ISION COMPREHEN SIVE METABOLIC PANEL GLOMERULAR FILTRATION RATE/1.73 SQ M.PREDICTED [VOLUME RATE/AREA] IN SERUM, PLASMA OR BLOOD BY CREATININE- BASED FORMULA (CKD-EPI 2020) 97.76 60 08/02 Specimen Type: PLASMA Comment: No hemolysis noted. Ordering Provider: SHADY BURT Report Released Date/Time: August 03, 2023 09:50 AM Reporting Lab: [facility] [place] [address] Performing Lab: [facility] DIVISION CBC LEUKOCYTES [#/VOLUME] IN BLOOD BY AUTOMATED COUNT 10.0 10*3/u L 3.6 - 11.2 08/02 Specimen Type: BLOOD No comment entered. Ordering Provider: SHADY BURT Report Released Date/Time: August 03, 2023 09:50 AM Reporting Lab: [facility] [place] [address] Performing Lab: [facility] [id number] DIVISION CBC ERYTHROCYTE S [#/VOLUME] IN BLOOD BY AUTOMATED COUNT 5.07 10*6/u L 4.10 - 5.70 08/02 Specimen Type: BLOOD No comment entered. Ordering Provider: SHADY BURT Report Released Date/Time: August 03, 2023 09:50 AM Reporting Lab: [facility] [place] [address] Performing Lab: [facility] [address] CBC HEMOGLOBIN [MASS/VOLUM E] IN BLOOD 14.9 g/dL 13.1 - 16.8 08/02 Specimen Type: BLOOD No comment entered. Ordering Provider: SHADY BURT Report Released Date/Time: August 03, 2023 09:50 AM Reporting Lab: [facility] [place] [address] Performing Lab: [facility] CBC HEMATOCRIT [VOLUME FRACTION] OF BLOOD 43.8 38.2 - 48.4 08/02 Specimen Type: BLOOD No comment entered. Ordering Provider: SHADY BURT Report Released Date/Time: August 03, 2023 09:50 AM Reporting Lab: [facility] [place] [address] Performing Lab: [facility] CBC MCV [ENTITIC VOLUME] BY AUTOMATED COUNT 86.4 fL 80.0 - 100.0 08/02 Specimen Type: BLOOD No comment entered. Ordering Provider: SHADY BURT Report Released Date/Time: August 03, 2023 09:50 AM Reporting Lab: [facility] [place] [address] Performing Lab: [facility] [id number] DIVISION CBC MCH [ENTITIC MASS] BY AUTOMATED COUNT 29.4 pg 27.0 - 34.0 08/02 Specimen Type: BLOOD No comment entered. Ordering Provider: SHADY BURT Report Released Date/Time: August 03, 2023 09:50 AM Reporting Lab: [facility] [place] [address] Performing Lab: [facility] DIVISION CBC MCHC [MASS/VOLUM E] BY AUTOMATED COUNT 34.0 g/dL 33.0 - 36.0 08/02 Specimen Type: BLOOD No comment entered. Ordering Provider: SHADY BURT Report Released Date/Time: August 03, 2023 09:50 AM Reporting Lab: [facility] [place] [address] Performing Lab: [facility] [facility] DIVISION CBC PLATELETS [#/VOLUME] IN BLOOD BY AUTOMATED COUNT 218 10*3/u L 150 - 400 08/02 Specimen Type: BLOOD No comment entered. Ordering Provider: SHADY BURT Report Released Date/Time: August 03, 2023 09:50 AM Reporting Lab: [facility] [place] [address] Performing Lab: [facility] DIVISION CBC PLATELET MEAN VOLUME [ENTITIC VOLUME] IN BLOOD BY AUTOMATED COUNT 10.6 fL 7.5 - 11.2 08/02 Specimen Type: BLOOD No comment entered. Ordering Provider: SHADY BURT Report Released Date/Time: August 03, 2023 09:50 AM Reporting Lab: [facility] [place] [id number] Performing Lab: [facility] [id number] DIVISION CBC ERYTHROCYTE DISTRIBUTIO N WIDTH [RATIO] BY AUTOMATED COUNT 12.9 11.8 - 15.1 08/02 Specimen Type: BLOOD No comment entered. Ordering Provider: SHADY BURT Report Released Date/Time: August 03, 2023 09:50 AM Reporting Lab: [facility] [place] [address] Performing Lab: [facility] DIVISION CBC LYMPHOCYTES /100 LEUKOCYTES IN BLOOD BY AUTOMATED COUNT 15 08/02 Specimen Type: BLOOD No comment entered. Ordering Provider: SHADY BURT Report Released Date/Time: August 03, 2023 09:50 AM Reporting Lab: [facility] [place] [address] Performing Lab: [facility] DIVISION CBC MONOCYTES/1 00 LEUKOCYTES IN BLOOD BY AUTOMATED COUNT 5 08/02 Specimen Type: BLOOD No comment entered. Ordering Provider: SHADY BURT Report Released Date/Time: August 03, 2023 09:50 AM Reporting Lab: [facility] [place] [address] Performing Lab: [facility] DIVISION CBC NEUTROPHILS /100 LEUKOCYTES IN BLOOD BY AUTOMATED COUNT 79 08/02 Specimen Type: BLOOD No comment entered. Ordering Provider: SHADY BURT Report Released Date/Time: August 03, 2023 09:50 AM Reporting Lab: [facility] [place] [address] Performing Lab: [facility] [place] [address] DIVISION CBC EOSINOPHILS /100 LEUKOCYTES IN BLOOD BY AUTOMATED COUNT 0 08/02 Specimen Type: BLOOD No comment entered. Ordering Provider: SHADY BURT Report Released Date/Time: August 03, 2023 09:50 AM Reporting Lab: [facility] [place] [address] Performing Lab: [facility] DIVISION CBC BASOPHILS/1 00 LEUKOCYTES IN BLOOD BY AUTOMATED COUNT 0 08/02 Specimen Type: BLOOD No comment entered. Ordering Provider: SHADY BURT Report Released Date/Time: August 03, 2023 09:50 AM Reporting Lab: [facility] [place] [address] Performing Lab: [facility] DIVISION CBC LYMPHOCYTES [#/VOLUME] IN BLOOD BY AUTOMATED COUNT 1.50 10*3/u L 0.77 - 4.50 08/02 Specimen Type: BLOOD No comment entered. Ordering Provider: SHADY BURT Report Released Date/Time: August 03, 2023 09:50 AM Reporting Lab: [facility] [place] [address] Performing Lab: [facility] DIVISION CBC MONOCYTES [#/VOLUME] IN BLOOD BY AUTOMATED COUNT 0.49 10*3/u L 0.19 - 0.80 08/02 Specimen Type: BLOOD No comment entered. Ordering Provider: SHADY BURT Report Released Date/Time: August 03, 2023 09:50 AM Reporting Lab: [facility] [place] [address] Performing Lab: [facility] [place] [id number] CBC NEUTROPHILS [#/VOLUME] IN BLOOD BY AUTOMATED COUNT 7.94 10*3/u L 2.10 - 8.00 08/02 Specimen Type: BLOOD No comment entered. Ordering Provider: SHADY BURT Report Released Date/Time: August 03, 2023 09:50 AM Reporting Lab: [facility] [place] [address] Performing Lab: [facility] #[address] CBC EOSINOPHILS [#/VOLUME] IN BLOOD BY AUTOMATED COUNT 0.03 10*3/u L 0.00 - 0.60 08/02 Specimen Type: BLOOD No comment entered. Ordering Provider: SHADY BURT Report Released Date/Time: August 03, 2023 09:50 AM Reporting Lab: [facility] [place] [address] Performing Lab: [facility] CBC BASOPHILS [#/VOLUME] IN BLOOD BY AUTOMATED COUNT 0.03 10*3/u L 0.00 - 0.20 08/02 Specimen Type: BLOOD No comment entered. Ordering Provider: SHADY BURT Report Released Date/Time: August 03, 2023 09:50 AM Reporting Lab: [facility] [place] [address] Performing Lab: [facility] DRUGS OF ABUSE (NEW) (STL) ETHANOL [MASS/VOLUM E] IN URINE Negati vemg/d L 0 - 20 03/12 Specimen Type: URINE Comment: The cut-off value for this test was laboratory developed and its performance characteris tics confirmed by the [facility] laboratory thru method comparison with reference laboratory and medication chart review. The laboratory is regulated under CLIA as qualified to perform high-comple xity testing. This test is used for clinical purposes in conjunction with other laboratory tests. Ordering Provider: CHRISTOPHER HARRIS Report Released Date/Time: Feb 20, 2023 12:09 PM Reporting Lab: [facility] [address] Performing Lab: [facility] [id number] [place] [address] DRUGS OF ABUSE (NEW) (STL) AMPHETAMINE [PRESENCE] IN URINE BY SCREEN METHOD Negati veng/m L 03/12 Specimen Type: URINE Comment: The cut-off value for this test was laboratory developed and its performance characteris tics confirmed by the [facility] laboratory thru method comparison with reference laboratory and medication chart review. The laboratory is regulated under CLIA as qualified to perform high-comple xity testing. This test is used for clinical purposes in conjunction with other laboratory tests. Ordering Provider: CHRISTOPHER HARRIS Report Released Date/Time: Feb 20, 2023 12:09 PM Reporting Lab: [facility] [address] Performing Lab: [facility] [id number] [place] [address] DRUGS OF ABUSE (NEW) (STL) BENZOYLECGO NINE [PRESENCE] IN URINE Negati veng/m L 03/12 Specimen Type: URINE Comment: The cut-off value for this test was laboratory developed and its performance characteris tics confirmed by the [facility] laboratory thru method comparison with reference laboratory and medication chart review. The laboratory is regulated under CLIA as qualified to perform high-comple xity testing. This test is used for clinical purposes in conjunction with other laboratory tests. Ordering Provider: CHRISTOPHER HARRIS Report Released Date/Time: Feb 20, 2023 12:09 PM Reporting Lab: [facility] [address] Performing Lab: [facility] [id number] [place] [address] DRUGS OF ABUSE (NEW) (STL) CANNABINOID S [PRESENCE] IN URINE BY SCREEN METHOD 91-POS ng/mL 03/12 Specimen Type: URINE Comment: The cut-off value for this test was laboratory developed and its performance characteris tics confirmed by the [facility] laboratory thru method comparison with reference laboratory and medication chart review. The laboratory is regulated under CLIA as qualified to perform high-comple xity testing. This test is used for clinical purposes in conjunction with other laboratory tests. Ordering Provider: CHRISTOPHER HARRIS Report Released Date/Time: Feb 20, 2023 12:09 PM Reporting Lab: [facility] [place] [address] Performing Lab: [facility] [address] DRUGS OF ABUSE (NEW) (STL) OPIATES [PRESENCE] IN URINE BY SCREEN METHOD Negati veng/m L 03/12 Specimen Type: URINE Comment: The cut-off value for this test was laboratory developed and its performance characteris tics confirmed by the [facility] laboratory thru method comparison with reference laboratory and medication chart review. The laboratory is regulated under CLIA as qualified to perform high-comple xity testing. This test is used for clinical purposes in conjunction with other laboratory tests. Ordering Provider: CHRISTOPHER HARRIS Report Released Date/Time: Feb 20, 2023 12:09 PM Reporting Lab: [facility] [place] [address] Performing Lab: [facility] DRUGS OF ABUSE (NEW) (STL) CREATININE [MASS/VOLUM E] IN URINE 197.6 mg/dL 63.0 - 166.0 03/12 H Specimen Type: URINE Comment: The cut-off value for this test was laboratory developed and its performance characteris tics confirmed by the [facility] laboratory thru method comparison with reference laboratory and medication chart review. The laboratory is regulated under CLIA as qualified to perform high-comple xity testing. This test is used for clinical purposes in conjunction with other laboratory tests. Ordering Provider: CHRISTOPHER HARRIS Report Released Date/Time: Feb 20, 2023 12:09 PM Reporting Lab: [facility] [address] Performing Lab: [facility] METHADONE PANEL (STL) ETHANOL [MASS/VOLUM E] IN URINE Negati vemg/d L 0 - 20 03/12 Specimen Type: URINE Comment: The cut-off value for this test was laboratory developed and its performance characteris tics confirmed by the [facility] laboratory thru method comparison with reference laboratory and medication chart review. The laboratory is regulated under CLIA as qualified to perform high-comple xity testing. This test is used for clinical purposes in conjunction with other laboratory tests. Ordering Provider: CHRISTOPHER HARRIS Report Released Date/Time: Feb 20, 2023 12:09 PM Reporting Lab: [facility] [address] Performing Lab: [facility] METHADONE PANEL (STL) AMPHETAMINE [PRESENCE] IN URINE BY SCREEN METHOD Negati veng/m L 03/12 Specimen Type: URINE Comment: The cut-off value for this test was laboratory developed and its performance characteris tics confirmed by the [facility] laboratory thru method comparison with reference laboratory and medication chart review. The laboratory is regulated under CLIA as qualified to perform high-comple xity testing. This test is used for clinical purposes in conjunction with other laboratory tests. Ordering Provider: CHRISTOPHER HARRIS Report Released Date/Time: Feb 20, 2023 12:09 PM Reporting Lab: [facility] [place] [address] Performing Lab: [facility] METHADONE PANEL (STL) BENZOYLECGO NINE [PRESENCE] IN URINE Negati veng/m L 03/12 Specimen Type: URINE Comment: The cut-off value for this test was laboratory developed and its performance characteris tics confirmed by the [facility] laboratory thru method comparison with reference laboratory and medication chart review. The laboratory is regulated under CLIA as qualified to perform high-comple xity testing. This test is used for clinical purposes in conjunction with other laboratory tests. Ordering Provider: CHRISTOPHER HARRIS Report Released Date/Time: Feb 20, 2023 12:09 PM Reporting Lab: [facility] [place] [address] Performing Lab: [facility] METHADONE PANEL (STL) BENZODIAZEP MARYBETH [PRESENCE] IN URINE BY SCREEN METHOD Negati veng/m L 03/12 Specimen Type: URINE Comment: The cut-off value for this test was laboratory developed and its performance characteris tics confirmed by the [facility] laboratory thru method comparison with reference laboratory and medication chart review. The laboratory is regulated under CLIA as qualified to perform high-comple xity testing. This test is used for clinical purposes in conjunction with other laboratory tests. Ordering Provider: CHRISTOPHER HARRIS Report Released Date/Time: Feb 20, 2023 12:09 PM Reporting Lab: [facility] [place] [address] Performing Lab: [facility] METHADONE PANEL (STL) CANNABINOID S [PRESENCE] IN URINE BY SCREEN METHOD 91-POS ng/mL 03/12 Specimen Type: URINE Comment: The cut-off value for this test was laboratory developed and its performance characteris tics confirmed by the [facility] laboratory thru method comparison with reference laboratory and medication chart review. The laboratory is regulated under CLIA as qualified to perform high-comple xity testing. This test is used for clinical purposes in conjunction with other laboratory tests. Ordering Provider: CHRISTOPHER HARRIS Report Released Date/Time: Feb 20, 2023 12:09 PM Reporting Lab: [facility] [place] [address] Performing Lab: [facility] [address] [facility] METHADONE PANEL (STL) METHADONE [PRESENCE] IN URINE Negati veng/m L 03/12 Specimen Type: URINE Comment: The cut-off value for this test was laboratory developed and its performance characteris tics confirmed by the [facility] laboratory thru method comparison with reference laboratory and medication chart review. The laboratory is regulated under CLIA as qualified to perform high-comple xity testing. This test is used for clinical purposes in conjunction with other laboratory tests. Ordering Provider: CHRISTOPHER HARRIS Report Released Date/Time: Feb 20, 2023 12:09 PM Reporting Lab: [facility] [address] Performing Lab: [facility] [address] [facility] METHADONE PANEL (STL) OPIATES [PRESENCE] IN URINE BY SCREEN METHOD Negati veng/m L 03/12 Specimen Type: URINE Comment: The cut-off value for this test was laboratory developed and its performance characteris tics confirmed by the [facility] laboratory thru method comparison with reference laboratory and medication chart review. The laboratory is regulated under CLIA as qualified to perform high-comple xity testing. This test is used for clinical purposes in conjunction with other laboratory tests. Ordering Provider: CHRISTOPHER HARRIS Report Released Date/Time: Feb 20, 2023 12:09 PM Reporting Lab: [facility] [address] Performing Lab: [facility] [address] [facility] METHADONE PANEL (STL) CREATININE [MASS/VOLUM E] IN URINE 197.6 mg/dL 63.0 - 166.0 03/12 H Specimen Type: URINE Comment: The cut-off value for this test was laboratory developed and its performance characteris tics confirmed by the [facility] laboratory thru method comparison with reference laboratory and medication chart review. The laboratory is regulated under CLIA as qualified to perform high-comple xity testing. This test is used for clinical purposes in conjunction with other laboratory tests. Ordering Provider: CHRISTOPHER HARRIS Report Released Date/Time: Feb 20, 2023 12:09 PM Reporting Lab: [facility] [address] Performing Lab: [facility]1 [place] [address] [place] [address] METHADONE PANEL (STL) OXYCODONE CUTOFF [MASS/VOLUM E] IN URINE FOR SCREEN METHOD Negati veng/m L 03/12 Specimen Type: URINE Comment: The cut-off value for this test was laboratory developed and its performance characteris tics confirmed by the [facility] laboratory thru method comparison with reference laboratory and medication chart review. The laboratory is regulated under CLIA as qualified to perform high-comple xity testing. This test is used for clinical purposes in conjunction with other laboratory tests. Ordering Provider: CHRISTOPHER HARRIS Report Released Date/Time: Feb 20, 2023 12:09 PM Reporting Lab: [facility] [place] [address] Performing Lab: [facility] METHADONE PANEL (STL) BUPRENORPHI NE [PRESENCE] IN URINE Negati veng/m L 03/12 Specimen Type: URINE Comment: The cut-off value for this test was laboratory developed and its performance characteris tics confirmed by the [facility] laboratory thru method comparison with reference laboratory and medication chart review. The laboratory is regulated under CLIA as qualified to perform high-comple xity testing. This test is used for clinical purposes in conjunction with other laboratory tests. Ordering Provider: CHRISTOPHER HARRIS Report Released Date/Time: Feb 20, 2023 12:09 PM Reporting Lab: [facility] [place] [address] Performing Lab: [facility] METHADONE PANEL (STL) FENTANYL [PRESENCE] IN URINE Negati veng/m L 03/12 Specimen Type: URINE Comment: The cut-off value for this test was laboratory developed and its performance characteris tics confirmed by the [facility] laboratory thru method comparison with reference laboratory and medication chart review. The laboratory is regulated under CLIA as qualified to perform high-comple xity testing. This test is used for clinical purposes in conjunction with other laboratory tests. Ordering Provider: CHRISTOPHER HARRIS Report Released Date/Time: Feb 20, 2023 12:09 PM Reporting Lab: [facility] [address] Performing Lab: [facility] [address] [facility] Vital Signs Combined list of inpatient and outpatient Vital Signs from Department of Defense and Veterans Affairs, ranging from 12 months to all on record, depending upon the facility. Vital Sign Value Date Comments Source SYSTOLIC BLOOD PRESSURE 139 08/03/2023 08:57:53 [facility] DIASTOLIC BLOOD PRESSURE 89 08/03/2023 08:57:53 [facility] PULSE OXIMETRY 100 08/03/2023 08:57:53 [facility] WEIGHT 184 08/03/2023 08:57:53 [facility] BMI 29 kg/m2 08/03/2023 08:57:53 [facility] PAIN 6 08/03/2023 08:57:53 [facility] HEIGHT 67 08/03/2023 08:57:53 [facility] TEMPERATURE 98.6 08/03/2023 08:57:53 [facility] PULSE 92 08/03/2023 08:57:53 [facility] RESPIRATION 20 08/03/2023 08:57:53 [facility] Encounters Combined list of: 1) Encounters from Department of Veterans Affairs facilities going backup to the last 18 months, not all [place] inpatient encounters are included; 2) Encounters from the Department of Defense facilities going backup to 280 months. Location Location Details Encounter Type Encounter Number Reason For Visit Attending Provider ADM Date DC Date Status Disposition Source [facility] [place] [id number] Diagnos is: ICD-10- CM Z63.0 Problem s in relatio nship with spouse or partner MANDY CASEY Pj 12/26 [facility] Outpatient Encounter [id number] BHARTI HARRIS IEL 01/01 [facility] [id number] Diagnos is: ICD-10- CM Z63.0 Problem s in relatio nship with spouse or partner SALINA,DA VID W 01/02 [facility] [place] [id number] Diagnos is: ICD-10- CM Z63.0 Problem s in relatio nship with spouse or partner MANDY CASEY M 01/09 [facility] [place] [id number] Diagnos is: ICD-10- CM Z63.0 Problem s in relatio nship with spouse or partner SALINA,DA VID W 01/23 [facility] OFFICE O/P EST MOD 30-39 MIN [id number] Diagnos is: ICD-10- CM F43.10 Post-tr aumatic stress disorde r, unspeci fied BHARTI HARRIS IEL 01/24 [facility] Outpatient Encounter [id number] 01/29 [facility] [id number] Diagnos is: ICD-10- CM Z63.0 Problem s in relatio nship with spouse or partner KRISTIN DOWNING W 02/06 [facility] [place]Y [id number] Diagnos is: ICD-10- CM Z63.0 Problem s in relatio nship with spouse or partner MANDY CASEY Aguila M 02/20 [facility] Outpatient Encounter [id number] 02/20 [facility] [place] [id number] Diagnos is: ICD-10- CM Z63.0 Problem s in relatio nship with spouse or partner MANDY CASEY Aguila M 02/27 [facility] [place] [id number] Diagnos is: ICD-10- CM Z63.0 Problem s in relatio nship with spouse or partner MANDY CASEY Aguila M 03/06 [facility] OFFICE O/P EST MOD 30-39 MIN [id number] Diagnos is: ICD-10- CM F43.10 Post-tr aumatic stress disorde r, unspeci fied BHARTI HARRIS IEHubert 03/12 [facility] [id number] Diagnos is: ICD-10- CM Z63.0 Problem s in relatio nship with spouse or partner MANDY CASEY Aguila M 03/13 [facility] [id number] Diagnos is: ICD-10- CM Z63.0 Problem s in relatio nship with spouse or partner MANDY CASEY M 03[facility] [place] [id number] Diagnos is: ICD-10- CM Z63.0 Problem s in relatio nship with spouse or partner MANDY CASEY N M 04/10 [facility] [place] [id number] Diagnos is: ICD-10- CM Z63.0 Problem s in relatio nship with spouse or partner MANDY CASEY N M 04/17 [facility] [place] [id number] Diagnos is: ICD-10- CM Z63.0 Problem s in relatio nship with spouse or partner MANDY CASEY N M 04/24 [facility] OFFICE O/P EST MOD 30 MIN [id number] Diagnos is: ICD-10- CM F43.10 Post-tr aumatic stress disorde r, unspeci BHARTI Huang IEHubert 05/02 [facility] [place] [id number] Diagnos is: ICD-10- CM Z63.0 Problem s in relatio nship with spouse or partner MANDY CASEY N M 05/08 [facility] [id number] Diagnos is: ICD-10- CM Z63.0 Problem s in relatio nship with spouse or partner MANDY CASEY M 05/15 [facility] N [facility] PSYCHOTHER APY [id number] Diagnos is: ICD-10- CM Z63.0 Problem s in relatio nship with spouse or partner MANDY CASEY Aguila M 05/22 [facility] [id number] Diagnos is: ICD-10- CM Z63.0 Problem s in relatio nship with spouse or partner MANDY CASEY Aguila M 05/29 [facility] [facility] PSYCHOTHER APY [id number] Diagnos is: ICD-10- CM Z63.0 Problem s in relatio nship with spouse or partner [facility]ANDY CASEY M 06[facility]04 [facility] Out[facility] Encounter [id number] 06/04 [facility] PSYTX W PT 60 MINUTES [id number] Diagnos is: ICD-10- CM Z63.0 Problem s in relatio nship with spouse or partner MANDY CASEY Aguila M 06/04 [facility] CASE MANAGEMENT [id number] WILBURN 06/11 [facility] TARGETED CASE MANAGEMENT [id number] JENNY SHELL 06/11 [facility] Outpatient Encounter [id number] 06/12 [facility] Outpatient Encounter [id number] COLBY CAMPO A 07/06 [facility] CASE MANAGEMENT [id number] JENNY SHELL Hoda K 07/08 [facility] Outpatient Encounter [id number] 07/11 [facility] Outpatient Encounter [id number] 07/30 [facility] Outpatient Encounter [id number] DEANDRA CASEY JANY A 07/30 [facility] OFFICE O/P EST MOD 30 MIN [id number] Diagnos is: ICD-10- CM F43.10 Post-tr aumatic stress disorde r, unspeci BHARTI Huang 07/30 [facility] OFFICE O/P EST MOD 30 MIN [id number] Diagnos is: ICD-10- CM Z77.29 Contact with and exposur e to other hazardo us substan chay JACOBO BURT 08/02 [facility] Outpatient Encounter [id number] 08/13 [facility] OFFICE O/P EST MOD 30 MIN [id number] Diagnos is: ICD-10- CM F43.10 Post-tr aumatic stress disorde r, unspeci BHARTI Huang IEL 09/05 [facility] HC PRO PHONE CALL 11-20 MIN [id number] Diagnos is: ICD-10- CM R45.89 Other symptom s and signs involvi ng emotion al state SOHAIL,AARO N S 09/06 [facility] HC PRO PHONE CALL 5-10 MIN [id number] Diagnos is: ICD-10- CM R45.89 Other symptom s and signs involvi ng emotion al state SOHAIL,AARO N S 10/28 [facility] OFFICE O/P EST MOD 30 MIN [id number] Diagnos is: ICD-10- CM F43.10 Post-tr aumatic stress disorde r, unspeci BHARTI Huang IEL 11/05 [facility] Outpatient Encounter [id number] 11/06 [facility] OFFICE O/P EST MOD 30 MIN [id number] Diagnos is: ICD-10- CM 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, 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, 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 JACOBO BURT 12/03 [facility] En[facility] [id number] 01/08 [facility] Outpatient Encounter [id number] 01/15 [facility] Encounter [id number] 01/16 [facility] HC PRO PHONE CALL 5-10 MIN [id number] Diagnos is: ICD-10- CM R45.89 Other symptom s and signs involvi ng emotion al state FRANK SAUCEDA N S 01/23 [facility] OFFICE O/P EST MOD 30 MIN [id number] Diagnos is: ICD-10- CM F15.11 Other stimula nt abuse, in remissi on BHARTI HARRIS IEL 02/24 [facility] Outpatient Encounter [id number] 03/08 [facility] Social History Combined list of available smoking, tobacco, and other social history from Department of Defense and Veterans Affairs facilities. Social History Type Response Date Comment Sourc e Tobacco smoking status NHIS MT-TOBACCO USER EVERY DAY 07/31/2023 [facility] of [facility] 30 MIN WAKEUP 07/31/2023 [facility] History of tobacco use MT-TOBACCO USER E VERY DAY 08/03/2020 [facility] of [facility] CO UNSEL NO 11/28/2018 [facility] History of tobacco use PREVIOUS SMOKER 10/25/2015 [facility] History of tobacco use CURRENT TOBACCO USER 01/28/2014 [facility] History of tobacco use CURRENT TOBACCO USER 10/17/2012 [facility] History of tobacco use TOBACCO OFFERRED PT MEDS (PROVIDER) 04/24/2011 [facility] History of tobacco use CURRENT TOBACCO USER 04/23/2011 [facility] History of tobacco use CURRENT TOBACCO USER 05/03/2010 [facility] History of tobacco use CURRENT TOBACCO USER 04/29/2010 [facility] Plan of Care List of future care activities from Department of [facility] Affairs facilities. Additional future care activities may be listed in the Assessment and Plan section. Date/Time Care Activity Care Activity Detail Facili ty 09/09/2024 AMBULATORY - PSYCHIATRY AMBULATORY - PSYC HIATRY [facility]
--- OUTSIDE RECORDS SUMMARY | 2024-06-23 18:10 | XMS_ITS | Encounter Summary ---
Author Name [facility] [facility] [place] [facility] [place] Address [address] [place] [address] Care Team Providers Care Bacteriology Technician Name Role Phone KELLEE BURT Primary Care Provider Unavailabl e Selected Encounter This section includes the information on record at [place] for the Encounter. Date/Time Encounter Type Encounter Description Reason Pro vider Source Jan 09, 2024 09:31 AM Outpatient Encounter [facility] Encounter Template Text not used by [place] Plan of Treatment: Future Appointments (+ 6 months) and Future Tests (+/- 45 days) The Plan of Treatment section includes future care activities for the patient from all [place] treatmentfacilities. This section includes future appointments and future orders which are active, pending or scheduled. Future Appointments This section includes appointments that were scheduled to occur 6 months from the date of the Encounter, up to a maximum of 20 appointments. The data comes from all [place] treatment facilities. Appointment Date/Time Appointment Type Appointme nt Facility Name Feb 25, 2024 08:30 AM AMBULATORY - PSYCHIATRY [facility] Social History: Smoking Status [...] 2023 10:12 AM VA-TOBACCO USER EVERY DAY [facility] Tobacco Use History This section includes a history of the smoking, or tobacco-related health factors, that were collected on or before the date of the Encounter. The data comes from the [place] facility where the Encounter took place. 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 Date/Time Encounter Note(s) Provider Source Jan 07, 2024 09:31 AM NONVA NOTE: LOCAL TITLE: [facility] PRESENTING CARE COORD PLAN STANDARD TITLE: NONVA NOTE DATE OF NOTE: JAN 07, 2024@09:31 ENTRY DATE: JAN 09, 2024@09:31:50 AUTHOR: SALOME MOE EXP COSIGNER: URGENCY: STATUS: COMPLETED Emergency Notification Intake Date Presenting to the Facility: Dec Method of Contact: Notified from [facility] worklist Notification ID: [id number] [facility] Referral #: [id number] Clinical Review [facility] Name: [facility]: [facility] Address: [address] [place] [address] City: [place] State: [place] Zip Code: [address] [facility] Facility Point of Contact: Name: Chief complaint: R10.9 Primary Diagnosis: Disposition Discharged Date of discharge: Dec Discharge to home [place] Left Against Medical Advice Records r/t this episode of care sent to [facility] for scanning. 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
--- OUTSIDE RECORDS SUMMARY | 2024-06-23 18:10 | XMS_ITS | Referral Summary ---
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
--- OUTSIDE RECORDS SUMMARY | 2024-06-23 18:10 | XMS_ITS | Encounter Summary ---
Author Name [facility] [place] [facility] [place] Address [address] [place] [address] Care Team Providers Care Slate Roofer Name Role Phone KELLEE BURT Primary Care Provider Unavailabl e Selected Encounter This section includes the information on record at [place] for the Encounter. 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 Date/Time Primary/Secondary Diagnosis Diagnosis Name Provider Source Feb 25, 2024 08:57 AM PRIMARY Other stimulant abuse, in remission BURAK HARRIS [facility] Feb 25, 2024 08:57 AM SECONDARY Anxiety disorder, unspecified BURAK HARRIS [facility] Social History: Smoking Status (Most current) and Tobacco Use (All prior to encounter date) This section includes the most current, and the historical, smoking and tobacco- related health factors from the [place] facility where the Encounter took place. Current Smoking Status This section includes the most current smoking, or tobacco-related health factor, from the [place] facility where the Encounter took place. Date/Time Current Smoking Status Comment Hannah puentes Apr 24, 2011 03:48 PM TOBACCO OFFERRED P T MEDS (PROVIDER) [facility] Tobacco Use History This section includes a history of the smoking, or tobacco-related health factors, that were collected on or before the date of the Encounter. The data comes from the [place] facility where the Encounter took place. Date/Time Smoking Status/Tobacco Use Comment F acility Apr 24, 2011 03:[address] [facility] Apr 24, 2011 03:48 PM TOBACCO OFFERRED P T MEDS (PROVIDER) [facility] Apr 23, 2011 05:34 PM CURRENT TOBACCO USER [facility] May 03, 2010 12:24 PM CURRENT TOBACCO USER [facility] Apr 29, 2010 10:28 PM CURRENT TOBACCO USER [facility] Encounter Notes: All associated encounter notes This section contains the clinical notes associated to the Encounter. Date/Time Encounter Note(s) Provider Source Feb 25, 2024 08:51 AM PSYCHIATRY NOTE: [facility]AL T[facility] T[facility]: PSYCHIATRY NOTE DATE OF NOTE: FEB 25, 2024@08:51 ENTRY DATE: FEB 25, 2024@08:51:04 AUTHOR: BURAK HARRIS COSIGNER: URGENCY: STATUS: COMPLETED [facility] - MEDICATION MANAGEMENT Name..................NERY SMART [facility] Age...................33 Sex...................MALE SSN................... Today's Date..........FEB 25, 2024 [...] LIST: 1) Posttraumatic stress disorder (SNOMED CT 26751841) 2) Major Depressive Disorder, Recurrent 3) Suicidal Ideation 4) Polysubstance dependence 5) Adjustment disorder with depressed mood (SNOMED CT 53995879) 6) Hyperlipidemia * (ICD-9-CM 272.4) 7) Generalized [...] to this issue, also increase in irritability. also reports concerns about possibly having ADHD [...] Psychiatrist () Signed: 02/25/2024 08:57 BURAK HARRIS [facility]
--- OUTSIDE RECORDS SUMMARY | 2024-06-23 18:10 | XMS_ITS | Encounter Summary ---
Author Name [facility] [place] [facility] [place] [facility] [place] Address [address] [place] [address] Care Team Providers Care Rodent Control Worker Name Role Phone KELLEE BURT Primary Care Provider Unavailabl e Selected Encounter This section includes the information on record at [place] for the Encounter. Date/Time Encounter Type Encounter Description Reason Pro vider Source Jul 09, 2023 02:45 PM CASE MANAGEMENT ADMIN PAT ACTIVTIES (MASNONCT) GEOVANI SHELL Deidra Encounter Template Text not used by [place] Plan of Treatment: Future Appointments (+ 6 months) and Future Tests (+/- 45 days) The Plan of Treatment section includes future care activities for the patient from all [place] treatmentfacilities. This section includes future appointments and future orders which are active, pending or scheduled. Future Appointments This section includes appointments that were scheduled to occur 6 months from the date of the Encounter, up to a maximum of 20 appointments. The data comes from all [place] treatment facilities. Appointment Date/Time Appointment Type Appointme nt Facility Name Jul 31, 2023 11:30 AM AMBULATORY - PSYCHIATRY [facility] August 03, 2023 09:00 AM AMBULATORY - MEDICINE [facility] Sep 06, 2023 01:30 PM AMBULATORY - PSYCHIATRY [facility] Oct 03, 2023 08:30 AM AMBULATORY - MEDICINE [facility] Nov 06, 2023 01:30 PM AMBULATORY - PSYCHIATRY [facility] Dec 04, 2023 03:30 PM AMBULATORY - MEDICINE [facility] Lab Results: +/- 30 days of [...] Range Comment August 03, 2023 10:17 AM [facility] URINALYSIS (STL-PB) Specimen Type: URINE No comment entered. Ordering Provider: BRIAN BURT Report Released Date/Time: August 03, 2023 09:50 AM Reporting Lab: [facility] [address] [place] [address] Performing Lab: [facility] [place] [address] URINE COLOR Light-Yellow Yellow U.BILIRUBIN Negative mg/dL Negative U.PH 6.5 5.0-8.0 APPEARANCE Clear Clear U.NITRITE Negative mg/dL Negative URN.GLUCOSE Normal mg/dL Negative URN.PROTEIN 10 mg/dL H Negative-20 URN.UROBILINOGEN Normal mg/dL Normal URN.BLOOD Trace mg/dL Negative -Tr [place] URN.KETONES Negative mg/dL Negative-Tr [place] URN.LEUK.EST. Negative mg/dL Negative-Tr [place] URN.SPECIFIC GRAVITY 1.023 1.005-1.029 August 03, 2023 10:12 AM [facility] TSH (MA-PB) Specimen Type: SERUM No comment entered. Ordering Provider: BRIAN BURT Report Released Date/Time: August 03, 2023 09:50 AM Reporting Lab: [facility] [place] [address] Performing Lab: [facility] [place] [address] TSH 2.236 u[IU]/mL 0.470-5.000 August 03, 2023 10:12 AM [facility] HGA1C Specimen Type: BLOOD No comment entered. Ordering Provider: BRIAN BURT Report Released Date/Time: August 03, 2023 09:50 AM Reporting Lab: [facility] [place] [address] Performing Lab: [facility] [place] [address] HGA1C 5.6 4.0-6.0 August 03, 2023 10:12 AM [facility] LIPID PANEL (STL) Specimen Type: PLASMA Comment: No hemolysis noted. Ordering Provider: BRIAN BURT EN Report Released Date/Time: August 03, 2023 09:50 AM Reporting Lab: [facility] [place] [address] Performing Lab: [facility] [place] [address] CHOLESTEROL 259 mg/dL H 0-200 TRIGLYCERIDE 179 mg/dL H 0-150 CALCULATED LDL 188 mg/dL See Interp HDL(New) 35 mg/dL L > 40 August 03, 2023 10:12 AM [facility] COMPREHENSIVE METABOLIC PANEL Specimen Type: PLASMA Comment: No hemolysis noted. Ordering Provider: BRIAN BURT EN Report Released Date/Time: August 03, 2023 09:50 AM Reporting Lab: [facility] [place] [address] Performing Lab: [facility] [place] [address] CREATININE 1.03 mg/dL 0.70-1.30 UREA NITROGEN 16.9 [...] 97.76 >60 August 03, 2023 10:12 AM [facility] CBC Specimen Type: BLOOD No comment entered. Ordering Provider: BRIAN BURT Report Released Date/Time: August 03, 2023 09:50 AM Reporting Lab: [facility] [facility] [id number] Performing Lab: [facility] [address] WBC 10.0 10*3/uL 3.6-11.2 RBC 5.07 10*6/uL [...] SHELL EXP COSIGNER: URGENCY: STATUS: COMPLETED Traveling/Relocating [place] Care Coordination Consult - Appointment not schedule. Traveling/Relocating Care Coordination Consult Care not established [place] request consult for relocation but has not scheduled visit. Spoke with , verified full name and date of . Provided contact numbers for making appt. Agrees to call for scheduling. Consult will be updated when care completed and/or scheduled. [place] is [facility] until care is established. [place] [phone] to schedule your initial appointment. /mahesh/ GEOVANI SHELL REGISTERED NURSE, HOME TELEHEALTH COORDINATOR Signed: 07/09/2023 14:47 GEOVANI SHELL [facility]
--- OUTSIDE RECORDS SUMMARY | 2024-06-23 18:10 | XMS_ITS | Clinical Summary ---
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 Gender Identity Not on file Sexual Orientation [...] Depression Screening 1988 Hepatitis C Screening 1988 Regular Well Visit/Exam 18-64 2006 Pneumococcal vaccine <65 (1 of 2 - PCV) 10/22/2007 Varicella Vaccines (1 of 2 - 13+ 2-dose series) 02/24/2009 Influenza Vaccine (#1) 2023 7, 03/02/2010, 01/27/2009, Additional history exists DTaP/Tdap/Td Vaccine (9 - Td or Tdap) 10/24/2026 10/24/2016, 09/30/2009, 04/13/2006, Additional history exists Hepatitis B Screening Completed 06/14/1998 , 01/14/1998, 12/17/1997 HPV Vaccines Aged Out No longer eligi ble based on patient's age to complete this topic Insurance [facility] OFF[facility] Advance Directives For more information, please contact: [phone] * Full Code (Latest Code Status on File) Date Activated Date Inactivated Comments 07/07/2023 7:51 PM 07/08/2023 1:07 AM Care Teams Electromechanical Technician Relationship Specialty Start Date End Date [address] [address] PCP - General Genetics 10/29/20
[2024-06-23] MEDS: KETOROLAC 15 MG/ML VIAL (*BKC) IV PUSH (18:34)
--- OUTSIDE RECORDS SUMMARY | 2024-06-23 18:48 | XMS_ITS | Continuity of Care Document ---
Author Name [facility] Organization [facility] Care Team Providers Care Analytical Tech Name Role Phone [facility] Unavailable Unavailable Problems Combined list of problems from Department of Defense and [facility] Affairs facilities. It does not include entries that were removed or entered in error. Problem Status Onset Date Problem Type Date of Resolution Comments Source Adjustment disorder with depressed mood (SNOMED CT 30524277) Active Condition [facility] Anxiety Active Condition [facility] Apnea Active Condition [facility] Cannabis dependence, continuous Active Condition [facility] Cerebral infarction Active Condition [facility] Danger of harm to self (ICD-9-CM E953.9) Active Condition [facility] Deficiency of vitamin D3 Active Condition [facility] Depression, NOS Active Condition [facility] Exposure to potentially hazardous substance Active Condition [facility] Gastroesophageal reflux disease Active Condition [facility] Generalized anxiety disorder Active Condition [facility] History of nephrolithiasis Active Condition [facility] Hyperlipidemia Active Condition [facility] Hyperlipidemia * (ICD-9-CM 272.4) Active Condition [facility] Insomnia Active Condition [facility] Major Depressive Disorder, Recurrent Active Condition [facility] Polysubstance dependence Active Condition May 03, 2010 Entered By: CUCA KNIGHT Comment: [place] mine, Cocaien and Alcohol [facility] Posttraumatic stress disorder (SNOMED CT 10116274) Active Condition [facility] PTSD, Chronic Active Condition [facility] Sleep disorder Active Condition [facility] Stimulant abuse Active Condition [facility] Suicidal Ideation Active Condition [facility] Tobacco user Active Condition [facility] Urinary Calculi * (ICD-9-CM 592.9) Active Condition [facility] Encounters for unspecified Administrative Purpose (ICD-9-CM V68.9) Inactive Condition 10/25/2020 [facility] History of extracorporeal shockwave lithotripsy Inactive Condition 10/25/2020 [facility] Irritability and anger Inactive Condition 10/25/2020 [facility] Low income Inactive Condition 10/25/2020 [facility] Pain in testicle Inactive Condition 10/25/2020 [facility] Diagnosis: ICD-10-CM 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, in remission Active Diagnosis [facility] Diagnosis: ICD-10-CM R45.89 Other symptoms and signs involving emotional state Active Diagnosis [facility] Diagnosis: ICD-10-CM G43.009 Migraine w/o aura, not intractable, w/o status migrainosus Active Diagnosis [facility] Diagnosis: ICD-10-CM F43.10 Post-traumatic stress disorder, unspecified Active Diagnosis [facility] Diagnosis: ICD-10-CM Z77.29 Contact with and exposure to other hazardous substances Active Diagnosis [facility] Diagnosis: ICD-10-CM Z63.0 Problems in relationship with spouse or partner Active Diagnosis [facility] Medications Combined list of outpatient medications from Department of Defense and [facility] Affairs facilities.Medications provided include 1) [...] . RESPIR ATORY (INHAL ATION) ACTIVE 08/03/2024 [id number] 4 JERRY BURT 2023 1 [facility] ASPIRIN 81MG TAB,EC TAKE ONE TABLET BY MOUTH ONCE A DAY ORAL ACTIVE BATSHEVA BAZAN UN N 2020 [facility] ATOMOXETINE 40MG CAP TAKE ONE CAPSULE BY MOUTH EVERY MORNING FOR ADHD ORAL ACTIVE 02/25/2025 [id number] 4 KRISTIN HARRIS 2023 30 [facility] CETIRIZINE HCL 10MG TAB TAKE ONE TABLET BY MOUTH ONCE A DAY ORAL ACTIVE 08/03/2024 [id number] 4 JERRY BURT HUNTER 2023 90 [facility] CLONAZEPAM 0.5MG TAB TAKE ONE TABLET BY MOUTH ONCE A DAY NEEDED FOR ANXIETY MAY CAUSE DROWSINE SS. DO NOT DRINK ALCOHOL. ORAL DISCONT INUED BY PROVIDE R 11/02/2023 [id number] 4 KRISTIN HARRIS 2023 20 [facility] CLONAZEPAM 0.5MG TAB TAKE ONE TABLET BY MOUTH ONCE A DAY NEEDED MAY CAUSE DROWSINE SS. DO NOT DRINK ALCOHOL. ORAL DISCONT INUED (EDIT) 09/12/2023 [id number] 4 KRISTIN HARRIS 2022 10 [facility] DIAZEPAM 5MG TAB TAKE ONE TABLET BY MOUTH TWICE DAILY NEEDED AVOID TAKING WITH GRAPEFRU IT JUICE. ORAL ACTIVE 08/27/2024 [id number] 5 KRISTIN HARRIS 2023 60 [facility] DIAZEPAM 5MG TAB TAKE ONE TABLET BY MOUTH TWICE DAILY NEEDED AVOID TAKING WITH GRAPEFRU IT JUICE. ORAL DISCONT INUED 05/08/2024 [id number] 4 KRISTIN HARRIS 2023 60 [facility] DIAZEPAM 5MG TAB TAKE ONE TABLET BY MOUTH TWICE DAILY NEEDED AVOID TAKING WITH GRAPEFRU IT JUICE. ORAL DISCONT INUED 03/08/2024 [id number] 4 KRISTIN HARRIS 2023 60 [facility] DIAZEPAM 5MG TAB TAKE ONE TABLET BY MOUTH TWICE DAILY NEEDED AVOID TAKING WITH GRAPEFRU IT JUICE. ORAL DISCONT INUED 01/31/2024 [id number] 4 KRISTIN HARRIS 2023 60 [facility] [place] FLUTICASONE PROPIONATE 50MCG/SPRAY SOLN,NASAL, 16GM INSTILL 1 SPRAY IN NOSTRIL( S) ONCE A DAY (MUST BE USED DIRECTED FOR MINIMUM OF 21 DAYS TO PROVIDE ADEQUATE BENEFITS ) NASAL ACTIVE 08/03/2024 [id number] 4 JERRY BURT 2023 1 [facility] NGHIAISIO [place] LIDOCAINE 5% PATCH APPLY 1 PATCH TO SKIN SITE ONCE A DAY APPLY PATCH AND PRESS FIRMLY FOR 10-15 SECONDS. KEEP ON FOR 12 HOURS THEN REMOVE PATCH FOR 12 HOURS. TRANSD ERMAL ACTIVE 08/03/2024 [id number] 4 JERRY BURT 2023 30 [facility] KALIEIO Agu[place] MAGNESIUM OXIDE 400MG TAB TAKE ONE TABLET BY MOUTH EVERY DAY ORAL 03/03/2024 [id number] 4 JERRY BURT 2023 120 [facility] [place] MARIJUANA USE DIRECTED INHALATI ON PRN INHALA TION ACTIVE BATSHEVA BAZAN N 2017 [facility] MELOXICAM 7.5MG TAB TAKE ONE TABLET BY MOUTH ONCE A DAY ORAL ACTIVE 08/03/2024 [id number] 4 JERRY BURT 2023 30 [facility] Agu[place] ONDANSETRON HCL 8MG TAB TAKE ONE-HALF TABLET BY MOUTH THREE TIMES A DAY NEEDED FOR NAUSEA/V OMITING ORAL 02/17/2024 [id number] 4 JERRY BURT 2023 60 [facility] [place] PRAZOSIN HCL 2MG CAP TAKE ONE CAPSULE BY MOUTH AT BEDTIME MAY CAUSE DIZZINES S OR DROWSINE SS. ORAL ACTIVE 11/06/2024 [id number] 4 KRISTIN HARRIS 2023 90 [facility] [place] PRAZOSIN HCL 2MG CAP TAKE TWO CAPSULES BY MOUTH AT BEDTIME FOR NIGHTMAR ES MAY CAUSE DIZZINES S OR DROWSINE SS. ORAL DISCONT INUED (EDIT) 09/06/2024 [id number] 4 HARRISKRISTIN 2023 180 [facility] PRAZOSIN HCL 2MG CAP TAKE TWO CAPSULES BY MOUTH AT BEDTIME FOR NIGHTMAR ES MAY CAUSE DIZZINES S OR DROWSINE SS. ORAL DISCONT INUED 05/02/2024 [id number] 4 KRISTIN HARRIS ARJUN 2023 180 [facility] SUMATRIPTAN SUCCINATE 50MG TAB TAKE ONE TABLET BY MOUTH ONE-TIME TAKE AT ONSET OF HEADACHE . MAY REPEAT AFTER 2 HOURS. NOT TO EXCEED 2 TABLETS IN 24 HOURS. ORAL ACTIVE 12/04/2024 [id number] 4 JERRY BURT 2023 9 [facility] TAMSULOSIN HCL 0.4MG CAP TAKE ONE CAPSULE BY MOUTH EVERY EVENING KIDNEY STONE APPROXIM ATELY 30 MINUTES AFTER THE SAME MEAL EACH DAY ORAL ACTIVE 01/18/2025 [id number] 4 JERRY BURT 2023 30 [facility] Allergies, Adverse Reactions, Alerts Combined list of allergies from Department of [facility] and [facility] facilities. It does not include entries that were removed or entered in error. Substance Category Reaction Severity Reaction type Status Date Reported Comments Source SHRIMP Propensity to adverse reactions to food (finding) active 05/02/2010 [facility] Immunizations Combined list of available immunizations from the Department of [facility] and [facility] Affairs facilities. Immunization Series Date Given Administered By Site Reaction Lot Number CVX Code Drug Liquor Commissioner Status Comments Source INFLUENZA, UNSPECIFIED FORMULATION 2016 88 complet ed [facility] INFLUENZA, UNSPECIFIED FORMULATION 2009 88 complet ed [facility] TD(ADULT) UNSPECIFIED FORMULATION 2009 139 complet ed [facility] Results Combined list of recent [...] August 03, 2023 09:50 AM Reporting Lab: [facility] [place] [address] Performing Lab: [facility] [address] [facility] URINALYSI S (STL-PB) BILIRUBIN.T OTAL [PRESENCE] IN URINE BY TEST STRIP Negati vemg/d L 08/02 Specimen Type: URINE No comment entered. Ordering Provider: SHADY BURT Report Released Date/Time: August 03, 2023 09:50 AM Reporting Lab: [facility] [place] [address] Performing Lab: [facility] DIVISION URINALYSI S (STL-PB) PH OF URINE BY TEST STRIP 6.5 5.0 - 8.0 08/02 Specimen Type: URINE No comment entered. Ordering Provider: SHADY BURT Report Released Date/Time: August 03, 2023 09:50 AM Reporting Lab: [facility] [place] [address] Performing Lab: [facility] [facility] URINALYSI S (STL-PB) APPEARANCE OF URINE Clear 08/02 Specimen Type: URINE No comment entered. Ordering Provider: SHADY BURT Report Released Date/Time: August 03, 2023 09:50 AM Reporting Lab: [facility] [place] [address] Performing Lab: [facility] [facility] URINALYSI S (STL-PB) NITRITE [PRESENCE] IN URINE BY TEST STRIP Negati vemg/d L 08/02 Specimen Type: URINE No comment entered. Ordering Provider: SHADY BURT Report Released Date/Time: August 03, 2023 09:50 AM Reporting Lab: [facility] [place] [address] Performing Lab: [facility] [facility] URINALYSI S (STL-PB) GLUCOSE [MASS/VOLUM E] IN URINE BY TEST STRIP Normal mg/dL 08/02 Specimen Type: URINE No comment entered. Ordering Provider: SHADY BURT Report Released Date/Time: August 03, 2023 09:50 AM Reporting Lab: [facility] [place] [address] Performing Lab: [facility] [facility] URINALYSI S (STL-PB) PROTEIN [MASS/VOLUM E] IN URINE BY TEST STRIP 10 mg/dL - 20 08/02 H Specimen Type: URINE No comment entered. Ordering Provider: SHADY BURT Report Released Date/Time: August 03, 2023 09:50 AM Reporting Lab: [facility] [place] [address] Performing Lab: [facility] [facility] URINALYSI S (STL-PB) URN.UROBILI NOGEN Normal mg/dL 08/02 Specimen Type: URINE No comment entered. Ordering Provider: SHADY BURT Report Released Date/Time: August 03, 2023 09:50 AM Reporting Lab: [facility] [place] [address] Performing Lab: [facility] [facility] URINALYSI S (STL-PB) HEMOGLOBIN [MASS/VOLUM E] IN URINE BY TEST STRIP Tracem g/dL 08/02 Specimen Type: URINE No comment entered. Ordering Provider: SHADY BURT Report Released Date/Time: August 03, 2023 09:50 AM Reporting Lab: [facility] [place] [address] Performing Lab: [facility] [facility] URINALYSI S (STL-PB) KETONES [MASS/VOLUM E] IN URINE BY TEST STRIP Negati vemg/d L 08/02 Specimen Type: URINE No comment entered. Ordering Provider: SHADY BURT Report Released Date/Time: August 03, 2023 09:50 AM Reporting Lab: [facility] [place] [address] Performing Lab: [facility] [facility] URINALYSI S (STL-PB) URN.LEUK.ES T. Negati vemg/d L 08/02 Specimen Type: URINE No comment entered. Ordering Provider: SHADY BURT Report Released Date/Time: August 03, 2023 09:50 AM Reporting Lab: [facility] [place] [address] Performing Lab: [facility] DIVISION URINALYSI S (STL-PB) SPECIFIC GRAVITY OF URINE 1.023 1.005 - 1.029 08/02 Specimen Type: URINE No comment entered. Ordering Provider: SHADY BURT Report Released Date/Time: August 03, 2023 09:50 AM Reporting Lab: [facility] [place] [id number] Performing Lab: [facility] [address] [facility] CBC LEUKOCYTES [#/VOLUME] IN BLOOD BY AUTOMATED COUNT 10.0 10*3/u L 3.6 - 11.2 08/02 Specimen Type: BLOOD No comment entered. Ordering Provider: SHADY BURT Report Released Date/Time: August 03, 2023 09:50 AM Reporting Lab: [facility] [place] [address] Performing Lab: [facility] [facility] CBC ERYTHROCYTE S [#/VOLUME] IN BLOOD BY AUTOMATED COUNT 5.07 10*6/u L 4.10 - 5.70 08/02 Specimen Type: BLOOD No comment entered. Ordering Provider: SHADY BURT Report Released Date/Time: August 03, 2023 09:50 AM Reporting Lab: [facility] [place] [address] Performing Lab: [facility] [facility]ISION CBC HEMOGLOBIN [MASS/VOLUM E] IN BLOOD 14.9 g/dL 13.1 - 16.8 08/02 Specimen Type: BLOOD No comment entered. Ordering Provider: SHADY BURT Report Released Date/Time: August 03, 2023 09:50 AM Reporting Lab: [facility] [place] [address] Performing Lab: [facility] [facility] CBC HEMATOCRIT [VOLUME FRACTION] OF BLOOD 43.8 38.2 - 48.4 08/02 Specimen Type: BLOOD No comment entered. Ordering Provider: SHADY BURT Report Released Date/Time: August 03, 2023 09:50 AM Reporting Lab: [facility] [place] [address] Performing Lab: [facility] DIV[facility] CBC MCV [ENTITIC VOLUME] BY AUTOMATED COUNT 86.4 fL 80.0 - 100.0 08/02 Specimen Type: BLOOD No comment entered. Ordering Provider: SHADY BURT Report Released Date/Time: August 03, 2023 09:50 AM Reporting Lab: [facility] [place] [address] Performing Lab: [facility] [facility]ISION CBC MCH [ENTITIC MASS] BY AUTOMATED COUNT 29.4 pg 27.0 - 34.0 08/02 Specimen Type: BLOOD No comment entered. Ordering Provider: SHADY BURT Report Released Date/Time: August 03, 2023 09:50 AM Reporting Lab: [facility] [place] [address] Performing Lab: [facility] [facility] CBC MCHC [MASS/VOLUM E] BY AUTOMATED COUNT 34.0 g/dL 33.0 - 36.0 08/02 Specimen Type: BLOOD No comment entered. Ordering Provider: SHADY BURT Report Released Date/Time: August 03, 2023 09:50 AM Reporting Lab: [facility] [place] [address] Performing Lab: [facility] [facility] CBC PLATELETS [#/VOLUME] IN BLOOD BY AUTOMATED COUNT 218 10*3/u L 150 - 400 08/02 Specimen Type: BLOOD No comment entered. Ordering Provider: SHADY BURT Report Released Date/Time: August 03, 2023 09:50 AM Reporting Lab: [facility] [place] [address] Performing Lab: [facility] [facility] CBC PLATELET MEAN VOLUME [ENTITIC VOLUME] IN BLOOD BY AUTOMATED COUNT 10.6 fL 7.5 - 11.2 08/02 Specimen Type: BLOOD No comment entered. Ordering Provider: SHADY BURT Report Released Date/Time: August 03, 2023 09:50 AM Reporting Lab: [facility] [place] [address] Performing Lab: [facility] [facility] CBC ERYTHROCYTE DISTRIBUTIO N WIDTH [RATIO] BY AUTOMATED COUNT 12.9 11.8 - 15.1 08/02 Specimen Type: BLOOD No comment entered. Ordering Provider: SHADY BURT Report Released Date/Time: August 03, 2023 09:50 AM Reporting Lab: [facility] [place] [address] Performing Lab: [facility] DIV[facility] CBC LYMPHOCYTES /100 LEUKOCYTES IN BLOOD BY AUTOMATED COUNT 15 08/02 Specimen Type: BLOOD No comment entered. Ordering Provider: SHADY BURT Report Released Date/Time: August 03, 2023 09:50 AM Reporting Lab: [facility] [place] [address] Performing Lab: [facility] [facility] CBC MONOCYTES/1 00 LEUKOCYTES IN BLOOD BY AUTOMATED COUNT 5 08/02 Specimen Type: BLOOD No comment entered. Ordering Provider: SHADY BURT Report Released Date/Time: August 03, 2023 09:50 AM Reporting Lab: [facility] [place] [address] Performing Lab: [facility] [facility] CBC NEUTROPHILS /100 LEUKOCYTES IN BLOOD BY AUTOMATED COUNT 79 08/02 Specimen Type: BLOOD No comment entered. Ordering Provider: SHADY BURT Report Released Date/Time: August 03, 2023 09:50 AM Reporting Lab: [facility] [place] [address] Performing Lab: [facility] [facility] CBC EOSINOPHILS /100 LEUKOCYTES IN BLOOD BY AUTOMATED COUNT 0 08/02 Specimen Type: BLOOD No comment entered. Ordering Provider: SHADY BURT Report Released Date/Time: August 03, 2023 09:50 AM Reporting Lab: [facility] [place] [address] Performing Lab: [facility] [facility] CBC BASOPHILS/1 00 LEUKOCYTES IN BLOOD BY AUTOMATED COUNT 0 08/02 Specimen Type: BLOOD No comment entered. Ordering Provider: SHADY BURT Report Released Date/Time: August 03, 2023 09:50 AM Reporting Lab: [facility] [place] [address] Performing Lab: [facility] [facility] CBC LYMPHOCYTES [#/VOLUME] IN BLOOD BY AUTOMATED COUNT 1.50 10*3/u L 0.77 - 4.50 08/02 Specimen Type: BLOOD No comment entered. Ordering Provider: SHADY BURT Report Released Date/Time: August 03, 2023 09:50 AM Reporting Lab: [facility] [place] [address] Performing Lab: [facility] [facility] CBC MONOCYTES [#/VOLUME] IN BLOOD BY AUTOMATED COUNT 0.49 10*3/u L 0.19 - 0.80 08/02 Specimen Type: BLOOD No comment entered. Ordering Provider: SHADY BURT Report Released Date/Time: August 03, 2023 09:50 AM Reporting Lab: [facility] [place] [address] Performing Lab: [facility] [address] CBC NEUTROPHILS [#/VOLUME] IN BLOOD BY AUTOMATED COUNT 7.94 10*3/u L 2.10 - 8.00 08/02 Specimen Type: BLOOD No comment entered. Ordering Provider: SHADY BURT Report Released Date/Time: August 03, 2023 09:50 AM Reporting Lab: [facility] [place] [address] Performing Lab: [facility] DIVISION CBC EOSINOPHILS [#/VOLUME] IN BLOOD BY AUTOMATED COUNT 0.03 10*3/u L 0.00 - 0.60 08/02 Specimen Type: BLOOD No comment entered. Ordering Provider: SHADY BURT Report Released Date/Time: August 03, 2023 09:50 AM Reporting Lab: [facility] [place] [address] Performing Lab: [facility] DIVISION CBC BASOPHILS [#/VOLUME] IN BLOOD BY AUTOMATED COUNT 0.03 10*3/u L 0.00 - 0.20 08/02 Specimen Type: BLOOD No comment entered. Ordering Provider: SHADY BURT Report Released Date/Time: August 03, 2023 09:50 AM Reporting Lab: [facility] [place] [address] Performing Lab: [facility] DIVISION COMPREHEN SIVE METABOLIC PANEL CREATININE [MASS/VOLUM E] IN SERUM OR PLASMA 1.03 mg/dL 0.70 - 1.30 08/02 Specimen Type: PLASMA Comment: No hemolysis noted. Ordering Provider: SHADY BURT Report Released Date/Time: August 03, 2023 09:50 AM Reporting Lab: [facility] [place] [address] Performing Lab: [facility] DIVISION COMPREHEN SIVE METABOLIC PANEL UREA NITROGEN [MASS/VOLUM E] IN SERUM OR PLASMA 16.9 mg/dL 9.0 - 25.0 08/02 Specimen Type: PLASMA Comment: No hemolysis noted. Ordering Provider: SHADY BURT Report Released Date/Time: August 03, 2023 09:50 AM Reporting Lab: [facility] [place] [address] Performing Lab: [facility] DIVISION COMPREHEN SIVE METABOLIC PANEL GLUCOSE [MASS/VOLUM E] IN SERUM OR PLASMA 101 mg/dL 72 - 99 08/02 H Specimen Type: PLASMA Comment: No hemolysis noted. Ordering Provider: SHADY BURT Report Released Date/Time: August 03, 2023 09:50 AM Reporting Lab: [facility] [place] [address] Performing Lab: [facility] DIVISION COMPREHEN SIVE METABOLIC PANEL SODIUM [MOLES/VOLU ME] IN SERUM OR PLASMA 141 meq/L 136 - 145 08/02 Specimen Type: PLASMA Comment: No hemolysis noted. Ordering Provider: SHADY BURT Report Released Date/Time: August 03, 2023 09:50 AM Reporting Lab: [facility] [place] [address] Performing Lab: [facility] DIVISION COMPREHEN SIVE METABOLIC PANEL POTASSIUM [MOLES/VOLU ME] IN SERUM OR PLASMA 4.2 meq/L 3.5 - 5.0 08/02 Specimen Type: PLASMA Comment: No hemolysis noted. Ordering Provider: SHADY BURT Report Released Date/Time: August 03, 2023 09:50 AM Reporting Lab: [facility] [place] [id number] Performing Lab: [facility] DIVISION COMPREHEN SIVE METABOLIC PANEL CHLORIDE [MOLES/VOLU ME] IN SERUM OR PLASMA 104 meq/L 98 - 107 08/02 Specimen Type: PLASMA Comment: No hemolysis noted. Ordering Provider: SHADY BURT Report Released Date/Time: August 03, 2023 09:50 AM Reporting Lab: [facility] [place] [id number] Performing Lab: [facility] DIVISION COMPREHEN SIVE METABOLIC PANEL CARBON DIOXIDE, TOTAL [MOLES/VOLU ME] IN SERUM OR PLASMA 27 meq/L 22 - 31 08/02 Specimen Type: PLASMA Comment: No hemolysis noted. Ordering Provider: SHADY BURT Report Released Date/Time: August 03, 2023 09:50 AM Reporting Lab: [facility] [place] [id number] Performing Lab: [facility] [address] DIVISION COMPREHEN SIVE METABOLIC PANEL CALCIUM [MASS/VOLUM E] IN SERUM OR PLASMA 9.6 mg/dL 8.4 - 10.4 08/02 Specimen Type: PLASMA Comment: No hemolysis noted. Ordering Provider: SHADY BURT Report Released Date/Time: August 03, 2023 09:50 AM Reporting Lab: [facility] [place] [address] Performing Lab: [facility] DIVISION COMPREHEN SIVE METABOLIC PANEL PROTEIN [MASS/VOLUM E] IN SERUM OR PLASMA 7.5 g/dL 6.0 - 8.6 08/02 Specimen Type: PLASMA Comment: No hemolysis noted. Ordering Provider: SHADY BURT Report Released Date/Time: August 03, 2023 09:50 AM Reporting Lab: [facility] [place] [address] Performing Lab: [facility] DIVISION COMPREHEN SIVE METABOLIC PANEL ALBUMIN [MASS/VOLUM E] IN SERUM OR PLASMA 4.6 g/dL 3.4 - 5.0 08/02 Specimen Type: PLASMA Comment: No hemolysis noted. Ordering Provider: SHADY BURT Report Released Date/Time: August 03, 2023 09:50 AM Reporting Lab: [facility] [place] [address] Performing Lab: [facility] DIVISION COMPREHEN SIVE METABOLIC PANEL BILIRUBIN.T OTAL [MASS/VOLUM E] IN SERUM OR PLASMA 0.9 mg/dL 0.2 - 1.2 08/02 Specimen Type: PLASMA Comment: No hemolysis noted. Ordering Provider: SHADY BURT Report Released Date/Time: August 03, 2023 09:50 AM Reporting Lab: [facility] [place] [address] Performing Lab: [facility] DIVISION COMPREHEN SIVE METABOLIC PANEL ALKALINE PHOSPHATASE [ENZYMATIC ACTIVITY/VO LUME] IN SERUM OR PLASMA 92 U/L 40 - 150 08/02 Specimen Type: PLASMA Comment: No hemolysis noted. Ordering Provider: SHADY BURT Report Released Date/Time: August 03, 2023 09:50 AM Reporting Lab: [facility] [place] [address] Performing Lab: [facility] DIVISION COMPREHEN SIVE METABOLIC PANEL ASPARTATE AMINOTRANSF ERASE [ENZYMATIC ACTIVITY/VO LUME] IN SERUM OR PLASMA 35 U/L 5 - 34 08/02 H Specimen Type: PLASMA Comment: No hemolysis noted. Ordering Provider: SHADY BURT Report Released Date/Time: August 03, 2023 09:50 AM Reporting Lab: [facility] [place] [address] Performing Lab: [facility] DIVISION COMPREHEN SIVE METABOLIC PANEL ALANINE AMINOTRANSF ERASE [ENZYMATIC ACTIVITY/VO LUME] IN SERUM OR PLASMA 44 U/L 8 - 40 08/02 H Specimen Type: PLASMA Comment: No hemolysis noted. Ordering Provider: SHADY BURT Report Released Date/Time: August 03, 2023 09:50 AM Reporting Lab: [facility] [place] [address] Performing Lab: [facility] DIVISION COMPREHEN SIVE METABOLIC PANEL GLOMERULAR FILTRATION RATE/1.73 SQ M.PREDICTED [VOLUME RATE/AREA] IN SERUM, PLASMA OR BLOOD BY CREATININE- BASED FORMULA (CKD-EPI 2020) 97.76 60 08/02 Specimen Type: PLASMA Comment: No hemolysis noted. Ordering Provider: SHADY BURT Report Released Date/Time: August 03, 2023 09:50 AM Reporting Lab: [facility] [place] [address] Performing Lab: [facility] DIVISION HGA1C HEMOGLOBIN A1C/HEMOGLO BIN.TOTAL IN BLOOD 5.6 4.0 - 6.0 08/02 Specimen Type: BLOOD No comment entered. Ordering Provider: SHADY BURT Report Released Date/Time: August 03, 2023 09:50 AM Reporting Lab: [facility]1 [place] [address] Performing Lab: [facility] DIVISION LIPID PANEL (STL) CHOLESTEROL [MASS/VOLUM E] IN SERUM OR PLASMA 259 mg/dL 0 - 200 08/02 H Specimen Type: PLASMA Comment: No hemolysis noted. Ordering Provider: SHADY BURT Report Released Date/Time: August 03, 2023 09:50 AM Reporting Lab: [facility]1 [place] [address] Performing Lab: [facility] LIPID PANEL (STL) TRIGLYCERID E [MASS/VOLUM E] IN SERUM OR PLASMA 179 mg/dL 0 - 150 08/02 H Specimen Type: PLASMA Comment: No hemolysis noted. Ordering Provider: SHADY BURT Report Released Date/Time: August 03, 2023 09:50 AM Reporting Lab: [facility]1 [place] [address] Performing Lab: [facility] DIVISION LIPID PANEL (STL) CHOLESTEROL IN LDL [MASS/VOLUM E] IN SERUM OR PLASMA BY CALCULATION 188 mg/dL 08/02 Specimen Type: PLASMA Comment: No hemolysis noted. Ordering Provider: SHADY BURT Report Released Date/Time: August 03, 2023 09:50 AM Reporting Lab: [place] [address] Performing Lab: [address] LIPID PANEL (STL) CHOLESTEROL IN HDL [MASS/VOLUM E] IN SERUM OR PLASMA 35 mg/dL 40 08/02 L Specimen Type: PLASMA Comment: No hemolysis noted. Ordering Provider: SHADY BURT Report Released Date/Time: August 03, 2023 09:50 AM Reporting Lab: [facility] [place] [address] Performing Lab: [facility] [address] TSH (MA-PB) THYROTROPIN [UNITS/VOLU ME] IN SERUM OR PLASMA 2.236 u[IU]/ mL 0.470 - 5.000 08/02 Specimen Type: SERUM No comment entered. Ordering Provider: SHADY BURT Report Released Date/Time: August 03, 2023 09:50 AM Reporting Lab: [facility] [place] [address] Performing Lab: [facility] [address] DRUGS OF ABUSE (NEW) (STL) ETHANOL [MASS/VOLUM E] IN URINE Negati vemg/d L 0 - 20 03/12 Specimen Type: URINE Comment: The cut-off value for this test was laboratory developed and its performance characteris tics confirmed by the [facility] laboratory thru method comparison with reference laboratory and medication chart review. The laboratory is regulated under CLIA as qualified to perform high-comple xity testing. This test is used for clinical purposes in conjunction with other laboratory tests. Ordering Provider: CHRISTOPHER HARRIS Report Released Date/Time: Feb 20, 2023 12:09 PM Reporting Lab: [facility] [address] Performing Lab: [facility] [id number] [place] [address] DRUGS OF ABUSE (NEW) (STL) AMPHETAMINE [PRESENCE] IN URINE BY SCREEN METHOD Negati veng/m L 03/12 Specimen Type: URINE Comment: The cut-off value for this test was laboratory developed and its performance characteris tics confirmed by the [facility] laboratory thru method comparison with reference laboratory and medication chart review. The laboratory is regulated under CLIA as qualified to perform high-comple xity testing. This test is used for clinical purposes in conjunction with other laboratory tests. Ordering Provider: CHRISTOPHER HARRIS Report Released Date/Time: Feb 20, 2023 12:09 PM Reporting Lab: [facility] [address] Performing Lab: [facility] [id number] [place] [address] DRUGS OF ABUSE (NEW) (STL) BENZOYLECGO NINE [PRESENCE] IN URINE Negati veng/m L 03/12 Specimen Type: URINE Comment: The cut-off value for this test was laboratory developed and its performance characteris tics confirmed by the [facility] laboratory thru method comparison with reference laboratory and medication chart review. The laboratory is regulated under CLIA as qualified to perform high-comple xity testing. This test is used for clinical purposes in conjunction with other laboratory tests. Ordering Provider: CHRISTOPHER HARRIS Report Released Date/Time: Feb 20, 2023 12:09 PM Reporting Lab: [facility] [address] Performing Lab: [facility]1 [facility] [id number] [place] [address] DRUGS OF ABUSE (NEW) (STL) CANNABINOID S [PRESENCE] IN URINE BY SCREEN METHOD 91-POS ng/mL 03/12 Specimen Type: URINE Comment: The cut-off value for this test was laboratory developed and its performance characteris tics confirmed by the [facility] laboratory thru method comparison with reference laboratory and medication chart review. The laboratory is regulated under CLIA as qualified to perform high-comple xity testing. This test is used for clinical purposes in conjunction with other laboratory tests. Ordering Provider: CHRISTOPHER HARRIS Report Released Date/Time: Feb 20, 2023 12:09 PM Reporting Lab: [facility]1 [place] [address] Performing Lab: [facility] [address] DRUGS OF ABUSE (NEW) (STL) OPIATES [PRESENCE] IN URINE BY SCREEN METHOD Negati veng/m L 03/12 Specimen Type: URINE Comment: The cut-off value for this test was laboratory developed and its performance characteris tics confirmed by the [facility] laboratory thru method comparison with reference laboratory and medication chart review. The laboratory is regulated under CLIA as qualified to perform high-comple xity testing. This test is used for clinical purposes in conjunction with other laboratory tests. Ordering Provider: CHRISTOPHER HARRIS Report Released Date/Time: Feb 20, 2023 12:09 PM Reporting Lab: [facility]1 [place] [address] Performing Lab: [facility] DRUGS OF ABUSE (NEW) (STL) CREATININE [MASS/VOLUM E] IN URINE 197.6 mg/dL 63.0 - 166.0 03/12 H Specimen Type: URINE Comment: The cut-off value for this test was laboratory developed and its performance characteris tics confirmed by the [facility] laboratory thru method comparison with reference laboratory and medication chart review. The laboratory is regulated under CLIA as qualified to perform high-comple xity testing. This test is used for clinical purposes in conjunction with other laboratory tests. Ordering Provider: CHRISTOPHER HARRIS Report Released Date/Time: Feb 20, 2023 12:09 PM Reporting Lab: [facility] [address] Performing Lab: [facility] METHADONE PANEL (STL) ETHANOL [MASS/VOLUM E] IN URINE Negati vemg/d L 0 - 20 03/12 Specimen Type: URINE Comment: The cut-off value for this test was laboratory developed and its performance characteris tics confirmed by the [facility] laboratory thru method comparison with reference laboratory and medication chart review. The laboratory is regulated under CLIA as qualified to perform high-comple xity testing. This test is used for clinical purposes in conjunction with other laboratory tests. Ordering Provider: CHRISTOPHER HARRIS Report Released Date/Time: Feb 20, 2023 12:09 PM Reporting Lab: [facility] [address] Performing Lab: [facility] METHADONE PANEL (STL) AMPHETAMINE [PRESENCE] IN URINE BY SCREEN METHOD Negati veng/m L 03/12 Specimen Type: URINE Comment: The cut-off value for this test was laboratory developed and its performance characteris tics confirmed by the [facility] laboratory thru method comparison with reference laboratory and medication chart review. The laboratory is regulated under CLIA as qualified to perform high-comple xity testing. This test is used for clinical purposes in conjunction with other laboratory tests. Ordering Provider: CHRISTOPHER HARRIS Report Released Date/Time: Feb 20, 2023 12:09 PM Reporting Lab: [facility]1 [place] [address] Performing Lab: [facility] METHADONE PANEL (STL) BENZOYLECGO NINE [PRESENCE] IN URINE Negati veng/m L 03/12 Specimen Type: URINE Comment: The cut-off value for this test was laboratory developed and its performance characteris tics confirmed by the [facility] laboratory thru method comparison with reference laboratory and medication chart review. The laboratory is regulated under CLIA as qualified to perform high-comple xity testing. This test is used for clinical purposes in conjunction with other laboratory tests. Ordering Provider: CHRISTOPHER HARRIS Report Released Date/Time: Feb 20, 2023 12:09 PM Reporting Lab: [facility]1 [place] [address] Performing Lab: [facility] METHADONE PANEL (STL) BENZODIAZEP MARYBETH [PRESENCE] IN URINE BY SCREEN METHOD Negati veng/m L 03/12 Specimen Type: URINE Comment: The cut-off value for this test was laboratory developed and its performance characteris tics confirmed by the [facility] laboratory thru method comparison with reference laboratory and medication chart review. The laboratory is regulated under CLIA as qualified to perform high-comple xity testing. This test is used for clinical purposes in conjunction with other laboratory tests. Ordering Provider: CHRISTOPHER HARRIS Report Released Date/Time: Feb 20, 2023 12:09 PM Reporting Lab: [facility]1 [place] [address] Performing Lab: [facility] METHADONE PANEL (STL) CANNABINOID S [PRESENCE] IN URINE BY SCREEN METHOD 91-POS ng/mL 03/12 Specimen Type: URINE Comment: The cut-off value for this test was laboratory developed and its performance characteris tics confirmed by the [facility] laboratory thru method comparison with reference laboratory and medication chart review. The laboratory is regulated under CLIA as qualified to perform high-comple xity testing. This test is used for clinical purposes in conjunction with other laboratory tests. Ordering Provider: CHRISTOPHER HARRIS Report Released Date/Time: Feb 20, 2023 12:09 PM Reporting Lab: [facility] [place] [address] Performing Lab: [facility] [address] [facility] METHADONE PANEL (STL) METHADONE [PRESENCE] IN URINE Negati veng/m L 03/12 Specimen Type: URINE Comment: The cut-off value for this test was laboratory developed and its performance characteris tics confirmed by the [facility] laboratory thru method comparison with reference laboratory and medication chart review. The laboratory is regulated under CLIA as qualified to perform high-comple xity testing. This test is used for clinical purposes in conjunction with other laboratory tests. Ordering Provider: CHRISTOPHER HARRIS Report Released Date/Time: Feb 20, 2023 12:09 PM Reporting Lab: [facility] [address] Performing Lab: [facility] [address] [facility] METHADONE PANEL (STL) OPIATES [PRESENCE] IN URINE BY SCREEN METHOD Negati veng/m L 03/12 Specimen Type: URINE Comment: The cut-off value for this test was laboratory developed and its performance characteris tics confirmed by the [facility] laboratory thru method comparison with reference laboratory and medication chart review. The laboratory is regulated under CLIA as qualified to perform high-comple xity testing. This test is used for clinical purposes in conjunction with other laboratory tests. Ordering Provider: CHRISTOPHER HARRIS Report Released Date/Time: Feb 20, 2023 12:09 PM Reporting Lab: [facility] [address] Performing Lab: [facility] [address] [facility] METHADONE PANEL (STL) CREATININE [MASS/VOLUM E] IN URINE 197.6 mg/dL 63.0 - 166.0 03/12 H Specimen Type: URINE Comment: The cut-off value for this test was laboratory developed and its performance characteris tics confirmed by the [facility] laboratory thru method comparison with reference laboratory and medication chart review. The laboratory is regulated under CLIA as qualified to perform high-comple xity testing. This test is used for clinical purposes in conjunction with other laboratory tests. Ordering Provider: CHRISTOPHER HARRIS Report Released Date/Time: Feb 20, 2023 12:09 PM Reporting Lab: [facility] [address] Performing Lab: [facility]1 [place] [id number] [place] [address] METHADONE PANEL (STL) OXYCODONE CUTOFF [MASS/VOLUM E] IN URINE FOR SCREEN METHOD Negati veng/m L 03/12 Specimen Type: URINE Comment: The cut-off value for this test was laboratory developed and its performance characteris tics confirmed by the [facility] laboratory thru method comparison with reference laboratory and medication chart review. The laboratory is regulated under CLIA as qualified to perform high-comple xity testing. This test is used for clinical purposes in conjunction with other laboratory tests. Ordering Provider: CHRISTOPHER HARRIS Report Released Date/Time: Feb 20, 2023 12:09 PM Reporting Lab: [facility] [place] [address] Performing Lab: [facility] METHADONE PANEL (STL) BUPRENORPHI NE [PRESENCE] IN URINE Negati veng/m L 03/12 Specimen Type: URINE Comment: The cut-off value for this test was laboratory developed and its performance characteris tics confirmed by the [facility] laboratory thru method comparison with reference laboratory and medication chart review. The laboratory is regulated under CLIA as qualified to perform high-comple xity testing. This test is used for clinical purposes in conjunction with other laboratory tests. Ordering Provider: CHRISTOPHER HARRIS Report Released Date/Time: Feb 20, 2023 12:09 PM Reporting Lab: [facility] [place] [address] Performing Lab: [facility] METHADONE PANEL (STL) FENTANYL [PRESENCE] IN URINE Negati veng/m L 03/12 Specimen Type: URINE Comment: The cut-off value for this test was laboratory developed and its performance characteris tics confirmed by the [facility] laboratory thru method comparison with reference laboratory and medication chart review. The laboratory is regulated under CLIA as qualified to perform high-comple xity testing. This test is used for clinical purposes in conjunction with other laboratory tests. Ordering Provider: CHRISTOPHER HARRIS Report Released Date/Time: Feb 20, 2023 12:09 PM Reporting Lab: [facility] [address] Performing Lab: [facility] [address] [facility] Vital Signs Combined list of inpatient and outpatient Vital Signs from Department of Defense and Veterans Affairs, ranging from 12 months to all on record, depending upon the facility. Vital Sign Value Date Comments Source SYSTOLIC BLOOD PRESSURE 139 08/03/2023 08:57:53 [facility] DIASTOLIC BLOOD PRESSURE 89 08/03/2023 08:57:53 [facility] PULSE OXIMETRY 100 08/03/2023 08:57:53 [facility] WEIGHT 184 08/03/2023 08:57:53 [facility] BMI 29 kg/m2 08/03/2023 08:57:53 [facility] PAIN 6 08/03/2023 08:57:53 [facility] HEIGHT 67 08/03/2023 08:57:53 [facility] TEMPERATURE 98.6 08/03/2023 08:57:53 [facility] PULSE 92 08/03/2023 08:57:53 [facility] RESPIRATION 20 08/03/2023 08:57:53 [facility] Encounters Combined list of: 1) Encounters from Department of Veterans Affairs facilities going backup to the last 18 months, not all [place] inpatient encounters are included; 2) Encounters from the Department of Defense facilities going backup to 280 months. Location Location Details Encounter Type Encounter Number Reason For Visit Attending Provider ADM Date DC Date Status Disposition Source [facility] [place] [id number] Diagnos is: ICD-10- CM Z63.0 Problem s in relatio nship with spouse or partner MANDY CASEY Pj 12/26 [facility] Outpatient Encounter [id number] BHARTI HARRIS IEL 01/01 [facility] [id number] Diagnos is: ICD-10- CM Z63.0 Problem s in relatio nship with spouse or partner SALINA,DA VID W 01/02 [facility] [place] [id number] Diagnos is: ICD-10- CM Z63.0 Problem s in relatio nship with spouse or partner MANDY CASEY M 01/09 [facility] [place] [facility] [place] [id number] Diagnos is: ICD-10- CM Z63.0 Problem s in relatio nship with spouse or partner SALINA,DA VID W 01/23 [facility] OFFICE O/P EST MOD 30-39 MIN [id number] Diagnos is: ICD-10- CM F43.10 Post-tr aumatic stress disorde r, unspeci fied BHARTI HARRIS IEL 01/24 [facility] Outpatient Encounter [id number] 01/29 [facility]Y [id number] Diagnos is: ICD-10- CM Z63.0 Problem s in relatio nship with spouse or partner KRISTIN DOWNING W 02/06 [facility] [place] [id number] Diagnos is: ICD-10- CM Z63.0 Problem s in relatio nship with spouse or partner MANDY CASEY Aguila M 02/20 [facility] Outpatient Encounter [id number] 02/20 [facility] [place] [id number] Diagnos is: ICD-10- CM Z63.0 Problem s in relatio nship with spouse or partner MANDY CASEY Aguila M 02/27 [facility] [place] [id number] Diagnos is: ICD-10- CM Z63.0 Problem s in relatio nship with spouse or partner MANDY CASEY Aguila M 03/06 [facility] OFFICE O/P EST MOD 30-39 MIN [id number] Diagnos is: ICD-10- CM F43.10 Post-tr aumatic stress disorde r, unspeci fied BHARTI HARRIS IEHubert 03[facility] [id number] Diagnos is: ICD-10- CM Z63.0 Problem s in relatio nship with spouse or partner MANDY CASEY Aguila M 03/13 [facility] [id number] Diagnos is: ICD-10- CM Z63.0 Problem s in relatio nship with spouse or partner MANDY CASEY M 03/20 [facility] APY [id number] Diagnos is: ICD-10- CM Z63.0 Problem s in relatio nship with spouse or partner MANDY CASEY N M 04/10 [facility] [place] [id number] Diagnos is: ICD-10- CM Z63.0 Problem s in relatio nship with spouse or partner MANDY CASEY N M 04/17 [facility] [id number] Diagnos is: ICD-10- CM Z63.0 Problem s in relatio nship with spouse or partner MANDY CASEY N M 04/24 [facility] OFFICE O/P EST MOD 30 MIN [id number] Diagnos is: ICD-10- CM F43.10 Post-tr aumatic stress disorde r, unspeci BHARTI Huang IEHubert 05/02 [facility] [place] [id number] Diagnos is: ICD-10- CM Z63.0 Problem s in relatio nship with spouse or partner MANDY CASEY N M 05/08 [facility] [facility] [id number] Diagnos is: ICD-10- CM Z63.0 Problem s in relatio nship with spouse or partner MANDY CASEY M 05/15 [facility] PSYCHOTHER APY [id number] Diagnos is: ICD-10- CM Z63.0 Problem s in relatio nship with spouse or partner MANDY CASEY Aguila M 05/22 [facility]Y [id number] Diagnos is: ICD-10- CM Z63.0 Problem s in relatio nship with spouse or partner MANDY CASEY Aguila M 05/29 [facility] PSYCHOTHER APY [id number] Diagnos is: ICD-10- CM Z63.0 Problem s in relatio nship with spouse or partner MANDY CASEY M 06/04 [facility] Outpatient Encounter [id number] 06/04 [facility] PSYTX W PT 60 MINUTES [id number] Diagnos is: ICD-10- CM Z63.0 Problem s in relatio nship with spouse or partner MANDY CASEY Aguila M 06/04 [facility] CASE MANAGEMENT [id number] [place] 06/11 [facility] TARGETED CASE MANAGEMENT [id number] JENNY SHELL 06/11 [facility] Outpatient Encounter [id number] 06/12 [facility] Outpatient Encounter [id number] COLBY CAMPO A 07/06 [facility] CASE MANAGEMENT [id number] JENNY SHELL Hoda K 07/08 [facility] Outpatient Encounter [id number] 07/11 [facility] Outpatient Encounter [id number] 07/30 [facility] Outpatient Encounter [id number] DEANDRA CASEY JANY A 07/30 [facility] OFFICE O/P EST MOD 30 MIN [id number] Diagnos is: ICD-10- CM F43.10 Post-tr aumatic stress disorde r, unspeci BHARTI Huang 07/30 [facility] OFFICE O/P EST MOD 30 MIN [id number] Diagnos is: ICD-10- CM Z77.29 Contact with and exposur e to other hazardo us substan chay JACOBO BURT 08/02 [facility] Outpatient Encounter [id number] 08/13 [facility] OFFICE O/P EST MOD 30 MIN [id number] Diagnos is: ICD-10- CM F43.10 Post-tr aumatic stress disorde r, unspeci BHARTI Huang IEL 09/05 [facility] HC PRO PHONE CALL 11-20 MIN [id number] Diagnos is: ICD-10- CM R45.89 Other symptom s and signs involvi ng emotion al state SOHAIL,AARO N S 09/06 [facility] HC PRO PHONE CALL 5-10 MIN [id number] Diagnos is: ICD-10- CM R45.89 Other symptom s and signs involvi ng emotion al state SOHAIL,AARO N S 10/28 [facility] OFFICE O/P EST MOD 30 MIN [id number] Diagnos is: ICD-10- CM F43.10 Post-tr aumatic stress disorde r, unspeci BHARTI Huang IEL 11/05 [facility] Outpatient Encounter [id number] 11/06 [facility] OFFICE O/P EST MOD 30 MIN [id number] Diagnos is: ICD-10- CM 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, 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, 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 JACOBO BURT 12/03 [facility] [id number] 01/08 [facility] Outpatient Encounter [id number] 01/15 [facility] En[facility] [id number] 01/16 [facility] HC PRO PHONE CALL 5-10 MIN [id number] Diagnos is: ICD-10- CM R45.89 Other symptom s and signs involvi ng emotion al state FRANK SAUCEDA N S 01/23 [facility] OFFICE O/P EST MOD 30 MIN [id number] Diagnos is: ICD-10- CM F15.11 Other stimula nt abuse, in remissi on BHARTI HARRIS IEL 02/24 [facility] Outpatient Encounter [id number] 03/08 [facility] Social History Combined list of available smoking, tobacco, and other social history from Department of Defense and Veterans Affairs facilities. Social History Type Response Date Comment Sourc e Tobacco smoking status NHIS OH-TOBACCO USER EVERY DAY 07/31/2023 [facility] of [facility] WA[facility]UP 07/31/2023 [facility] History of tobacco use OH-TOBACCO USER E VERY DAY 08/03/2020 [facility] of [facility] CO UNSEL NO 11/28/2018 [facility] History of tobacco use PREVIOUS SMOKER 10/25/2015 [facility] History of tobacco use CURRENT TOBACCO USER 01/28/2014 [facility] History of tobacco use CURRENT TOBACCO USER 10/17/2012 [facility] History of tobacco use TOBACCO OFFERRED PT MEDS (PROVIDER) 04/24/2011 [facility] History of tobacco use CURRENT TOBACCO USER 04/23/2011 [facility] History of tobacco use CURRENT TOBACCO USER 05/03/2010 [facility] History of tobacco use CURRENT TOBACCO USER 04/29/2010 [facility] Plan of Care List of future care activities from Department of [facility] Affairs facilities. Additional future care activities may be listed in the Assessment and Plan section. Date/Time Care Activity Care Activity Detail Facili ty 09/09/2024 AMBULATORY - PSYCHIATRY AMBULATORY - PSYC HIATRY [facility]
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
--- NOTE | 2024-06-23 20:39 | ADMGEN ---
This patient, Alok Smart, was admitted to Medical Room 340-01. Patient/family oriented to hospital policies and general routines including ID bracelet, bed and alarms, visiting hours, pain management, procedures, bathroom and other care routines, personal items, smoking policy, room service/diet, and visiting hours. Information on how to activate the Rapid Response Team has been discussed. Patient/Family are encouraged to report perceived risks to care and to ask questions if they do not understand what they are told or what they should do.
[2024-06-23] MEDS: ACETAMINOPHEN 325 MG TABLET 650 MG PO (20:50)
[2024-06-24] MEDS: diazePAM (*CRX) 5 MG TABLET 2.5 MG PO (00:22)
[2024-06-24] MEDS: ACETAMINOPHEN/BUTALBITAL/CAFFEINE 325-50-40 MG TABLET (FIORICET) 2 TAB PO ×2 (00:22→15:29)
[2024-06-24 04:00] VITALS: PULSE 55
[2024-06-24 05:49] LABS: Basophils Percent Auto 0.6 % (0.2-1.2); Eosinophils Absolute Auto 0.3 K/mm3 (0-0.3); Eosinophils Percent Auto 4.4 % (0-4.4); Hematocrit 37.8 % (42.0-52.0); Hemoglobin 12.6 g/dL (14.0-18.0); Immature Granulocyte Absolute 0.02 K/mm3 (0.00-0.031); Immature Granulocyte Percent A 0.3 % (0-0.5); Lymphocytes Percent Auto 42.8 % (18.3-44.2); Mean Corpuscular HGB Conc 33.3 g/dl (32-36); Mean Corpuscular Hemoglobin 29.8 pg (26-34); Mean Corpuscular Volume 89.4 fl (80-100); Mean Platelet Volume 10.8 fl (7.4-10.4); Monocytes Absolute Auto 0.6 K/mm3 (0.1-0.6); Monocytes Percent Auto 8.3 % (2.6-8.5); Neutrophils Absolute Auto 3.2 K/mm3 (1.3-6.7); Neutrophils Percent Auto 43.6 % (45.5-73.1); Platelet Count Result 184 k/mm3 (150-375); Red Blood Count 4.23 M/mm3 (4.6-6.20); Red Cell Distribution Width 12.7 % (11.5-14.5); White Blood Count 7.2 K/mm3 (4.5-10.0)
[2024-06-24 06:00] VITALS: BP 109/53; PULSE 60; RESP 20; TEMP 36.8; O2SAT 98
[2024-06-24 06:01] LABS: Anion Gap 9 mmol/L (4-12); Blood Urea Nitrogen 23 mg/dL (9-20); Calcium 9.3 mg/dL (8.4-10.2); Carbon Dioxide 22 mmol/L (22-30); Chloride 108 mmol/L (98-107); Estimated CRCL calculation 75 ml/min; Estimated Glomerular Filt Rate > 60; Glucose 94 mg/dL (65-110); Potassium 3.8 mmol/L (3.4-5.0); Sodium 139 mmol/L (137-145)
[2024-06-24 09:03] VITALS: PULSE 54
[2024-06-24] MEDS: ENOXAPARIN 40 MG/0.4 ML SYRINGE SUB-Q (09:19)
[2024-06-24] MEDS: ACETAMINOPHEN 325 MG TABLET 650 MG PO (11:31)
[2024-06-24 12:00] VITALS: PULSE 82
--- NOTE | 2024-06-24 14:47 | PC.NURSE ---
Patient off of unit to MRI
[2024-06-24 15:04] VITALS: BP 118/57; PULSE 74; RESP 16; TEMP 36; O2SAT 100
[2024-06-24 16:00] VITALS: PULSE 61
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
== END 2024-06-24 18:55 | disposition home or self-care (01) ==
LOC: ANHED 17:15 → ANH3MED 18:27
PROVIDERS: Nurse Practitioner Gerontology; Admitting Provider General Practice; Emergency Provider Emergency Medicine; Visit Provider Nurse Practitioner Acute Care
DX: G45.9 Transient cerebral ischemic attack, unspecified (principal); S06.0X1A Concussion with loss of consciousness of 30 minutes or less, initial encounter; S00.81XA Abrasion of other part of head, initial encounter; W20.8XXA Other cause of strike by thrown, projected or falling object, initial encounter; F43.10 Post-traumatic stress disorder, unspecified; J44.9 Chronic obstructive pulmonary disease, unspecified; F17.210 Nicotine dependence, cigarettes, uncomplicated; Z79.51 Long term (current) use of inhaled steroids; Z79.899 Other long term (current) drug therapy; Z65.5 Exposure to disaster, war and other hostilities; Z86.73 Personal history of transient ischemic attack (TIA), and cerebral infarction without residual deficits; Z87.442 Personal history of urinary calculi
CPT/HCPCS: 36415; 70450; 70496; 70498; 70551; 71045; 80048; 80053; 82948; 84484; 85025; 85610; 85730; 93005; 96372; 96374; 99285; A9270; G0378; J1650; J1885; Q9967

== ENCOUNTER 2024-08-05 09:49 | Emergency (ER) | payer OTHER, SELFPAY ==
[2024-08-05 09:58] VITALS: BP 153/90; PULSE 104; RESP 16; TEMP 36.6; O2SAT 100
--- OUTSIDE RECORDS SUMMARY | 2024-08-05 10:33 | XMS_ITS ---
Author Name [facility] [place] Organization [facility] [place] Address [address] [place] [address] Care Team Providers Care Lab Tester Name Role Phone KELLEE BURT Primary Care Provider Unavailabl e Selected Encounter This section includes the information on record at [place] for the Encounter. 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 Date/Time Primary/Secondary Diagnosis Diagnosis Name Provider Source Feb 25, 2024 08:57 AM PRIMARY Other stimulant abuse, in remission BURAK HARRIS [facility] Feb 25, 2024 08:57 AM SECONDARY Anxiety disorder, unspecified BURAK HARRIS [facility] Plan of Treatment: Future Appointments (+ 6 months) and Future Tests (+/- 45 days) The Plan of Treatment section includes future care activities for the patient from all [place] treatmentfacilities. This section includes future appointments and future orders which are active, pending or scheduled. Future Appointments This section includes appointments that were scheduled to occur 6 months from the date of the Encounter, up to a maximum of 20 appointments. The data comes from all [place] treatment facilities. Appointment Date/Time Appointment Type Appointme nt Facility Name Jul 23, 2024 10:00 AM AMBULATORY - MEDICINE [facility] Social History: Smoking Status (Most current) and Tobacco Use (All prior to encounter date) This section includes the most current, and the historical, smoking and tobacco- related health factors from the [place] facility where the Encounter took place. Current Smoking Status This section includes the most current smoking, or tobacco-related health factor, from the [place] facility where the Encounter took place. Date/Time Current Smoking Status Comment Hannah puentes Apr 24, 2011 03:48 PM TOBACCO OFFERRED P T MEDS (PROVIDER) [facility] Tobacco Use History This section includes a history of the smoking, or tobacco-related health factors, that were collected on or before the date of the Encounter. The data comes from the [place] facility where the Encounter took place. Date/Time Smoking Status/Tobacco Use Comment Man taylor Apr 24, 2011 03:[address] [facility] Apr 24, 2011 03:48 PM TOBACCO OFFERRED P T MEDS (PROVIDER) [facility] Apr 23, 2011 05:34 PM CURRENT TOBACCO USER [facility] May 03, 2010 12:24 PM CURRENT TOBACCO USER [facility] Apr 29, 2010 10:28 PM CURRENT TOBACCO USER [facility] Encounter Notes: All associated encounter notes This section contains the clinical notes associated to the Encounter. Date/Time Encounter Note(s) Provider Source Feb 25, 2024 08:51 AM PSYCHIATRY NOTE: LOCAL TITLE: PSYCHIATRY [facility] STANDARD TITLE: PSYCHIATRY NOTE DATE OF NOTE: FEB 25, 2024@08:51 ENTRY DATE: FEB 25, 2024@08:51:04 AUTHOR: BURAK HARRIS EXP COSIGNER: URGENCY: STATUS: COMPLETED SL - [facility] - MEDICATION MANAGEMENT Name..................NERY SMART KIRILL Age...................33 Sex...................MALE SSN................... Today's Date..........FEB 25, 2024 [...] LIST: 1) Posttraumatic stress disorder (SNOMED CT 75268313) 2) Major Depressive Disorder, Recurrent 3) Suicidal Ideation 4) Polysubstance dependence 5) Adjustment disorder with depressed mood (SNOMED CT 46764112) 6) Hyperlipidemia * (ICD-9-CM 272.4) 7) Generalized [...] and reduced his trauma related nightmares. Unfortunately, has also had stress with his children's mother who let talk to his son for about a week, but then stopped when wouldn't immediately sign paperwork for the kids to get passports ('s ex is notably dual citizen). Sleep has been reduced and more nightmares related to this issue, also increase in irritability. also reports concerns about possibly having ADHD and reports struggling to help the kids with their homework, issues with maintaining focus on projects, starting multiple projects but not finishing. Discussed options and cautioned against stimulants but will trial Strattera for inattention symptoms. [place] reports understanding and agreement with treatment plan. [...] Psychiatrist () Signed: 02/25/2024 08:57 BURAK HARRIS [facility]
--- OUTSIDE RECORDS SUMMARY | 2024-08-05 10:34 | XMS_ITS | Encounter Summary ---
Author Name [facility] [place] [facility] [place] Address [address] [place] [address] Care Team Providers Care Military Pilot Name Role Phone RUBIA LUO Primary Care Provider Unavailabl e Selected Encounter This section includes the information on record at [place] for the Encounter. Date/Time Encounter Type Encounter Description Reason Provider Source Jun 27, 2024 09:01 AM Outpatient Encounter [facility] INTERNAL MEDICINE SHERRY SAUCEDO Deidra Encounter Template Text not used by [place] Plan of Treatment: Future Appointments (+ 6 months) and Future Tests (+/- 45 days) The Plan of Treatment section includes future care activities for the patient from all [place] treatmentfacilities. This section includes future appointments and future orders which are active, pending or scheduled. Future Appointments This section includes appointments that were scheduled to occur 6 months from the date of the Encounter, up to a maximum of 20 appointments. The data comes from all [place] treatment facilities. Appointment Date/Time Appointment Type Appointme nt Facility Name Jul 23, 2024 10:00 AM AMBULATORY - MEDICINE [facility] Sep 09, 2024 01:00 PM AMBULATORY - PSYCHIATRY [facility] Social History: Smoking Status (Most current) and Tobacco Use (All prior to encounter date) This section includes the most current, and the historical, smoking and tobacco- related health factors from the [place] facility where the Encounter took place. Current Smoking Status This section includes the most current smoking, or tobacco-related health factor, from the [place] facility where the Encounter took place. Date/Time Current Smoking Status Comment Facil ity Jul 31, 2023 10:12 AM VA-TOBACCO USER EVERY DAY [facility] Tobacco Use History This section includes a history of the smoking, or tobacco-related health factors, that were collected on or before the date of the Encounter. The data comes from the [place] facility where the Encounter took place. Date/Time Smoking Status/Tobacco Use Comment F acility Jul 31, 2023 10:12 AM VA-TOBACCO USE 5 TO 15 YEARS [facility] Jul 31, 2023 10:12 AM VA-TOBACCO USE ADVICE [facility] Jul 31, 2023 10:12 AM VA-TOBACCO USE FIELD NURSE NO [facility] Jul 31, 2023 10:12 AM VA-TOBACCO USE MED NO [facility] Jul 31, 2023 10:12 AM VA-TOBACCO USER EVERY DAY [facility] Encounter Notes: All associated encounter notes This section contains the clinical notes associated to the Encounter. Date/Time Encounter Note(s) Provider Source Jul 29, 2024 10:57 AM ADDENDUM: LOCAL TITLE: Addendum STANDARD TITLE: ADDENDUM DATE OF NOTE: JUL 29, 2024@10:57:24 ENTRY DATE: JUL 29, 2024@10:57:25 AUTHOR: SCHUYLER SAUCEDO EXP COSIGNER: URGENCY: STATUS: COMPLETED Discharge Disposition Date of discharge: Jul Disposition Discharge to home Alerting PCP team to this note for continuity of care. Records r/t this episode of care sent to [facility] for scanning. Discharge Summary Records:SHARED SECURELY WITH PACT RN AND SENT TO [facility] FOR SCANNING Hospital/discharge Summary (per discharge note): WORKUP IN HOSPITAL INCLUDED A CXR WHICH SHOWED PROMINENT MARKINGSIN THE LOWER LOBES WITH NO DEFINITIVE FOAL ATELECTASIS OR PNA. HEAD AND NECK CT NEGATIVE. BRAIN MRI WAS NORMAL. COSIDERING HE IS BACK TO BASELINE HE CAN BE DISCHARGED W/FU WITH PCP. HE CAN TAKE TYLENOL AND IBUPROFEN OTC PRN FOR BRIGGS. Post-Discharge Needs PACT: 1) [place] PCP follow up -F/U W/PCP IN 1 WEEK /mahesh/ SCHUYLER SAMUELS RN REGISTERED NURSE Signed: 07/29/2024 11:05 Receipt Acknowledged By: 07/30/2024 09:01 /mahesh/ TEETEE MENDEZ RN, BSN REGISTERED NURSE 07/30/2024 09:46 /es/ Rubia Luo PA-C PA-C ====== --- Original Document --- 06/23/24 [facility] PRESENTING CARE COORD PLAN [address]: Emergency Notification Intake Date Presenting to the Facility: May Method of Contact: Submitted to Centralized Call Center Notification ID: [id number] [facility] Referral #: [id number] Clinical Review [facility] Name: Hospital: [facility] Address: City: [place] State: [place] Zip Code: Phone : [facility] Facility Point of Contact: Name: Phone: Chief complaint: stroke symptoms Primary Diagnosis: Disposition Discharged Date of discharge: May Discharge to home PER EMAIL RECEIVED FROM NINA WARNER ON 06/24; BUT NO DC SUMMARY AVAILABLE YET. WILL UPLOAD WHEN AVAILABLE EXCERPT FROM HOSPITAL NOTE BELOW 33 YEAR OLD PRESENTS TO HOSPITAL AFTER BEING STRUCK IN HEAD BY PIECE OF DRY WALL WITH BRIEF LOSS OF CONSCIOUSNESS. HE WAS AT CONSTRUCTION SITE STANDING ON GROUND WHEN DRYWALL FELL ON HIM AND HIT HIM IN HEAD. PT HAS ABRASION ON FOREHEAD. Alerting PCP team to this note for continuity of care. /mahesh/ SCHUYLER SAMUELS RN REGISTERED NURSE Signed: 06/27/2024 09:06 Receipt Acknowledged By: 06/27/2024 10:55 /mahesh/ TEETEE MENDEZ RN, BSN REGISTERED NURSE 06/27/2024 09:08 /es/ SULMA DIMAS [facility] ADULT NURSE PRACTITIONER for SCHUYLER MASTERSON [facility] Jun 23, 2024 09:01 AM NONVA NOTE: LOCAL TITLE: [facility] SELF PRESENTING CARE COORD PLAN STANDARD TITLE: NONVA NOTE DATE OF NOTE: JUN 23, 2024@09:01 ENTRY DATE: JUN 27, 2024@09:01:57 AUTHOR: SCHUYLER SAUCEDO EXP COSIGNER: URGENCY: STATUS: COMPLETED [facility]ELF PRESENTING CARE COORD PLAN [address] Has ADDENDA Emergency Notification Intake Date Presenting to the Facility: May Method of Contact: Submitted to Centralized Call Center Notification ID: [id number] [facility] Referral #: [id number] Clinical Review [facility] Name: Hospital: [facility] Address: City: [place] State: [place] Zip Code: Phone : [facility] Facility Point of Contact: Name: Phone: Chief complaint: stroke symptoms Primary Diagnosis: Disposition Discharged Date of discharge: May Discharge to home PER EMAIL RECEIVED FROM NINA WARNER/Jason ON 06/24; BUT NO DC SUMMARY AVAILABLE YET. WILL UPLOAD WHEN AVAILABLE EXCERPT FROM HOSPITAL NOTE BELOW 33 YEAR OLD PRESENTS TO HOSPITAL AFTER BEING STRUCK IN HEAD BY PIECE OF DRY WALL WITH BRIEF LOSS OF CONSCIOUSNESS. HE WAS AT CONSTRUCTION SITE STANDING ON GROUND WHEN DRYWALL FELL ON HIM AND HIT HIM IN HEAD. PT HAS ABRASION ON FOREHEAD. Alerting PCP team to this note for continuity of care. /mahesh/ SCHUYLER SAUCEDO BSN RN REGISTERED NURSE Signed: 06/27/2024 09:06 Receipt Acknowledged By: 06/27/2024 10:55 /mahesh/ TEETEE MENDEZ RN, BSN REGISTERED NURSE 06/27/2024 09:08 /mahesh/ SULMA ALVARADOBVanessa [facility] ADULT NURSE PRACTITIONER for RUBIA LUO 07/29/2024 ADDENDUM STATUS: COMPLETED Discharge Disposition Date of discharge: Jul Disposition Discharge to home Alerting PCP team to this note for continuity of care. Records r/t this episode of care sent to [facility] for scanning. Discharge Summary Records:SHARED SECURELY WITH PACT RN AND SENT TO [facility] FOR SCANNING Hospital/discharge Summary (per discharge note): WORKUP IN HOSPITAL INCLUDED A CXR WHICH SHOWED PROMINENT MARKINGSIN THE LOWER LOBES WITH NO DEFINITIVE FOAL ATELECTASIS OR PNA. HEAD AND NECK CT NEGATIVE. BRAIN MRI WAS NORMAL. COSIDERING HE IS BACK TO BASELINE HE CAN BE DISCHARGED W/FU WITH PCP. HE CAN TAKE TYLENOL AND IBUPROFEN OTC PRN FOR BRIGGS. Post-Discharge Needs PACT: 1) [place] PCP follow up -F/U W/PCP IN 1 WEEK /mahesh/ SCHUYLER SAUCEDO BSN RN REGISTERED NURSE Signed: 07/29/2024 11:05 Receipt Acknowledged By: * AWAITING SIGNATURE * TEETEE MENDEZ * AWAITING SIGNATURE * RUBIA LUO SHAMEKA N [facility]
--- OUTSIDE RECORDS SUMMARY | 2024-08-05 10:34 | XMS_ITS | Continuity of Care Document ---
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 DoD Vomiting Inactive Condition DoD Dietary Counseling Pertaining To Specific Condition Active Condition DoD visit for: services physical separation Active Condition DoD CONCUSSION Inactive Condition DoD visit for: services physical cat-related illness Active Condition Do D BRAIN INJURY TRAUMATIC Active Condition DoD COCAINE ABUSE Active Condition DoD HYPERCHOLESTEROLEMIA Active Condition D oD ALCOHOL DEPENDENCE (ALCOHOLISM) Active Condition DoD Observation For Suspected Mental Condition Active Condition DoD ADJUSTMENT DISORDER Active Condition Do D Suicidal Ideation Active Condition DoD Inquiry And Counseling: Parent - Child Problem Inactive Condition DoD ringing in the ears (tinnitus) Active Condition 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 DoD NO PSYCHIATRIC DIAGNOSIS OR CONDITION ON AXIS I Active Condition DoD highly irritable Active Condition DoD COMMON COLD Inactive Condition DoD WARTS GENITAL Inactive Condition DoD joint pain, localized in the wrist Active Condition DoD neck pain Active Condition DoD tobacco use Active Condition DoD walk is wobbly or unsteady (ataxia) [Sx] Active Condition Do D snoring Active Condition DoD Inquiry And Counseling: For Marital Conflict Inactive Condition DoD MARITAL PROBLEM Inactive Condition DoD WRIST SPRAIN Inactive Condition DoD abdominal pain Active Condition DoD CONDITIONS INFLUENCING HEALTH STATUS Active Condition DoD REFRACTIVE ERROR - MYOPIA Active Condition DoD Occupational Therapy Active Condition D oD DEPRESSION Active Condition DoD POST-TRAUMATIC STRESS DISORDER Active Condition DoD PARTNER RELATIONAL PROBLEM Inactive Condition DoD Patient Education - Dietary Active Condition DoD visit for: screening exam bact/spirochetal venereal disease Active Condition DoD Patient Education Active Condition [facility] Patient Counseling: Active Condition Do D reported physical trauma Active Condition DoD visit for: services physical Active Condition DoD ASSESSMENT OF PATIENT CONDITION WORK-RELATED Active Condition Do D insomnia Active Condition DoD memory lapses or loss Active Condition [facility] HEADACHE SYNDROMES Active Condition [facility] CONCUSSION WITH LOC 30 MINUTES OR LESS Active Condition [facility] ALCOHOL ABUSE Active Condition [facility] visit for: screening exam neurological disorders Active Condition [facility] CHRONIC POST-TRAUMATIC STRESS DISORDER Active Condition [facility] ACUTE POST-TRAUMATIC STRESS DISORDER Inactive Condition [facility] visit for: administrative purpose Inactive Condition visit for: administrative purpose [facility] ACUTE REACTION TO STRESS Active Condition ACUTE REACTION TO STRESS DoD INJURY FROM TERRORIST EXPLOSION BLAST Active Condition INJURY FROM TERRORIST EXPLOSION BLAST DoD visit: ears/hearing exam for hearing conservation, treatment Active Condition [facility] ASSESSMENT OF PATIENT CONDITION WORK STATUS Active Condition [facility] Observation For Suspected Condition Active Condition DoD visit for: ears / hearing exam Active Condition [facility] 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 Active Condition [facility] Vaccines Prophylactic Need Against Single Disease Inactive Condition DoD visit for: screening exam pulmonary tuberculosis Inactive Condition [facility] Vaccines Prophylactic Need Against Combinations Of Diseases Inactive Condition DoD visit for: screening exam Active Condition [facility] visit for: services physical accession Inactive Condition [facility] REFRACTIVE ERROR Active Condition [facility] Adjustment disorder with depressed mood (SNOMED CT 03934316) Active Condition [facility] Anxiety Active Condition [facility] Apnea Active Condition [facility] Cannabis dependence, continuous Active Condition [facility] Cerebral infarction [facility] Danger of harm to self (ICD-9-CM E953.9) Active Condition [facility] Deficiency of vitamin D3 Active Condition [facility] Depression, NOS Active Condition [facility] Exposure to potentially hazardous substance Active Condition [facility] Gastroesophageal reflux disease Active Condition [facility] Generalized anxiety disorder Active Condition [facility] History of nephrolithiasis Active Condition [facility] Hyperlipidemia Active Condition [facility] Hyperlipidemia * (ICD-9-CM 272.4) Active Condition [facility] Insomnia Active Condition [facility] Major Depressive Disorder, Recurrent Active Condition [facility] Polysubstance dependence Active Condition May 03, 2010 Entered By: AKUA KNIGHT A Comment: Methamphetamine , Cocaien and Alcohol [facility] Posttraumatic stress disorder (SNOMED CT 51237228) Active Condition [facility] PTSD, Chronic Active Condition [facility] Sleep disorder Active Condition [facility] Stimulant abuse Active Condition [facility] Suicidal Ideation Active Condition ZKEE EDUARDO [facility] Tobacco user Active Condition [facility] Urinary Calculi * (ICD-9-CM 592.9) Active Condition [facility] Encounters for unspecified Administrative Purpose (ICD-9-CM V68.9) Inactive Condition 10/25/2020 [facility] History of extracorporeal shockwave lithotripsy Inactive Condition 10/25/2020 MACARIO KAPLAN [facility] Irritability and anger Inactive Condition 10/25/2020 [place] Low income Inactive Condition 10/25/2020 [facility] Pain in testicle Inactive Condition 10/25/2020 Pj BRAUN [facility] Diagnosis: ICD-10-CM R51.9 Headache, unspecified Active Diagnosis [facility] Diagnosis: ICD-10-CM 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, in remission Active Diagnosis Trista [facility] Diagnosis: ICD-10-CM R45.89 Other symptoms and signs involving emotional state Active Diagnosis [facility] Diagnosis: ICD-10-CM G43.009 Migraine w/o aura, not intractable, w/o status migrainosus Active Diagnosis [facility] Diagnosis: ICD-10-CM F43.10 Post-traumatic stress disorder, unspecified Active Diagnosis [facility] Diagnosis: ICD-10-CM Z77.29 Contact with and exposure to other hazardous substances Active Diagnosis [facility] Diagnosis: ICD-10-CM Z63.0 Problems in relationship with spouse or partner Active Diagnosis [facility] Medications Combined list of outpatient medications [...] PREVENT CLOGGING . RESPIR ATORY (INHAL ATION) 08/03/2024 [id number] JERRY BURT 2023 1 [facility] ASPIRIN 81MG TAB,EC TAKE ONE TABLET BY MOUTH ONCE A DAY ORAL ACTIVE BATSHEVA BAZAN 2020 [facility] ATOMOXETINE 40MG CAP TAKE ONE CAPSULE BY MOUTH EVERY MORNING FOR ADHD ORAL ACTIVE 02/25/2025 [id number] KRISTIN HARRIS 2023 30 [facility] Bupivacaine HCl/Dextros e Solution 0.75%/8.25% Injection TAKE TWO CAPSULES BY MOUTH AT BEDTIME FOR NIGHTMAR ES MAY CAUSE DIZZINES S OR DROWSINE SS. Active 09/06/2024 [id number] BURAK HARRIS 2023 180 [facility] CETIRIZINE (U/D) 10 MG ORAL TAB TAKE ONE TABLET BY MOUTH ONCE A DAY 08/03/2024 [id number] KELLEE BURT 2023 90 [facility] CETIRIZINE HCL 10MG TAB TAKE ONE TABLET BY MOUTH ONCE A DAY ORAL 08/03/2024 [id number] JERRY BURT HUNTER 2023 90 [facility] Clonazepam (Teva Brand) Tablet 0.5 mg Oral TAKE ONE TABLET BY MOUTH ONCE A DAY NEEDED FOR ANXIETY MAY CAUSE DROWSINE SS. DO NOT DRINK ALCOHOL. Discont inued 11/02/2023 [id number] BURAK HARRIS 2023 20 [facility] CLONAZEPAM 0.5MG TAB TAKE ONE TABLET BY MOUTH ONCE A DAY NEEDED FOR ANXIETY MAY CAUSE DROWSINE SS. DO NOT DRINK ALCOHOL. ORAL DISCONT INUED BY PROVIDE R 11/02/2023 [id number] KRISTIN HARRIS 2023 20 [facility] diazePAM (U/D) 5 MG ORAL TAB TAKE ONE TABLET BY MOUTH TWICE DAILY NEEDED AVOID TAKING WITH GRAPEFRU IT JUICE. 03/08/2024 [id number] [facility]ARR[facility] 2023 [facility] dia[facility]AM (U/D) 5 MG ORAL TAB TAKE ONE TABLET BY MOUTH TWICE DAILY NEEDED AVOID TAKING WITH GRAPEFRU IT JUICE. Discont inued 01/31/2024 [id number] BURAK HARRIS 2023 60 [facility] DIAZEPAM 5MG TAB TAKE ONE TABLET BY MOUTH TWICE DAILY NEEDED AVOID TAKING WITH GRAPEFRU IT JUICE. ORAL ACTIVE 08/27/2024 [id number] 5 KRISTIN HARRIS 2023 60 [facility] DIAZEPAM 5MG TAB TAKE ONE TABLET BY MOUTH TWICE DAILY NEEDED AVOID TAKING WITH GRAPEFRU IT JUICE. ORAL DISCONT INUED 05/08/2024 [id number] KRISTIN HARRIS 2023 60 [facility] NGHIALARRY N DIAZEPAM 5MG TAB TAKE ONE TABLET BY MOUTH TWICE DAILY NEEDED AVOID TAKING WITH GRAPEFRU IT JUICE. ORAL DISCONT INUED 03/08/2024 [id number] KRISTIN HARRIS 2023 60 [facility] NGHIAISIO N DIAZEPAM 5MG TAB TAKE ONE TABLET BY MOUTH TWICE DAILY NEEDED AVOID TAKING WITH GRAPEFRU IT JUICE. ORAL DISCONT INUED 01/31/2024 [id number] KRISTIN HARRIS 2023 60 [facility] NGHIAISLARRY Marroquin FLONASE-OTC (BRAND) 50 MCG RAJNI SPSN [9.9] INSTILL 1 SPRAY IN NOSTRIL( S) ONCE A DAY (MUST BE USED DIRECTED FOR MINIMUM OF 21 DAYS TO PROVIDE ADEQUATE BENEFITS ) 08/03/2024 [id number] BURT, KELLEE 2023 1 [facility] marroquin FLUTICASONE PROPIONATE 50MCG/SPRAY SOLN,NASAL, 16GM INSTILL 1 SPRAY IN NOSTRIL( S) ONCE A DAY (MUST BE USED DIRECTED FOR MINIMUM OF 21 DAYS TO PROVIDE ADEQUATE BENEFITS ) NASAL 08/03/2024 [id number] JERRY BURT 2023 1 [facility] Lidocaine (Lidoderm Eq.) Transdermal System 5% Topical APPLY 1 PATCH TO SKIN SITE ONCE A DAY APPLY PATCH AND PRESS FIRMLY FOR 10-15 SECONDS. KEEP ON FOR 12 HOURS THEN REMOVE PATCH FOR 12 HOURS. 08/03/2024 [id number] KELLEE BURT 2023 30 [facility] cara LIDOCAINE 5% PATCH APPLY 1 PATCH TO SKIN SITE ONCE A DAY APPLY PATCH AND PRESS FIRMLY FOR 10-15 SECONDS. KEEP ON FOR 12 HOURS THEN REMOVE PATCH FOR 12 HOURS. TRANSD ERMAL 08/03/2024 [id number] JERRY BURT 2023 30 [facility] MAGNESIUM OXIDE 400MG TAB TAKE ONE TABLET BY MOUTH EVERY DAY ORAL 03/03/2024 [id number] JERRY BURT 2023 120 [facility] Cara MARIJUANA USE DIRECTED INHALATI ON PRN INHALA TION ACTIVE BATSHEVA BAZAN N 2017 [facility] meloxicam (U/D) 7.5 MG ORAL TAB TAKE ONE TABLET BY MOUTH ONCE A DAY 08/03/2024 [id number] KELLEE BURT 2023 30 [facility] MELOXICAM 7.5MG TAB TAKE ONE TABLET BY MOUTH ONCE A DAY ORAL 08/03/2024 [id number] JERRY BURT 2023 30 [facility] ONDANSETRON HCL 8MG TAB TAKE ONE-HALF TABLET BY MOUTH THREE TIMES A DAY NEEDED FOR NAUSEA/V OMITING ORAL 02/17/2024 [id number] JERRY BURT 2023 60 [facility] PRAZOSIN HCL 2MG CAP TAKE ONE CAPSULE BY MOUTH AT BEDTIME MAY CAUSE DIZZINES S OR DROWSINE SS. ORAL ACTIVE 11/06/2024 [id number] 5 KRISTIN HARRIS 2023 90 [facility] PRAZOSIN HCL 2MG CAP TAKE TWO CAPSULES BY MOUTH AT BEDTIME FOR NIGHTMAR ES MAY CAUSE DIZZINES S OR DROWSINE SS. ORAL DISCONT INUED (EDIT) 09/06/2024 [id number] 4 KRISTIN HARRIS 2023 180 [facility] SUMATRIPTAN SUCCINATE 50MG TAB TAKE ONE TABLET BY MOUTH ONE-TIME TAKE AT ONSET OF HEADACHE . MAY REPEAT AFTER 2 HOURS. NOT TO EXCEED 2 TABLETS IN 24 HOURS. ORAL ACTIVE 12/04/2024 [id number] JERRY BURT 2023 9 [facility] TAMSULOSIN HCL 0.4MG CAP TAKE ONE CAPSULE BY MOUTH EVERY EVENING KIDNEY STONE APPROXIM ATELY 30 MINUTES AFTER THE SAME MEAL EACH DAY ORAL ACTIVE 01/18/2025 [id number] JERRY BURT 2023 30 [facility] Allergies, Adverse Reactions, Alerts Combined list of allergies from Department of Defense and Veterans Affairs facilities. It does not include entries that were removed or entered in error. Substance Category Reaction Severity Reaction type Status Date Reported Comments Source No Known Allergies Drug allergy (disorder) active 9 [facility] [place] [facility] Propensity to adverse reactions to food (finding) active 1 [facility] Immunizations Combined list of available immunizations from the Department of Defense and Veterans Affairs facilities. Immunization Series Date Given Administered By Site Reaction Lot Number CVX Code Drug Pricing/Signage Team Member Status Comments Source INFLUENZA, UNSPECIFIED FORMULATION 2016 88 complet ed [facility] INFLUENZA, UNSPECIFIED FORMULATION 2009 88 complet ed [facility] TD(ADULT) UNSPECIFIED FORMULATION [address] [facility] Novel influenza-H1N 1-09, injectable 1 2009 UNK 127 Unknown (UNK) comple t ed Novel influenza -I3K1-24, injectabl e DoD influenza virus vaccine, live, attenuated, for intranasal use 1 2008 [id number] Unknown (UNK) comple t influenza virus vaccine, live, attenuate d, for intranasa l use DoD typhoid Vi capsular polysaccharid e vaccine 1 2008 [id number] [place] [employer] ([facility]) complet ed typhoid Vi capsular polysacch aride vaccine DoD anthrax vaccine 4 2007 [id number] [employer] [place] ([facility]) complet ed anthrax vaccine DoD influenza virus vaccine, split virus (incl. purified surface antigen)-reti red CODE 0 2007 [id number] [place] [employer] ([facility]) complet ed influenza virus vaccine, split virus (incl. purified surface antigen)- retired CODE DoD anthrax vaccine 3 2007 UNK 24 [employer] [place] ([facility]) complet ed anthrax vaccine DoD anthrax vaccine 2 2007 UNK 24 [employer] [place] ([facility]) complet ed anthrax vaccine DoD anthrax vaccine 1 2007 UNK 24 [employer] [place] ([facility]) complet ed anthrax vaccine DoD hepatitis A vaccine, adult dosage 2 2007 [id number] Merck (MSD) complet ed hepatitis A vaccine, adult dosage DoD vaccinia (smallpox) vaccine 1 2007 [id number] [employer] ([facility]AL) complet ed vaccinia (smallpox ) vaccine DoD influenza virus vaccine, split virus (incl. purified surface antigen)-reti red CODE 1 2006 [id number] Sanofi Pasteur ([facility]) complet ed influenza virus vaccine, split virus (incl. purified surface antigen)- retired CODE DoD typhoid Vi capsular polysaccharid e vaccine 1 2006 [id number] Sanofi Pasteur ([facility]) complet ed typhoid Vi capsular polysacch [...] antigen)-reti red CODE 1 2006 UNK 15 [employer] (MED) complet ed influenza virus vaccine, split virus (incl. purified surface antigen)- retired CODE DoD hepatitis A vaccine, pediatric/ado lescent dosage, 2 dose schedule 1 2006 [id number] 83 SmithKline (SKB) complet ed hepatitis A vaccine, pediatric /adolesce nt dosage, 2 dose schedule DoD poliovirus vaccine, inactivated 1 2006 [id number] Sanofi Pasteur (PMC) complet ed polioviru s vaccine, inactivat ed DoD hepatitis A vaccine, adult dosage 1 2006 UNK 52 Unknown (UNK) comple t ed hepatitis A vaccine, adult dosage DoD meningococcal polysaccharid e (groups A, C, Y and W-135) diphtheria toxoid conjugate vaccine (MCV4P) 1 2006 [id number] Sanofi Pasteur (PMC) complet ed meningoco ccal polysacch aride (groups A, C, Y and W-135) diphtheri a toxoid conjugate vaccine (MCV4P) DoD tetanus toxoid, reduced diphtheria toxoid, and acellular pertu is vaccine, adsorbed 1 2006 [id number] Sanofi Pasteur (PMC) complet ed tetanus [...] 03, 2023 09:50 AM Reporting Lab: [facility] [id number] Performing Lab: [facility] [address] [facility] URINALYSI S (STL-PB) BILIRUBIN.T OTAL [PRESENCE] IN URINE BY TEST STRIP Negati vemg/d L 08/02 Specimen Type: URINE No comment entered. Ordering Provider: SHADY BURT Report Released Date/Time: August 03, 2023 09:50 AM Reporting Lab: [facility] [address] [place] [address] Performing Lab: [facility] [facility] URINALYSI S (STL-PB) PH OF URINE BY TEST STRIP 6.5 5.0 - 8.0 08/02 Specimen Type: URINE No comment entered. Ordering Provider: SHADY BURT Report Released Date/Time: August 03, 2023 09:50 AM Reporting Lab: [facility] [place] [address] Performing Lab: [facility] [facility] URINALYSI S (STL-PB) APPEARANCE OF URINE Clear 08/02 Specimen Type: URINE No comment entered. Ordering Provider: SHADY BURT Report Released Date/Time: August 03, 2023 09:50 AM Reporting Lab: [facility] [place] [address] Performing Lab: [facility] [address] [facility] URINALYSI S (STL-PB) NITRITE [PRESENCE] IN URINE BY TEST STRIP Negati vemg/d L 08/02 Specimen Type: URINE No comment entered. Ordering Provider: SHADY BURT Report Released Date/Time: August 03, 2023 09:50 AM Reporting Lab: [facility] [place] [address] Performing Lab: [facility] [address] [facility] URINALYSI S (STL-PB) GLUCOSE [MASS/VOLUM E] IN URINE BY TEST STRIP Normal mg/dL 08/02 Specimen Type: URINE No comment entered. Ordering Provider: SHADY BURT Report Released Date/Time: August 03, 2023 09:50 AM Reporting Lab: [facility] [place] [address] Performing Lab: [facility] [facility] URINALYSI S (L-PB) PROTEIN [MASS/VOLUM E] IN URINE BY TEST STRIP 10 mg/dL - 20 08/02 H Specimen Type: URINE No comment entered. Ordering Provider: SHADY BURT Report Released Date/Time: August 03, 2023 09:50 AM Reporting Lab: [facility] [place] [address] Performing Lab: [facility] [address] [facility] URINALYSI S (L-PB) URN.UROBILI NOGEN Normal mg/dL 08/02 Specimen Type: URINE No comment entered. Ordering Provider: SHADY BURT Report Released Date/Time: August 03, 2023 09:50 AM Reporting Lab: [facility] [place] [address] Performing Lab: [facility] [facility] URINALYSI S (L-PB) HEMOGLOBIN [MASS/VOLUM E] IN URINE BY TEST STRIP Tracem g/dL 08/02 Specimen Type: URINE No comment entered. Ordering Provider: SHADY BURT Report Released Date/Time: August 03, 2023 09:50 AM Reporting Lab: [facility] [place] [address] Performing Lab: [facility] [facility] URINALYSI S (STL-PB) KETONES [MASS/VOLUM E] IN URINE BY TEST STRIP Negati vemg/d L 08/02 Specimen Type: URINE No comment entered. Ordering Provider: SHADY BURT Report Released Date/Time: August 03, 2023 09:50 AM Reporting Lab: [facility] [place] [address] Performing Lab: [facility] [facility] URINALYSI S (STL-PB) URN.LEUK.ES T. Negati vemg/d L 08/02 Specimen Type: URINE No comment entered. Ordering Provider: SHADY BURT Report Released Date/Time: August 03, 2023 09:50 AM Reporting Lab: [facility] [place] [address] Performing Lab: [facility] [facility] URINALYSI S (STL-PB) SPECIFIC GRAVITY OF URINE 1.023 1.005 - 1.029 08/02 Specimen Type: URINE No comment entered. Ordering Provider: SHADY BURT Report Released Date/Time: August 03, 2023 09:50 AM Reporting Lab: [facility] [place] [address] Performing Lab: [facility] DIVISION HGA1C HEMOGLOBIN A1C/HEMOGLO BIN.TOTAL IN BLOOD 5.6 4.0 - 6.0 08/02 Specimen Type: BLOOD No comment entered. Ordering Provider: SHADY BURT Report Released Date/Time: August 03, 2023 09:50 AM Reporting Lab: [facility] [place] [address] Performing Lab: [facility] [facility] TSH (MA-PB) THYROTROPIN [UNITS/VOLU ME] IN SERUM OR PLASMA 2.236 u[IU]/ mL 0.470 - 5.000 08/02 Specimen Type: SERUM No comment entered. Ordering Provider: SHADY BURT Report Released Date/Time: August 03, 2023 09:50 AM Reporting Lab: [facility] [place] [address] Performing Lab: [facility] LIPID PANEL (STL) CHOLESTEROL [MASS/VOLUM E] IN SERUM OR PLASMA 259 mg/dL 0 - 200 08/02 H Specimen Type: PLASMA Comment: No hemolysis noted. Ordering Provider: SHADY BURT Report Released Date/Time: August 03, 2023 09:50 AM Reporting Lab: [facility] [place] [address] Performing Lab: [facility] [facility] LIPID PANEL (STL) TRIGLYCERID E [MASS/VOLUM E] IN SERUM OR PLASMA 179 mg/dL 0 - 150 08/02 H Specimen Type: PLASMA Comment: No hemolysis noted. Ordering Provider: SHADY BURT Report Released Date/Time: August 03, 2023 09:50 AM Reporting Lab: [facility] [place] [address] Performing Lab: [facility] [facility] LIPID PANEL (STL) CHOLESTEROL IN LDL [MASS/VOLUM E] IN SERUM OR PLASMA BY CALCULATION 188 mg/dL 08/02 Specimen Type: PLASMA Comment: No hemolysis noted. Ordering Provider: SHADY BURT Report Released Date/Time: August 03, 2023 09:50 AM Reporting Lab: [facility] [place] [address] Performing Lab: [facility] LIPID PANEL (STL) CHOLESTEROL IN HDL [MASS/VOLUM E] IN SERUM OR PLASMA 35 mg/dL 40 08/02 L Specimen Type: PLASMA Comment: No hemolysis noted. Ordering Provider: SHADY BURT Report Released Date/Time: August 03, 2023 09:50 AM Reporting Lab: [facility] [address] [place] [address] Performing Lab: [facility] DIVISION [facility] COMPREHEN SIVE METABOLIC PANEL CREATININE [MASS/VOLUM E] IN SERUM OR PLASMA 1.03 mg/dL 0.70 - 1.30 08/02 Specimen Type: PLASMA Comment: No hemolysis noted. Ordering Provider: SHADY BURT Report Released Date/Time: August 03, 2023 09:50 AM Reporting Lab: [facility] [place] [address] Performing Lab: [facility] COMPREHEN SIVE METABOLIC PANEL UREA NITROGEN [MASS/VOLUM E] IN SERUM OR PLASMA 16.9 mg/dL 9.0 - 25.0 08/02 Specimen Type: PLASMA Comment: No hemolysis noted. Ordering Provider: SHADY BURT Report Released Date/Time: August 03, 2023 09:50 AM Reporting Lab: [facility]1 [place] [address] Performing Lab: [facility]1 [facility] [id number] DIVISION COMPREHEN SIVE METABOLIC PANEL GLUCOSE [MASS/VOLUM E] IN SERUM OR PLASMA 101 mg/dL 72 - 99 08/02 H Specimen Type: PLASMA Comment: No hemolysis noted. Ordering Provider: SHADY BURT Report Released Date/Time: August 03, 2023 09:50 AM Reporting Lab: [facility]1 [place] [address] Performing Lab: [facility] DIVISION COMPREHEN SIVE METABOLIC PANEL SODIUM [MOLES/VOLU ME] IN SERUM OR PLASMA 141 meq/L 136 - 145 08/02 Specimen Type: PLASMA Comment: No hemolysis noted. Ordering Provider: SHADY BURT Report Released Date/Time: August 03, 2023 09:50 AM Reporting Lab: [facility]1 [place] [address] Performing Lab: [facility] COMPREHEN SIVE METABOLIC PANEL POTASSIUM [MOLES/VOLU ME] IN SERUM OR PLASMA 4.2 meq/L 3.5 - 5.0 08/02 Specimen Type: PLASMA Comment: No hemolysis noted. Ordering Provider: SHADY BURT Report Released Date/Time: August 03, 2023 09:50 AM Reporting Lab: [facility]1 [place] [address] Performing Lab: [facility] DIVISION COMPREHEN SIVE METABOLIC PANEL CHLORIDE [MOLES/VOLU ME] IN SERUM OR PLASMA 104 meq/L 98 - 107 08/02 Specimen Type: PLASMA Comment: No hemolysis noted. Ordering Provider: SHADY BURT Report Released Date/Time: August 03, 2023 09:50 AM Reporting Lab: [facility]1 [place] [address] Performing Lab: [facility] DIVISION COMPREHEN SIVE METABOLIC PANEL CARBON DIOXIDE, TOTAL [MOLES/VOLU ME] IN SERUM OR PLASMA 27 meq/L 22 - 31 08/02 Specimen Type: PLASMA Comment: No hemolysis noted. Ordering Provider: SHADY BURT Report Released Date/Time: August 03, 2023 09:50 AM Reporting Lab: [facility]1 [place] [address] Performing Lab: [facility] DIVISION COMPREHEN SIVE METABOLIC PANEL CALCIUM [MASS/VOLUM E] IN SERUM OR PLASMA 9.6 mg/dL 8.4 - 10.4 08/02 Specimen Type: PLASMA Comment: No hemolysis noted. Ordering Provider: SHADY BURT Report Released Date/Time: August 03, 2023 09:50 AM Reporting Lab: [facility]1 [place] [address] Performing Lab: [facility] DIVISION COMPREHEN SIVE METABOLIC PANEL PROTEIN [MASS/VOLUM E] IN SERUM OR PLASMA 7.5 g/dL 6.0 - 8.6 08/02 Specimen Type: PLASMA Comment: No hemolysis noted. Ordering Provider: SHADY BURT Report Released Date/Time: August 03, 2023 09:50 AM Reporting Lab: [facility]1 [place] [address] Performing Lab: [facility] DIVISION COMPREHEN SIVE METABOLIC PANEL ALBUMIN [MASS/VOLUM E] IN SERUM OR PLASMA 4.6 g/dL 3.4 - 5.0 08/02 Specimen Type: PLASMA Comment: No hemolysis noted. Ordering Provider: SHADY BURT Report Released Date/Time: August 03, 2023 09:50 AM Reporting Lab: [facility]1 [place] [address] Performing Lab: [facility] DIVISION COMPREHEN SIVE METABOLIC PANEL BILIRUBIN.T OTAL [MASS/VOLUM E] IN SERUM OR PLASMA 0.9 mg/dL 0.2 - 1.2 08/02 Specimen Type: PLASMA Comment: No hemolysis noted. Ordering Provider: SHADY BURT Report Released Date/Time: August 03, 2023 09:50 AM Reporting Lab: [facility]1 [place] [address] Performing Lab: [facility] DIVISION COMPREHEN SIVE METABOLIC PANEL ALKALINE PHOSPHATASE [ENZYMATIC ACTIVITY/VO LUME] IN SERUM OR PLASMA 92 U/L 40 - 150 08/02 Specimen Type: PLASMA Comment: No hemolysis noted. Ordering Provider: SHADY BURT Report Released Date/Time: August 03, 2023 09:50 AM Reporting Lab: [facility]1 [place] [address] Performing Lab: [facility] DIVISION COMPREHEN SIVE METABOLIC PANEL ASPARTATE AMINOTRANSF ERASE [ENZYMATIC ACTIVITY/VO LUME] IN SERUM OR PLASMA 35 U/L 5 - 34 08/02 H Specimen Type: PLASMA Comment: No hemolysis noted. Ordering Provider: SHADY BURT Report Released Date/Time: August 03, 2023 09:50 AM Reporting Lab: [facility]1 [place] [address] Performing Lab: [facility] DIVISION COMPREHEN SIVE METABOLIC PANEL ALANINE AMINOTRANSF ERASE [ENZYMATIC ACTIVITY/VO LUME] IN SERUM OR PLASMA 44 U/L 8 - 40 08/02 H Specimen Type: PLASMA Comment: No hemolysis noted. Ordering Provider: SHADY BURT Report Released Date/Time: August 03, 2023 09:50 AM Reporting Lab: [facility]1 [place] [address] Performing Lab: [facility] DIVISION COMPREHEN SIVE METABOLIC PANEL GLOMERULAR FILTRATION RATE/1.73 SQ M.PREDICTED [VOLUME RATE/AREA] IN SERUM, PLASMA OR BLOOD BY CREATININE- BASED FORMULA (CKD-EPI 2020) 97.76 60 08/02 Specimen Type: PLASMA Comment: No hemolysis noted. Ordering Provider: SHADY BURT Report Released Date/Time: August 03, 2023 09:50 AM Reporting Lab: [facility]1 [place] [address] Performing Lab: [facility] DIVISION CBC LEUKOCYTES [#/VOLUME] IN BLOOD BY AUTOMATED COUNT 10.0 10*3/u L 3.6 - 11.2 08/02 Specimen Type: BLOOD No comment entered. Ordering Provider: SHADY BURT Report Released Date/Time: August 03, 2023 09:50 AM Reporting Lab: [facility]1 [place] [address] Performing Lab: [facility] DIVISION CBC ERYTHROCYTE S [#/VOLUME] IN BLOOD BY AUTOMATED COUNT 5.07 10*6/u L 4.10 - 5.70 08/02 Specimen Type: BLOOD No comment entered. Ordering Provider: SHADY BURT Report Released Date/Time: August 03, 2023 09:50 AM Reporting Lab: [facility]1 [place] [address] Performing Lab: [facility] DIVISION CBC HEMOGLOBIN [MASS/VOLUM E] IN BLOOD 14.9 g/dL 13.1 - 16.8 08/02 Specimen Type: BLOOD No comment entered. Ordering Provider: SHADY BURT Report Released Date/Time: August 03, 2023 09:50 AM Reporting Lab: [facility]1 [place] [address] Performing Lab: [facility] DIVISION CBC HEMATOCRIT [VOLUME FRACTION] OF BLOOD 43.8 38.2 - 48.4 08/02 Specimen Type: BLOOD No comment entered. Ordering Provider: SHADY BURT Report Released Date/Time: August 03, 2023 09:50 AM Reporting Lab: [facility]1 [place] [address] Performing Lab: [facility] DIVISION CBC MCV [ENTITIC VOLUME] BY AUTOMATED COUNT 86.4 fL 80.0 - 100.0 08/02 Specimen Type: BLOOD No comment entered. Ordering Provider: SHADY BURT Report Released Date/Time: August 03, 2023 09:50 AM Reporting Lab: [facility]1 [place] [address] Performing Lab: [facility] DIVISION CBC MCH [ENTITIC MASS] BY AUTOMATED COUNT 29.4 pg 27.0 - 34.0 08/02 Specimen Type: BLOOD No comment entered. Ordering Provider: SHADY BURT Report Released Date/Time: August 03, 2023 09:50 AM Reporting Lab: [facility]1 [place] [address] Performing Lab: [facility] DIVISION CBC MCHC [MASS/VOLUM E] BY AUTOMATED COUNT 34.0 g/dL 33.0 - 36.0 08/02 Specimen Type: BLOOD No comment entered. Ordering Provider: SHADY BURT Report Released Date/Time: August 03, 2023 09:50 AM Reporting Lab: [facility]1 [place] [address] Performing Lab: [facility] DIVISION CBC PLATELETS [#/VOLUME] IN BLOOD BY AUTOMATED COUNT 218 10*3/u L 150 - 400 08/02 Specimen Type: BLOOD No comment entered. Ordering Provider: SHADY BURT Report Released Date/Time: August 03, 2023 09:50 AM Reporting Lab: [facility]1 [place] [address] Performing Lab: [facility] DIVISION CBC PLATELET MEAN VOLUME [ENTITIC VOLUME] IN BLOOD BY AUTOMATED COUNT 10.6 fL 7.5 - 11.2 08/02 Specimen Type: BLOOD No comment entered. Ordering Provider: SHADY BURT Report Released Date/Time: August 03, 2023 09:50 AM Reporting Lab: [facility]1 [place] [address] Performing Lab: [facility] DIVISION CBC ERYTHROCYTE DISTRIBUTIO N WIDTH [RATIO] BY AUTOMATED COUNT 12.9 11.8 - 15.1 08/02 Specimen Type: BLOOD No comment entered. Ordering Provider: SHADY BURT Report Released Date/Time: August 03, 2023 09:50 AM Reporting Lab: [facility]1 [place] [address] Performing Lab: [facility] DIVISION CBC LYMPHOCYTES /100 LEUKOCYTES IN BLOOD BY AUTOMATED COUNT 15 08/02 Specimen Type: BLOOD No comment entered. Ordering Provider: SHADY BURT Report Released Date/Time: August 03, 2023 09:50 AM Reporting Lab: [facility]1 [place] [address] Performing Lab: [facility] #[address] DIVISION CBC MONOCYTES/1 00 LEUKOCYTES IN BLOOD BY AUTOMATED COUNT 5 08/02 Specimen Type: BLOOD No comment entered. Ordering Provider: SHADY BURT Report Released Date/Time: August 03, 2023 09:50 AM Reporting Lab: [facility]1 [place] [address] Performing Lab: [facility] DIVISION CBC NEUTROPHILS /100 LEUKOCYTES IN BLOOD BY AUTOMATED COUNT 79 08/02 Specimen Type: BLOOD No comment entered. Ordering Provider: SHADY BURT Report Released Date/Time: August 03, 2023 09:50 AM Reporting Lab: [facility]1 [place] [address] Performing Lab: [facility] DIVISION CBC EOSINOPHILS /100 LEUKOCYTES IN BLOOD BY AUTOMATED COUNT 0 08/02 Specimen Type: BLOOD No comment entered. Ordering Provider: SHADY BURT Report Released Date/Time: August 03, 2023 09:50 AM Reporting Lab: [facility]1 [place] [address] Performing Lab: [facility] #[address] DIVISION CBC BASOPHILS/1 00 LEUKOCYTES IN BLOOD BY AUTOMATED COUNT 0 08/02 Specimen Type: BLOOD No comment entered. Ordering Provider: SHADY BURT Report Released Date/Time: August 03, 2023 09:50 AM Reporting Lab: [facility]1 [place] [address] Performing Lab: [facility] DIVISION CBC LYMPHOCYTES [#/VOLUME] IN BLOOD BY AUTOMATED COUNT 1.50 10*3/u L 0.77 - 4.50 08/02 Specimen Type: BLOOD No comment entered. Ordering Provider: SHADY BURT Report Released Date/Time: August 03, 2023 09:50 AM Reporting Lab: [facility]1 [place] [address] Performing Lab: [facility] DIVISION CBC MONOCYTES [#/VOLUME] IN BLOOD BY AUTOMATED COUNT 0.49 10*3/u L 0.19 - 0.80 08/02 Specimen Type: BLOOD No comment entered. Ordering Provider: SHADY BURT Report Released Date/Time: August 03, 2023 09:50 AM Reporting Lab: [facility]1 [place] [address] Performing Lab: [facility] DIVISION CBC NEUTROPHILS [#/VOLUME] IN BLOOD BY AUTOMATED COUNT 7.94 10*3/u L 2.10 - 8.00 08/02 Specimen Type: BLOOD No comment entered. Ordering Provider: SHADY BURT Report Released Date/Time: August 03, 2023 09:50 AM Reporting Lab: [facility]1 [place] [address] Performing Lab: [facility] CBC EOSINOPHILS [#/VOLUME] IN BLOOD BY AUTOMATED COUNT 0.03 10*3/u L 0.00 - 0.60 08/02 Specimen Type: BLOOD No comment entered. Ordering Provider: SHADY BURT Report Released Date/Time: August 03, 2023 09:50 AM Reporting Lab: [facility]1 [place] [address] Performing Lab: [facility] CBC BASOPHILS [#/VOLUME] IN BLOOD BY AUTOMATED COUNT 0.03 10*3/u L 0.00 - 0.20 08/02 Specimen Type: BLOOD No comment entered. Ordering Provider: SHADY BURT Report Released Date/Time: August 03, 2023 09:50 AM Reporting Lab: [facility]1 [place] [address] Performing Lab: [facility] DRUGS OF ABUSE (NEW) (STL) ETHANOL [MASS/VOLUM E] IN URINE Negati vemg/d L 0 - 20 03/12 Specimen Type: URINE Comment: The cut-off value for this test was laboratory developed and its performance characteris tics confirmed by the [facility] laboratory thru method comparison with reference laboratory and medication chart review. The laboratory is regulated under CLIA as qualified to perform high-comple xity testing. This test is used for clinical purposes in conjunction with other laboratory tests. Ordering Provider: CHRISTOPHER HARRIS Report Released Date/Time: Feb 20, 2023 12:09 PM Reporting Lab: [facility]1 [place] [address] Performing Lab: [facility] [address] [facility] DRUGS OF ABUSE (NEW) (STL) AMPHETAMINE [PRESENCE] IN URINE BY SCREEN METHOD Negati veng/m L 03/12 Specimen Type: URINE Comment: The cut-off value for this test was laboratory developed and its performance characteris tics confirmed by the [facility] laboratory thru method comparison with reference laboratory and medication chart review. The laboratory is regulated under CLIA as qualified to perform high-comple xity testing. This test is used for clinical purposes in conjunction with other laboratory tests. Ordering Provider: CHRISTOPHER HARRIS Report Released Date/Time: Feb 20, 2023 12:09 PM Reporting Lab: [facility]1 [facility] [address] Performing Lab: [facility] [id number] DRUGS OF ABUSE (NEW) (STL) BENZOYLECGO NINE [PRESENCE] IN URINE Negati veng/m L 03/12 Specimen Type: URINE Comment: The cut-off value for this test was laboratory developed and its performance characteris tics confirmed by the [facility] laboratory thru method comparison with reference laboratory and medication chart review. The laboratory is regulated under CLIA as qualified to perform high-comple xity testing. This test is used for clinical purposes in conjunction with other laboratory tests. Ordering Provider: CHRISTOPHER HARRIS Report Released Date/Time: Feb 20, 2023 12:09 PM Reporting Lab: [facility]1 [facility] [address] Performing Lab: [facility] [id number] DRUGS OF ABUSE (NEW) (STL) CANNABINOID S [PRESENCE] IN URINE BY SCREEN METHOD 91-POS ng/mL 03/12 Specimen Type: URINE Comment: The cut-off value for this test was laboratory developed and its performance characteris tics confirmed by the [facility] laboratory thru method comparison with reference laboratory and medication chart review. The laboratory is regulated under CLIA as qualified to perform high-comple xity testing. This test is used for clinical purposes in conjunction with other laboratory tests. Ordering Provider: CHRISTOPHER HARRIS Report Released Date/Time: Feb 20, 2023 12:09 PM Reporting Lab: [facility]1 [facility] [address] Performing Lab: [facility] [id number] [place] [address] DRUGS OF ABUSE (NEW) (STL) OPIATES [PRESENCE] IN URINE BY SCREEN METHOD Negati veng/m L 03/12 Specimen Type: URINE Comment: The cut-off value for this test was laboratory developed and its performance characteris tics confirmed by the [facility] laboratory thru method comparison with reference laboratory and medication chart review. The laboratory is regulated under CLIA as qualified to perform high-comple xity testing. This test is used for clinical purposes in conjunction with other laboratory tests. Ordering Provider: CHRISTOPHER HARRIS Report Released Date/Time: Feb 20, 2023 12:09 PM Reporting Lab: [facility]1 [facility] [address] Performing Lab: [facility] [place] [address] [place] [address] DRUGS OF ABUSE (NEW) (STL) CREATININE [MASS/VOLUM E] IN URINE 197.6 mg/dL 63.0 - 166.0 03/12 H Specimen Type: URINE Comment: The cut-off value for this test was laboratory developed and its performance characteris tics confirmed by the [facility] laboratory thru method comparison with reference laboratory and medication chart review. The laboratory is regulated under CLIA as qualified to perform high-comple xity testing. This test is used for clinical purposes in conjunction with other laboratory tests. Ordering Provider: CHRISTOPHER HARRIS Report Released Date/Time: Feb 20, 2023 12:09 PM Reporting Lab: [facility] [address] Performing Lab: [facility] [id number] [place] [address] METHADONE PANEL (STL) ETHANOL [MASS/VOLUM E] IN URINE Negati vemg/d L 0 - 20 03/12 Specimen Type: URINE Comment: The cut-off value for this test was laboratory developed and its performance characteris tics confirmed by the [facility] laboratory thru method comparison with reference laboratory and medication chart review. The laboratory is regulated under CLIA as qualified to perform high-comple xity testing. This test is used for clinical purposes in conjunction with other laboratory tests. Ordering Provider: CHRISTOPHER HARRIS Report Released Date/Time: Feb 20, 2023 12:09 PM Reporting Lab: [facility] [place] [address] Performing Lab: [facility] [address] METHADONE PANEL (STL) AMPHETAMINE [PRESENCE] IN URINE BY SCREEN METHOD Negati veng/m L 03/12 Specimen Type: URINE Comment: The cut-off value for this test was laboratory developed and its performance characteris tics confirmed by the [facility] laboratory thru method comparison with reference laboratory and medication chart review. The laboratory is regulated under CLIA as qualified to perform high-comple xity testing. This test is used for clinical purposes in conjunction with other laboratory tests. Ordering Provider: CHRISTOPHER HARRIS Report Released Date/Time: Feb 20, 2023 12:09 PM Reporting Lab: [facility] [place] [address] Performing Lab: [facility] [address] METHADONE PANEL (STL) BENZOYLECGO NINE [PRESENCE] IN URINE Negati veng/m L 03/12 Specimen Type: URINE Comment: The cut-off value for this test was laboratory developed and its performance characteris tics confirmed by the [facility] laboratory thru method comparison with reference laboratory and medication chart review. The laboratory is regulated under CLIA as qualified to perform high-comple xity testing. This test is used for clinical purposes in conjunction with other laboratory tests. Ordering Provider: CHRISTOPHER HARRIS Report Released Date/Time: Feb 20, 2023 12:09 PM Reporting Lab: [facility] [address] Performing Lab: [facility] [id number] [place] [address] METHADONE PANEL (STL) BENZODIAZEP MARYBETH [PRESENCE] IN URINE BY SCREEN METHOD Negati veng/m L 03/12 Specimen Type: URINE Comment: The cut-off value for this test was laboratory developed and its performance characteris tics confirmed by the [facility] laboratory thru method comparison with reference laboratory and medication chart review. The laboratory is regulated under CLIA as qualified to perform high-comple xity testing. This test is used for clinical purposes in conjunction with other laboratory tests. Ordering Provider: CHRISTOPHER HARRIS Report Released Date/Time: Feb 20, 2023 12:09 PM Reporting Lab: [facility] [address] Performing Lab: [facility] [phone] [place] [address] METHADONE PANEL (STL) CANNABINOID S [PRESENCE] IN URINE BY SCREEN METHOD 91-POS ng/mL 03/12 Specimen Type: URINE Comment: The cut-off value for this test was laboratory developed and its performance characteris tics confirmed by the [facility] laboratory thru method comparison with reference laboratory and medication chart review. The laboratory is regulated under CLIA as qualified to perform high-comple xity testing. This test is used for clinical purposes in conjunction with other laboratory tests. Ordering Provider: CHRISTOPHER HARRIS Report Released Date/Time: Feb 20, 2023 12:09 PM Reporting Lab: [facility] [address] Performing Lab: [facility] [phone] [place] [address] METHADONE PANEL (STL) METHADONE [PRESENCE] IN URINE Negati veng/m L 03/12 Specimen Type: URINE Comment: The cut-off value for this test was laboratory developed and its performance characteris tics confirmed by the [facility] laboratory thru method comparison with reference laboratory and medication chart review. The laboratory is regulated under CLIA as qualified to perform high-comple xity testing. This test is used for clinical purposes in conjunction with other laboratory tests. Ordering Provider: CHRISTOPHER HARRIS Report Released Date/Time: Feb 20, 2023 12:09 PM Reporting Lab: [facility] [place] [address] Performing Lab: [facility] [phone] [place] [address] METHADONE PANEL (STL) OPIATES [PRESENCE] IN URINE BY SCREEN METHOD Negati veng/m L 03/12 Specimen Type: URINE Comment: The cut-off value for this test was laboratory developed and its performance characteris tics confirmed by the [facility] laboratory thru method comparison with reference laboratory and medication chart review. The laboratory is regulated under CLIA as qualified to perform high-comple xity testing. This test is used for clinical purposes in conjunction with other laboratory tests. Ordering Provider: CHRISTOPHER HARRIS Report Released Date/Time: Feb 20, 2023 12:09 PM Reporting Lab: [facility] [address] Performing Lab: [facility] [id number] METHADONE PANEL (STL) CREATININE [MASS/VOLUM E] IN URINE 197.6 mg/dL 63.0 - 166.0 03/12 H Specimen Type: URINE Comment: The cut-off value for this test was laboratory developed and its performance characteris tics confirmed by the [facility] laboratory thru method comparison with reference laboratory and medication chart review. The laboratory is regulated under CLIA as qualified to perform high-comple xity testing. This test is used for clinical purposes in conjunction with other laboratory tests. Ordering Provider: CHRISTOPHER HARRIS Report Released Date/Time: Feb 20, 2023 12:09 PM Reporting Lab: [facility] [phone] Performing Lab: [facility] [address] [facility] METHADONE PANEL (STL) OXYCODONE CUTOFF [MASS/VOLUM E] IN URINE FOR SCREEN METHOD Negati veng/m L 03/12 Specimen Type: URINE Comment: The cut-off value for this test was laboratory developed and its performance characteris tics confirmed by the [facility] laboratory thru method comparison with reference laboratory and medication chart review. The laboratory is regulated under CLIA as qualified to perform high-comple xity testing. This test is used for clinical purposes in conjunction with other laboratory tests. Ordering Provider: CHRISTOPHER HARRIS Report Released Date/Time: Feb 20, 2023 12:09 PM Reporting Lab: [facility] [phone] Performing Lab: [facility] [id number] [place] [address] METHADONE PANEL (STL) BUPRENORPHI NE [PRESENCE] IN URINE Negati veng/m L 03/12 Specimen Type: URINE Comment: The cut-off value for this test was laboratory developed and its performance characteris tics confirmed by the [facility] laboratory thru method comparison with reference laboratory and medication chart review. The laboratory is regulated under CLIA as qualified to perform high-comple xity testing. This test is used for clinical purposes in conjunction with other laboratory tests. Ordering Provider: CHRISTOPHER HARRIS Report Released Date/Time: Feb 20, 2023 12:09 PM Reporting Lab: [facility] [address] Performing Lab: [facility] [id number] [place] [address] METHADONE PANEL (STL) FENTANYL [PRESENCE] IN URINE Negati veng/m L 03/12 Specimen Type: URINE Comment: The cut-off value for this test was laboratory developed and its performance characteris tics confirmed by the [facility] laboratory thru method comparison with reference laboratory and medication chart review. The laboratory is regulated under CLIA as qualified to perform high-comple xity testing. This test is used for clinical purposes in conjunction with other laboratory tests. Ordering Provider: CHRISTOPHER HARRIS Report Released Date/Time: Feb 20, 2023 12:09 PM Reporting Lab: [facility] [phone] Performing Lab: [facility] [phone] [facility] Encounters Combined list of: 1) Encounters from [facility] facilities going backup to the last 18 months, not all [place] inpatient encounters are included; 2) Encounters from the Department of [facility] facilities going backup to 280 months. Location Location Details Encounter Type Encounter Number Reason For Visit Attending Provider ADM Date DC Date Status Disposition Source [place] Opt[place] OUTPATIENT [id number] NAVYA CURRAN 04/17 Released w/o Limitations [place] OUTPATIENT [id number] IMM ÁLVARO ARMSTRONG 04/17 Released w/o Limitations [place] OUTPATIENT [id number] HEARING TEST GREER QUIJANO 05/14 Released w/o Limitations [place] ) [place] OUTPATIENT [id number] HI FINLEY 12/19 [place] OUTPATIENT [id number] GIANCARLO RENEE 06/17 [place]ion [place] Theater Facility OUTPATIENT [id number] Theater Provider 01/13 Released w/o Limitations Theater Facilit y Theater Facility OUTPATIENT [id number] Theater Provider 01/14 Released w/o Limitations Theater Facilit y Theater Facility OUTPATIENT [id number] Theater Provider 01/16 Released w/o Limitations Theater Facilit y Theater Facility OUTPATIENT [id number] Theater Provider 01/17 Released w/o Limitations Theater Facilit y Theater Facility OUTPATIENT [id number] Theater Provider 01/20 Released w/o Limitations Theater Facilit y Theater Facility OUTPATIENT [id number] Theater Provider 01/27 Released w/o Limitations Theater Facilit y Theater Facility OUTPATIENT [id number] 05/07 Released w/o Limitations Theater Facilit y Theater Facility OUTPATIENT [id number] 06/12 Released w/o Limitations Theater Facilit y Theater Facility OUTPATIENT [id number] 07/28 Released w/o Limitations Theater Facilit [place] [id number] TBI EVAL PT 1 (SRP) SYBIL ELIAS 10/22 [place] [id number] TBI EVAL (SRP) NAUN ROME 01/05 [place]ased [place] [id number] Dischar ge/CW/c ALMA Cole 01/12 [place]PATIENT [id number] mTBI CM service s MEDINA PAGE 01/22 [place] [id number] 1 MONTH F/U APPT NAUN ROME 02/02 [place] [id number] 1 MONTH F/U APPT NAUN ROME 03/05 Released w/o Limitations [facility] [place] [facility]) [place] [id number] KRISTEL MCBRIDE [employer]TS NUTRITI ON CLASS JOSE MEI 05/26 Released w/o Limitations [facility] [facility] FROM OTHER THAN ER OR U [id number] MADISON VIDALES 07/27 RETURNED TO DUTY [place] [facility] [facility]) [place] [id number] LEONELA AVELAR 07/29 Admitted [facility] [facility] [id number] OT in-pt group SAMM ALEXUS G 07/29 Inpatient- Still a Patient [facility] [facility] IN[place] [id number] in-pt OT group note ALEXUS QUIJANO 07/30 Inpatient- Still a Patient [facility] [facility] OUT[place] [id number] 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 getting worse(c onsult) /full ee EDY RAMOS 08/02 Released w/o Limitations [facility] [facility] [id number] in-pt group SAMM ALEXUS Michelle 08/04 Inpatient- Still a Patient [facility] [facility] IN[place] [id number] in-pt group SAMM ALEXUS G 08/04 Inpatient- Still a Patient [facility] [facility] IN[place] [id number] SAMM ALEXUS G 08/06 Inpatient- Still a Patient [facility] [facility] [employer] ) OUTPATIENT [id number] flu MARLON SCHROEDER D 08/17 Sick at Home/Quarter s [facility] [place] [place] [employer] ) OUTPATIENT [id number] R wrist pn x 24 hours MARLON SCHROEDER D 08/31 Released with Work/Duty Limitations [facility] [place] [id number] new intake- Depress ion JUSTIN BLANDON P 09/17 Released w/o Limitations [facility] [place] Physical Therapy) OUTPATIENT [id number] SHUKRI RIVERA 09/22 Released with Work/Duty Limitations [facility] [place] Physica l Therapy ) [facility] [place] [employer] ) TELE CONSULT [id number] [facility] F/U DWIGHT LYONS 09/27 [place] C [employer] [facility] [employer] ) OUTPATIENT [id number] F/U on R wrist injury MARLON SCHROEDER D 10/12 Released with Work/Duty Limitations [facility] C [place]) [facility] [employer] ) OUTPATIENT [id number] coughin g up green flem and blood MARLON SCHROEDER D 11/01 Released w/o Limitations [facility] C [employer] [place]) [facility] OUTPATIENT [id number] f/u JUSTIN BLANDON P 11/03 Released w/o Limitations [facility] OUTPATIENT [id number] Case Managem ent OLIVA LOPEZ 11/03 [place] Neuropsyc hology) OUTPATIENT [id number] memory lapses or loss EDDIE NEWMAN ARABELLA M 11/05 [place] [facility] OUTPATIENT [id number] visit OLIVA LOPEZ 11/05 [place] [facility] OUTPATIENT [id number] Case Managae ment ELLEN LOPEZABY Wing 11/08 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 [id number] snoring FRANCIS NIXON 11/12 Released w/o Limitations [facility]) OUTPATIENT [id number] f/u memory loss JUSTIN BLANDON 11/16 Released w/o Limitations [facility] DIRECT TO [facility] FROM OTHER THAN ER OR U [id number] KOURTNEY COREAS 11/17 RETURNED TO DUTY [place]) [place] [id number] LIVIER ROGER 11/18 Admitted [facility] [place] [facility] [id number] ALEXUS QUIJANO 11/19 Inpatient- Still a Patient [facility] [place] [facility]Supervisor [employer] [place] Medicine [facility]PAT[place] [id number] r/o hypothy KOURTNEY Echeverira CB 11/27 Released w/o Limitations [facility] [place] Medic[place] [id number] intervi poonam w/LIVIER Lee 12/02 [place] [facility] Speech[place] [id number] memory lapses or loss CHELSEA JOSHUA MUHAMMAD 12/09 [place] [facility] 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[place] OUTPATIENT [id number] FRANCIS NIXON 12/09 [place] [place] OUTPATIENT [id number] CHAPTER I CATRACHO CHAVEZ 12/10 [place] 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[place]PATIENT [id number] FRANCIS NIXON 12/13 [place] 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 OUTPATIENT [id number] FRANCIS NIXON 12/15 [place] 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[place] OUTPATIENT [id number] FRANCIS NIXON 12/17 [place] [facility] [facility] FROM OTHER THAN OR [facility] [id number] BETTIE PEREZ 12/20 RETURNED TO DUTY [place] [facility] [facility]) [place] [id number] Nutriti on Educati on APRIL CEDENO 12/21 Inpatient- Still a Patient [facility] [facility] [id number] yoga session ALEXUS QUIJANO 12/23 Inpatient- Still a Patient [facility] [facility] IN[place] [id number] in-pt OT sensory group ALEXUS QUIJANO 12/23 Inpatient- Still a Patient [facility] [facility] IN[place] [id number] ALEXUS QUIJANO 12/23 [place]- [place] [facility] [facility] [id number] Relaxat ion Group ALEXUS QUIJANO 12/28 [place]- [place] [facility] [facility] [id number] Nutriti on APRIL Mathias 12/29 [place]- [place] [facility] [facility] [id number] sleep group ALEXUS QUIJANO 12/29 [place]- [place] [facility] [id number] craft group ALEXUS QUIJANO 12/30 Inpatient- Still a Patient [facility] 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 OUTPATIENT [id number] [facility] Released w/o Limitations [facility] 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PATIENT [id number] MAYVINCENT 01/03 Released w/o Limitations [facility] [facility] [place]IENT [id number] nvd x 72 hours MARLON SCHROEDER 01/03 Released with Work/Duty Limitations [facility] 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PATIENT [id number] MAYVINCENT 01/12 Released w/o Limitations [facility] 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 OUTPATIENT [id number] [facility]/14 [place] [facility] 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 OUTPATIENT [id number] [facility] 01/17 [place]ased [place] Limitations [facility] [facility] [place] OUTPATIENT [id number] CHAPTER [id number] W/ESC CHERYL MANSFIELD 01/20 [place]ased w/o Limitations [facility] [facility] 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[place] OUTPATIENT [id number] [facility] 01/21 [place]ased [place]/o Limitations [facility] 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 OUTPATIENT [id number] [facility] 01/24 Released w/o Limitations [facility] 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 OUTPATIENT [id number] [facility] 01/28 Released w/o Limitations [facility] 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 OUTPATIENT [id number] [facility] 02/04 Released w/o Limitations [facility] 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 OUTPATIENT [id number] [facility] 03/01 [place]ased w/o Limitations [facility] [facility], DIRECT TO [facility] [id number] SHO COOPER 03/03 [place]URN[place] DUTY [facility] [facility]) OUTPATIENT [id number] ÁLVARO MARINO 03/03 Released w/o Limitations [facility] [facility] GROUP PSYCHOTHER APY [id number] Diagnos is: ICD-10- CM Z63.0 Problem s in relatio nship with spouse or partner KRISTIN DOWNING W 02/06 POPLALINE TRAORE [facility] GROUP PSYCHOTHER APY [id number] [id number] Diagnos is: ICD-10- CM Z63.0 Problem s in relatio nship with spouse or partner MANDY CASEY Cara M 02/[facility] [id number] 02/20 [facility] GROUP PSYCHOTHER APY [id number] Diagnos is: ICD-10- CM Z63.0 Problem s in relatio nship with spouse or partner MANDY CASEY Cara M 02/27 [facility] [id number]. [id number] Diagnos is: ICD-10- CM Z63.0 Problem s in relatio nship with spouse or partner MANDY CASEY Cara M 03/06 [facility] OFFICE O/P EST MOD 30-39 MIN [id number] [id number] Diagnos is: ICD-10- CM F43.10 Post-tr aumatic stress disorde r, unspeci BHARTI Huang IEHubert 03/12 [facility]Y [id number] [id number] Diagnos is: ICD-10- CM Z63.0 Problem s in relatio nship with spouse or partner MANDY CASEY Cara M 03/13 [facility] GROUP PSYCHOTHER APY [id number] Diagnos is: ICD-10- CM Z63.0 Problem s in relatio nship with spouse or partner MANDY CASEY N M 03/20 [facility] GROUP PSYCHOTHER APY [id number] Diagnos is: ICD-10- CM Z63.0 Problem s in relatio nship with spouse or partner MANDY CASEY N M 04/10 [facility] GROUP PSYCHOTHER APY [id number] [id number] Diagnos is: ICD-10- CM Z63.0 Problem s in relatio nship with spouse or partner MANDY CASEY N 04/17 [facility] GROUP PSYCHOTHER APY [id number] [id number] Diagnos is: ICD-10- CM Z63.0 Problem s in relatio nship with spouse or partner MANDY CASEY N 04/24 [facility] OFFICE O/P EST MOD 30 MIN [id number] [id number] Diagnos is: ICD-10- CM F43.10 Post-tr aumatic stress disorde r, unspeci fiBHARTI Cote IEHubert 05/02 [facility] GROUP PSYCHOTHER APY [id number] [id number] Diagnos is: ICD-10- CM Z63.0 Problem s in relatio nship with spouse or partner MANDY CASEY N M 05/08 [facility] GROUP PSYCHOTHER APY [id number] [id number] Diagnos is: ICD-10- CM Z63.0 Problem s in relatio nship with spouse or partner MANDY CASEY N M 05/15 [facility] GROUP PSYCHOTHER APY [id number] Diagnos is: ICD-10- CM Z63.0 Problem s in relatio nship with spouse or partner MANDY CASEY M 05/22 [facility] N [facility] GROUP PSYCHOTHER APY [id number] Diagnos is: ICD-10- CM Z63.0 Problem s in relatio nship with spouse or partner MANDY CASEY N M 05/29 [facility] PSYCHOTHER APY [id number] Diagnos is: ICD-10- CM Z63.0 Problem s in relatio nship with spouse or partner MANDY CASEY M 06/04 [facility] Outpatient Encounter [id number] [id number] 902 06/04 [facility] PSYTX W PT 60 MINUTES [id number] [id number] Diagnos is: ICD-10- CM Z63.0 Problem s in relatio nship with spouse or partner MANDY CASEY M 06/04 [facility] CASE MANAGEMENT [id number] [place]URN 06/11 [facility] TARGETED CASE MANAGEMENT 11497-5 [id number] JENNY SHELL 06/11 [facility] Outpatient Encounter [id number] 06/12 [facility] Outpatient Encounter [id number] COLBY CAMPO 07/06 [facility] CASE MANAGEMENT [id number] [id number] JENNY SHELL K 07/08 [facility] Outpatient Encounter [id number] [id number] 07/11 [facility] Outpatient Encounter [id number] [id number] 07/30 [facility] Outpatient Encounter [id number] [id number] DEANDRA CASEY A 07/30 [facility] OFFICE O/P EST MOD 30 MIN [id number] [id number] Diagnos is: ICD-10- CM F43.10 Post-tr aumatic stress disorde r, unspeci BHARTI Huang IEL 07/30 [facility] OFFICE O/P EST MOD 30 MIN 45459-8.65 [id number] Diagnos is: ICD-10- CM Z77.29 Contact with and exposur e to other hazardo us substan JACOBO Wolfe 08/02 [facility] Outpatient Encounter [id number] [id number] 08/13 [facility] OFFICE O/P EST MOD 30 MIN [id number] [id number] Diagnos is: ICD-10- CM F43.10 Post-tr aumatic stress disorde r, unspeci BHARTI Huang IEL 09/05 [facility] PRO PHONE CALL 20 MIN [id number] [id number] Diagnos is: ICD-10- CM R45.89 Other symptom s and signs involvi ng emotion al state SOHAIL,AARO N S 09/06 [facility] HC PRO PHONE CALL 5-10 MIN 56173-6.65 [id number] Diagnos is: ICD-10- CM R45.89 Other symptom s and signs involvi ng emotion al state SOHAIL,AARO N S 10/28 [facility] OFFICE O/P EST MOD 30 MIN 45835-7.65 [id number] Diagnos is: ICD-10- CM F43.10 Post-tr aumatic stress disorde r, unspeci BHARTI Huang IEHubert 11/05 [facility] Outpatient Encounter [id number] [id number] 11/06 [facility] O/P EST MOD 30 MIN [id number] [id number] Diagnos is: ICD-10- CM 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, 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, 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 JACOBO BURT 12/03 [facility] Outpatient Encounter [id number] [id number] 01/08 [facility] Encounter 61770-5.65 [id number] 01/15 [facility] Outpatient Encounter [id number] [id number] 01/16 [facility] HC PRO PHONE CALL 5-10 MIN [id number] [id number] Diagnos is: ICD-10- CM R45.89 Other symptom s and signs involvi ng emotion al state FRANK SAUCEDA N S 01/23 [facility] OFFICE O/P EST MOD 30 MIN [id number] Diagnos is: ICD-10- CM F15.11 Other stimula nt abuse, in remissi on BHARTI HARRIS IEL 02/24 [facility] Outpatient Encounter [id number] 03/08 [facility] Outpatient Encounter [id number] SCHUYLER SAUCEDO N 06/27 [facility] Outpatient Encounter [id number] 07/21 [facility] PH1 ASSMT&MGMT NQHP 5-10 [id number] Diagnos is: ICD-10- CM R51.9 Headach e, unspeci fied VANESSACARLOS MANUEL MMY L 07/23 [facility] Outpatient Encounter [id number] 07/23 [facility] Outpatient Encounter [id number] 08/01 [facility] Procedures Combined list of: 1) Procedures from Department of Veterans Affairs facilities going back up to thelast 18 months, not all VA non-surgical procedures are included; 2) All procedures from the Department of Defense facilities. Procedure Procedure Type Code Date Perfomer Comments Sourc e PURE TONE AUDIOMETRY (THRESHOLD); AIR ONLY 007 DoD FITTING OF SPECTACLES, EXCEPT FOR APHAKIA; MONOFOCAL [facility] INDIVIDUAL PSYCHOTHERAPY, INSIGHT ORIENTED, BEHAVIOR MODIFYING AND/OR SUPPORTIVE, IN AN OFFICE OR OUTPATIENT FACILITY, APPROXIMATELY 45 TO 50 MINUTES [id number]-[id number] WITH THE PATIENT [facility] INDIVIDUAL PSYCHOTHERAPY, INSIGHT ORIENTED, BEHAVIOR MODIFYING AND/OR SUPPORTIVE, IN AN OFFICE OR OUTPATIENT FACILITY, APPROXIMATELY 45 TO 50 MINUTES QWJV-GH-SFES WITH THE PATIENT [facility] HEALTH&BEHAV ASSESSMENT (EG, HEALTH-FOC CLINICAL INTERVIEW, BEHAVIORAL OBSERVATIONS, PSYCHOPHYSICOLOGICAL MONITOR, HEALTH-ORIENT QUESTIONNAIRES), EA 15 MIN [id number] W THE PATIENT; INIT ASSESSMENT [facility] COORDINATED CARE FEE, MAINTENANCE RATE [facility] BEHAVIORAL HEALTH PREVENTION EDUCATION SERVICE (DELIVERY OF SERVICES WITH TARGET POPULATION TO AFFECT KNOWLEDGE, ATTITUDE AND/OR BEHAVIOR) [facility] BEHAVIORAL HEALTH PREVENTION INFORMATION DISSEMINATION SERVICE (ONE-WAY DIRECT OR NON-DIRECT CONTACT WITH SERVICE AUDIENCES TO AFFECT KNOWLEDGE AND ATTITUDE) [facility] BEHAVIORAL HEALTH COUNSELING AND THERAPY, PER 15 MINUTES [facility] SKIN TEST; TUBERCULOSIS, INTRADERMAL [facility] ALCOHOL AND/OR DRUG PREVENTION PROBLEM IDENTIFICATION AND REFERRAL SERVICE (E.G., STUDENT ASSISTANCE AND EMPLOYEE ASSISTANCE PROGRAMS), DOES NOT INCLUDE ASSESSMENT [facility] ALCOHOL AND/OR DRUG PREVENTION PROBLEM IDENTIFICATION AND REFERRAL SERVICE (E.G., STUDENT ASSISTANCE AND EMPLOYEE ASSISTANCE PROGRAMS), DOES NOT INCLUDE ASSESSMENT [facility] ALCOHOL AND/OR DRUG PREVENTION PROBLEM IDENTIFICATION AND REFERRAL SERVICE (E.G., STUDENT ASSISTANCE AND EMPLOYEE ASSISTANCE PROGRAMS), DOES NOT INCLUDE ASSESSMENT [facility] ALCOHOL AND/OR DRUG PREVENTION PROBLEM IDENTIFICATION AND REFERRAL SERVICE (E.G., STUDENT ASSISTANCE AND EMPLOYEE ASSISTANCE PROGRAMS), DOES NOT INCLUDE ASSESSMENT [facility] BEHAVIORAL HEALTH SCREENING TO DETERMINE ELIGIBILITY FOR ADMISSION TO TREATMENT PROGRAM [facility] ALCOHOL AND/OR DRUG PREVENTION PROBLEM IDENTIFICATION AND REFERRAL SERVICE (E.G., STUDENT ASSISTANCE AND EMPLOYEE ASSISTANCE PROGRAMS), DOES NOT INCLUDE ASSESSMENT [facility] ALCOHOL AND/OR OTHER DRUG ABUSE SERVICES, NOT OTHERWISE SPECIFIED [facility] CURRENT TOBACCO SMOKER (CAD, CAP, COPD, PV) (DM) [facility] BEVELING MACHINE OPERATOR/COAL DIGGER SERVICES, UP TO 15 MINUTES DoD SKIN TEST; TUBERCULOSIS, INTRADERMAL DoD COLLECTION OF VENOUS BLOOD BY VENIPUNCTURE DoD AUDIOMETRIC TESTING OF GROUPS DoD ANTHRAX VACCINE, FOR SUBCUTANEOUS OR INTRAMUSCULAR USE DoD ANTHRAX VACCINE, FOR SUBCUTANEOUS OR INTRAMUSCULAR USE DoD AUDIOMETRIC TESTING OF GROUPS DoD MODERATE COMPRESSION BANDAGE, ELASTIC, KNITTED/WOVEN, LOAD RESISTANCE OF 1.25 TO 1.34 FOOT POUNDS AT 50% MAXIMUM STRETCH, WIDTH WIDTH >/=3 &<5 ,/YARD 007 DoD ALCOHOL AND/OR SUBSTANCE ABUSE SERVICES, TREATMENT PLAN DEVELOPMENT AND/OR MODIFICATION 011 DoD INDIVIDUAL PSYCHOTHERAPY, INSIGHT ORIENTED, BEHAVIOR MODIFYING AND/OR SUPPORTIVE, IN AN OFFICE OR OUTPATIENT FACILITY, APPROXIMATELY 20 TO 30 MINUTES FOLU-DN-[id number] W THE PATIENT; W MED EVAL & MGT SER DoD INDIVIDUAL PSYCHOTHERAPY, INSIGHT ORIENTED, BEHAVIOR MODIFYING AND/OR SUPPORTIVE, IN AN INPATIENT HOSPITAL, PARTIAL HOSPITAL OR RESIDENTIAL CARE SETTING, APPROX 20-30 MINUTES FCAL-AQ-VISW W THE PAT DoD PSYCHIATRIC DIAGNOSTIC INTERVIEW EXAMINATION DoD COLLECTION OF VENOUS BLOOD BY VENIPUNCTURE DoD BIOFEEDBACK TRAINING BY ANY MODALITY DoD INDIVIDUAL PSYCHOTHERAPY, INSIGHT ORIENTED, BEHAVIOR MODIFYING AND/OR SUPPORTIVE, IN AN OFFICE OR OUTPATIENT FACILITY, APPROXIMATELY 20 TO 30 MINUTES [id number]-AV-KDOS W THE PATIENT; W MED EVAL & MGT SER DoD INDIVIDUAL PSYCHOTHERAPY, INSIGHT ORIENTED, BEHAVIOR MODIFYING AND/OR SUPPORTIVE, IN AN OFFICE OR OUTPATIENT FACILITY, APPROXIMATELY 45 TO 50 MINUTES SWEC-IP-GSRL W THE PATIENT; W MED EVAL & MGT SER 010 DoD INDIVIDUAL PSYCHOTHERAPY, INSIGHT ORIENTED, BEHAVIOR MODIFYING AND/OR SUPPORTIVE, IN AN OFFICE OR OUTPATIENT FACILITY, APPROXIMATELY 20 TO 30 MINUTES SONF-OY-[id number] W THE PATIENT; W MED EVAL & MGT SER DoD BIOFEEDBACK TRAINING BY ANY MODALITY DoD INDIVIDUAL PSYCHOTHERAPY, INSIGHT ORIENTED, BEHAVIOR MODIFYING AND/OR SUPPORTIVE, IN AN OFFICE OR OUTPATIENT FACILITY, APPROXIMATELY 45 TO 50 MINUTES GDOI-JG-ZNCG WITH THE PATIENT DoD GROUP PSYCHOTHERAPY (OTHER THAN OF A MULTIPLE-FAMILY GROUP) [facility] INDIVIDUAL PSYCHOTHERAPY, INSIGHT ORIENTED, BEHAVIOR MODIFYING AND/OR SUPPORTIVE, IN AN OFFICE OR OUTPATIENT FACILITY, APPROXIMATELY 20 TO 30 MINUTES SQFO-AT-NLXQ WITH THE PATIENT [facility] BIOFEEDBACK TRAINING BY ANY MODALITY [facility] GROUP PSYCHOTHERAPY (OTHER THAN OF A MULTIPLE-FAMILY GROUP) [facility] BIOFEEDBACK TRAINING BY ANY MODALITY [facility] BIOFEEDBACK TRAINING BY ANY MODALITY [facility] TOBACCO USE CESSATION INTERVENTION, COUNSELING (COPD, CAP, CAD, ASTHMA) (DM) (PV) [facility] PREPARATION OF REPORT OF PATIENT'S PSYCHIATRIC STATUS, HISTORY, TREATMENT, OR PROGRESS (OTHER THAN FOR LEGAL OR CONSULTATIVE PURPOSES) FOR OTHER INDIVIDUALS, AGENCIES, OR INSURANCE CARRIERS [facility] GROUP PSYCHOTHERAPY (OTHER THAN OF A MULTIPLE-FAMILY GROUP) [facility] PSYCHIATRIC DIAGNOSTIC INTERVIEW EXAMINATION [facility] INDIVIDUAL PSYCHOTHERAPY, INSIGHT ORIENTED, BEHAVIOR MODIFYING AND/OR SUPPORTIVE, IN AN OFFICE OR OUTPATIENT FACILITY, APPROXIMATELY 20 TO 30 MINUTES HYAC-QX-[id number] W THE PATIENT; W MED EVAL & MGT SER [facility] BIOFEEDBACK TRAINING BY ANY MODALITY [facility] INDIVIDUAL PSYCHOTHERAPY, INSIGHT ORIENTED, BEHAVIOR MODIFYING AND/OR SUPPORTIVE, IN AN OFFICE OR OUTPATIENT FACILITY, APPROXIMATELY 45 TO 50 MINUTES YFYF-NO-GNKX WITH THE PATIENT [facility] BIOFEEDBACK TRAINING BY ANY MODALITY [facility] INDIVIDUAL PSYCHOTHERAPY, INSIGHT ORIENTED, BEHAVIOR MODIFYING AND/OR SUPPORTIVE, IN AN OFFICE OR OUTPATIENT FACILITY, APPROXIMATELY 20 TO 30 MINUTES CXMR-WA-WFGJ WITH THE PATIENT [facility] INDIVIDUAL PSYCHOTHERAPY, INSIGHT ORIENTED, BEHAVIOR MODIFYING AND/OR SUPPORTIVE, IN AN OFFICE OR OUTPATIENT FACILITY, APPROXIMATELY 75 TO 80 MINUTES WVVB-AR-TPZH WITH THE PATIENT [facility] GROUP PSYCHOTHERAPY (OTHER THAN OF A MULTIPLE-FAMILY GROUP) [facility] GROUP PSYCHOTHERAPY (OTHER THAN OF A MULTIPLE-FAMILY GROUP) [facility] BIOFEEDBACK TRAINING BY ANY MODALITY [facility] INDIVIDUAL PSYCHOTHERAPY, INSIGHT ORIENTED, BEHAVIOR MODIFYING AND/OR SUPPORTIVE, IN AN OFFICE OR OUTPATIENT FACILITY, APPROXIMATELY 45 TO 50 MINUTES AXBR-RX-QBNA WITH THE PATIENT [facility] GROUP PSYCHOTHERAPY (OTHER THAN OF A MULTIPLE-FAMILY GROUP) [facility] GROUP PSYCHOTHERAPY (OTHER THAN OF A MULTIPLE-FAMILY GROUP) [facility] INDIVIDUAL PSYCHOTHERAPY, INSIGHT ORIENTED, BEHAVIOR MODIFYING AND/OR SUPPORTIVE, IN AN OFFICE OR OUTPATIENT FACILITY, APPROXIMATELY 20 TO 30 MINUTES YKYY-FS-EAGG W THE PATIENT; W MED EVAL & MGT SER DoD FAMILY PSYCHOTHERAPY (CONJOINT PSYCHOTHERAPY) (WITH PATIENT PRESENT), 50 MINUTES [facility] INDIVIDUAL PSYCHOTHERAPY, INSIGHT ORIENTED, BEHAVIOR MODIFYING AND/OR SUPPORTIVE, IN AN OFFICE OR OUTPATIENT FACILITY, APPROXIMATELY 45 TO 50 MINUTES CUIG-MG-IMKA W THE PATIENT; W MED EVAL & MGT SER DoD BIOFEEDBACK TRAINING BY ANY MODALITY [facility] THERAPEUTIC PROCEDURE(S), GROUP (2 OR MORE INDIVIDUALS) [facility] INDIVIDUAL PSYCHOTHERAPY, INSIGHT ORIENTED, BEHAVIOR MODIFYING AND/OR SUPPORTIVE, IN AN INPATIENT HOSPITAL, PARTIAL HOSPITAL OR RESIDENTIAL CARE SETTING, APPROX 20-30 MINUTES FSZR-ZW-[id number] W [facility] THERAPEUTIC PROCEDURE(S), GROUP (2 OR MORE INDIVIDUALS) [facility] INDIVIDUAL PSYCHOTHERAPY, INSIGHT ORIENTED, BEHAVIOR MODIFYING AND/OR SUPPORTIVE, IN AN INPATIENT HOSPITAL, PARTIAL HOSPITAL OR RESIDENTIAL CARE SETTING, APPROX 20-30 MINUTES MJVG-GX-FFRW W [facility] ALCOHOL AND/OR SUBSTANCE ABUSE SERVICES, TREATMENT PLAN DEVELOPMENT AND/OR MODIFICATION [facility] THERAPEUTIC PROCEDURE(S), GROUP (2 OR MORE INDIVIDUALS) [facility] INDIVIDUAL PSYCHOTHERAPY, INSIGHT ORIENTED, BEHAVIOR MODIFYING AND/OR SUPPORTIVE, IN AN INPATIENT HOSPITAL, PARTIAL HOSPITAL OR RESIDENTIAL CARE SETTING, APPROX 20-30 MINUTES MMMB-YT-OYNB W [facility] INDIVIDUAL PSYCHOTHERAPY, INSIGHT ORIENTED, BEHAVIOR MODIFYING AND/OR SUPPORTIVE, IN AN INPATIENT HOSPITAL, PARTIAL HOSPITAL OR RESIDENTIAL CARE SETTING, APPROX 20-30 MINUTES JBDH-ZD-[id number] W [facility] INDIVIDUAL PSYCHOTHERAPY, INSIGHT ORIENTED, BEHAVIOR MODIFYING AND/OR SUPPORTIVE, IN AN OFFICE OR OUTPATIENT FACILITY, APPROXIMATELY 75 TO 80 MINUTES VMLG-AM-TXXZ WITH THE PATIENT [facility] INTERACTIVE GROUP PSYCHOTHERAPY [facility] INDIVIDUAL PSYCHOTHERAPY, INSIGHT ORIENTED, BEHAVIOR MODIFYING AND/OR SUPPORTIVE, IN AN INPATIENT HOSPITAL, PARTIAL HOSPITAL OR RESIDENTIAL CARE SETTING, APPROX 20-30 MINUTES TBRE-OT-PBYL W [facility] THERAPEUTIC PROCEDURE(S), GROUP (2 OR MORE INDIVIDUALS) [facility] INDIVIDUAL PSYCHOTHERAPY, INSIGHT ORIENTED, BEHAVIOR MODIFYING AND/OR SUPPORTIVE, IN AN INPATIENT HOSPITAL, PARTIAL HOSPITAL OR RESIDENTIAL CARE SETTING, APPROX 20-30 MINUTES NCVS-RE-XXNA W [facility] THERAPEUTIC PROCEDURE(S), GROUP (2 OR MORE INDIVIDUALS) [facility] INDIVIDUAL PSYCHOTHERAPY, INSIGHT ORIENTED, BEHAVIOR MODIFYING AND/OR SUPPORTIVE, IN AN INPATIENT HOSPITAL, PARTIAL HOSPITAL OR RESIDENTIAL CARE SETTING, APPROX 20-30 MINUTES TTQY-YJ-FBFI W [facility] THERAPEUTIC PROCEDURE(S), GROUP (2 OR MORE INDIVIDUALS) [facility] MEDICAL NUTRITION THERAPY; GROUP (2 OR MORE INDIVIDUAL(S)), EACH 30 MINUTES [facility] INDIVIDUAL PSYCHOTHERAPY, INSIGHT ORIENTED, BEHAVIOR MODIFYING AND/OR SUPPORTIVE, IN AN INPATIENT HOSPITAL, PARTIAL HOSPITAL OR RESIDENTIAL CARE SETTING, APPROX 20-30 MINUTES OZYN-XN-[id number] W [facility] PSYCHIATRIC DIAGNOSTIC INTERVIEW EXAMINATION [facility] INDIVIDUAL PSYCHOTHERAPY, INSIGHT ORIENTED, BEHAVIOR MODIFYING AND/OR SUPPORTIVE, IN AN OFFICE OR OUTPATIENT FACILITY, APPROXIMATELY 75 TO 80 MINUTES DUZR-BU-PGGL W THE PATIENT; W MED EVAL & MGT SER [facility] BIOFEEDBACK TRAINING BY ANY MODALITY [facility] ENVIRONMENTAL INTERVENTION FOR MEDICAL MGMT PURPOSES ON A PSYCHIATRIC PATIENT'S BEHALF WITH AGENCIES, EMPLOYERS, OR INSTITUTIONS [facility] EDUCATION &TRAINING, PATIENT SELF-MGT QUALIFIED, NONPHYSICIAN HEALTH RESTAURANT MANAGING PARTNER USING STDIZED CURRICULUM, CUYX-NG-WJOZ W THE PATIENT (COULD INCL CAREGIVER/FAMILY) EA 30 MIN; INDIVIDUAL PATIENT [facility] BIOFEEDBACK TRAINING BY ANY MODALITY [facility] ENVIRONMENTAL INTERVENTION FOR MEDICAL MGMT PURPOSES ON A PSYCHIATRIC PATIENT'S BEHALF WITH AGENCIES, EMPLOYERS, OR INSTITUTIONS [facility] DEVELOPMENT OF COGNITIVE SKILLS TO IMPROVE ATTENTION, MEMORY, PROBLEM SOLVING (INCLUDES COMPENSATORY TRAINING), DIRECT (ONE-ON-ONE) PATIENT CONTACT, EACH 15 MINUTES DoD PSYCHIATRIC DIAGNOSTIC INTERVIEW EXAMINATION DoD INDIVIDUAL PSYCHOTHERAPY, INSIGHT ORIENTED, BEHAVIOR MODIFYING AND/OR SUPPORTIVE, IN AN OFFICE OR OUTPATIENT FACILITY, APPROXIMATELY 45 TO 50 MINUTES PPPE-CW-BDGW WITH THE PATIENT DoD INDIVIDUAL PSYCHOTHERAPY, INSIGHT ORIENTED, BEHAVIOR MODIFYING AND/OR SUPPORTIVE, IN AN OFFICE OR OUTPATIENT FACILITY, APPROXIMATELY 20 TO 30 MINUTES KQJU-LV-TKVC W THE PATIENT; W MED EVAL & MGT SER DoD GROUP PSYCHOTHERAPY (OTHER THAN OF A MULTIPLE-FAMILY GROUP) DoD PSYCHIATRIC DIAGNOSTIC INTERVIEW EXAMINATION DoD NEUROPSYC TSTNG(EG,NAS-REITA N NEUROPSYC SERGIO,BRIAN MEMRY SCALES&WISCONSIN CARD SORT TST),W QUALIFIED HEALTH CARE PROFSIONAL INTERP&RPT,ADMINISTERED RAMP SERVICE EMPLOYEE,/HR,TECHNBINTA MELVIN,FCE-2-FCE [facility] INDIVIDUAL PSYCHOTHERAPY, INSIGHT ORIENTED, BEHAVIOR MODIFYING AND/OR SUPPORTIVE, IN AN OFFICE OR OUTPATIENT FACILITY, APPROXIMATELY 20 TO 30 MINUTES MJOV-VH-CVIA WITH THE PATIENT [facility] NEUROPSYCHOLOG TST (EG,NAS-REITAN NEUROPSYCHOLOG SERGIO,BRIAN MEM SCALES & WISC CARD SORT TST),/HR OF PSYCHOLOGIST/PHYS TIME,BOTH WFAS-GB-YEPO ADMIN TST TO PAT & TIME INTERP TEST RES & PREP RPT [facility] PSYCHIATRIC DIAGNOSTIC INTERVIEW EXAMINATION DoD INDIVIDUAL PSYCHOTHERAPY, INSIGHT ORIENTED, BEHAVIOR MODIFYING AND/OR SUPPORTIVE, IN AN OFFICE OR OUTPATIENT FACILITY, APPROXIMATELY 20 TO 30 MINUTES JRDW-TF-RCIU W THE PATIENT; W MED EVAL & MGT SER DoD INDIVIDUAL PSYCHOTHERAPY, INSIGHT ORIENTED, BEHAVIOR MODIFYING AND/OR SUPPORTIVE, IN AN OFFICE OR OUTPATIENT FACILITY, APPROXIMATELY 20 TO 30 MINUTES ROAJ-QH-WJZP W THE PATIENT; W MED EVAL & MGT SER DoD THERAPEUTIC PROCEDURE(S), GROUP (2 OR MORE INDIVIDUALS) DoD INDIVIDUAL PSYCHOTHERAPY, INSIGHT ORIENTED, BEHAVIOR MODIFYING AND/OR SUPPORTIVE, IN AN INPATIENT HOSPITAL, PARTIAL HOSPITAL OR RESIDENTIAL CARE SETTING, APPROX 20-30 MINUTES SGHA-ZB-FNTL W THE PAT DoD PSYCHIATRIC DIAGNOSTIC INTERVIEW EXAMINATION [facility] COLLECTION OF VENOUS BLOOD BY VENIPUNCTURE DoD PSYCHIATRIC DIAGNOSTIC INTERVIEW EXAMINATION [facility] OCCUPATIONAL THERAPY EVALUATION [facility] INDIVIDUAL PSYCHOTHERAPY, INSIGHT ORIENTED, BEHAVIOR MODIFYING AND/OR SUPPORTIVE, IN AN OFFICE OR OUTPATIENT FACILITY, APPROXIMATELY 45 TO 50 MINUTES YWVS-WI-BASI WITH THE PATIENT [facility] INDIVIDUAL PSYCHOTHERAPY, INSIGHT ORIENTED, BEHAVIOR MODIFYING AND/OR SUPPORTIVE, IN AN OFFICE OR OUTPATIENT FACILITY, APPROXIMATELY 45 TO 50 MINUTES HZVB-RD-AGMI WITH THE PATIENT 010 DoD NEUROPSYC TSTNG(EG,NAS-REITA N NEUROPSYC SERGIO,BRIAN MEMRY SCALES&[place] CARD SORT TST),W QUALIFIED [facility] CARE PROFSIONAL INTERP&RPT,ADMINISTERED RAMP SERVICE EMPLOYEE,/HR,TECHNICI AJAY MELVIN,FCE-2-FCE [facility] FAMILY PSYCHOTHERAPY (CONJOINT PSYCHOTHERAPY) (WITH PATIENT PRESENT), 50 MINUTES [facility] SELF-CARE/HOME MANAGMENT TRAIN (EG,ACT OF DAILY LIVING (ADL) &COMPENSAT TRAIN,MEAL PREPARATION,SAFETY PROCS,AND INSTRUCT IN USE OF ASST TECHNOLOGY DEV/ADPT EQUIP) DIR ONE-ON-ONE CONT,EA 15 MINUTES [facility] FAMILY PSYCHOTHERAPY (CONJOINT PSYCHOTHERAPY) (WITH PATIENT PRESENT), 50 MINUTES 010 [facility] PSYCHIATRIC DIAGNOSTIC INTERVIEW EXAMINATION [facility] PSYCHIATRIC DIAGNOSTIC INTERVIEW EXAMINATION [facility] INDIVIDUAL PSYCHOTHERAPY, INSIGHT ORIENTED, BEHAVIOR MODIFYING AND/OR SUPPORTIVE, IN AN INPATIENT HOSPITAL, PARTIAL HOSPITAL OR RESIDENTIAL CARE SETTING, APPROX 20-30 MINUTES BYTJ-JL-IFMC W [facility] SENSORY INTEGRATIVE TECHNIQUES TO ENHANCE SENSORY PROCESSING AND PROMOTE ADAPTIVE RESPONSES TO ENVIRONMENTAL DEMANDS, DIRECT (ONE-ON-ONE) PATIENT CONTACT, EACH 15 MINUTES [facility] INDIVIDUAL PSYCHOTHERAPY, INSIGHT ORIENTED, BEHAVIOR MODIFYING AND/OR SUPPORTIVE, IN AN INPATIENT HOSPITAL, PARTIAL HOSPITAL OR RESIDENTIAL CARE SETTING, APPROX 20-30 MINUTES SFWN-KQ-KJQH W [facility] THERAPEUTIC PROCEDURE(S), GROUP (2 OR MORE INDIVIDUALS) [facility] INDIVIDUAL PSYCHOTHERAPY, INSIGHT ORIENTED, BEHAVIOR MODIFYING AND/OR SUPPORTIVE, IN AN INPATIENT HOSPITAL, PARTIAL HOSPITAL OR RESIDENTIAL CARE SETTING, APPROX 20-30 MINUTES QDZY-GC-CGGW W [facility] THERAPEUTIC PROCEDURE(S), GROUP (2 OR MORE INDIVIDUALS) [facility] INDIVIDUAL PSYCHOTHERAPY, INSIGHT ORIENTED, BEHAVIOR MODIFYING AND/OR SUPPORTIVE, IN AN INPATIENT HOSPITAL, PARTIAL HOSPITAL OR RESIDENTIAL CARE SETTING, APPROX 20-30 MINUTES KQXQ-PX-KHFM W [facility] FITTING OF SPECTACLES, EXCEPT FOR APHAKIA; MONOFOCAL [facility] INDIVIDUAL PSYCHOTHERAPY, INSIGHT ORIENTED, BEHAVIOR MODIFYING AND/OR SUPPORTIVE, IN AN INPATIENT HOSPITAL, PARTIAL HOSPITAL OR RESIDENTIAL CARE SETTING, APPROX 20-30 MINUTES PMBF-UA-MLNO W [facility] INDIVIDUAL PSYCHOTHERAPY, INSIGHT ORIENTED, BEHAVIOR MODIFYING AND/OR SUPPORTIVE, IN AN INPATIENT HOSPITAL, PARTIAL HOSPITAL OR RESIDENTIAL CARE SETTING, APPROX 20-30 MINUTES AQUF-WV-LERE W [facility] INDIVIDUAL PSYCHOTHERAPY, INSIGHT ORIENTED, BEHAVIOR MODIFYING AND/OR SUPPORTIVE, IN AN OFFICE OR OUTPATIENT FACILITY, APPROXIMATELY 45 TO 50 MINUTES NERJ-HZ-GEBO WITH THE PATIENT [facility] INDIVIDUAL PSYCHOTHERAPY, INSIGHT ORIENTED, BEHAVIOR MODIFYING AND/OR SUPPORTIVE, IN AN OFFICE OR OUTPATIENT FACILITY, APPROXIMATELY 20 TO 30 MINUTES NQVO-LW-PGRH WITH THE PATIENT [facility] THERAPEUTIC PROCEDURE(S), GROUP (2 OR MORE INDIVIDUALS) [facility] INDIVIDUAL PSYCHOTHERAPY, INSIGHT ORIENTED, BEHAVIOR MODIFYING AND/OR SUPPORTIVE, IN AN INPATIENT HOSPITAL, PARTIAL HOSPITAL OR RESIDENTIAL CARE SETTING, APPROX 20-30 MINUTES JIGC-YA-YANF W [facility] THERAPEUTIC PROCEDURE(S), GROUP (2 OR MORE INDIVIDUALS) [facility] INDIVIDUAL PSYCHOTHERAPY, INSIGHT ORIENTED, BEHAVIOR MODIFYING AND/OR SUPPORTIVE, IN AN OFFICE OR OUTPATIENT FACILITY, APPROXIMATELY 20 TO 30 MINUTES PWPN-WK-FLFJ WITH THE PATIENT [facility] INDIVIDUAL PSYCHOTHERAPY, INSIGHT ORIENTED, BEHAVIOR MODIFYING AND/OR SUPPORTIVE, IN AN INPATIENT HOSPITAL, PARTIAL HOSPITAL OR RESIDENTIAL CARE SETTING, APPROX 20-30 MINUTES FAUG-NX-WCXF W [facility] PSYCHIATRIC DIAGNOSTIC INTERVIEW EXAMINATION [facility] INDIVIDUAL PSYCHOTHERAPY, INSIGHT ORIENTED, BEHAVIOR MODIFYING AND/OR SUPPORTIVE, IN AN OFFICE OR OUTPATIENT FACILITY, APPROXIMATELY 45 TO 50 MINUTES QOEB-QV-FXDY WITH THE PATIENT [facility] COLLECTION OF VENOUS BLOOD BY VENIPUNCTURE [facility] INDIVIDUAL PSYCHOTHERAPY, INSIGHT ORIENTED, BEHAVIOR MODIFYING AND/OR SUPPORTIVE, IN AN OFFICE OR OUTPATIENT FACILITY, APPROXIMATELY 45 TO 50 MINUTES PXDW-WO-BXRV WITH THE PATIENT 010 [facility] PSYCHIATRIC DIAGNOSTIC INTERVIEW EXAMINATION 010 [facility] TELE ASSESS & MGT SRV PROV QUAL NONPHYS HLTH CARE PRO TO EST PAT,PARENT,GUARD NOT ORIG REL ASSESS & MGT SRV PROV W/IN PREV 7 DAYS NOR LEAD ASSESS & MGT SRV/PX W/IN NXT 24 HR/SOON APT;5-10 MIN MED DIS 010 DoD MEDICAL NUTRITION THERAPY; GROUP (2 OR MORE INDIVIDUAL(S)), EACH 30 MINUTES 010 DoD Physical Medicine - Group Physical Therapy Se ion Physical Medicine - Group Physical Therapy Session [id number] ALEXUS QUIJANO [facility] Development Of Cognit Skills By [employer] Development Of Cognit Skills By [employer] [id number] ALEXUS QUIJANO [facility] Social Work Individual Outpatient Counseling 45-50 Minutes Social Work Individual Outpatient Counseling 45-50 Minutes [id number] TARIK LOCKHART [facility] Social Work Individual Outpatient Counseling 20-30 Minutes Social Work Individual Outpatient Counseling 20-30 Minutes [id number] TARIK LOCKHART DoD Social Work Individual Outpatient Counseling 20-30 Minutes Social Work Individual Outpatient Counseling 20-30 Minutes [id number] TARIK LOCKHART DoD Social Work Individual Outpatient Counseling 45-50 Minutes Social Work Individual Outpatient Counseling 45-50 Minutes [id number] JUSTIN VALENCIA DoD Social Work Individual Outpatient Counseling 45-50 Minutes Social Work Individual Outpatient Counseling 45-50 Minutes [id number] KELSEA AMBROCIO Do[facility] Psychiatric Evaluation Comprehensive Examination Psychiatric Evaluation Comprehensive Examination [id number] REMY CRUZ Do[facility] Psychiatric Evaluation Comprehensive Examination Psychiatric Evaluation Comprehensive Examination [id number] TARIK LOCKHART [facility] Medical Nutrition Therapy Group (2 or More Individual(s)) Medical Nutrition Therapy Group (2 or More Individual(s)) [id number] JOSE MEI [facility] Social Work Individual Outpatient Counseling 20-30 Minutes Social Work Individual Outpatient Counseling 20-30 Minutes [id number] SLOANE GOLDSTEIN [facility] Social Work Individual Outpatient Counseling 20-30 Minutes Social Work Individual Outpatient Counseling 20-30 Minutes [id number] [facility] Health And Behav A e mt Each 15 Min Initial A e ment Health And Behav Assessmt Each 15 Min Initial Assessment [id number] [facility] Alcohol and/or drug services; case management [facility] Behavioral health counseling and therapy, per 15 minutes [facility] Behavioral health prevention information di emination service (one-way direct or non-direct contact with service audiences to affect knowledge and attitude) [facility] Behavioral health prevention education service (delivery of services with target population to affect knowledge, attitude and/or behavior) [facility] Behavioral health counseling and therapy, per 15 minutes [facility] Alcohol and/or drug services; case management [facility] Alcohol and/or drug services; group counseling by a clinician [facility] Behavioral health prevention information di emination service (one-way direct or non-direct contact with service audiences to affect knowledge and attitude) [facility] Psychometric Neurobehavioral Status Exam NAUN ROME [facility] Behavioral health prevention education service (delivery of services with target population to affect knowledge, attitude and/or behavior) [facility] [facility] Alcohol and/or drug prevention problem identification and referral service (e.g., student a istance and employee a istance programs), does not include a e ment [facility] health prevention information di emination service (one-way direct or non-direct contact with service audiences to affect knowledge and attitude) FR[facility], [facility] Alcohol and/or drug services; case management [facility], [facility] Behavioral health counseling and therapy, per 15 minutes [facility], [facility] Alcohol and/or drug services; group counseling by a clinician 009 ZION BECK [facility] Behavioral health prevention information di emination service (one-way direct or non-direct contact with service audiences to affect knowledge and attitude) 009 ZION BECK [facility] Behavioral health prevention education service (delivery of services with target population to affect knowledge, attitude and/or behavior) 009 ZION BECK [facility] Alcohol and/or drug prevention problem identification and referral service (e.g., student a istance and employee a istance programs), does not include a e ment 009 ZION BECK [facility] Alcohol and/or drug prevention problem identification and referral service (e.g., student a istance and employee a istance programs), does not include a e ment 009 HARRIS WHITE Behavioral health prevention information di emination service [...] counseling by a clinician 009 ZION BECK [facility] Behavioral health prevention information di emination service (one-way direct or non-direct contact with service audiences to affect knowledge and attitude) 009 ZION BECK [facility] Behavioral health prevention education service (delivery of services with target population to affect knowledge, attitude and/or behavior) ZION BECK [facility] Alcohol and/or drug prevention problem identification and referral service (e.g., student a istance and employee a istance programs), does not include a e ment 009 ZION BECK [facility] Alcohol and/or drug services; case management JOSEPHINE, GEORGE Pj [facility] Behavioral health prevention information di emination service (one-way direct or non-direct contact with service audiences to affect knowledge and attitude) JOSEPHINE, GEORGE M [facility] Behavioral health prevention education service (delivery of services with target population to affect knowledge, attitude and/or behavior) JOSEPHINE GEORGE M [facility] Alcohol and/or drug prevention problem identification and referral service (e.g., student a istance and employee a istance programs), does not include a e ment JOSEPHINE GEORGE Pj [facility] Alcohol and/or drug services; group counseling by a clinician JOSEPHINE, GEORGE [facility] Behavioral health prevention information di emination service (one-way direct or non-direct contact with service audiences to affect knowledge and attitude) [facility] Behavioral health prevention education service (delivery of services with target population to affect knowledge, attitude and/or behavior) [facility] Alcohol and/or drug a e ment [facility] Alcohol and/or drug services; group counseling by a clinician [facility] Alcohol and/or drug services; case management [facility] BEVELING MACHINE OPERATOR/COAL DIGGER services, up to 15 minutes 009 SYBIL ELIAS [facility] Psychiatric Evaluation Review of Records and Reports Psychiatric Evaluation Review of Records and Reports 26033 008 Theater Provider [facility] Psychiatric Therapy Individual Approximately 45-50 Minutes Psychiatric Therapy Individual Approximately 45-50 Minutes 63587 008 Theater Provider [facility] Psychiatric Therapy Individual Approximately 45-50 Minutes Psychiatric Therapy Individual Approximately 45-50 Minutes 49471 008 Theater Provider [facility] Psychiatric Therapy Counseling Family / Guardians Psychiatric Therapy Counseling Family / Guardians 03081 008 Theater Provider [facility] Psychiatric Therapy Individual Approximately 45-50 Minutes Psychiatric Therapy Individual Approximately 45-50 Minutes 12506 008 Theater Provider [facility] Psychiatric Therapy Individual Approximately 45-50 Minutes Psychiatric Therapy Individual Approximately 45-50 Minutes 27129 008 Theater Provider [facility] Psychiatric Evaluation Comprehensive Examination Psychiatric Evaluation Comprehensive Examination 37138 008 Theater Provider [facility] Audiometry Group Testing Audiometry Group Testing 38184 008 BONIFACIO BERNARDO Threshold Audiogram (Pure Tone) Threshold Audiogram (Pure Tone) 37170 008 BONIFACIO BERNARDO Audiometry Group Testing Audiometry Group Testing [address] Services Analysis Of Computerized Data Special Services Analysis Of Computerized Data [address]Supervised Services Provision Of Special Supplies -Supervised Services Provision Of Special Supplies [address]Supervised Group Educational Services [place] Threshold Audiogram (Pure Tone) Threshold Audiogram (Pure Tone) 35277 GRE[address] Ear Protector Attenuation Measurements Ear Protector Attenuation Measurements 34102 [address] Immunization Administration Each Additional Vaccine ÁLVARO KAY Meningococcal Polysacch Diphtheria Toxoid Conjugate Vaccine ÁLVARO ARMSTRONG Tdap Vaccine Tdap Vaccine 02946 ÁLVARO ARMSTRONG Hepatitis A And Hepatitis B (Intramuscular Use) Adult Dosage Hepatitis A And Hepatitis B (Intramuscular Use) Adult Dosage 58859 ÁLVARO ARMSTRONG Venipuncture Venipuncture 13343 ÁLVARO ARMSTRONG Skin Test Anergy Tuberculin Intradermal Skin Test Anergy Tuberculin Intradermal [address] Supervised Injection Subcutaneous Supervised Injection Subcutaneous 33167 ÁLVARO ARMSTRONG Influenza Virus Vaccine Live Intranasal ÁLVARO ARMSTRONG Dr. Supervised Injection Intramuscular Antibiotic Supervised Injection Intramuscular Antibiotic 33537 ÁLVARO ARMSTRONG Vaccines Viral Polio, Inactivated (Salk) Vaccines Viral Polio, Inactivated (Salk) 06120 ÁLVARO ARMSTRONG Injection, penicillin G benzathine, up to 1,200,000 units 007 ÁLVARO ARMSTRONG Determination Of Refractive State Determination Of Refractive State 83569 007 NAVYA CURRAN [facility] Fitting Monofocals (Not For Aphakia) [facility] Fitting Monofocals (Not For Aphakia) 86969 007 NAVYA CURRAN Ophthalmological New Patient Start Intermediate Level Care Ophthalmological New Patient Start Intermediate Level Care 86961 007 NAVYA CURRAN Alcohol and/or substance abuse services, treatment plan development and/or modification 011 LOIDA HORTA [facility] Psychiat Therapy Indiv Appr 20-30 Min W/ Med Eval Managemt Psychiat Therapy Indiv Appr 20-30 Min W/ Med Eval Managemt 11100 010 ROXANN LEVY [facility] Biofeedback Training By Any Modality Biofeedback Training By Any Modality 84474 MACARIO VINCENT [facility] Psychiat Therapy Indiv Appr 20-30 Min W/ Med Eval Managemt Psychiat Therapy Indiv Appr 20-30 Min W/ Med Eval Managemt 17161 010 LIVIER DUFFY Psychiat Therapy Indiv Appr 45-50 Min W/ Med Eval Managemt Psychiat Therapy Indiv Appr 45-50 Min W/ Med Eval Managemt 83811 010 HILARIO TORRES [facility] Psychiat Therapy Indiv Appr 20-30 Min W/ Med Eval Managemt Psychiat Therapy Indiv Appr 20-30 Min W/ Med Eval Managemt 92112 010 LIVIER DUFFY Psychiatric Therapy Individual Approximately 45-50 Minutes Psychiatric Therapy Individual Approximately 45-50 Minutes 04620 010 LIVIER HUYNH Biofeedback Training By Any Modality Biofeedback Training By Any Modality 22580 MACARIO VINCENT [facility] Psychiatric Therapy Individual Approximately 20-30 Minutes Psychiatric Therapy Individual Approximately 20-30 Minutes 83948 LIVIER HUYNH Psychologic Testing And Report Administered By Physician Psychologic Testing And Report Administered By Physician 48264 LIVIER HUYNH [facility] Biofeedback Training By Any Modality Biofeedback Training By Any Modality May, VINCENT [facility] Biofeedback Training By Any Modality Biofeedback Training By Any Modality May, VINCENT [facility] Biofeedback Training By Any Modality Biofeedback Training By Any Modality May, VINCENT [facility] Psychiatric Evaluation Comprehensive Examination Psychiatric Evaluation Comprehensive Examination 01632 HILARIO TORRES [facility] Intervention And Counseling On Ce ation Of Tobacco Use Intervention And Counseling On Cessation Of Tobacco Use 4000F CHERYL MANSFIELD [facility] Psychiatric Therapy Preparation of Psychiatric Status Report Psychiatric Therapy Preparation of Psychiatric Status Report 34286 ADRIANNA LOPES [facility] Psychiatric Therapy Individual Approximately 45-50 Minutes Psychiatric Therapy Individual Approximately 45-50 Minutes 17113 LIVIER HUYNH [facility] Psychiat Therapy Indiv Appr 20-30 Min W/ Med Eval Managemt Psychiat Therapy Indiv Appr 20-30 Min W/ Med Eval Managemt 49910 LIVIER DUFFY [facility] Biofeedback Training By Any Modality Biofeedback Training By Any Modality May, VINCENT [facility] Biofeedback Training By Any Modality Biofeedback Training By Any Modality May, VINCENT [facility] Psychiatric Therapy Indiv By A Physician Approx 75-80 Min Psychiatric Therapy Indiv By A Physician Approx 75-80 Min 87175 NORI GARCIA [facility] Dangerousne A e ment Suicide Risk Dangerousness Assessment Suicide Risk 3085F NORI GARCIA [facility] Social Work Individual Outpatient Counseling 20-30 Minutes Social Work Individual Outpatient Counseling 20-30 Minutes 11274 ADRIANNA LOPES [facility] Biofeedback Training By Any Modality Biofeedback Training By Any Modality 48791 May, VINCENT [facility] Social Work Individual Outpatient Counseling 45-50 Minutes Social Work Individual Outpatient Counseling 45-50 Minutes 03001 ADRIANNA LOPES [facility] Psychiat Therapy Indiv Appr 20-30 Min W/ Med Eval Managemt Psychiat Therapy Indiv Appr 20-30 Min W/ Med Eval Managemt 18744 LIVIER DUFFY [facility] Psychiatric Therapy Family (Conjoint) TIANA BRAN [facility] Biofeedback Training By Any Modality Biofeedback Training By Any Modality 03722 VINCENT SORTO [facility] Psychiat Therapy Indiv Appr 45-50 Min W/ Med Eval Managemt Psychiat Therapy Indiv Appr 45-50 Min W/ Med Eval Managemt 75778 MATTHEWREMY Rojas [facility] Physical Medicine - Group Physical Therapy Se ion Physical Medicine - Group Physical Therapy Session 33676 010 ALEXUS QUIJANO [facility] Psychotherapeutic Rehab Development Of Cognitive Skills Psychotherapeutic Rehab Development Of Cognitive Skills 95691 010 ALEXUS QUIJANO 60 min [facility] Alcohol and/or substance abuse services, treatment plan development and/or modification 010 LOIDA HORTA [facility] Physical Medicine - Group Physical Therapy Se ion Physical Medicine - Group Physical Therapy Session 17898 010 ALEXUS QUIJANO Do[facility] Psychotherapeutic Rehab Development Of Cognitive Skills Psychotherapeutic Rehab Development Of Cognitive Skills 28051 010 ALEXUS QUIJANO 60 min [facility] Psychiatric Therapy Group (Interactive) Psychiatric Therapy Group (Interactive) 21201 010 LORRAINE LOGAN [facility] Physical Medicine - Group Physical Therapy Se ion Physical Medicine - Group Physical Therapy Session 18786 010 ALEXUS QUIJANO [facility] Psychotherapeutic Rehab Development Of Cognitive Skills Psychotherapeutic Rehab Development Of Cognitive Skills 88624 010 ALEXUS QUIJANO 60 min DoD Physical Medicine - Group Physical Therapy Se ion Physical Medicine - Group Physical Therapy Session 88463 010 ALEXUS QUIJANO 30 min group DoD Exercises A isted Exercises For ROM Exercises Assisted Exercises For ROM 16501 010 ALEXUS QUIJANO 30 min yoga session DoD Physical Medicine - Group Physical Therapy Se ion Physical Medicine - Group Physical Therapy Session 88979 010 ALEXUS QUIJANO 70 min group DoD Development Of Cognit Skills By Sensory Integrative Techniq Development Of Cognit Skills By Sensory Integrative Techniq 81154 010 ALEXUS QUIJANO 8 min one on one with Pt during group DoD Medical Nutrition Therapy Group (2 or More Individual(s)) Medical Nutrition Therapy Group (2 or More Individual(s)) 53583 010 PAOAPRIL JACQUE [facility] Psychiat Therapy Indiv Appr 75-80 Min W/ Med Eval Managemt Psychiat Therapy Indiv Appr 75-80 Min W/ Med Eval Managemt 23224 010 LIVIER DUFFY [facility] Psychiatric Evaluation Comprehensive Examination Psychiatric Evaluation Comprehensive Examination 42494 010 LIVIER HUYNH [facility] Biofeedback Training By Any Modality Biofeedback Training By Any Modality 13308 010 FRANCIS NIXON [facility] Patient Counseling Medical Management Individual Patient Patient Counseling Medical Management Individual Patient 53522 FRANCIS NIXON [facility] Psychiatric Therapy Environmental Intervention Psychiatric Therapy Environmental Intervention 66907 010 BIBI ESPINOZA [facility] Psychiatric Evaluation Review of Records and Reports Psychiatric Evaluation Review of Records and Reports 26444 BIBI ESPINOZA [facility] Psychiatric Therapy Individual Approximately 20-30 Minutes Psychiatric Therapy Individual Approximately 20-30 Minutes 34323 010 BIBI ESPINOZA [facility] Biofeedback Training By Any Modality Biofeedback Training By Any Modality 54891 010 FRANCIS NIXON [facility] Development Of Cognitive Skills By Compensatory Activities Development Of Cognitive Skills By Compensatory Activities 72577 FRANCIS NIXON [facility] Development Of Cognitive Skills By Compensatory Activities Development Of Cognitive Skills By Compensatory Activities 82373 JOSHUA WOMACK [facility] ENT Services Supervised Individual Speech/Hearing Therapy JOSHUA WOMACK [facility] Special ENT Services Evaluation of Speech/Hearing Problem JOSHUA WOMACK [facility] Psychiatric Therapy Environmental Intervention Psychiatric Therapy Environmental Intervention 00523 MOLLY SOLIS [facility] Psychiatric Therapy Individual Approximately 45-50 Minutes Psychiatric Therapy Individual Approximately 45-50 Minutes 77456 MOLLY SOLIS [facility] Psychiatric Evaluation Comprehensive Examination Psychiatric Evaluation Comprehensive Examination 81948 010 ÁLVARO MILIAN [facility] Psychiatric Therapy Individual Approximately 45-50 Minutes Psychiatric Therapy Individual Approximately 45-50 Minutes 86090 010 TIANA BRAN Cara [facility] Psychiat Therapy Indiv Appr 20-30 Min W/ Med Eval Managemt Psychiat Therapy Indiv Appr 20-30 Min W/ Med Eval Managemt 58465 010 LIVIER DUFFY [facility] Psychiatric Therapy Group (Interview) Psychiatric Therapy Group (Interview) 28752 010 YAEL ALCANTAR [facility] Psychometric Neuropsych Testing Battery Admin By Physician Psychometric Neuropsych Testing Battery Admin By Physician 40232 010 ÁLVARO MILIAN [facility] Performing Mental Status Exam - Cognitive 010 ÁLVARO MILIAN [facility] Psychiatric Evaluation Comprehensive Examination Psychiatric Evaluation Comprehensive Examination 27360 010 ÁLVARO MILIAN [facility] Psychometric Neuropsych Testing Battery Admin By Body Shop Technician Psychometric Neuropsych Testing Battery Admin By Body Shop Technician 81530 010 LIVIER JACKSON [facility] Social Work Individual Outpatient Counseling 20-30 Minutes Social Work Individual Outpatient Counseling 20-30 Minutes 02144 010 LOIDA HORTA [facility] Psychometric Neuropsych Testing Battery Admin By Physician Psychometric Neuropsych Testing Battery Admin By Physician 18591 010 ÁLVARO MILIAN [facility] Performing Mental Status Exam - Cognitive 010 ÁLVARO MILIAN [facility] Psychiatric Evaluation Comprehensive Examination Psychiatric Evaluation Comprehensive Examination 23764 010 ÁLVARO MILIAN [facility] Psychiatric Evaluation Comprehensive Examination Psychiatric Evaluation Comprehensive Examination 60055 010 LOIDA HORTA [facility] Psychiat Therapy Indiv Appr 20-30 Min W/ Med Eval Managemt Psychiat Therapy Indiv Appr 20-30 Min W/ Med Eval Managemt 65118 010 LIVIER DUFFY [facility] Physical Medicine - Group Physical Therapy Se ion Physical Medicine - Group Physical Therapy Session 72748 010 ALEXUS QUIJANO [facility] Psychiat Therapy Indiv Appr 20-30 Min W/ Med Eval Managemt Psychiat Therapy Indiv Appr 20-30 Min W/ Med Eval Managemt 79322 010 REMY CASTRO [facility] Psychiatric Evaluation Comprehensive Examination Psychiatric Evaluation Comprehensive Examination 66691 010 YOJANA JESUS [facility] Occupational Therapy Evaluation Occupational Therapy Evaluation 11159 010 FRANCIS NIXON DoD Psychiatric Therapy Individual Approximately 45-50 Minutes Psychiatric Therapy Individual Approximately 45-50 Minutes 77302 010 WILL, MOLLY Hoda [facility] Psychiatric Therapy Individual Approximately 45-50 Minutes Psychiatric Therapy Individual Approximately 45-50 Minutes 31466 010 TIANA BRAN [facility] Psychometric Neuropsych Testing Battery Admin By Body Shop Technician Psychometric Neuropsych Testing Battery Admin By Body Shop Technician 61409 010 ARABELLA MCCARTY [facility] Psychiatric Therapy Family (Conjoint) 010 TIANA BRAN [facility] Phys Therapy Education Self Care Training - Per 15 Minutes Phys Therapy Education Self Care Training - Per 15 Minutes 34150 010 SHUKRI RIVERA [facility] Exercises A isted Exercises For ROM Exercises Assisted Exercises For ROM 47098 010 SHUKRI RIVERA [facility] Physical Medicine Physical Therapy Evaluation Physical Medicine Physical Therapy Evaluation 04703 010 SHUKRI RIVERA [facility] Psychiatric Therapy Family (Conjoint) 010 TIANA BRAN [facility] Psychiatric Evaluation Comprehensive Examination Psychiatric Evaluation Comprehensive Examination 52356 010 TIANA BRAN [facility] Psychiatric Evaluation Comprehensive Examination Psychiatric Evaluation Comprehensive Examination 71083 010 LIVIER DUFFY [facility] Physical Medicine - Group Physical Therapy Se ion Physical Medicine - Group Physical Therapy Session 82730 010 ALEXUS QUIJANO Development Of Cognit Skills By Sensory Integrative Techniq Development Of Cognit Skills By Sensory Integrative Techniq 29573 010 ALEXUS QUIJANO [facility] Physical Medicine - Group Physical Therapy Se ion Physical Medicine - Group Physical Therapy Session 55809 010 ALEXUS QUIJANO [facility] Physical Medicine - Group Physical Therapy Se ion Physical Medicine - Group Physical Therapy Session 59738 010 ALEXUS QUIJANO Development Of Cognit Skills By Sensory Integrative Techniq Development Of Cognit Skills By Sensory Integrative Techniq 34596 010 ALEXUS QUIJANO Visual Robb Test Intermediate Examination Visual Robb Test Intermediate Examination 86713 010 EDY RAMOS [facility] Spectacles Services Fitting Monofocals (Not For Aphakia) [employer] [facility] Fitting Monofocals (Not For Aphakia) 58108 010 EDY RAMOS [facility] Determination Of Refractive State Determination Of Refractive State 09173 010 EDY RAMOS [facility] Ophthalmological New Patient Start Comprehensive Care Ophthalmological New Patient Start Comprehensive Care 62389 010 EDY RAMOS [facility] Social History Combined list of available smoking, tobacco, and other social history from Department of Defense and Veterans Affairs facilities. Social History Type Response Date Comment Sourc e Tobacco smoking status NHIS [facility]-TOBACCO USER EVERY DAY 07/31/2023 [facility] of [facility]23 [facility] of [facility] 08/03/2020 [facility] of [facility] NO 11/28/2018 [facility] History of tobacco use PREVIOUS SMOKER 10/25/2015 [facility] History of tobacco use CURRENT TOBACCO USER 01/28/2014 [facility] History of tobacco use CURRENT TOBACCO USER 10/17/2012 [facility] History of tobacco use TOBACCO OFFERRED PT MEDS (PROVIDER) 04/24/2011 [facility] History of tobacco use CURRENT TOBACCO USER 04/23/2011 [facility] History of tobacco use CURRENT TOBACCO USER 05/03/2010 [facility] History of tobacco use CURRENT TOBACCO USER 04/29/2010 [facility] This section is an empty social history section. [facility] Plan of Care List of future care activities from Department of Veterans Affairs facilities. Additional future care activities may be listed in the Assessment and Plan section. Date/Time Care Activity Care Activity Detail Facili ty 09/09/2024 AMBULATORY - PSYCHIATRY AMBULATORY - PSYC HIATRY [facility]
--- OUTSIDE RECORDS SUMMARY | 2024-08-05 10:34 | XMS_ITS | Encounter Summary ---
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 Date/Time Encounter Type Encounter Description Reason Pro vider Source Jan 09, 2024 09:31 AM Outpatient Encounter GENERAL INTERNAL MEDICINE [facility] Encounter Template Text not used by [place] [...] 25, 2024 08:30 AM AMBULATORY - PSYCHIATRY [facility] Social History: Smoking Status (Most [...] 2023 10:12 AM VA-TOBACCO USER EVERY DAY [facility] Tobacco Use History This section includes a history of the smoking, or tobacco-related health factors, that were collected on or before the date of the Encounter. The data comes from the [place] facility where the Encounter took place. 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 Date/Time Encounter Note(s) Provider Source Jan 07, 2024 09:31 AM NONVA NOTE: LOCAL TITLE: [facility] PRESENTING CARE COORD PLAN STANDARD TITLE: NONVA NOTE DATE OF NOTE: JAN 07, 2024@09:31 ENTRY DATE: JAN 09, 2024@09:31:50 AUTHOR: SALOME MOE EXP COSIGNER: URGENCY: STATUS: COMPLETED Emergency Notification Intake Date Presenting to the Facility: Dec Method of Contact: Notified from [facility] worklist Notification ID: [id number] [facility] Referral #: [id number] Clinical Review [facility] Name: [facility]: [facility] Address: [address] [place] [address] City: [place] State: [place] Zip Code: [address] [facility] Point of Contact: Name: Chief complaint: R10.9 Primary Diagnosis: Disposition Discharged Date of discharge: Dec Discharge to home [place] Left Against Medical Advice Records r/t this episode of care sent to [facility] for scanning. 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
--- OUTSIDE RECORDS SUMMARY | 2024-08-05 10:37 | XMS_ITS | Clinical Summary ---
Author Organization [facility] Address [address] [place] [address] Care Team Providers Care Metal Drawer Name Role Phone 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 Gender Identity Not on file Sexual [...] - 13+ 2-dose series) 02/24/2009 Influenza Vaccine (Season Ended) 2024 12/01/2016, 03/02/2010, 01/27/2009, Additional history exists DTaP/Tdap/Td Vaccine (9 - Td or Tdap) 10/24/2026 10/24/2016, 09/30/2009, 04/13/2006, Additional history exists Hepatitis B Screening Completed 06/14/1998 , 01/14/1998, 12/17/1997 HPV Vaccines Aged Out No longer eligi ble based on patient's age to complete this topic Insurance [facility] Advance Directives For more information, please contact: [phone] * Full Code (Latest Code Status on File) Date Activated Date Inactivated Comments 07/07/2023 7:51 PM 07/08/2023 1:07 AM Care Teams Metal Drawer Relationship Specialty Start Date End Date [facility] [address] [place] [address] PCP - General Genetics 10/29/20
--- OUTSIDE RECORDS SUMMARY | 2024-08-05 10:37 | XMS_ITS | Referral Summary ---
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
--- NOTE | 2024-08-05 10:39 | ED.GENADULT ---
HPI - General Adult General Chief complaint: Dental/Oral Stated complaint: Tooth Pain Source: patient Mode of arrival: ambulatory Limitations: no limitations History of Present Illness HPI narrative: Patient presents for evaluation of left lower dental pain. Symptom onset approximately 1 week ago. He indicates he has known dental fractures in the affected area that did not occur around the time of symptom onset. He states the pain is ?beyond 10? on scale of 1-10. He describes the sensation of someone drilling into the tooth . He denies any fever, chills, nausea, vomiting. He smokes 1/2 ppd. He has tried taking NSAIDs for his pain. Related Data Home Medications ?Medication ?Instructions ?Recorded ?Confirmed ?Last Taken ?Type diazepam 5 mg tablet (Valium) 2.5 mg PO BID PRN anxiety 06/23/24 06/23/24 Unknown History naproxen 250 mg tablet 500 mg PO Q6-8H PRN mild pain 06/23/24 06/23/24 Unknown History (scale score 1-4) prazosin 2 mg capsule 2 mg PO HS 06/23/24 06/23/24 Unknown History Allergies Allergy/AdvReac Type Severity Reaction Status Date / Time prednisone Allergy Unknown Verified 08/05/24 10:01 shrimp Allergy Hives Verified 08/05/24 10:01 tramadol AdvReac Nausea and Verified 08/05/24 10:01 Vomiting Review of Systems Review of Systems: CONSTITUTIONAL: Denies fever, chills, or sweats. EYES: Denies visual changes, redness, or discharge. ENT: Reports left lower dental pain. Denies rhinorrhea, congestion, sore throat, or otalgia. CARDIOVASCULAR: Denies chest pain, palpitations, or edema. RESPIRATORY: Denies cough or dyspnea. GASTROINTESTINAL: Denies abdominal pain, nausea, vomiting, or diarrhea. GENITOURINARY: Denies dysuria or hematuria. SKIN: Denies rash or itching. MUSCULOSKELETAL: Denies back pain, joint pain, or myalgia. NEUROLOGIC: Denies headache, numbness, dizziness, or weakness. PSYCHIATRIC: Denies anxiety or depression. [facility] Past Medical History Medical History TBI (traumatic brain injury) COPD (chronic obstructive pulmonary disease) TIA (transient ischemic attack) History of kidney stones History of posttraumatic stress disorder (PTSD) Surgical History Surgical History History of lithotripsy Family History Family History Mother Family history non-contributory Social History Social History Smoking packs per day: 0.5 Smoking cigarettes per day: 10.0 Years smoked: 10 Smoking pack-years: 5.00 Smoking status: Current every day smoker Tobacco type: cigarettes Second hand tobacco smoke exposure: Yes Alcohol intake: never Substance use: current Substance use type: marijuana Last use: 01/05/24 Do You Feel Safe in your Home?: Yes Lack of Transportation: No Lack of Food: Never True Current Housing: I Have Housing Concerned About Future Housing: No Difficulty Paying Gas/Electric Bills: No Difficulty Paying for Meds: No Currently Unemployed: No Education: Trade/Vocational Certificate Difficulty w/ Childcare or Family Care: No Spiritual care concerns: No Exam Narrative: GENERAL: Well-appearing, well-nourished, and in no acute distress. HEAD: Normocephalic, atraumatic. EYES: PERRLA and EOMI. ENT: Tooth #17 and tooth #18 are fractured. There is no visible or palpable abscess. Nares clear, no rhinorrhea or epistaxis. Mucous membranes moist. Oropharynx without tonsillar hypertrophy exudate or other lesions. Bilateral TMs pearly knott nonbulging NECK: Supple. No adenopathy or masses. No carotid bruits or JVD CHEST: Clear to auscultation. No respiratory distress. No wheezes rales or rhonchi HEART: Regular rate and rhythm. No murmur heard. Normal peripheral pulses. ABDOMEN: Soft, nontender, nondistended, normal active bowel sounds. EXTREMITIES: Normal range of motion. No edema. SKIN: Warm, dry, no rash. NEURO: No focal deficits. Alert and oriented x3. PSYCH: Normal mood and affect. Course Course Emergency Course: This is a 33-year-old male who presented for evaluation of left lower dental pain. He has dental fractures in the affected area without an apparent abscess. Will treat penicillin. NSAIDs have not helped. He is allergic to tramadol. Provided with a prescription for quantity of #12 hydrocodone 5/325mg. Given paper script as I was unable to send electronically. Follow up with dentist. Go to the ER for worsening symptoms. Advised on smoking cessation. Pt in agreement with plan of care. Level of Care: Express Care Visit Vital Signs Vital signs: Vital Signs Temperature 36.6 C 08/05/24 09:58 Pulse Rate 104 H 08/05/24 09:58 Respiratory Rate 16 08/05/24 09:58 Blood Pressure 153/90 H 08/05/24 09:58 Pulse Oximetry 100 08/05/24 09:58 Oxygen Delivery Room Air 08/05/24 09:58 Temperature 36.6 C 08/05/24 09:58 Pulse Rate 104 H 08/05/24 09:58 Respiratory Rate 16 08/05/24 09:58 Blood Pressure 153/90 H 08/05/24 09:58 Pulse Oximetry 100 08/05/24 09:58 Oxygen Delivery Room Air 08/05/24 09:58 Medical Decision Making Vital Signs Vital Signs: Vital Signs Temperature 36.6 C 08/05/24 09:58 Pulse Rate 104 H 08/05/24 09:58 Respiratory Rate 16 08/05/24 09:58 Blood Pressure 153/90 H 08/05/24 09:58 Pulse Oximetry 100 08/05/24 09:58 Oxygen Delivery Room Air 08/05/24 09:58 Temperature 36.6 C 08/05/24 09:58 Pulse Rate 104 H 08/05/24 09:58 Respiratory Rate 16 08/05/24 09:58 Blood Pressure 153/90 H 08/05/24 09:58 Pulse Oximetry 100 08/05/24 09:58 Oxygen Delivery Room Air 08/05/24 09:58 Discharge Plan Discharge Clinical Impression: Fracture of tooth Patient Disposition: Home Condition: Stable Instructions: Antibiotic Form, Toothache (ED) Patient Language: Azeri Prescriptions: New penicillin V potassium 500 mg tablet 500 mg PO Q6H 10 Days Qty: 40 0RF No Action prazosin 2 mg capsule 2 mg PO HS diazepam [Valium] 5 mg tablet 2.5 mg PO BID PRN (Reason: anxiety) naproxen 250 mg tablet 500 mg PO Q6-8H PRN (Reason: mild pain (scale score 1-4)) Follow-up/Referrals: Adriano Diaz MD [Physician] - Time of Disposition: 10:38
== END 2024-08-05 10:42 | disposition home or self-care (01) ==
PROVIDERS: Emergency Provider Nurse Practitioner
DX: S02.5XXA Fracture of tooth (traumatic), initial encounter for closed fracture (principal); X58.XXXA Exposure to other specified factors, initial encounter; F17.210 Nicotine dependence, cigarettes, uncomplicated; J44.9 Chronic obstructive pulmonary disease, unspecified; Z86.73 Personal history of transient ischemic attack (TIA), and cerebral infarction without residual deficits
CPT/HCPCS: 99213; G0463